=== PATIENT | female | born 1935 | race Caucasian/White ===

== ENCOUNTER 2019-09-16 21:14 | Inpatient (IN) | payer MEDICARE, BC ==
[2019-09-16] MEDS ORDERED: SODIUM CHLORIDE 0.9% 1,000 ML IV STA (22:00)
--- NOTE | 2019-09-16 22:03 | ED ---
General Adult HPI - General Chief complaint: Syncope Stated complaint: Syncope Time Seen by Provider: 09/16/19 21:40 Source: patient, family, RN notes reviewed Mode of arrival: EMS Limitations: no limitations - History of Present Illness Initial comments: Patient is a pleasant 84-year-old female presenting to the emergency department after a syncopal versus near syncopal episode. Patient was recently at [facility] and had PEG tube placed. This was secondary to weight loss and not eating. Patient went home today and while transferring an episode of unresponsiveness per the . He states this lasted for a couple of minutes. Patient states she just felt really dizzy and did not actually pass out. Patient feels fine at this point and has no complaints. Patient denies any confusion or isolated area of weakness. No chest pain or dyspnea. - Related Data Allergies Allergy/AdvReac Type Severity Reaction Status Date / Time cortisone Allergy Unknown Verified 09/16/19 21:48 Review of Systems ROS Statement: Those systems with pertinent positive or pertinent negative responses have been documented in the HPI. ROS Other: All systems not noted in ROS Statement are negative. Constitutional: Denies: fever Eyes: Denies: eye pain ENT: Denies: ear pain Respiratory: Denies: cough Cardiovascular: Denies: chest pain Endocrine: Denies: fatigue Gastrointestinal: Denies: abdominal pain, vomiting Genitourinary: Denies: dysuria Musculoskeletal: Denies: back pain Skin: Denies: rash Neurological: Denies: headache, weakness, confusion Past Medical History Past Medical History: Diabetes Mellitus, Osteoarthritis (OA), Rheumatoid Arthritis (RA) Additional Past Medical History / Comment(s): parkinsons History of Any Multi-Drug Resistant Organisms: None Reported Past Surgical History: Appendectomy, Hysterectomy, Orthopedic Surgery Additional Past Surgical History / Comment(s): peg tube, lt knee, bladder suspen champ Past Psychological History: No Psychological Hx Reported Smoking Status: Never smoker Past Alcohol Use History: None Reported Past Drug Use History: None Reported General Exam Limitations: no limitations General appearance: alert, in no apparent distress Head exam: Present: normocephalic Eye exam: Present: normal appearance, PERRL ENT exam: Present: normal oropharynx Neck exam: Present: normal inspection Respiratory exam: Present: normal lung sounds bilaterally Cardiovascular Exam: Present: regular rate, normal rhythm Expanded Peripheral pulses: 2+: Radial (R), Radial (L), Dorsalis Pedis (R), Dorsalis Pedis (L) GI/Abdominal exam: Present: soft, tenderness (Mild diffuse tenderness). Absent: distended Extremities exam: Present: normal inspection, full ROM. Absent: calf tenderness Neurological exam: Present: alert, oriented X3, CN II-XII intact. Absent: motor sensory deficit Expanded Neurological exam: Present: protecting the airway Patient oriented to: Present: person, place, time Speech: Present: fluid speech Motor strength exam: RUE: 5, LUE: 5, RLE: 5, LLE: 5 Psychiatric exam: Present: normal affect, normal mood Skin exam: Present: normal color Course Vital Signs 09/16/19 09/16/19 09/16/19 21:20 22:00 23:00 Temperature 98.4 F Pulse Rate 95 98 88 Respiratory 16 18 16 Rate Blood Pressure 96/44 101/34 118/48 O2 Sat by Pulse 97 100 99 Oximetry EKG Findings - EKG Comments: EKG Findings:: Normal sinus rhythm 93. SD 148. QRS 76. QT 340. QTc 422. Normal axis. Inferior Q waves. No acute ST change. Medical Decision Making - Medical Decision Making Patient reevaluated and resting comfortably in bed. Patient and updated on results. Case was discussed with practitioner Mehran, covering for Dr. Steward, who will admit for hospital call. - Lab Data Result diagrams: 09/16/19 22:05 09/16/19 22:05 Lab Results 09/16/19 09/16/19 09/16/19 Range/Units 22:05 22:05 22:05 WBC 9.9 (3.8-10.6) k/uL RBC 3.48 L (3.80-5.40) m/uL Hgb 9.2 L (11.4-16.0) gm/dL Hct 28.9 L (34.0-46.0) % MCV 83.0 (80.0-100.0) fL MCH 26.3 (25.0-35.0) pg MCHC 31.7 (31.0-37.0) g/dL RDW 15.7 H (11.5-15.5) % Plt Count 339 (150-450) k/uL Neutrophils % 88 % Lymphocytes % 5 % Monocytes % 5 % Eosinophils % 1 % Basophils % 0 % Neutrophils # 8.7 H (1.3-7.7) k/uL Lymphocytes # 0.5 L (1.0-4.8) k/uL Monocytes # 0.5 (0-1.0) k/uL Eosinophils # 0.1 (0-0.7) k/uL Basophils # 0.0 (0-0.2) k/uL Hypochromasia Slight PT 10.3 (9.0-12.0) sec INR 1.0 (<1.2) APTT 24.5 (22.0-30.0) sec Sodium 130 L (137-145) mmol/L Potassium 4.6 (3.5-5.1) mmol/L Chloride 93 L (98-107) mmol/L Carbon Dioxide 30 (22-30) mmol/L Anion Gap 7 mmol/L BUN 24 H (7-17) mg/dL Creatinine 0.89 (0.52-1.04) mg/dL Est GFR (CKD-EPI)AfAm 70 (>60 ml/min/1.73 sqM) Est GFR (CKD-EPI)NonAf 61 (>60 ml/min/1.73 sqM) Glucose 186 H (74-99) mg/dL POC Glucose (mg/dL) (75-99) mg/dL POC Glu Feather Duster Winder ID Calcium 8.7 (8.4-10.2) mg/dL Total Bilirubin 0.6 (0.2-1.3) mg/dL AST 21 (14-36) U/L ALT 13 (9-52) U/L Alkaline Phosphatase 70 (38-126) U/L Troponin I (0.000-0.034) ng/mL Total Protein 6.0 L (6.3-8.2) g/dL Albumin 3.1 L (3.5-5.0) g/dL Urine Color Urine Appearance (Clear) Urine pH (5.0-8.0) Ur Specific [place] (1.001-1.035) Urine Protein (Negative) Urine Glucose (UA) (Negative) Urine Blood (Negative) Urine Nitrite (Negative) Urine Bilirubin (Negative) Urine Urobilinogen (<2.0) mg/dL Ur Leukocyte Esterase (Negative) 09/16/19 09/16/19 09/16/19 Range/Units 22:05 22:10 23:00 WBC (3.8-10.6) k/uL RBC (3.80-5.40) m/uL Hgb (11.4-16.0) gm/dL Hct (34.0-46.0) % MCV (80.0-100.0) fL MCH (25.0-35.0) pg MCHC (31.0-37.0) g/dL RDW (11.5-15.5) % Plt Count (150-450) k/uL Neutrophils % % Lymphocytes % % Monocytes % % Eosinophils % % Basophils % % Neutrophils # (1.3-7.7) k/uL Lymphocytes # (1.0-4.8) k/uL Monocytes # (0-1.0) k/uL Eosinophils # (0-0.7) k/uL Basophils # (0-0.2) k/uL Hypochromasia PT (9.0-12.0) sec INR (<1.2) APTT (22.0-30.0) sec Sodium (137-145) mmol/L Potassium (3.5-5.1) mmol/L Chloride (98-107) mmol/L Carbon Dioxide (22-30) mmol/L Anion Gap mmol/L BUN (7-17) mg/dL Creatinine (0.52-1.04) mg/dL Est GFR (CKD-EPI)AfAm (>60 ml/min/1.73 sqM) Est GFR (CKD-EPI)NonAf (>60 ml/min/1.73 sqM) Glucose (74-99) mg/dL POC Glucose (mg/dL) 180 H (75-99) mg/dL POC Glu Feather Duster Winder ID Tylor Rollins Calcium (8.4-10.2) mg/dL Total Bilirubin (0.2-1.3) mg/dL AST (14-36) U/L ALT (9-52) U/L Alkaline Phosphatase (38-126) U/L Troponin I <0.012 (0.000-0.034) ng/mL Total Protein (6.3-8.2) g/dL Albumin (3.5-5.0) g/dL Urine Color Dark Brown Urine Appearance Clear (Clear) Urine pH 6.0 (5.0-8.0) Ur Specific [place] 1.024 (1.001-1.035) Urine Protein Trace H (Negative) Urine Glucose (UA) Trace H (Negative) Urine Blood Negative (Negative) Urine Nitrite Negative (Negative) Urine Bilirubin Negative (Negative) Urine Urobilinogen 4.0 (<2.0) mg/dL Ur Leukocyte Esterase Negative (Negative) - Radiology Data Radiology results: report reviewed (Computed tomography scan the brain shows atrophy. No acute process), image reviewed (Chest and abdominal x-ray show no acute process) Disposition Clinical Impression: Syncope Disposition: ADMITTED IP TO THIS HOSP Is patient prescribed a controlled substance at d/c from ED?: No Referrals: Tylor Pak DO [Primary Care Provider] - 1-2 days Decision Time: 23:23
[2019-09-16 22:13] LABS: Glucose,Whole Blood 180 mg/dL (75-99)
[2019-09-16 22:25] LABS: Basophils % (A) 0 %; Eosinophils # (A) 0.1 k/uL (0-0.7); Eosinophils % (A) 1 %; HCT 28.9 % (34.0-46.0); HGB 9.2 gm/dL (11.4-16.0); Hypochromasia Slight; Lymphocytes # (A) 0.5 k/uL (1.0-4.8); Lymphocytes % (A) 5 %; MCH 26.3 pg (25.0-35.0); MCHC 31.7 g/dL (31.0-37.0); Mean Platelet Volume 7.7; Monocytes # (A) 0.5 k/uL (0-1.0); Monocytes % (A) 5 %; Neutrophils # (A) 8.7 k/uL (1.3-7.7); Neutrophils % (A) 88 %; Platelet Count 339 k/uL (150-450); RBC 3.48 m/uL (3.80-5.40); RDW 15.7 % (11.5-15.5); WBC 9.9 k/uL (3.8-10.6)
[2019-09-16 22:32] LABS: Partial Thromboplastin Time 24.5 sec (22.0-30.0); Prothrombin Time 10.3 sec (9.0-12.0)
[2019-09-16 22:36] LABS: Albumin 3.1 g/dL (3.5-5.0); Calcium 8.7 mg/dL (8.4-10.2); Potassium 4.6 mmol/L (3.5-5.1); Total Bilirubin 0.6 mg/dL (0.2-1.3)
--- NOTE | 2019-09-16 22:39 | CT ---
EXAMINATION TYPE: CT brain wo con DATE OF EXAM: 09/16/2019 COMPARISON: None HISTORY: Syncope followed by n/v. Pt had peg tube placement yesterday. CT DLP: 1099.4 mGycm Automated exposure control for dose reduction was used. FINDINGS: There is some cerebral cortical atrophy. There is no mass effect nor midline shift. There is no sign of intracranial hemorrhage. Calvarium is intact. IMPRESSION: CEREBRAL ATROPHY. NO ACUTE INTRACRANIAL ABNORMALITY.
--- NOTE | 2019-09-16 22:41 | XR ---
EXAMINATION TYPE: XR chest 2V DATE OF EXAM: 09/16/2019 COMPARISON: NONE HISTORY: Syncope TECHNIQUE: Frontal and lateral views of the chest are obtained. FINDINGS: Heart is normal. Lungs are clear of infiltrate. Thoracic aorta is atheromatous. There is n o pleural effusion. There are chest leads. IMPRESSION: No active cardiopulmonary disease. Normal heart.
--- NOTE | 2019-09-16 22:42 | XR ---
EXAMINATION TYPE: XR abdomen 1V DATE OF EXAM: 09/16/2019 COMPARISON: NONE HISTORY: Abdominal pain TECHNIQUE: 2 views supine FINDINGS: There is contrast in the large bowel. There is no sign of intestinal obstruction or pneumop eritoneum. There is gastrostomy tube noted. There is vertebroplasty of T12 vertebra. IMPRESSION: Nonacute abdomen.
[2019-09-16 23:17] LABS: Appearance,Urine Clear (Clear); Bilirubin,Urine Negative (Negative); Blood,Urine Negative (Negative); Color,Urine Dark Brown; Glucose,Urine (UA) Trace (Negative); Ketones,Urine 2+ (Negative); Leukocyte Esterase,Urine Negative (Negative); Nitrite,Urine Negative (Negative); Protein,Urine Trace (Negative); Specific Gravity,Urine 1.024 (1.001-1.035)
[2019-09-16] MEDS ORDERED: NALOXONE 0.4 MG/ML 1 ML VIAL IV PRN (23:23)
[2019-09-17] MEDS: SODIUM CHLORIDE 0.9% 1,000 ML IV SCH ×3 (03:09→18:16)
[2019-09-17 03:53] LABS: Basophils % (A) 0 %; Eosinophils # (A) 0.1 k/uL (0-0.7); Eosinophils % (A) 1 %; HCT 25.3 % (34.0-46.0); HGB 8.1 gm/dL (11.4-16.0); Hypochromasia Slight; Lymphocytes # (A) 0.9 k/uL (1.0-4.8); Lymphocytes % (A) 10 %; MCH 26.6 pg (25.0-35.0); MCHC 32.1 g/dL (31.0-37.0); MCV 82.9 fL (80.0-100.0); Mean Platelet Volume 7.1; Monocytes # (A) 0.5 k/uL (0-1.0); Monocytes % (A) 6 %; Neutrophils # (A) 7.2 k/uL (1.3-7.7); Neutrophils % (A) 81 %; Platelet Count 303 k/uL (150-450); RBC 3.06 m/uL (3.80-5.40); RDW 15.3 % (11.5-15.5); WBC 8.8 k/uL (3.8-10.6)
[2019-09-17 04:14] LABS: Albumin 2.7 g/dL (3.5-5.0); Calcium 8.2 mg/dL (8.4-10.2); Potassium 4.2 mmol/L (3.5-5.1); Total Bilirubin 0.4 mg/dL (0.2-1.3); Total Protein 5.3 g/dL (6.3-8.2)
[2019-09-17 07:02] LABS: Glucose,Whole Blood 117 mg/dL (75-99)
[2019-09-17 11:51] LABS: Glucose,Whole Blood 116 mg/dL (75-99)
--- NOTE | 2019-09-17 15:28 | P.CRDCN ---
History of Present Illness Consult date: 09/17/19 Reason for Consult (text): Near syncopal episode History of present illness: This is an 84-year-old female with past medical history of diabetes mellitus type 2, hypothyroidism, gastroesophageal reflux disease, osteoarthritis, Parkinson's disease, osteoporosis. History is obtained from the patient's . Patient was recently hospitalized at [facility] for 9 days and discharged home on Thursday of last week. Patient has had significant decline related to her Parkinson's disease since November of this year with more rapid worsening since June of this shear. states that she has had vomiting episodes with weight loss and loss of energy since June. She was ambulating with a shuffled gait until recently and now she cannot stand up. Her voice is very weak and almost a whisper. While she was at [facility], patient had a PEG tube placed due to ongoing weight loss and she was discharged home on Thursday. states that patient was sitting on the commode chair and her eyes rolled back in her head and she was shaking and he thought she was dying. Patient had an emesis along with this which was the concern as she had just received through the PEG tube. He does not think there was any loss of c onsciousness. She has had similar episodes in the past and had a workup at [facility] but was told that there was no finding other than worsening Parkinson's. states that patient came in with abdominal pain and she has not had a bowel movement that he knows of for 3 weeks. EKG reveals sinus rhythm Laboratory studies: WBC 9.9, hemoglobin 9.2, platelet count 339. Sodium 1:30 and repeat this morning 128, potassium 4.2, chloride 96, CO2 30, BUN 24 and creatinine 0.89. Troponin is negative on 3 draws. CAT scan of the brain showed no acute findings with chronic cerebral atrophy. Chest x-ray showed no acute cardiopulmonary disease. Normal heart. Abdominal x-ray showed nonacute abdomen. Social history: Family history: Review Of Systems: Constitutional: No fever, no chills, no night sweats. No weight change. Reports severe and fatigue. EENT: No headache. No nasal drainage or congestion. No epistaxis. No sore throat. Lungs: No shortness of breath, cough, no sputum production. No wheezing. Cardiovascular: No chest pain, no lower extremity edema. No palpitations. No paroxysmal nocturnal dyspnea. No orthopnea. No lightheadedness or dizziness. No syncopal episodes. Abdominal: Reports bdominal pain. Reports vomiting. No diarrhea. Reports onstipation. No bloody or tarry stools. reports oss of appetite. Genitourinary: No dysuria, increased frequency, urgency. No urinary retention. Musculoskeletal: No myalgias. Reports uscle weakness, reports ait dysfunction, no frequent falls. No back pain. No neck pain. Integumentary: No wounds, no lesions. No rash or pruritus. No unusual bruising. No change in hair or nails. Neurologic: No aphasia. No facial droop. Reports change in mentation. No head injury. No headache. No paralysis. No paresthesia. Psychiatric: No depression. No anxiety. No mood swings. Endocrine: No abnormal blood sugars. No weight change. No excessive sweating or thirst. No cold intolerance. No weight change. Gen: This is a thin 84-year-old female. She is resting in bed and appears to be comfortable and in no acute distress. Afebrile, blood pressure 103/62, pulse ox 96% on room air, heart rate 86 HEENT: Head is atraumatic, normocephalic. Pupils round. Sclerae is anicteric. Oral mucous membranes are moist. NECK: Supple. No JVD. No lymphadenopathy. No thyromegaly. LUNGS: Clear to auscultation. No wheezes or rhonchi. No intercostal retractions. HEART: Regular rate and rhythm. No murmur. classroom monitor sinus rhythm. ABDOMEN: Soft. Bowel sounds are present. No masses. Generalized abdominal enderness. PEG tube in place with no significant drainage. EXTREMITIES: No pedal edema. No calf tenderness. NEUROLOGICAL: Patient is awake, alert and oriented x2. Severe generalized weakness Assessment: Near syncopal episode, most likely related to vasovagal episode Parkinson's disease Severe protein calorie malnutrition with muscle wasting, weight loss and vomiting Hypothyroidism Gastroesophageal reflux disease Hyperlipidemia Plan: Obtain records from [facility] of recent hospitalization including echocardiogram If no echocardiogram has been done at [facility], obtain one during this stay Continue Lipitor 20 mg at bedtime Further recommendations to follow based upon clinical course Thank you kindly for this consultation Nurse practitioner note has been reviewed, I agree with documented findings and plan of care. Patient was seen and examined. Past Medical History Past Medical History: Diabetes Mellitus, Eye Disorder, Hearing Disorder / Deafness, Osteoarthritis (OA), Rheumatoid Arthritis (RA), Syncope, Thyroid Disorder Additional Past Medical History / Comment(s): parkinsons, bleeding stomach ulcer when she was 19, stated pt appeared to have convulsions in after her sugar dropped to 34 at home, sugar was brought back up at home, did not go to the hospital. Legally blind in left eye, Hard of Hearing. History of Any Multi-Drug Resistant Organisms: None Reported Past Surgical History: Appendectomy, Bladder Surgery, Hysterectomy, Orthopedic Surgery Additional Past Surgical History / Comment(s): peg tube, right knee, bladder suspension Past Anesthesia/Blood Transfusion Reactions: No Reported Reaction Past Psychological History: No Psychological Hx Reported Smoking Status: Former smoker Past Alcohol Use History: None Reported Past Drug Use History: None Reported Additional Drug Use History / Comment(s): pt smoked "1 or 2" cigarettes a day and quit when she was 19. - Past Family History Mother Family Medical History: No Reported History Father Additional Family Medical History / Comment(s): passed from emphysema Sister(s) Family Medical History: Cancer, Myocardial Infarction ([place]) Additional Family Medical History / Comment(s): one sister passed from brain cancer at 28 years old. two other sisters passed from heart attacks Medications and Allergies Home Medications Medication Instructions Recorded Confirmed Type Carbidopa-Levodopa 25-100 mg 2 tab PEG/G-TUBE Q4H 09/16/19 09/16/19 History [Sinemet 25-100] Cefuroxime [Ceftin] 250 mg PEG/G-TUBE BID 09/16/19 09/16/19 History HYDROcodone/APAP 5-325MG [[place] 1 tab PEG/G-TUBE Q4HR PRN 09/16/19 09/16/19 History 5-325] Insulin Aspart Protam & Aspart 20 unit SQ QAM 09/16/19 09/16/19 History [NovoLOG MIX 70-30 Flexpen] Insulin Aspart Protam & Aspart 25 unit SQ HS 09/16/19 09/16/19 History [NovoLOG MIX 70-30 Flexpen] Levothyroxine Sodium [Synthroid] 50 mcg PEG/G-TUBE DAILY 09/16/19 09/16/19 History Omeprazole [PriLOSEC] 20 mg PEG/G-TUBE BID 09/16/19 09/16/19 History Simvastatin [Zocor] 40 mg PEG/G-TUBE HS 09/16/19 09/16/19 History Allergies Allergy/AdvReac Type Severity Reaction Status Date / Time cortisone Allergy Unknown Verified 09/16/19 23:37 Physical Exam Vitals: Vital Signs Temp Pulse Pulse Resp BP BP Pulse Ox 09/17/19 07:00 98.7 F 86 14 105/65 96 09/17/19 03:47 16 09/17/19 02:45 97.7 F 69 145/71 99 09/17/19 00:26 16 09/17/19 00:25 98.1 F 90 106/65 99 09/16/19 23:00 88 16 118/48 99 09/16/19 22:00 98 18 101/34 100 09/16/19 21:20 98.4 F 95 16 96/44 97 Intake and Output 09/16/19 09/17/19 09/17/19 22:59 06:59 14:59 Output Total 100 Balance -100 Output: Urine 100 Other: Voiding Method Bedside Commode Bedpan # Voids 1 Weight 58.967 kg 58.967 kg Results 09/17/19 03:24 09/17/19 03:24 Cardiac Enzymes 09/16/19 09/16/19 09/17/19 Range/Units 22:05 22:05 03:24 AST 21 (14-36) U/L Troponin I <0.012 <0.012 (0.000-0.034) ng/mL 09/17/19 09/17/19 Range/Units 03:24 09:11 AST 19 (14-36) U/L Troponin I <0.012 (0.000-0.034) ng/mL Coagulation 09/16/19 Range/Units 22:05 PT 10.3 (9.0-12.0) sec APTT 24.5 (22.0-30.0) sec CBC 09/16/19 09/17/19 Range/Units 22:05 03:24 WBC 9.9 8.8 (3.8-10.6) k/uL RBC 3.48 L 3.06 L (3.80-5.40) m/uL Hgb 9.2 L 8.1 L (11.4-16.0) gm/dL Hct 28.9 L 25.3 L (34.0-46.0) % Plt Count 339 303 (150-450) k/uL Comprehensive Metabolic Panel 09/16/19 09/17/19 Range/Units 22:05 03:24 Sodium 130 L 128 L (137-145) mmol/L Potassium 4.6 4.2 (3.5-5.1) mmol/L Chloride 93 L 96 L (98-107) mmol/L Carbon Dioxide 30 30 (22-30) mmol/L BUN 24 H 21 H (7-17) mg/dL Creatinine 0.89 0.75 (0.52-1.04) mg/dL Glucose 186 H 132 H (74-99) mg/dL Calcium 8.7 8.2 L (8.4-10.2) mg/dL AST 21 19 (14-36) U/L ALT 13 10 (9-52) U/L Alkaline Phosphatase 70 61 (38-126) U/L Total Protein 6.0 L 5.3 L (6.3-8.2) g/dL Albumin 3.1 L 2.7 L (3.5-5.0) g/dL Current Medications Generic Name Dose Route Start Last Admin Trade Name Freq PRN Reason Stop Dose Admin Sodium Chloride 1,000 mls @ 110 mls/hr 09/16/19 23:30 09/17/19 09:29 Saline 0.9% IV 110 mls/hr .[id number] LUIS Administration Naloxone HCl 0.2 mg 09/16/19 23:23 Narcan IV Q2M PRN Opioid Reversal Intake and Output 09/16/19 09/17/19 09/17/19 22:59 06:59 14:59 Output Total 100 Balance -100 Output: Urine 100 Other: Voiding Method Bedside Commode Bedpan # Voids 1 Weight 58.967 kg 58.967 kg Patient Weight 09/18/19 06:59 Weight 58.967 kg 09/17/19 03:24 09/17/19 03:24
--- NOTE | 2019-09-17 15:52 | P.HPIM ---
History of Present Illness H&P Date: 09/17/19 Chief Complaint: Near-syncope episode Ms. Srinivasan is an 84-year-old female with a past medical history of Parkinson's disease, rheumatoid arthritis, osteoarthritis, diabetes mellitus brought in by her after he noticed her eyes were rolling and she was unresponsive whil e transferring from her bed to the chair. He states that it lasted for a couple of minutes. As per the history from the patient she said that she felt very dizzy but did not actually pass out. Patient had a PEG tube placed at [facility] in [place] on the and she was discharged home yesterday. Her started her on Glucerna through the PEG tube and after that she threw up and had this episode of questionable syncope so he brought her to the hospital. Patient has Parkinson's disease and for the past 3-4 months has worsening of her symptoms but she is not able to get out of the bed by herself. Over the course of 2-3 months she was having difficulty in swallowing and so a PEG tube was placed. Patient had similar episode in the past and had workup done at [facility] in [place] was told that it was worsening of her Parkinson's disease. Patient denies having any chest pain or difficulty in breathing. No cough. No palpitations. No headache. Denies having any weakness of her extremities. She complains of excessive dryness of her mouth. Patient's last bowel movement was 3 weeks back. She complains of mild diffuse abdominal pain. She denies having any fevers chills or rigors. She denies having any lower extremity swelling. Denies having any sores or ulcers on her back. Patient denies having any dysuria or hematuria. Patient needs help transferring from the bed to a p articular chair and when she sits on the potty she please by herself. But since being admitted to the hospital her urine output is decreased. On the bladder scan she was found to have 4 50 mL of urine that was straight cathed. At the time of admission patient's vitals blood pressure 96 x 44 temperature 98.4 heart rate of 95 respiratory rate of 18 saturating at 97% on room air. She had a CT of the brain showing cerebral atrophy and no acute intracranial abnormality. Chest x-ray no acute cardiopulmonary disease and abdominal x-ray no acute abdomen. Her hemoglobin was low at 8.1 and sodium low at 128. Albumin 2.7. Urine was dark brown in color with negative nitrites and negative for mario kocyte esterase. Review of Systems REVIEW OF SYSTEMS: PSYCH: No anxiety or depression NEURO: Generalized weakness , No facial droop, No speech abnormalities. VASCULAR: No edema HEMATOLOGIC: No history of easy bleeding and bruising . RESPIRATORY: No cough, No SOB, No chest discomfort. IMMUNE: No recent infections INTEGUMENT: no rashes OPHTHALMOLOGIC: No blurry vision and no eye discharge : No dysuria or hematuria MUD PLANT OPERATOR: No bleeding PV CARDIAC: No chest pain , shortness of breath , paroxysmal nocturnal dyspnea MUSCULOSKELETAL : No Aches or pains in the joints or muscles. GI: As per HPI REVIEW of systems are negative except as mentioned above Past Medical History Past Medical History: Diabetes Mellitus, Eye Disorder, Hearing Disorder / Deafness, Osteoarthritis (OA), Rheumatoid Arthritis (RA), Syncope, Thyroid Disorder Additional Past Medical History / Comment(s): parkinsons, bleeding stomach ulcer when she was 19, stated pt appeared to have convulsions in after her sugar dropped to 34 at home, sugar was brought back up at home, did not go to the hospital. Legally blind in left eye, Hard of Hearing. History of Any Multi-Drug Resistant Organisms: None Reported Past Surgical History: Appendectomy, Bladder Surgery, Hysterectomy, Orthopedic Surgery Additional Past Surgical History / Comment(s): peg tube, right knee, bladder suspension Past Anesthesia/Blood Transfusion Reactions: No Reported Reaction Past Psychological History: No Psychological Hx Reported Smoking Status: Former smoker Past Alcohol Use History: None Reported Past Drug Use History: None Reported Additional Drug Use History / Comment(s): pt smoked "1 or 2" cigarettes a day and quit when she was 19. - Past Family History Mother Family Medical History: No Reported History Father Additional Family Medical History / Comment(s): passed from emphysema Sister(s) Family Medical History: Cancer, Myocardial Infarction ([place]) Additional Family Medical History / Comment(s): one sister passed from brain cancer at 28 years old. two other sisters passed from heart attacks Medications and Allergies Home Medications Medication Instructions Recorded Confirmed Type Carbidopa-Levodopa 25-100 mg 2 tab PEG/G-TUBE Q4H 09/16/19 09/16/19 History [Sinemet 25-100] Cefuroxime [Ceftin] 250 mg PEG/G-TUBE BID 09/16/19 09/16/19 History HYDROcodone/APAP 5-325MG [[place] 1 tab PEG/G-TUBE Q4HR PRN 09/16/19 09/16/19 History 5-325] Insulin Aspart Protam & Aspart 20 unit SQ QAM 09/16/19 09/16/19 History [NovoLOG MIX 70-30 Flexpen] Insulin Aspart Protam & Aspart 25 unit SQ HS 09/16/19 09/16/19 History [NovoLOG MIX 70-30 Flexpen] Levothyroxine Sodium [Synthroid] 50 mcg PEG/G-TUBE DAILY 09/16/19 09/16/19 History Omeprazole [PriLOSEC] 20 mg PEG/G-TUBE BID 09/16/19 09/16/19 History Simvastatin [Zocor] 40 mg PEG/G-TUBE HS 09/16/19 09/16/19 History Allergies Allergy/AdvReac Type Severity Reaction Status Date / Time cortisone Allergy Unknown Verified 09/16/19 23:37 Physical Exam Vitals: Vital Signs Temp Pulse Pulse Resp BP BP Pulse Ox 09/17/19 14:06 98.7 F 83 14 103/62 94 L 09/17/19 07:00 98.7 F 86 14 105/65 96 09/17/19 03:47 16 09/17/19 02:45 97.7 F 69 145/71 99 09/17/19 00:26 16 09/17/19 00:25 98.1 F 90 106/65 99 09/16/19 23:00 88 16 118/48 99 09/16/19 22:00 98 18 101/34 100 09/16/19 21:20 98.4 F 95 16 96/44 97 Intake and Output 09/17/19 09/17/19 09/17/19 06:59 14:59 22:59 Output Total 100 Balance -100 Output: Urine 100 Other: Voiding Method Bedside Commode Bedpan # Voids 1 Weight 58.967 kg GEN. APPEARANCE: No acute distress HEAD EXAM: atraumatic, normocephalic, normal inspection EYE EXAM: Mild pallor. No icterus. ENT EXAM: Mucous membrane is dry NECK EXAM: No JVD. No thyromegaly. RESPIRATORY EXAM: normal lung sounds bilaterally. No crackles or wheezes CARDIOVASCULAR EXAM: regular rate, normal rhythm, normal heart sounds. GI/ABDOMINAL EXAM: Diffuse mild tenderness. Normal bowel sounds. No guarding or rigidity. PEG tube site looks clean and dry EXTREMITIES EXAM: Not pedal edema. BACK EXAM: No skin breakdown. NEUROLOGICAL EXAM: alert, oriented X 2-3, no focal deficits PSYCHIATRIC EXAM: normal affect, normal mood SKIN EXAM: warm, dry, intact, normal color. Absent: rash Results CBC & Chem 7: 09/17/19 03:24 09/17/19 03:24 Labs: Abnormal Lab Results - Last 24 Hours (Table) 09/16/19 09/16/19 09/16/19 Range/Units 22:05 22:05 22:10 RBC 3.48 L (3.80-5.40) m/uL Hgb 9.2 L (11.4-16.0) gm/dL Hct 28.9 L (34.0-46.0) % RDW 15.7 H (11.5-15.5) % Neutrophils # 8.7 H (1.3-7.7) k/uL Lymphocytes # 0.5 L (1.0-4.8) k/uL Sodium 130 L (137-145) mmol/L Chloride 93 L (98-107) mmol/L BUN 24 H (7-17) mg/dL Glucose 186 H (74-99) mg/dL POC Glucose (mg/dL) 180 H (75-99) mg/dL Calcium (8.4-10.2) mg/dL Total Protein 6.0 L (6.3-8.2) g/dL Albumin 3.1 L (3.5-5.0) g/dL Urine Protein (Negative) Urine Glucose (UA) (Negative) Urine Ketones (Negative) 09/16/19 09/17/19 09/17/19 Range/Units 23:00 03:24 03:24 RBC 3.06 L (3.80-5.40) m/uL Hgb 8.1 L (11.4-16.0) gm/dL Hct 25.3 L (34.0-46.0) % RDW (11.5-15.5) % Neutrophils # (1.3-7.7) k/uL Lymphocytes # 0.9 L (1.0-4.8) k/uL Sodium 128 L (137-145) mmol/L Chloride 96 L (98-107) mmol/L BUN 21 H (7-17) mg/dL Glucose 132 H (74-99) mg/dL POC Glucose (mg/dL) (75-99) mg/dL Calcium 8.2 L (8.4-10.2) mg/dL Total Protein 5.3 L (6.3-8.2) g/dL Albumin 2.7 L (3.5-5.0) g/dL Urine Protein Trace H (Negative) Urine Glucose (UA) Trace H (Negative) Urine Ketones 2+ H (Negative) 09/17/19 09/17/19 Range/Units 07:01 11:49 RBC (3.80-5.40) m/uL Hgb (11.4-16.0) gm/dL Hct (34.0-46.0) % RDW (11.5-15.5) % Neutrophils # (1.3-7.7) k/uL Lymphocytes # (1.0-4.8) k/uL Sodium (137-145) mmol/L Chloride (98-107) mmol/L BUN (7-17) mg/dL Glucose (74-99) mg/dL POC Glucose (mg/dL) 117 H 116 H (75-99) mg/dL Calcium (8.4-10.2) mg/dL Total Protein (6.3-8.2) g/dL Albumin (3.5-5.0) g/dL Urine Protein (Negative) Urine Glucose (UA) (Negative) Urine Ketones (Negative) Thrombosis Risk Factor Assmnt - Choose All That Apply Each Risk Factor Represents 3 Points: Age 75 years or older Thrombosis Risk Factor Assessment Total Risk Factor Score: 3 Thrombosis Risk Factor Assessment Level: Moderate Risk Assessment and Plan Assessment: ASSESSMENT Near-syncope Hypovolemic Hyponatremia Dehydration Severe Protein calorie malnutrition PEG tube in place for nutrition Hypothyroidism GERD Anemia Parkinson's disease Rheumatoid arthritis Chronic debility Urinary retention Hypertension Type 2 diabetes mellitus PLAN: Patient looks dehydrated and her sodium was low at the time of admission, so she has been started on IV normal saline. Will repeat electrolytes. Will get the reports from Valeria Choi. Patient has been restarted on all her medications that she was discharged on from the other hospital. Will initiate her PEG tube feeds. The treatment plan was discussed in detail with the patient and her at the bedside in detail. Will also obtain neurology consult. Further recommendations to follow depending on the progress of the patient.
[2019-09-17 16:47] LABS: Glucose,Whole Blood 106 mg/dL (75-99)
[2019-09-17 16:49] LABS: African American GFR (CKD) >90 (>60 ml/min/1.73 sqM); Anion Gap 3 mmol/L; Blood Urea Nitrogen 15 mg/dL (7-17); Calcium 8.1 mg/dL (8.4-10.2); Carbon Dioxide 26 mmol/L (22-30); Chloride 103 mmol/L (98-107); Glucose 103 mg/dL (74-99); Non-African American GFR(CKD) 83 (>60 ml/min/1.73 sqM); Potassium 4.1 mmol/L (3.5-5.1); Sodium 132 mmol/L (137-145)
[2019-09-17] MEDS: INSULN ASP PRT/INSULIN ASPART 100 UNIT/ML 10 ML VIAL SQ SCH (16:58)
[2019-09-17] MEDS ORDERED: PANTOPRAZOLE 40 MG TABLET PO SCH (17:30)
[2019-09-17] MEDS: CARBIDOPA-LEVODOPA 25-100 MG 1 EACH TAB PEG/G-TUBE SCH ×2 (18:14→22:09)
[2019-09-17] MEDS: CEFDINIR ORAL SUSP 1,500 MG/60 ML BOTTLE PEG/G-TUBE SCH ×2 (18:15→22:10)
[2019-09-17] MEDS: PANTOPRAZOLE SODIUM 40 MG GRANULE PKT PO SCH (18:15)
[2019-09-17 21:48] LABS: Glucose,Whole Blood 125 mg/dL (75-99)
[2019-09-17] MEDS: ATORVASTATIN 20 MG TAB PEG/G-TUBE SCH (22:09)
[2019-09-17] MEDS: ENOXAPARIN 40 MG/0.4 ML SYRINGE SQ SCH (22:09)
[2019-09-18] MEDS: CARBIDOPA-LEVODOPA 25-100 MG 1 EACH TAB PEG/G-TUBE SCH ×6 (02:09→21:08)
[2019-09-18] MEDS: SODIUM CHLORIDE 0.9% 1,000 ML IV SCH ×2 (02:10→13:02)
[2019-09-18 06:32] LABS: African American GFR (CKD) >90 (>60 ml/min/1.73 sqM); Anion Gap 1 mmol/L; Blood Urea Nitrogen 14 mg/dL (7-17); Calcium 7.9 mg/dL (8.4-10.2); Carbon Dioxide 28 mmol/L (22-30); Chloride 105 mmol/L (98-107); Glucose 161 mg/dL (74-99); Non-African American GFR(CKD) 83 (>60 ml/min/1.73 sqM); Potassium 4.3 mmol/L (3.5-5.1); Sodium 134 mmol/L (137-145)
[2019-09-18] MEDS: LEVOTHYROXINE 50 MCG TAB PEG/G-TUBE SCH (06:39)
[2019-09-18 06:59] LABS: Basophils % (A) 0 %; Eosinophils # (A) 0.2 k/uL (0-0.7); Eosinophils % (A) 3 %; HCT 21.8 % (34.0-46.0); HGB 7.1 gm/dL (11.4-16.0); Hypochromasia Moderate; Lymphocytes % (A) 14 %; MCH 27.4 pg (25.0-35.0); MCHC 32.7 g/dL (31.0-37.0); MCV 83.8 fL (80.0-100.0); Mean Platelet Volume 7.4; Monocytes # (A) 0.5 k/uL (0-1.0); Monocytes % (A) 7 %; Neutrophils # (A) 5.4 k/uL (1.3-7.7); Neutrophils % (A) 75 %; Platelet Count 302 k/uL (150-450); RDW 15.8 % (11.5-15.5); WBC 7.3 k/uL (3.8-10.6)
[2019-09-18 07:08] LABS: Glucose,Whole Blood 200 mg/dL (75-99)
[2019-09-18 07:55] LABS: Polychromasia Present
--- NOTE | 2019-09-18 09:40 | P.PN ---
Subjective Progress Note Date: 09/18/19 This is a 84-year-old female who was admitted to the hospital with what looks like Vasovagal syncope after gastric feeding. Since admission patient hasn't had any recurrence of symptoms. Patient's a gastric feeding is controlled with pump. Complaints of mild discomfort. Denies any chest pain or shortness of breath. No arrhythmias are documented . Still waiting for the workup done at [facility] Objective - Vital Signs Vital signs: Vital Signs Temp 98.8 F 09/18/19 07:00 Pulse 82 09/18/19 07:00 Resp 14 09/18/19 07:00 BP 93/57 09/18/19 07:00 Pulse Ox 94 L 09/18/19 07:00 Intake & Output 09/17/19 09/18/19 09/18/19 18:59 06:59 18:59 Intake Total 45 Output Total 600 Balance -555 Weight 58.967 kg Intake: Tube Feeding 45 Output: Urine 600 Straight 600 Other: Voiding Method Diaper Diaper - Exam GENERAL EXAM: Patient is alert and oriented and doesn't appear to be in any acute distress HEENT: Normocephalic. Normal reaction of pupils, equal size, normal range of extraocular motion. No erythema or exudates in the throat. NECK: No masses, no nuchal rigidity. CHEST: No chest wall deformity. LUNGS: Equal air entry with no crackles or wheeze. HEART: S1 and S2 normal with no audible mumurs or gallops. Regular rhythm, femorals equal on both sides.. ABDOMEN: No hepatosplenomegaly, normal bowel sounds, no guarding or rigidity. SKIN: No rashes CENTRAL NERVOUS SYSTEM: No focal deficits. EXTREMITIES: No cyanosis, clubbing or edema. - Labs CBC & Chem 7: 09/18/19 05:44 09/18/19 05:44 Labs: Abnormal Lab Results - Last 24 Hours (Table) 09/17/19 09/17/19 09/17/19 Range/Units 11:49 16:11 16:46 RBC (3.80-5.40) m/uL Hgb (11.4-16.0) gm/dL Hct (34.0-46.0) % RDW (11.5-15.5) % Sodium 132 L (137-145) mmol/L Glucose 103 H (74-99) mg/dL POC Glucose (mg/dL) 116 H 106 H (75-99) mg/dL Calcium 8.1 L (8.4-10.2) mg/dL 09/17/19 09/18/19 09/18/19 Range/Units 21:47 05:44 05:44 RBC 2.60 L (3.80-5.40) m/uL Hgb 7.1 L (11.4-16.0) gm/dL Hct 21.8 L (34.0-46.0) % RDW 15.8 H (11.5-15.5) % Sodium 134 L (137-145) mmol/L Glucose 161 H (74-99) mg/dL POC Glucose (mg/dL) 125 H (75-99) mg/dL Calcium 7.9 L (8.4-10.2) mg/dL 09/18/19 Range/Units 07:07 RBC (3.80-5.40) m/uL Hgb (11.4-16.0) gm/dL Hct (34.0-46.0) % RDW (11.5-15.5) % Sodium (137-145) mmol/L Glucose (74-99) mg/dL POC Glucose (mg/dL) 200 H (75-99) mg/dL Calcium (8.4-10.2) mg/dL Assessment and Plan (1) Hyponatremia Current Visit: Yes Status: Acute Code(s): E87.1 - HYPO-OSMOLALITY AND HYPONATREMIA SNOMED Code(s): 61808378 (2) Syncope Current Visit: Yes Status: Acute Code(s): R55 - SYNCOPE AND COLLAPSE SNOMED Code(s): 206072240 Plan: No arrhythmias or hypotension noted. Symptoms seem to be related to gastric feeding and probably vasovagal reaction. We'll follow when necessary
[2019-09-18] MEDS: PANTOPRAZOLE SODIUM 40 MG GRANULE PKT PO SCH ×2 (09:45→18:13)
[2019-09-18] MEDS: ENOXAPARIN 40 MG/0.4 ML SYRINGE SQ SCH (09:54)
[2019-09-18] MEDS: INSULN ASP PRT/INSULIN ASPART 100 UNIT/ML 10 ML VIAL SQ SCH ×2 (09:54→18:12)
[2019-09-18] MEDS: CEFDINIR ORAL SUSP 1,500 MG/60 ML BOTTLE PEG/G-TUBE SCH ×2 (09:55→21:13)
[2019-09-18 11:51] LABS: Glucose,Whole Blood 199 mg/dL (75-99)
--- NOTE | 2019-09-18 13:08 | P.CNNES ---
History of Present Illness Consult date: 09/18/19 Reason for Consult: syncope Chief complaint: Syncope History of Present Illness: Ms. Stephanie Srinivasan is an 84-year-old female who was seen in neurologic consultation on 09/18/2019, regarding syncope. The history is primarily obtained from Mr. Srinivasan who is present in the room at the time of the evaluation. He reports that his had an episode of syncope, after she was sitting on the bedside commode. Patient has long history of Parkinson's disease. She has been getting worse and worse over the past several months. Now, is no longer able to walk. Since June, patient has had a tremendous amount of weight loss and had a PEG tube placed for feeding. Patient reportedly felt lightheaded after being transferred from her chair to commode. reports that her eyes were rolled back and she was unresponsive. In reviewing the notes it is reported that the patient does not believe she lost consc iousness. The patient's says that this is her third event like this. Patient is followed by a neurologist in [facility], for her Parkinson's disease. Her dosing of Sinemet was recently increased. 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 Patient's speech, per her is markedly different than what it used to be. Apparently the patient did have a hand tremor initially. When she was able to ambulate, she did have a shuffling gait and at times one of her legs would get stuck while attempting to walk. The patient was reportedly diagnosed with Parkinson's disease in 2003. She had been relatively stable for quite some time, until this year, when her symptoms seemed to rapidly progress. Review of Systems Constitutional: Reports poor appetite, Reports weakness, Reports weight loss Eyes: left decreased vision Ears: bilateral: decreased hearing Gastrointestinal: Reports abdominal pain, Reports dyspepsia, Reports vomiting Musculoskeletal: left: knee pain Neurological: Reports change in speech, Reports gait dysfunction, Reports he aring difficulties, Reports loss of vision, Reports memory loss, Reports weakness Past Medical History Past Medical History: Diabetes Mellitus, Eye Disorder, Hearing Disorder / Deafness, Osteoarthritis (OA), Rheumatoid Arthritis (RA), Syncope, Thyroid Disorder Additional Past Medical History / Comment(s): parkinsons, bleeding stomach ulcer when she was 19, stated pt appeared to have convulsions in after her sugar dropped to 34 at home, sugar was brought back up at home, did not go to the hospital. Legally blind in left eye, Hard of Hearing. History of Any Multi-Drug Resistant Organisms: None Reported Past Surgical History: Appendectomy, Bladder Surgery, Hysterectomy, Orthopedic Surgery Additional Past Surgical History / Comment(s): peg tube, right knee, bladder suspension Past Anesthesia/Blood Transfusion Reactions: No Reported Reaction Past Psychological History: No Psychological Hx Reported Smoking Status: Former smoker Past Alcohol Use History: None Reported Past Drug Use History: None Reported Additional Drug Use History / Comment(s): pt smoked "1 or 2" cigarettes a day and quit when she was 19. - Past Family History Mother Family Medical History: No Reported History Father Additional Family Medical History / Comment(s): passed from emphysema Sister(s) Family Medical History: Cancer, Myocardial Infarction ([place]) Additional Family Medical History / Comment(s): one sister passed from brain cancer at 28 years old. two other sisters passed from heart attacks Medications and Allergies Home Medications Medication Instructions Recorded Confirmed Type Carbidopa-Levodopa 25-100 mg 2 tab PEG/G-TUBE Q4H 09/16/19 09/16/19 History [Sinemet 25-100] Cefuroxime [Ceftin] 250 mg PEG/G-TUBE BID 09/16/19 09/16/19 History HYDROcodone/APAP 5-325MG [[place] 1 tab PEG/G-TUBE Q4HR PRN 09/16/19 09/16/19 History 5-325] Insulin Aspart Protam & Aspart 20 unit SQ QAM 09/16/19 09/16/19 History [NovoLOG MIX 70-30 Flexpen] Insulin Aspart Protam & Aspart 25 unit SQ HS 09/16/19 09/16/19 History [NovoLOG MIX 70-30 Flexpen] Levothyroxine Sodium [Synthroid] 50 mcg PEG/G-TUBE DAILY 09/16/19 09/16/19 History Omeprazole [PriLOSEC] 20 mg PEG/G-TUBE BID 09/16/19 09/16/19 History Simvastatin [Zocor] 40 mg PEG/G-TUBE HS 09/16/19 09/16/19 History Allergies Allergy/AdvReac Type Severity Reaction Status Date / Time cortisone Allergy Unknown Verified 09/16/19 23:37 Physical Examination - Vital Signs Vital Signs: Vital Signs Temp Pulse Resp BP Pulse Ox 09/18/19 07:00 98.8 F 82 14 93/57 94 L 09/18/19 04:00 16 09/18/19 02:22 98.8 F 84 16 92/55 95 09/18/19 02:00 16 09/17/19 19:53 16 09/17/19 19:48 98.4 F 80 16 99/61 94 L 09/17/19 14:06 98.7 F 83 14 103/62 94 L Intake and Output 09/17/19 09/18/19 09/18/19 22:59 06:59 14:59 Intake Total 45 240 Output Total 600 Balance -555 240 Intake: Tube Feeding 45 240 Output: Urine 600 Straight 600 Other: Voiding Method Diaper Diaper Weight 63 kg General: The patient is well-nourished, well-developed and in no acute distress. HEENT: Head is atraumatic, normocephalic. Fundus not visualized. There is no scleral icterus. Mucous membranes are moist. Neck: Supple, without bruits Heart: Regular rate and rhythm Lungs: Diminished breath sounds throughout Extremities: Without edema Neurological examination Mental status: Patient is awake and alert. She is oriented 3. Her speech is hypophonic. She has a normal blink rate. Facial expression is full. Cranial nerves: Pupils are equal, round and reactive to light. Visual field testing reveals a left visual field deficit. Extraocular muscles are intact. There is no nystagmus. Facial sensations intact. There is no facial asymmetry. Hearing is grossly intact. Uvula and palate are midline. Shoulder shrug is symmetric. Tongue protrudes midline. Motor: Strength in the upper extremities is 5/5. Distal lower extremity strength is 4/5. The patient is able to lift her legs off the bed, slightly. Tone is normal in the upper extremities and right lower extremity. Ears increased tone in the left lower extremity. Sensation: Intact to light touch temperature and vibration Coordination: Finger to nose testing and rapid alternating movements are intact. There is no evidence of tremor. There is no bradykinesia. Deep tendon reflexes: 1-2+/4+ throughout Gait: Not assessed Results - Laboratory Findings CBC and BMP: 09/18/19 05:44 09/18/19 05:44 Abnormal Lab Findings: Abnormal Labs 11/09/16/19 09/16/19 22:05 22:05 22:10 RBC 3.48 L Hgb 9.2 L Hct 28.9 L RDW 15.7 H Neutrophils # 8.7 H Lymphocytes # 0.5 L Sodium 130 L Chloride 93 L BUN 24 H Glucose 186 H POC Glucose (mg/dL) 180 H Calcium Total Protein 6.0 L Albumin 3.1 L Urine Protein Urine Glucose (UA) Urine Ketones 09/16/19 09/17/19 09/17/19 23:00 03:24 03:24 RBC 3.06 L Hgb 8.1 L Hct 25.3 L RDW Neutrophils # Lymphocytes # 0.9 L Sodium 128 L Chloride 96 L BUN 21 H Glucose 132 H POC Glucose (mg/dL) Calcium 8.2 L Total Protein 5.3 L Albumin 2.7 L Urine Protein Trace H Urine Glucose (UA) Trace H Urine Ketones 2+ H 09/17/19 09/17/19 09/17/19 07:01 11:49 16:11 RBC Hgb Hct RDW Neutrophils # Lymphocytes # Sodium 132 L Chloride BUN Glucose 103 H POC Glucose (mg/dL) 117 H 116 H Calcium 8.1 L Total Protein Albumin Urine Protein Urine Glucose (UA) Urine Ketones 09/17/19 09/17/19 09/18/19 16:46 21:47 05:44 RBC 2.60 L Hgb 7.1 L Hct 21.8 L RDW 15.8 H Neutrophils # Lymphocytes # Sodium Chloride BUN Glucose POC Glucose (mg/dL) 106 H 125 H Calcium Total Protein Albumin Urine Protein Urine Glucose (UA) Urine Ketones 09/18/19 09/18/19 09/18/19 05:44 07:07 11:49 RBC Hgb Hct RDW Neutrophils # Lymphocytes # Sodium 134 L Chloride BUN Glucose 161 H POC Glucose (mg/dL) 200 H 199 H Calcium 7.9 L Total Protein Albumin Urine Protein Urine Glucose (UA) Urine Ketones Assessment and Plan Assessment: Impressions 1. Syncope likely secondary to autonomic dysfunction related to Parkinson's disease 2. Anemia 3. Aphagia secondary to Parkinson's disease 4. Protein calorie malnutrition Plan: Recommendations 1. Midodrine 5 mg twice daily to support blood pressure 2. Patient and are advised to follow up with her neurologist regarding further care for Parkinson's disease and autonomic dysfunction 3. Consider physical therapy as an outpatient Thank you for allowing me to participate in the care of this patient Time with Patient: Greater than 30
[2019-09-18 16:53] LABS: Glucose,Whole Blood 156 mg/dL (75-99)
--- NOTE | 2019-09-18 17:00 | P.PN ---
Subjective Progress Note Date: 09/18/19 Principal diagnosis: near-syncope, hypovolemic hyponatremia Ms. Srinivasan is an 84-year-old female with a past medical history of Parkinson's disease, rheumatoid arthritis, osteoarthritis, diabetes mellitus brought in by her after he noticed her eyes were rolling and she was unresponsive while transferring from her bed to the chair. He states that it lasted for a couple of minutes. As per the history from the patient she said that she felt very dizzy but did not actually pass out. Patient had a PEG tube placed at [facility] in [place] on the and she was discharged home yesterday. Her started her on Glucerna through the PEG tube and after that she threw up and had this episode of questionable syncope so he brought her to the hospital. Patient has Parkinson's disease and for the past 3-4 months has worsening of her symptoms but she is not able to get out of the bed by herself. Over the course of 2-3 months she was having difficulty in swallowing and so a PEG tube was placed. Patient had similar episode in the past and had workup done at [facility] in [place] was told that it was worsening of her Parkinson's disease. on 09/18/2019 - patient is much more with it today. She states that she feels better than when she came in. Denies having any dizziness. States that her energy levels are better. Patient has been started on her PEG tube feeds with Glucerna. She denies having any fevers chills or rhinitis. No chest pain or palpitations. No cough or difficulty in breathing. No complaints of nausea or vomiting. Active Medications Hydrocodone Bitart/Acetaminophen ([place] 5-325) 1 each PEG/G-TUBE Q4HR PRN PRN Reason: Pain Atorvastatin Calcium (Lipitor) 20 mg PEG/G-TUBE HS [facility] Last Admin: 09/17/19 22:09 Dose: 20 mg Documented by: Carbidopa/Levodopa (Sinemet 25-100) 2 each PEG/G-TUBE Q4H [facility] Last Admin: 09/18/19 13:01 Dose: 2 each Documented by: Cefdinir (Omnicef Oral Susp) 300 mg PEG/G-TUBE BID [facility] Stop: 09/21/19 21:01 Last Admin: 09/18/19 09:55 Dose: 300 mg Documented by: Enoxaparin Sodium (Lovenox) 40 mg SQ DAILY [facility] Last Admin: 09/18/19 09:54 Dose: 40 mg Documented by: Sodium Chloride (Saline 0.9%) 1,000 mls @ 110 mls/hr IV .Q9H6M [facility] Last Admin: 09/18/19 13:02 Dose: 110 mls/hr Documented by: Insulin Aspart (Novolog Mix 70-30 Vial) 20 unit SQ AC-BRKFST [facility] Last Admin: 09/18/19 09:54 Dose: 20 unit Documented by: Insulin Aspart (Novolog Mix 70-30 Vial) 25 unit SQ AC-SUPPER [facility] Last Admin: 09/17/19 16:58 Dose: Not Given Documented by: Insulin Aspart (Novolog) 0 unit SQ Q6HR [facility]; Protocol Levothyroxine Sodium (Synthroid) 50 mcg PEG/G-TUBE 0630 [facility] Last Admin: 09/18/19 06:39 Dose: 50 mcg Documented by: Midodrine (Proamatine) 5 mg PEG/G-TUBE AC-BID [facility] Naloxone HCl (Narcan) 0.2 mg IV Q2M PRN PRN Reason: Opioid Reversal Pantoprazole Sodium (Protonix) 40 mg PO AC-BID [facility] Last Admin: 09/18/19 09:45 Dose: 40 mg Documented by: Objective - Vital Signs Vital signs: Vital Signs Temp 99.2 F 09/18/19 13:27 Pulse 82 09/18/19 13:27 Resp 16 09/18/19 13:27 BP 91/55 09/18/19 13:27 Pulse Ox 96 09/18/19 13:27 Intake & Output 09/17/19 09/18/19 09/18/19 18:59 06:59 18:59 Intake Total 45 420 Output Total 600 Balance -555 420 Weight 58.967 kg 63 kg Intake: Tube Feeding 45 420 Output: Urine 600 Straight 600 Other: Voiding Method Diaper Diaper Diaper - Exam GEN. APPEARANCE: No acute distress HEENT - no pallor. No JVD. RESPIRATORY EXAM: normal lung sounds bilaterally. No crackles or wheezes CARDIOVASCULAR EXAM: regular rate, normal rhythm, normal heart sounds. GI/ABDOMINAL EXAM: Diffuse mild tenderness. Normal bowel sounds. No guarding or rigidity. PEG tube site looks clean and dry NEUROLOGICAL EXAM: alert, oriented X 2-3, no focal deficits - Labs CBC & Chem 7: 09/18/19 05:44 09/18/19 05:44 Labs: Abnormal Lab Results - Last 24 Hours (Table) 09/17/19 09/18/19 09/18/19 Range/Units 21:47 05:44 05:44 RBC 2.60 L (3.80-5.40) m/uL Hgb 7.1 L (11.4-16.0) gm/dL Hct 21.8 L (34.0-46.0) % RDW 15.8 H (11.5-15.5) % Sodium 134 L (137-145) mmol/L Glucose 161 H (74-99) mg/dL POC Glucose (mg/dL) 125 H (75-99) mg/dL Calcium 7.9 L (8.4-10.2) mg/dL 09/18/19 09/18/19 09/18/19 Range/Units 07:07 11:49 16:52 RBC (3.80-5.40) m/uL Hgb (11.4-16.0) gm/dL Hct (34.0-46.0) % RDW (11.5-15.5) % Sodium (137-145) mmol/L Glucose (74-99) mg/dL POC Glucose (mg/dL) 200 H 199 H 156 H (75-99) mg/dL Calcium (8.4-10.2) mg/dL Assessment and Plan Assessment: ASSESSMENT Near-syncope Hypovolemic Hyponatremia Dehydration Severe Protein calorie malnutrition PEG tube in place for nutrition Hypothyroidism GERD Anemia Parkinson's disease Rheumatoid arthritis Chronic debility Urinary retention Hypertension Type 2 diabetes mellitus PLAN: patient's sodium improved to 134. She has been getting her Glucerna through the PEG tube without any issues. She looks much better compared to yesterday.Neurology has evaluated the patient and started her on Midodrine to improve her blood pressure.Cardiology has signed off. Further recommendations to follow depending on the progress of the patient.Anticipate discharge in the next 24 hours.
[2019-09-18] MEDS: INSULIN ASPART (NovoLOG) 100 UNIT/ML VIAL SQ SCH (18:11)
[2019-09-18] MEDS: MIDODRINE 5 MG TAB PEG/G-TUBE SCH (18:13)
[2019-09-18] MEDS: ATORVASTATIN 20 MG TAB PEG/G-TUBE SCH (21:08)
[2019-09-18] MEDS: HYDROcodone/APAP 5-325MG 1 EACH TAB PEG/G-TUBE PRN (21:11)
[2019-09-19] MEDS: SODIUM CHLORIDE 0.9% 1,000 ML IV SCH ×4 (01:09→23:43)
[2019-09-19] MEDS: CARBIDOPA-LEVODOPA 25-100 MG 1 EACH TAB PEG/G-TUBE SCH ×7 (01:15→23:43)
[2019-09-19 01:20] LABS: Glucose,Whole Blood 78 mg/dL (75-99)
[2019-09-19] MEDS: INSULIN ASPART (NovoLOG) 100 UNIT/ML VIAL SQ SCH ×5 (01:25→23:40)
[2019-09-19 02:19] LABS: Glucose,Whole Blood 143 mg/dL (75-99)
[2019-09-19] MEDS: LEVOTHYROXINE 50 MCG TAB PEG/G-TUBE SCH (05:26)
[2019-09-19 05:46] LABS: Glucose,Whole Blood 78 mg/dL (75-99)
[2019-09-19 06:52] LABS: African American GFR (CKD) >90 (>60 ml/min/1.73 sqM); Blood Urea Nitrogen 12 mg/dL (7-17); Calcium 7.7 mg/dL (8.4-10.2); Carbon Dioxide 25 mmol/L (22-30); Glucose 72 mg/dL (74-99); Non-African American GFR(CKD) 82 (>60 ml/min/1.73 sqM); Potassium 4.3 mmol/L (3.5-5.1); Sodium 135 mmol/L (137-145)
[2019-09-19 07:02] LABS: Glucose,Whole Blood 99 mg/dL (75-99)
[2019-09-19 07:04] LABS: Anion Gap 3 mmol/L; Chloride 107 mmol/L (98-107)
--- NOTE | 2019-09-19 07:23 | XR ---
EXAMINATION TYPE: XR chest 1V DATE OF EXAM: 09/19/2019 COMPARISON: 09/16/2019 HISTORY: 84-year-old female with aspiration, syncope TECHNIQUE: Single frontal view of the chest is obtained. FINDINGS: Heart normal size. Mild elongation thoracic aorta. Some stranding atelectasis at the left base. No fr ank airspace disease is seen at this time. Suggestion of a calcified granuloma peripheral right base. Oral contrast material within the colon. IMPRESSION: Chronic-appearing changes, suspect prior granulomatous disease as well. No focal infiltrate seen at t his time.
[2019-09-19] MEDS: MIDODRINE 5 MG TAB PEG/G-TUBE SCH ×2 (09:01→17:15)
[2019-09-19] MEDS: PANTOPRAZOLE SODIUM 40 MG GRANULE PKT PO SCH ×2 (09:01→17:15)
[2019-09-19] MEDS: HYDROcodone/APAP 5-325MG 1 EACH TAB PEG/G-TUBE PRN (09:01)
[2019-09-19] MEDS: CEFDINIR ORAL SUSP 1,500 MG/60 ML BOTTLE PEG/G-TUBE SCH ×2 (09:01→22:16)
[2019-09-19] MEDS: ENOXAPARIN 40 MG/0.4 ML SYRINGE SQ SCH (09:02)
[2019-09-19] MEDS: INSULN ASP PRT/INSULIN ASPART 100 UNIT/ML 10 ML VIAL SQ SCH ×2 (09:02→17:03)
[2019-09-19 09:49] LABS: Hemoglobin A1C 7.4 % (4.0-6.0)
--- NOTE | 2019-09-19 10:45 | CDI ---
Documentation Clarification Form Date: 09/19/2019 10:37:31 AM From: Darshana ConcepcionSmallSOPHIA rosales, CCDS Admit Date: 09/17/2019 2:57:00 PM Patient Name: Stephanie Srinivasan Visit Number: [id number] Discharge Date: ATTENTION: The Clinical Documentation Specialists (CDI) and [facility] Coding Staff appreciate your assistance in clarifying documentation. Please respond to the clarification below the line at the bottom and electronically sign. The CDI & [facility] Coding staff will review the response and follow-up if needed. Please note: Queries are made part of the Legal Health Record. If you have any questions, please contact the author of this message via ITS. Dr. Ami Carbajal: A diagnosis of anemia lacks specificity to accurately reflect your patients severity of condition and clarification is needed. Per the History & Physical & subsequent progress notes, anemia is documented without further specificity. History/Risk Factors: Parkinsons disease, Hypothyroidism, GERD, Rheumatoid arthritis, Hypertension & IDDM II. Clinical indicators: Presented with near syncopal episode. Recently admitted to [facility], was being transferred to home when syncopal episode occurred. Had PEG tube placed at [place] for severe protein calorie malnutrition. Admitted with dehydration, hyponatremia & possible syncope due to Parkinson's disease. Hemoglobin: 9.2 - 8.1 Hematocrit: 28.9 - 25.3 Treatment: IV fluid 100 & 110, Home meds received via PEG tube, Insulin sq In order to capture the severity of condition, please clarify the type of anemia and etiology if known: Chronic blood loss anemia Iron deficiency anemia Hemolytic anemia Drug induced anemia Nutritional anemia Unable to determine Other, please specify Nutritional anemia MTDD
[2019-09-19 11:35] LABS: Glucose,Whole Blood 152 mg/dL (75-99)
--- NOTE | 2019-09-19 15:08 | P.PN ---
Subjective Progress Note Date: 09/19/19 Principal diagnosis: Near-syncope, hypovolemic hyponatremia Ms. Srinivasan is an 84-year-old female with a past medical history of Parkinson's disease, rheumatoid arthritis, osteoarthritis, diabetes mellitus brought in by her after he noticed her eyes were rolling and she was unresponsive while transferring from her bed to the chair. He states that it lasted for a couple of minutes. As per the history from the patient she said that she felt very dizzy but did not actually pass out. Patient had a PEG tube placed at [facility] in [place] on the and she was discharged home yesterday. Her started her on Glucerna through the PEG tube and after that she threw up and had this episode of questionable syncope so he brought her to the hospital. Patient has Parkinson's disease and for the past 3-4 months has worsening of her symptoms but she is not able to get out of the bed by herself. Over the course of 2-3 months she was having difficulty in swallowing and so a PEG tube was placed. Patient had similar episode in the past and had workup done at [facility] in [place] was told that it was worsening of her Parkinson's disease. On 09/19/2019 - as per the nursing staff report patient threw up last night. Since then her PEG tube feeds have been on hold. As the patient is nothing by mouth, she has been getting only the medications through her PEG tube. Patient has some residual so for around 25-30 mL. Patient has dementia, she does not number the episode of vomiting last night. But right now patient denies having any cough or difficulty in breathing. No chest pain or palpitations. She denies having any fevers chills or rigors. Patient's vitals have been stable she does not have fever, her blood pressure has been running low but that is normal for her. Basic metabolic panel from this morning is within normal limits. Active Medications Hydrocodone Bitart/Acetaminophen ([place] 5-325) 1 each PEG/G-TUBE Q4HR PRN PRN Reason: Pain Last Admin: 09/19/19 09:01 Dose: 1 each Documented by: Atorvastatin Calcium (Lipitor) 20 mg PEG/G-TUBE HS [facility] Last Admin: 09/18/19 21:08 Dose: 20 mg Documented by: Carbidopa/Levodopa (Sinemet 25-100) 2 each PEG/G-TUBE Q4H [facility] Last Admin: 09/19/19 12:56 Dose: 2 each Documented by: Cefdinir (Omnicef Oral Susp) 300 mg PEG/G-TUBE BID [facility] Stop: 09/21/19 21:01 Last Admin: 09/19/19 09:01 Dose: 300 mg Documented by: Enoxaparin Sodium (Lovenox) 40 mg SQ DAILY [facility] Last Admin: 09/19/19 09:02 Dose: 40 mg Documented by: Sodium Chloride (Saline 0.9%) 1,000 mls @ 110 mls/hr IV .Q9H6M [facility] Last Admin: 09/19/19 05:26 Dose: 110 mls/hr Documented by: Insulin Aspart (Novolog Mix 70-30 Vial) 20 unit SQ AC-BRKFST [facility] Last Admin: 09/19/19 09:02 Dose: Not Given Documented by: Insulin Aspart (Novolog Mix 70-30 Vial) 25 unit SQ AC-SUPPER [facility] Last Admin: 09/18/19 18:12 Dose: 25 unit Documented by: Insulin Aspart (Novolog) 0 unit SQ Q6HR [facility]; Protocol Last Admin: 09/19/19 12:56 Dose: 1 unit Documented by: Levothyroxine Sodium (Synthroid) 50 mcg PEG/G-TUBE 0630 [facility] Last Admin: 09/19/19 05:26 Dose: Not Given Documented by: Midodrine (Proamatine) 5 mg PEG/G-TUBE AC-BID [facility] Last Admin: 09/19/19 09:01 Dose: 5 mg Documented by: Naloxone HCl (Narcan) 0.2 mg IV Q2M PRN PRN Reason: Opioid Reversal Pantoprazole Sodium (Protonix) 40 mg PO AC-BID [facility] Last Admin: 09/19/19 09:01 Dose: 40 mg Documented by: Objective - Vital Signs Vital signs: Vital Signs Temp 98.2 F 09/19/19 07:00 Pulse 78 09/19/19 08:00 Resp 14 09/19/19 08:00 BP 90/56 09/19/19 07:00 Pulse Ox 95 09/19/19 07:00 Intake & Output 09/18/19 09/19/19 09/19/19 18:59 06:59 18:59 Intake Total 720 300 Output Total 100 Balance 720 300 -100 Weight 63 kg 64 kg Intake: Tube Feeding 720 300 Output: Urine 100 Other: Voiding Method Diaper Diaper Diaper # Voids 1 1 - Exam GEN. APPEARANCE: No acute distress HEENT - no pallor. No JVD. RESPIRATORY EXAM: normal lung sounds bilaterally. No crackles or wheezes CARDIOVASCULAR EXAM: regular rate, normal rhythm, normal heart sounds. GI/ABDOMINAL EXAM: Diffuse mild tenderness. Normal bowel sounds. No guarding or rigidity. PEG tube site looks clean and dry. NEUROLOGICAL EXAM: alert, oriented X 2-3, no focal deficits - Labs CBC & Chem 7: 09/18/19 05:44 09/19/19 05:54 Labs: Abnormal Lab Results - Last 24 Hours (Table) 09/18/19 09/18/19 09/19/19 Range/Units 05:44 16:52 02:16 Sodium (137-145) mmol/L Glucose (74-99) mg/dL POC Glucose (mg/dL) 156 H 143 H (75-99) mg/dL Hemoglobin A1c 7.4 H (4.0-6.0) % Calcium (8.4-10.2) mg/dL 09/19/19 09/19/19 Range/Units 05:54 11:35 Sodium 135 L (137-145) mmol/L Glucose 72 L (74-99) mg/dL POC Glucose (mg/dL) 152 H (75-99) mg/dL Hemoglobin A1c (4.0-6.0) % Calcium 7.7 L (8.4-10.2) mg/dL Assessment and Plan Assessment: ASSESSMENT Near-syncope Hypovolemic Hyponatremia Dehydration Severe Protein calorie malnutrition PEG tube in place for nutrition Hypothyroidism GERD Anemia Parkinson's disease Rheumatoid arthritis Chronic debility Urinary retention Hypertension Type 2 diabetes mellitus PLAN: The patient had a vomiting episode last night, so her PEG tube feedings have been on hold. We will consult surgery for the management of PEG tube. Patient's vitals and labs within normal limits. We'll continue with the current medication regimen.
[2019-09-19] MEDS ORDERED: IOPAMIDOL CONTRAST (ORAL USE) VIAL PO PRN (15:59)
[2019-09-19 16:35] LABS: Glucose,Whole Blood 94 mg/dL (75-99)
[2019-09-19] MEDS: ATORVASTATIN 20 MG TAB PEG/G-TUBE SCH (20:40)
[2019-09-19 23:41] LABS: Glucose,Whole Blood 95 mg/dL (75-99)
[2019-09-20] MEDS: CARBIDOPA-LEVODOPA 25-100 MG 1 EACH TAB PEG/G-TUBE SCH ×6 (03:51→23:20)
[2019-09-20] MEDS: LEVOTHYROXINE 50 MCG TAB PEG/G-TUBE SCH (05:18)
[2019-09-20 05:26] LABS: Glucose,Whole Blood 95 mg/dL (75-99)
[2019-09-20] MEDS: INSULIN ASPART (NovoLOG) 100 UNIT/ML VIAL SQ SCH ×3 (05:28→17:44)
[2019-09-20 07:01] LABS: Anisocytosis Moderate; Basophils % (A) 0 %; Eosinophils # (A) 0.2 k/uL (0-0.7); Eosinophils % (A) 3 %; HCT 23.2 % (34.0-46.0); HGB 7.3 gm/dL (11.4-16.0); Hypochromasia Moderate; Lymphocytes # (A) 0.7 k/uL (1.0-4.8); Lymphocytes % (A) 11 %; MCH 27.5 pg (25.0-35.0); MCHC 31.6 g/dL (31.0-37.0); MCV 86.9 fL (80.0-100.0); Mean Platelet Volume 7.4; Monocytes # (A) 0.5 k/uL (0-1.0); Monocytes % (A) 7 %; Neutrophils # (A) 5.2 k/uL (1.3-7.7); Neutrophils % (A) 78 %; Platelet Count 321 k/uL (150-450); Poikilocytosis Slight; RBC 2.67 m/uL (3.80-5.40); RDW 20.9 % (11.5-15.5); WBC 6.6 k/uL (3.8-10.6)
[2019-09-20 07:15] LABS: African American GFR (CKD) >90 (>60 ml/min/1.73 sqM); Anion Gap 4 mmol/L; Blood Urea Nitrogen 7 mg/dL (7-17); Calcium 7.6 mg/dL (8.4-10.2); Carbon Dioxide 24 mmol/L (22-30); Chloride 109 mmol/L (98-107); Glucose 90 mg/dL (74-99); Non-African American GFR(CKD) 84 (>60 ml/min/1.73 sqM); Potassium 4.3 mmol/L (3.5-5.1); Sodium 137 mmol/L (137-145)
[2019-09-20 07:55] LABS: Glucose,Whole Blood 96 mg/dL (75-99)
[2019-09-20] MEDS: INSULN ASP PRT/INSULIN ASPART 100 UNIT/ML 10 ML VIAL SQ SCH ×2 (10:12→17:44)
[2019-09-20] MEDS: CEFDINIR ORAL SUSP 1,500 MG/60 ML BOTTLE PEG/G-TUBE SCH (10:14)
[2019-09-20] MEDS: PANTOPRAZOLE SODIUM 40 MG GRANULE PKT PO SCH ×2 (10:15→17:55)
[2019-09-20] MEDS: ENOXAPARIN 40 MG/0.4 ML SYRINGE SQ SCH (10:15)
[2019-09-20] MEDS: MIDODRINE 5 MG TAB PEG/G-TUBE SCH ×2 (10:15→17:54)
[2019-09-20] MEDS ORDERED: PEG 3350-NA SULF,BICARB,CL/KCL 4,000 ML BOTTLE PO ONE (11:15)
[2019-09-20] MEDS ORDERED: ACETAMINOPHEN TAB 325 MG TAB PO PRN (11:29)
[2019-09-20 11:41] LABS: Glucose,Whole Blood 115 mg/dL (75-99)
[2019-09-20] MEDS: SODIUM CHLORIDE 0.9% 1,000 ML IV SCH ×2 (12:41→20:23)
--- NOTE | 2019-09-20 15:08 | P.GSCN ---
History of Present Illness Consult date: 09/20/19 Reason for Consult: PEG tube pain, increased residuals Requesting physician: Evette Avalos History of present illness: CHIEF COMPLAINT: PEG tube pain HISTORY OF PRESENT ILLNESS: 84-year-old female who was originally admitted to the hospital secondary to syncope. General surgery was consulted to evaluate patient's PEG tube site as she has been complaining of increased pain at the peg tube site.According to nursing, the patient was not had residuals over 100cc, but she had a large emesis and her tube feedings were discontinued. Patients is at the bedside and gives majority of HPI. The patient was hospitalized at [facility] earlier this month. Patient's reports the patient has lost almost 30 pounds over the past few months and was having difficulty eating. The patient underwent an EGD on 07/05/2019 that revealed mild erythema of the antrum, body, biopsy for H pylori was negative, diminished gastric contractility, esophageal hiatal hernia. Patient underwent CT abdomen and pelvis on 09/07/2019 with oral contrast and was negative for an acute process according to radiology dictation. Patient also underwent a gastric emptying study on 08/30/2019 which is reported as normal. The patient underwent PEG tube placement on 09/13/[address] Car Hahn. Patients reported she was tolerating tube feedings at discharge. PAST MEDICAL HISTORY: See list. PAST SURGICAL HISTORY: See list. SOCIAL HISTORY: No illicit drug use. REVIEW OF SYSTEMS: CONSTITUTIONAL: Denies fever or chills. HEENT: Denies blurred vision, vision changes, or eye pain. Denies hemoptysis CARDIOVASCULAR: Denies chest pain or pressure. RESPIRATORY: No shortness of breath. GASTROINTESTINAL: Refer to HPI for pertinent findings HEMATOLOGIC: Denies bleeding disorders. GENITOURINARY: Denies any blood in urine. SKIN: Denies pruitis. Denies rash. PHYSICAL EXAM: VITAL SIGNS: Reviewed. GENERAL: Well-developed in no acute distress. HEENT: No sclera icterus. Extraocular movements grossly intact. Moist buccal mucosa. Head is atraumatic, normocephalic. ABDOMEN: Soft. Nondistended. PEG tube intact without redness or drainage. Mild tenderness with palpation around PEG site. NEUROLOGIC: Alert and oriented. Cranial nerves II through XII grossly intact. LABORATORY DATA: Most recent laboratory data reveals WBC 6.6. Hemoglobin 7.3. Platelet count 321. Potassium 4.3. BUN 7. Creatinine 0.62. ASSESSMENT: 1. Abdominal pain with isolated episode of vomiting 2. Recent PEG tube placement, 09/13/19 3. History of EGD on 07/05/2019 that revealed mild erythema of the antrum, body, biopsy for H pylori was negative, diminished gastric contractility, esophageal hiatal hernia PLAN: -CT abdomen pelvis with ordered yesterday with oral contrast. Unable to be completed due to patients colon is full of barium and causing streaking of the images from patients previous CT scan completed 09/07/19 at [facility] -Patient to receive 2L GoLYTELY bowel cleanse today to flush out CT barium. Do not resume tube feedings at this time. Will re-evaluate tomorrow and pending bowel cleanse results, can hopefully resume tomorrow Nurse practitioner note has been reviewed by physician. Signing provider agrees with the documented findings, assessment, and plan of care. Past Medical History Past Medical History: Diabetes Mellitus, Eye Disorder, Hearing Disorder / Deafness, Osteoarthritis (OA), Rheumatoid Arthritis (RA), Syncope, Thyroid Disorder Additional Past Medical History / Comment(s): parkinsons, bleeding stomach ulcer when she was 19, stated pt appeared to have convulsions in after her sugar dropped to 34 at home, sugar was brought back up at home, did not go to the hospital. Legally blind in left eye, Hard of Hearing. History of Any Multi-Drug Resistant Organisms: None Reported Past Surgical History: Appendectomy, Bladder Surgery, Hysterectomy, Orthopedic Surgery Additional Past Surgical History / Comment(s): peg tube, right knee, bladder suspension Past Anesthesia/Blood Transfusion Reactions: No Reported Reaction Past Psychological History: No Psychological Hx Reported Smoking Status: Former smoker Past Alcohol Use History: None Reported Past Drug Use History: None Reported Additional Drug Use History / Comment(s): pt smoked "1 or 2" cigarettes a day and quit when she was 19. - Past Family History Mother Family Medical History: No Reported History Father Additional Family Medical History / Comment(s): passed from emphysema Sister(s) Family Medical History: Cancer, Myocardial Infarction ([place]) Additional Family Medical History / Comment(s): one sister passed from brain cancer at 28 years old. two other sisters passed from heart attacks Medications and Allergies Home Medications Medication Instructions Recorded Confirmed Type Carbidopa-Levodopa 25-100 mg 2 tab PEG/G-TUBE Q4H 09/16/19 09/16/19 History [Sinemet 25-100] Cefuroxime [Ceftin] 250 mg PEG/G-TUBE BID 09/16/19 09/16/19 History HYDROcodone/APAP 5-325MG [[place] 1 tab PEG/G-TUBE Q4HR PRN 09/16/19 09/16/19 History 5-325] Insulin Aspart Protam & Aspart 20 unit SQ QAM 09/16/19 09/16/19 History [NovoLOG MIX 70-30 Flexpen] Insulin Aspart Protam & Aspart 25 unit SQ HS 09/16/19 09/16/19 History [NovoLOG MIX 70-30 Flexpen] Levothyroxine Sodium [Synthroid] 50 mcg PEG/G-TUBE DAILY 09/16/19 09/16/19 History Omeprazole [PriLOSEC] 20 mg PEG/G-TUBE BID 09/16/19 09/16/19 History Simvastatin [Zocor] 40 mg PEG/G-TUBE HS 09/16/19 09/16/19 History Allergies Allergy/AdvReac Type Severity Reaction Status Date / Time cortisone Allergy Unknown Verified 09/16/19 23:37 Surgical - Exam Vital Signs Temp Pulse Resp BP Pulse Ox 98.4 F 95 16 96/44 97 09/16/19 21:20 09/16/19 21:20 09/16/19 21:20 09/16/19 21:20 09/16/19 21:20 Results - Labs 09/20/19 06:16 09/20/19 06:16 Abnormal Lab Results - Last 24 Hours (Table) 09/20/19 09/20/19 09/20/19 Range/Units 06:16 06:16 11:37 RBC 2.67 L (3.80-5.40) m/uL Hgb 7.3 L (11.4-16.0) gm/dL Hct 23.2 L (34.0-46.0) % RDW 20.9 H (11.5-15.5) % Lymphocytes # 0.7 L (1.0-4.8) k/uL Chloride 109 H (98-107) mmol/L POC Glucose (mg/dL) 115 H (75-99) mg/dL Calcium 7.6 L (8.4-10.2) mg/dL Diabetes panel 09/20/19 Range/Units 06:16 Sodium 137 (137-145) mmol/L Potassium 4.3 (3.5-5.1) mmol/L Chloride 109 H (98-107) mmol/L Carbon Dioxide 24 (22-30) mmol/L BUN 7 (7-17) mg/dL Creatinine 0.62 (0.52-1.04) mg/dL Glucose 90 (74-99) mg/dL Calcium 7.6 L (8.4-10.2) mg/dL Calcium panel 09/20/19 Range/Units 06:16 Calcium 7.6 L (8.4-10.2) mg/dL Pituitary panel 09/20/19 Range/Units 06:16 Sodium 137 (137-145) mmol/L Potassium 4.3 (3.5-5.1) mmol/L Chloride 109 H (98-107) mmol/L Carbon Dioxide 24 (22-30) mmol/L BUN 7 (7-17) mg/dL Creatinine 0.62 (0.52-1.04) mg/dL Glucose 90 (74-99) mg/dL Calcium 7.6 L (8.4-10.2) mg/dL Adrenal panel 09/20/19 Range/Units 06:16 Sodium 137 (137-145) mmol/L Potassium 4.3 (3.5-5.1) mmol/L Chloride 109 H (98-107) mmol/L Carbon Dioxide 24 (22-30) mmol/L BUN 7 (7-17) mg/dL Creatinine 0.62 (0.52-1.04) mg/dL Glucose 90 (74-99) mg/dL Calcium 7.6 L (8.4-10.2) mg/dL
--- NOTE | 2019-09-20 15:17 | P.PN ---
Subjective 84-year-old female with a past medical history of Parkinson's disease, rheumatoid arthritis, osteoarthritis, diabetes mellitus brought in by her hus band after he noticed her eyes were rolling and she was unresponsive while transferring from her bed to the chair. He states that it lasted for a couple of minutes. As per the history from the patient she said that she felt very dizzy but did not actually pass out. Patient had a PEG tube placed at [facility] in [place] on the and she was discharged home yesterday. Her started her on Glucerna through the PEG tube and after that she threw up and had this episode of questionable syncope so he brought her to the hospital. Patient has Parkinson's disease and for the past 3-4 months has worsening of her symptoms but she is not able to get out of the bed by herself. Over the course of 2-3 months she was having difficulty in swallowing and so a PEG tube was placed. Patient had similar episode in the past and had workup done at [facility] in [place] was told that it was worsening of her Parkinson's disease. on 09/18/2019 - patient is much more with it today. She states that she feels better than when she came in. Denies having any dizziness. States that her energy levels are better. Patient has been started on her PEG tube feeds with Glucerna. She denies having any fevers chills or rhinitis. No chest pain or palpitations. No cough or difficulty in breathing. No complaints of nausea or vomiting. 09/20/2019 Patient's tube feedings are on hold and the surgery is planning on giving GoLYTELY before starting back on 2 feedings. Patient had a bowel movement yesterday. norco Will be discontinued and patient will be started on once Tylenol for pain. Patient is on Ceftin I don't see a reason for these antibiotics apparently patient has been on these antibiotics since early September. Constitutional: Denied any fatigue denied any fever. Cardio vascular: denied any chest pain, palpitations Gastrointestinal denied any nausea vomiting Pulmonary: Denied any shortness of breath cough Neurologic denied any new focal deficits All inpatient medications were reviewed and appropriate changes in these medications as dictated in the interval history and assessment and plan. Objective - Vital Signs Vital signs: Vital Signs Temp 98.2 F 09/20/19 14:31 Pulse 75 09/20/19 14:31 Resp 16 09/20/19 14:31 BP 98/60 09/20/19 14:31 Pulse Ox 97 09/20/19 14:31 Intake & Output 09/19/19 09/20/19 09/20/19 18:59 06:59 18:59 Output Total 100 Balance -100 Weight 64 kg 64 kg Output: Urine 100 Other: Voiding Method Diaper Diaper Diaper # Voids 1 2 # Bowel Movements 1 - Exam PHYSICAL EXAMINATION: GENERAL: The patient is alert and oriented x3, not in any acute distress. Well developed, well nourished. HEENT: Pupils are round and equally reacting to light. EOMI. No scleral icterus. No conjunctival pallor. Normocephalic, atraumatic. No pharyngeal erythema. No thyromegaly. CARDIOVASCULAR: S1 and S2 present. No murmurs, rubs, or gallops. PULMONARY: Chest is clear to auscultation, no wheezing or crackles. ABDOMEN: The tube in place patient does have good bowel sounds PEG tube site area doesn't appear to be infected MUSCULOSKELETAL: No joint swelling or deformity. EXTREMITIES: No cyanosis, clubbing, or pedal edema. NEUROLOGICAL: Gross neurological examination did not reveal any focal deficits. SKIN: No rashes. - Labs CBC & Chem 7: 09/20/19 06:16 09/20/19 06:16 Labs: Abnormal Lab Results - Last 24 Hours (Table) 09/20/19 09/20/19 09/20/19 Range/Units 06:16 06:16 11:37 RBC 2.67 L (3.80-5.40) m/uL Hgb 7.3 L (11.4-16.0) gm/dL Hct 23.2 L (34.0-46.0) % RDW 20.9 H (11.5-15.5) % Lymphocytes # 0.7 L (1.0-4.8) k/uL Chloride 109 H (98-107) mmol/L POC Glucose (mg/dL) 115 H (75-99) mg/dL Calcium 7.6 L (8.4-10.2) mg/dL Assessment and Plan Plan: Near-syncope: Secondary to hypovolemia, continue with IV fluids at 50 ML/H Hypovolemic Hyponatremia: Improved with IV fluid hydration Dehydration improved Severe Protein calorie malnutrition PEG tube in place for nutrition, was not tolerating tube feedings GoLYTELY today and resumption of tube feedings after that is probably related to constipation because of which I'm discontinued [place] Hypothyroidism GERD Anemia Parkinson's disease Rheumatoid arthritis Chronic debility Urinary retention, resolved at this time may be related to constipation Hypertension Type 2 diabetes mellitus
[2019-09-20 17:36] LABS: Glucose,Whole Blood 110 mg/dL (75-99)
[2019-09-20] MEDS: ATORVASTATIN 20 MG TAB PEG/G-TUBE SCH (20:23)
[2019-09-21 01:08] LABS: Glucose,Whole Blood 99 mg/dL (75-99)
[2019-09-21] MEDS: INSULIN ASPART (NovoLOG) 100 UNIT/ML VIAL SQ SCH ×5 (01:09→23:45)
[2019-09-21] MEDS: CARBIDOPA-LEVODOPA 25-100 MG 1 EACH TAB PEG/G-TUBE SCH ×6 (03:53→23:51)
[2019-09-21 05:23] LABS: Glucose,Whole Blood 99 mg/dL (75-99)
[2019-09-21] MEDS: LEVOTHYROXINE 50 MCG TAB PEG/G-TUBE SCH (05:30)
[2019-09-21] MEDS: INSULN ASP PRT/INSULIN ASPART 100 UNIT/ML 10 ML VIAL SQ SCH ×2 (07:17→18:23)
[2019-09-21] MEDS: ENOXAPARIN 40 MG/0.4 ML SYRINGE SQ SCH (08:18)
[2019-09-21] MEDS: MIDODRINE 5 MG TAB PEG/G-TUBE SCH ×2 (08:18→18:22)
[2019-09-21] MEDS: PANTOPRAZOLE SODIUM 40 MG GRANULE PKT PO SCH ×2 (08:19→18:22)
[2019-09-21] MEDS ORDERED: ONDANSETRON 4 MG/2 ML VIAL IVP PRN (10:07)
--- NOTE | 2019-09-21 10:57 | P.PN ---
Subjective Progress Note Date: 09/21/19 CHIEF COMPLAINT: PEG tube pain HISTORY OF PRESENT ILLNESS: Patient examined at the bedside with Dr. Campbell. Patients present. Patient completed 2L GoLYTELY yesterday. She's been having liquid bowel movements. She continues to report abdominal pain which is tender to palpation. Nursing reports an episode of yellow bilious emesis this morning. 2 feedings remain on hold. PHYSICAL EXAM: VITAL SIGNS: Reviewed. GENERAL: Well-developed in no acute distress. HEENT: No sclera icterus. Extraocular movements grossly intact. Moist buccal mucosa. Head is atraumatic, normocephalic. ABDOMEN: Soft. Nondistended. PEG tube intact without redness or drainage. Tenderness with palpation around PEG site. NEUROLOGIC: Alert and oriented. Cranial nerves II through XII grossly intact. ASSESSMENT: 1. Abdominal pain with isolated episode of vomiting 2. Recent PEG tube placement, 09/13/19 3. History of EGD on 07/05/2019 that revealed mild erythema of the antrum, body, biopsy for H pylori was negative, diminished gastric contractility, esophageal hiatal hernia PLAN: Will obtain abdominal xray to evaluate status of barium from previous CT scan Continue to hold tube feedings due to abdominal pain and emesis Further recommendations pending xray results Nurse practitioner note has been reviewed by physician. Signing provider agrees with the documented findings, assessment, and plan of care. Objective - Vital Signs Vital signs: Vital Signs Temp 98.6 F 09/21/19 06:58 Pulse 82 09/21/19 06:58 Resp 16 09/21/19 06:58 BP 108/63 09/21/19 06:58 Pulse Ox 98 09/21/19 06:58 Intake & Output 09/20/19 09/21/19 09/21/19 18:59 06:59 18:59 Weight 64 kg Other: Voiding Method Bedside Commode Bedside Commode Diaper Diaper Incontinent Incontinent # Voids 1 # Bowel Movements 2 - Labs CBC & Chem 7: 09/20/19 06:16 09/20/19 06:16 Labs: Abnormal Lab Results - Last 24 Hours (Table) 09/20/19 09/20/19 Range/Units 11:37 17:35 POC Glucose (mg/dL) 115 H 110 H (75-99) mg/dL
--- NOTE | 2019-09-21 11:16 | XR ---
EXAMINATION TYPE: XR abdomen 1V DATE OF EXAM: 09/21/2019 11:10 AM CLINICAL HISTORY: Nausea and vomiting since June. Enteric tube placement on September 15 TECHNIQUE: Single supine KUB image of the abdomen is obtained. COMPARISON: None. FINDINGS: Oral contrast is seen throughout the colon. Correlate with recent administration. No dilate d large or small bowel. Percutaneous enteric gastric tube is seen. Supine imaging limits evaluation f or pneumoperitoneum however no gross evidence of pneumoperitoneum. Diffuse osseous demineralization i s noted with compression deformity that is surgically fixated of T12 and possible compression deformi ties of the upper lumbar spine. IMPRESSION: 1. Nonobstructive bowel gas pattern. 2. Placement of the percutaneous enteric gastric tube. 3. Vertebroplasty of T12 and possible lumbar compression deformities.
[2019-09-21 11:50] LABS: Glucose,Whole Blood 108 mg/dL (75-99)
[2019-09-21] MEDS ORDERED: PEG 3350-NA SULF,BICARB,CL/KCL 4,000 ML BOTTLE PO ONE (12:00)
--- NOTE | 2019-09-21 12:13 | CDI ---
Documentation Clarification Form Date: 09/21/2019 12:04:32 PM From: Darshana ConcepcionSmallSOPHIA rosales, CCDS Admit Date: 09/17/2019 2:57:00 PM Patient Name: Stephanie Srinivasan Visit Number: [id number] Discharge Date: ATTENTION: The Clinical Documentation Specialists (CDI) and [facility] Coding Staff appreciate your assistance in clarifying documentation. Please respond to the clarification below the line at the bottom and electronically sign. The CDI & [facility] Coding staff will review the response and follow-up if needed. Please note: Queries are made part of the Legal Health Record. If you have any questions, please contact the author of this message via ITS. Dr. Alia Gama: Per the 09/20 attending progress note: "PEG tube in place for nutrition, was not tolerating tube feedings GoLYTELY today and resumption of tube feedings after that is probably related to constipation because of which I'm discontinued [place]." A relationship between diagnoses cannot be assumed unless documented as such by the attending physician. In order to capture the severity of condition; please document the relationship, if any, between these diagnoses. History/Risk Factors: Diabetes Mellitus, Osteoarthritis, Rheumatoid arthritis, Parkinson's, history of bleeding ulcer at age 19, legally blind in left eye & hard of hearing. Former smoker. Clinical Indicators: Presented after a near syncopal episode. Diagnosed with hypovolemic hyponatremia, dehydration & severe protein calorie malnutrition, has PEG tube for nutrition, placed on 09/15. Treatment: IV fluid 100, Home meds via PEG, IV Zofran. Please clarify and document your clinical opinion in the progress notes and discharge summary if any relationship (due to, caused by, secondary to) exists between these two diagnoses. Please include clinical findings supporting your diagnosis. Constipation due to [place] Constipation due to other cause, please specify: Other explanation of clinical findings (please specify) Unable to determine (no explanation for clinical findings) (Last Revision: August 2017) Constipation due to Patrick SANTILLAN
--- NOTE | 2019-09-21 13:41 | P.PN ---
Subjective Progress Note Date: 09/21/19 Principal diagnosis: 84-year-old female with a past medical history of Parkinson's disease, rheumatoid arthritis, osteoarthritis, diabetes mellitus brought in by her after he noticed her eyes were rolling and she was unresponsive while transferring from her bed to the chair. He states that it lasted for a couple of minutes. As per the history from the patient she said that she felt very dizzy but did not actually pass out. Patient had a PEG tube placed at [facility] in [place] on the and she was discharged home yesterday. Her started her on Glucerna through the PEG tube and after that she threw up and had this episode of questionable syncope so he brought her to the hospital. Patient has Parkinson's disease and for the past 3-4 months has worsening of her symptoms but she is not able to get out of the bed by herself. Over the course of 2-3 months she was having difficulty in swallowing and so a PEG tube was placed. Patient had similar episode in the past and had workup done at [facility] in [place] was told that it was worsening of her Parkinson's disease. on 09/18/2019 - patient is much more with it today. She states that she feels better than when she came in. Denies having any dizziness. States that her energy levels are better. Patient has been started on her PEG tube feeds with Glucerna. She denies having any fevers chills or rhinitis. No chest pain or palpitations. No cough or difficulty in breathing. No complaints of nausea or vomiting. 09/20/2019 Patient's tube feedings are on hold and the surgery is planning on giving GoLYTELY before starting back on 2 feedings. Patient had a bowel movement yesterday. norco Will be discontinued and patient will be started on once Tylenol for pain. Patient is on Ceftin I don't see a reason for these antibiotics apparently patient has been on these antibiotics since early No vember. Constitutional: Denied any fatigue denied any fever. Cardio vascular: denied any chest pain, palpitations Gastrointestinal denied any nausea vomiting Pulmonary: Denied any shortness of breath cough Neurologic denied any new focal deficits All inpatient medications were reviewed and appropriate changes in these medications as dictated in the interval history and assessment and plan. 09/21/2019 Patient is lying in bed in no acute distress with at the bedside. Per nursing staff patient had an episode of vomiting again this morning approximately one hour after giving meds through the PEG tube. Patient continues to have abdominal tenderness and discomfort with palpation. Surgery is following. Yesterday patient was given GoLYTELY as the CAT scan that was ordered yesterday was incomplete and showed residual barium noted in the colon from previous imaging done on September 07 at [facility]. Tube feedings are on hold at this time. Patient underwent an abdominal x-ray today showing a nonobstructive bowel gas pattern, gastric tube noted, and vertebroplasty at T12 and possible lumbar compression deformities. Patient is having bowel movements. Currently patient denies any chest pain, shortness of breath, or palpitations. Patient has been afebrile. As mentioned previously patient is having periods of nausea and vomiting with abdominal pain and tenderness. Objective - Vital Signs Vital signs: Vital Signs Temp 98.6 F 09/21/19 06:58 Pulse 82 09/21/19 06:58 Resp 16 09/21/19 06:58 BP 108/63 09/21/19 06:58 Pulse Ox 98 09/21/19 06:58 Intake & Output 09/20/19 09/21/19 09/21/19 18:59 06:59 18:59 Weight 64 kg Other: Voiding Method Bedside Commode Bedside Commode Diaper Diaper Incontinent Incontinent # Voids 1 # Bowel Movements 2 - Exam GENERAL: The patient is alert and oriented x3, not in any acute distress. Well developed, well nourished. HEENT: Pupils are round and equally reacting to light. EOMI. No scleral icterus. No conjunctival pallor. Normocephalic, atraumatic. No pharyngeal erythema. No thyromegaly. CARDIOVASCULAR: S1 and S2 present. No murmurs, rubs, or gallops. PULMONARY: Chest is clear to auscultation, no wheezing or crackles. ABDOMEN: The feeding tube is in place, patient does have good bowel sounds PEG tube site area doesn't appear to be infected, tenderness noted upon palpation MUSCULOSKELETAL: No joint swelling or deformity. EXTREMITIES: No cyanosis, clubbing, or pedal edema. NEUROLOGICAL: Gross neurological examination did not reveal any focal deficits. SKIN: No rashes. - Labs CBC & Chem 7: 09/20/19 06:16 09/20/19 06:16 Labs: Abnormal Lab Results - Last 24 Hours (Table) 09/20/19 Range/Units 17:35 POC Glucose (mg/dL) 110 H (75-99) mg/dL Assessment and Plan Assessment: Near-syncope: Secondary to hypovolemia, continue with IV fluids at 50 ML/H Hypovolemic Hyponatremia: Improved with IV fluid hydration Dehydration improved Severe Protein calorie malnutrition PEG tube in place for nutrition, was not tolerating tube feedings. Tube feedings are on hold. GoLYTELY prep was done yesterday and patient is having bowel movements. Constipation, possibly due to narcotic use. [place] will be discontinued at this time and patient will be given Tylenol for pain Hypothyroidism GERD Anemia Parkinson's disease Rheumatoid arthritis Chronic debility Urinary retention, resolved at this time, may be related to constipation Hypertension Type 2 diabetes mellitus Recommend patient and discussion: Recommend to continue current medications, management, and symptomatic treatment. Will continue to monitor closely. Patient continues to have some nausea and vomiting and Zofran was given. Tube feedings are currently on hold. Surgery is following. Patient underwent an abdominal x-ray today showing a nonobstructive bowel gas pattern with gastric tube placement and possible lumbar compression deformities. Patient underwent a GoLYTELY prep yesterday and is actively having bowel movements. CT was ordered yesterday and found to have residual barium from previous CAT scan on September 07 and unable to complete the CAT scan at this time. Case management and social work are following for discharge needs as patient is requiring a hospital bed and is to continue to have the head of the bed elevated at least 30 due to the tube feedings. Patient was also doing bolus feedings but is not tolerating and is requiring tube feeding pump at this time. Further recommendations to follow. Guarded prognosis.
[2019-09-21 17:14] LABS: Glucose,Whole Blood 109 mg/dL (75-99)
[2019-09-21] MEDS: SODIUM CHLORIDE 0.9% 1,000 ML IV SCH ×2 (20:19→20:20)
[2019-09-21] MEDS: ATORVASTATIN 20 MG TAB PEG/G-TUBE SCH (20:20)
[2019-09-21 23:28] LABS: Glucose,Whole Blood 89 mg/dL (75-99)
[2019-09-22] MEDS: LEVOTHYROXINE 50 MCG TAB PEG/G-TUBE SCH (04:10)
[2019-09-22] MEDS: CARBIDOPA-LEVODOPA 25-100 MG 1 EACH TAB PEG/G-TUBE SCH ×5 (04:10→21:15)
[2019-09-22 05:15] LABS: Glucose,Whole Blood 87 mg/dL (75-99)
[2019-09-22] MEDS: INSULIN ASPART (NovoLOG) 100 UNIT/ML VIAL SQ SCH ×3 (05:20→17:26)
[2019-09-22] MEDS: INSULN ASP PRT/INSULIN ASPART 100 UNIT/ML 10 ML VIAL SQ SCH ×2 (07:02→17:26)
--- NOTE | 2019-09-22 07:49 | CT ---
EXAMINATION TYPE: CT discontinued procedure DATE OF EXAM: 09/19/2019 COMPARISON: None HISTORY: Unable to perform study due to barium in colon. Inability to tolerate tube feedings and vomi ting CT DLP: 9.4 mGycm Automated exposure control for dose reduction was used. FINDINGS: Induction [place]er film shows retained contrast throughout the colon. IMPRESSION: EXAM WAS ABORTED DUE TO RETAINED CONTRAST, EXAM EVALUATED BY DR. AG.
[2019-09-22] MEDS: PANTOPRAZOLE SODIUM 40 MG GRANULE PKT PO SCH ×2 (07:51→17:29)
[2019-09-22] MEDS: ENOXAPARIN 40 MG/0.4 ML SYRINGE SQ SCH (07:51)
[2019-09-22] MEDS: MIDODRINE 5 MG TAB PEG/G-TUBE SCH ×2 (07:52→17:29)
[2019-09-22 09:51] LABS: Anisocytosis Marked; Basophils % (A) 0 %; Eosinophils # (A) 0.1 k/uL (0-0.7); Eosinophils % (A) 3 %; HGB 7.5 gm/dL (11.4-16.0); Hypochromasia Marked; Lymphocytes # (A) 0.5 k/uL (1.0-4.8); Lymphocytes % (A) 12 %; MCH 27.8 pg (25.0-35.0); MCHC 31.3 g/dL (31.0-37.0); MCV 88.9 fL (80.0-100.0); Macrocytosis Slight; Mean Platelet Volume 7.2; Monocytes # (A) 0.4 k/uL (0-1.0); Monocytes % (A) 9 %; Neutrophils # (A) 3.3 k/uL (1.3-7.7); Neutrophils % (A) 74 %; Platelet Count 343 k/uL (150-450); Poikilocytosis Slight; WBC 4.5 k/uL (3.8-10.6)
[2019-09-22 09:55] LABS: African American GFR (CKD) >90 (>60 ml/min/1.73 sqM); Anion Gap 3 mmol/L; Blood Urea Nitrogen 4 mg/dL (7-17); Calcium 7.6 mg/dL (8.4-10.2); Carbon Dioxide 24 mmol/L (22-30); Chloride 109 mmol/L (98-107); Glucose 89 mg/dL (74-99); Non-African American GFR(CKD) 86 (>60 ml/min/1.73 sqM); Potassium 4.5 mmol/L (3.5-5.1); Sodium 136 mmol/L (137-145)
--- NOTE | 2019-09-22 11:12 | XR ---
EXAMINATION TYPE: XR abdomen 1V DATE OF EXAM: 09/22/2019 COMPARISON: 09/21/2019 HISTORY: Pain TECHNIQUE: Single supine KUB image of the abdomen is obtained FINDINGS: Scattered retained barium is seen throughout the colon without significant interval change from yeste rday. Small bowel demonstrates no evidence for dilatation or air fluid levels. Gas and fecal material is seen in non-distended colon. No convincing evidence for pneumoperitoneum. No unusual calcifications. The lung bases are clear. The osseous structures are intact. IMPRESSION: 1. Scattered retained barium is seen throughout the colon without significant interval change from y esterday.
[2019-09-22 11:54] LABS: Glucose,Whole Blood 86 mg/dL (75-99)
[2019-09-22] MEDS: SODIUM CHLORIDE 0.9% 1,000 ML IV SCH (12:25)
--- NOTE | 2019-09-22 13:42 | P.PN ---
Subjective Progress Note Date: 09/22/19 CHIEF COMPLAINT: PEG tube pain HISTORY OF PRESENT ILLNESS: Patient examined at the bedside with Dr. Campbell. 2 L GoLYTELY was ordered yesterday. At the time of examination of 1 L has been infused. Patient is having liquid bowel movements. She reports her abdominal tenderness is improving. PHYSICAL EXAM: VITAL SIGNS: Reviewed. GENERAL: Well-developed in no acute distress. HEENT: No sclera icterus. Extraocular movements grossly intact. Moist buccal mucosa. Head is atraumatic, normocephalic. ABDOMEN: Soft. Nondistended. PEG tube intact without redness or drainage. Mild tenderness with palpation around PEG site. NEUROLOGIC: Alert and oriented. Cranial nerves II through XII grossly intact. ASSESSMENT: 1. Abdominal pain with isolated episode of vomiting 2. Recent PEG tube placement, 09/13/19 3. History of EGD on 07/05/2019 that revealed mild erythema of the antrum, body, biopsy for H pylori was negative, diminished gastric contractility, esophageal hiatal hernia PLAN: Continue to finish last liter of GoLYTELY that was ordered yesterday Continue to hold tube feedings Repeat abdominal x-ray this afternoon Further recommendations pending xray results Nurse practitioner note has been reviewed by physician. Signing provider agrees with the documented findings, assessment, and plan of care. Objective - Vital Signs Vital signs: Vital Signs Temp 98.0 F 09/22/19 06:54 Pulse 78 09/22/19 06:54 Resp 16 09/22/19 06:54 BP 93/56 09/22/19 06:54 Pulse Ox 96 09/22/19 06:54 Intake & Output 09/21/19 09/22/19 09/22/19 18:59 06:59 18:59 Other: Voiding Method Bedside Commode Diaper Diaper Incontinent Incontinent - Labs CBC & Chem 7: 09/22/19 09:29 09/22/19 09:29 Labs: Abnormal Lab Results - Last 24 Hours (Table) 09/21/19 09/22/19 09/22/19 Range/Units 17:11 09:29 09:29 RBC 2.70 L (3.80-5.40) m/uL Hgb 7.5 L (11.4-16.0) gm/dL Hct 24.0 L (34.0-46.0) % RDW 24.0 H (11.5-15.5) % Lymphocytes # 0.5 L (1.0-4.8) k/uL Sodium 136 L (137-145) mmol/L Chloride 109 H (98-107) mmol/L BUN 4 L (7-17) mg/dL POC Glucose (mg/dL) 109 H (75-99) mg/dL Calcium 7.6 L (8.4-10.2) mg/dL
[2019-09-22 16:43] LABS: Glucose,Whole Blood 81 mg/dL (75-99)
[2019-09-22] MEDS: ATORVASTATIN 20 MG TAB PEG/G-TUBE SCH (21:15)
[2019-09-23 00:23] LABS: Glucose,Whole Blood 76 mg/dL (75-99)
[2019-09-23] MEDS: SODIUM CHLORIDE 0.9% 1,000 ML IV SCH ×2 (00:25→16:46)
[2019-09-23] MEDS: CARBIDOPA-LEVODOPA 25-100 MG 1 EACH TAB PEG/G-TUBE SCH ×7 (00:25→23:21)
[2019-09-23] MEDS: INSULIN ASPART (NovoLOG) 100 UNIT/ML VIAL SQ SCH ×5 (00:25→23:26)
[2019-09-23] MEDS: LEVOTHYROXINE 50 MCG TAB PEG/G-TUBE SCH (04:25)
[2019-09-23 05:20] LABS: Glucose,Whole Blood 75 mg/dL (75-99)
[2019-09-23] MEDS: INSULN ASP PRT/INSULIN ASPART 100 UNIT/ML 10 ML VIAL SQ SCH ×2 (07:02→17:27)
[2019-09-23] MEDS: ENOXAPARIN 40 MG/0.4 ML SYRINGE SQ SCH (08:01)
[2019-09-23] MEDS: PANTOPRAZOLE SODIUM 40 MG GRANULE PKT PO SCH ×2 (08:01→17:29)
[2019-09-23] MEDS: MIDODRINE 5 MG TAB PEG/G-TUBE SCH ×2 (08:01→17:29)
--- NOTE | 2019-09-23 08:37 | P.PN ---
Subjective Progress Note Date: 09/22/19 Principal diagnosis: 84-year-old female with a past medical history of Parkinson's disease, rheumatoid arthritis, osteoarthritis, diabetes mellitus brought in by her after he noticed her eyes were rolling and she was unresponsive while transferring from her bed to the chair. He states that it lasted for a couple of minutes. As per the history from the patient she said that she felt very dizzy but did not actually pass out. Patient had a PEG tube placed at [facility] in [place] on the and she was discharged home yesterday. Her started her on Glucerna through the PEG tube and after that she threw up and had this episode of questionable syncope so he brought her to the hospital. Patient has Parkinson's disease and for the past 3-4 months has worsening of her symptoms but she is not able to get out of the bed by herself. Over the course of 2-3 months she was having difficulty in swallowing and so a PEG tube was placed. Patient had similar episode in the past and had workup done at [facility] in [place] was told that it was worsening of her Parkinson's disease. on 09/18/2019 - patient is much more with it today. She states that she feels better than when she came in. Denies having any dizziness. States that her energy levels are better. Patient has been started on her PEG tube feeds with Glucerna. She denies having any fevers chills or rhinitis. No chest pain or palpitations. No cough or difficulty in breathing. No complaints of nausea or vomiting. 09/20/2019 Patient's tube feedings are on hold and the surgery is planning on giving GoLYTELY before starting back on 2 feedings. Patient had a bowel movement yesterday. norco Will be discontinued and patient will be started on once Tylenol for pain. Patient is on Ceftin I don't see a reason for these antibiotics apparently patient has been on these antibiotics since early No vember. Constitutional: Denied any fatigue denied any fever. Cardio vascular: denied any chest pain, palpitations Gastrointestinal denied any nausea vomiting Pulmonary: Denied any shortness of breath cough Neurologic denied any new focal deficits All inpatient medications were reviewed and appropriate changes in these medications as dictated in the interval history and assessment and plan. 09/21/2019 Patient is lying in bed in no acute distress with at the bedside. Per nursing staff patient had an episode of vomiting again this morning approximately one hour after giving meds through the PEG tube. Patient continues to have abdominal tenderness and discomfort with palpation. Surgery is following. Yesterday patient was given GoLYTELY as the CAT scan that was ordered yesterday was incomplete and showed residual barium noted in the colon from previous imaging done on September 07 at [facility]. Tube feedings are on hold at this time. Patient underwent an abdominal x-ray today showing a nonobstructive bowel gas pattern, gastric tube noted, and vertebroplasty at T12 and possible lumbar compression deformities. Patient is having bowel movements. Currently patient denies any chest pain, shortness of breath, or palpitations. Patient has been afebrile. As mentioned previously patient is having periods of nausea and vomiting with abdominal pain and tenderness. 09/22/2019 Patient lying in bed in no acute distress with at the bedside. No acute overnight issues. Per nursing staff and patient the nausea has somewhat subsided. Tube feedings are still on hold patient is attempting to complete the remaining GoLYTELY today. Patient continues to have bowel movements. Patient states that the abdominal discomfort around the PEG tube has slightly improved. Patient denies any chest pain, shortness of breath, or palpitations at this time. Patient has been afebrile. Patient denies any vomiting at this time. Repeat x-ray of the abdomen today shows scattered retained barium seen throughout the colon without any significant change from previous. Will continue to monitor closely. Objective - Vital Signs Vital signs: Vital Signs Temp 98.0 F 09/22/19 06:54 Pulse 78 09/22/19 06:54 Resp 16 09/22/19 06:54 BP 93/56 09/22/19 06:54 Pulse Ox 96 09/22/19 06:54 Intake & Output 09/21/19 09/22/19 09/22/19 18:59 06:59 18:59 Other: Voiding Method Bedside Commode Diaper Diaper Incontinent Incontinent - Exam GENERAL: The patient is alert and oriented x3, not in any acute distress. Well developed, well nourished. HEENT: Pupils are round and equally reacting to light. EOMI. No scleral icterus. No conjunctival pallor. Normocephalic, atraumatic. No pharyngeal erythema. No thyromegaly. CARDIOVASCULAR: S1 and S2 present. No murmurs, rubs, or gallops. PULMONARY: Chest is clear to auscultation, no wheezing or crackles. ABDOMEN: The feeding tube is in place, patient does have good bowel sounds PEG tube site area doesn't appear to be infected, tenderness noted upon palpation with slight improvement MUSCULOSKELETAL: No joint swelling or deformity. EXTREMITIES: No cyanosis, clubbing, or pedal edema. NEUROLOGICAL: Gross neurological examination did not reveal any focal deficits. SKIN: No rashes. - Labs CBC & Chem 7: 09/22/19 09:29 09/22/19 09:29 Labs: Abnormal Lab Results - Last 24 Hours (Table) 09/21/19 09/22/19 09/22/19 Range/Units 17:11 09:29 09:29 RBC 2.70 L (3.80-5.40) m/uL Hgb 7.5 L (11.4-16.0) gm/dL Hct 24.0 L (34.0-46.0) % RDW 24.0 H (11.5-15.5) % Lymphocytes # 0.5 L (1.0-4.8) k/uL Sodium 136 L (137-145) mmol/L Chloride 109 H (98-107) mmol/L BUN 4 L (7-17) mg/dL POC Glucose (mg/dL) 109 H (75-99) mg/dL Calcium 7.6 L (8.4-10.2) mg/dL Assessment and Plan Assessment: Near-syncope: Secondary to hypovolemia, continue with IV fluids at 50 ML/H Hypovolemic Hyponatremia: Improved with IV fluid hydration Dehydration improved Severe Protein calorie malnutrition PEG tube in place for nutrition, was not tolerating tube feedings. Tube feedings are on hold. GoLYTELY prep was started started yesterday and patient is having bowel movements. Patient will continue to complete the GoLYTELY as t olerated. Constipation, possibly due to narcotic use. [place] will be discontinued at this time and patient will be given Tylenol for pain Hypothyroidism GERD Anemia Parkinson's disease Rheumatoid arthritis Chronic debility Urinary retention, resolved at this time, may be related to constipation Hypertension Type 2 diabetes mellitus Recommend patient and discussion: Recommend to continue current medications, management, and symptomatic treatment. Will continue to monitor closely. Patient nausea has somewhat improved and patient has not vomited . Tube feedings are currently on hold. Surgery is following. Patient underwen a repeat abdominal x-ray today showin scattered retained barium is seen throughout the colon without significant interval change as compared to yesterday. Case management and social work are following for discharge needs as patient is requiring a hospital bed and is to continue to have the head of the bed elevated at least 30 due to the tube feedings. Patient was also doing bolus feedings but is not tolerating and is requiring tube feeding pump at this time. Further recommendations to follow. Guarded prognosis.
[2019-09-23] MEDS: LACTULOSE 20 GM/30 ML CUP PO SCH ×3 (10:48→13:32)
--- NOTE | 2019-09-23 12:14 | P.PN ---
Subjective Progress Note Date: 09/23/19 CHIEF COMPLAINT: PEG tube pain HISTORY OF PRESENT ILLNESS: Patient examined at the bedside with Dr. Campbell. 2 L GoLYTELY was ordered yesterday on 09/21/19. At the time of my examination, the patient still has GoLYTELY infusing through her PEG tube. Abdominal x-ray from yesterday reveals scattered retained barium seen throughout the colon without significant interval change from previous day. Patient reports mild discomfort of her abdomen today. No nausea or vomiting. PHYSICAL EXAM: VITAL SIGNS: Reviewed. GENERAL: Well-developed in no acute distress. HEENT: No sclera icterus. Extraocular movements grossly intact. Moist buccal mucosa. Head is atraumatic, normocephalic. ABDOMEN: Soft. Nondistended. PEG tube intact without redness or drainage. Mild tenderness with palpation around PEG site. NEUROLOGIC: Alert and oriented. Cranial nerves II through XII grossly intact. ASSESSMENT: 1. Abdominal pain with isolated episode of vomiting 2. Recent PEG tube placement, 09/13/19 3. History of EGD on 07/05/2019 that revealed mild erythema of the antrum, body, biopsy for H pylori was negative, diminished gastric contractility, esophageal hiatal hernia PLAN: Continue to finish GoLYTELY that was ordered on 09/21/2019 Continue to hold tube feedings as patient has been unable to tolerate feedings Will consult dietitian to begin PPN as patient has been nothing by mouth for pallavi ost a week Lactulose 30 g 3 doses today Repeat abdominal x-ray tomorrow. If the abdominal x-ray shows clearing of barium in the colon, may trial resuming tube feedings tomorrow Nurse practitioner note has been reviewed by physician. Signing provider agrees with the documented findings, assessment, and plan of care. Objective - Vital Signs Vital signs: Vital Signs Temp 98.3 F 09/23/19 07:00 Pulse 77 09/23/19 07:00 Resp 17 09/23/19 07:00 BP 108/69 09/23/19 07:00 Pulse Ox 95 09/23/19 07:00 Intake & Output 09/22/19 09/23/19 09/23/19 18:59 06:59 18:59 Other: Voiding Method Diaper Incontinent # Voids 2 # Bowel Movements 1 - Labs CBC & Chem 7: 09/22/19 09:29 09/22/19 09:29
[2019-09-23 12:17] LABS: Glucose,Whole Blood 79 mg/dL (75-99)
[2019-09-23] MEDS ORDERED: MVI, ADULT NO.4 WITH VIT K 10 ML, TRACE (CONC-1ML/DOSE) 1 ML in AMINO ACID 4.25%-D10W+L... IV SCH ×3 (15:30)
--- NOTE | 2019-09-23 16:19 | P.PN ---
Subjective Progress Note Date: 09/23/19 Principal diagnosis: 84-year-old female with a past medical history of Parkinson's disease, rheumatoid arthritis, osteoarthritis, diabetes mellitus brought in by her after he noticed her eyes were rolling and she was unresponsive while transferring from her bed to the chair. He states that it lasted for a couple of minutes. As per the history from the patient she said that she felt very dizzy but did not actually pass out. Patient had a PEG tube placed at [facility] in [place] on the and she was discharged home yesterday. Her started her on Glucerna through the PEG tube and after that she threw up and had this episode of questionable syncope so he brought her to the hospital. Patient has Parkinson's disease and for the past 3-4 months has worsening of her symptoms but she is not able to get out of the bed by herself. Over the course of 2-3 months she was having difficulty in swallowing and so a PEG tube was placed. Patient had similar episode in the past and had workup done at [facility] in [place] was told that it was worsening of her Parkinson's disease. on 09/18/2019 - patient is much more with it today. She states that she feels better than when she came in. Denies having any dizziness. States that her energy levels are better. Patient has been started on her PEG tube feeds with Glucerna. She denies having any fevers chills or rhinitis. No chest pain or palpitations. No cough or difficulty in breathing. No complaints of nausea or vomiting. 09/20/2019 Patient's tube feedings are on hold and the surgery is planning on giving GoLYTELY before starting back on 2 feedings. Patient had a bowel movement yesterday. norco Will be discontinued and patient will be started on once Tylenol for pain. Patient is on Ceftin I don't see a reason for these antibiotics apparently patient has been on these antibiotics since early No vember. Constitutional: Denied any fatigue denied any fever. Cardio vascular: denied any chest pain, palpitations Gastrointestinal denied any nausea vomiting Pulmonary: Denied any shortness of breath cough Neurologic denied any new focal deficits All inpatient medications were reviewed and appropriate changes in these medications as dictated in the interval history and assessment and plan. 09/21/2019 Patient is lying in bed in no acute distress with at the bedside. Per nursing staff patient had an episode of vomiting again this morning approximately one hour after giving meds through the PEG tube. Patient continues to have abdominal tenderness and discomfort with palpation. Surgery is following. Yesterday patient was given GoLYTELY as the CAT scan that was ordered yesterday was incomplete and showed residual barium noted in the colon from previous imaging done on September 07 at [facility]. Tube feedings are on hold at this time. Patient underwent an abdominal x-ray today showing a nonobstructive bowel gas pattern, gastric tube noted, and vertebroplasty at T12 and possible lumbar compression deformities. Patient is having bowel movements. Currently patient denies any chest pain, shortness of breath, or palpitations. Patient has been afebrile. As mentioned previously patient is having periods of nausea and vomiting with abdominal pain and tenderness. 09/22/2019 Patient lying in bed in no acute distress with at the bedside. No acute overnight issues. Per nursing staff and patient the nausea has somewhat subsided. Tube feedings are still on hold patient is attempting to complete the remaining GoLYTELY today. Patient continues to have bowel movements. Patient states that the abdominal discomfort around the PEG tube has slightly improved. Patient denies any chest pain, shortness of breath, or palpitations at this time. Patient has been afebrile. Patient denies any vomiting at this time. Repeat x-ray of the abdomen today shows scattered retained barium seen throughout the colon without any significant change from previous. Will continue to monitor closely. 09/23/2019 Patient is lying in bed in no acute distress with no acute overnight issues. Patient is currently still working on finishing the GoLYTELY treatment and has n ot had a bowel movement since last night. Surgery is following. Patient is being given lactulose 3 doses today is repeat x-ray continues to show barium within the colon. Tube feedings are currently still on hold and patient is receiving a midline today for PPN as patient has not been having anything by mouth and no tube feedings for the last few days. Patient is still having some tenderness around the PEG tube site but states it has slightly improved. Today patient reports some pain with urination and a urinalysis will be obtained. Will continue to monitor closely. REVIEW OF SYSTEMS: ENT: Reports diminished vision and hearing. CARDIOVASCULAR: No reports of chest pain or palpitations RESPIRATORY: No reports her shortness of breath GI: No nausea, vomiting or diarrhea. : Reports dysuria NERVOUS SYSTEM: Reports weakness. ENDOCRINE: history of diabetes and hypothyroidism. CONSTITUTIONAL: Reports fatigue PSYCHIATRY: Cooperative, nonsuicidal Active Medications Acetaminophen (Tylenol Tab) 650 mg PO Q4HR PRN Atorvastatin Calcium (Lipitor) 20 mg PEG/G-TUBE HS LUIS Carbidopa/Levodopa (Sinemet 25-100) 2 each PEG/G-TUBE Q4H LUIS Enoxaparin Sodium (Lovenox) 40 mg SQ DAILY [facility] Sodium Chloride (Saline 0.9%) 1,000 mls @ 75 mls/hr IV .[id number] LUIS Insulin Aspart (Novolog Mix 70-30 Vial) 20 unit SQ AC-BRKFST LUIS Insulin Aspart (Novolog Mix 70-30 Vial) 25 unit SQ AC-SUPPER LUIS Insulin Aspart (Novolog) 0 unit SQ Q6HR [facility]; Protocol Levothyroxine Sodium (Synthroid) 50 mcg PEG/G-TUBE 0630 LUIS Midodrine (Proamatine) 5 mg PEG/G-TUBE AC-BID LUIS Naloxone HCl (Narcan) 0.2 mg IV Q2M PRN Ondansetron HCl (Zofran) 4 mg IVP Q6HR PRN Pantoprazole Sodium (Protonix) 40 mg PO AC-BID [facility] Objective - Vital Signs Vital signs: Vital Signs Temp 98.3 F 09/23/19 07:00 Pulse 77 09/23/19 07:00 Resp 17 09/23/19 07:00 BP 108/69 09/23/19 07:00 Pulse Ox 95 09/23/19 07:00 Intake & Output 09/22/19 09/23/19 09/23/19 18:59 06:59 18:59 Other: Voiding Method Diaper Incontinent # Voids 2 # Bowel Movements 1 - Exam GENERAL: The patient is alert and oriented x3, not in any acute distress. Well developed, well nourished. Vital signs are stable. HEENT: Pupils are round and equally reacting to light. EOMI. No scleral icterus. No conjunctival pallor. Normocephalic, atraumatic. No pharyngeal erythema. No thyromegaly. CARDIOVASCULAR: S1 and S2 present. No murmurs, rubs, or gallops. PULMONARY: Chest is clear to auscultation, no wheezing or crackles. ABDOMEN: The feeding tube is in place, patient does have good bowel sounds PEG tube site area doesn't appear to be infected, tenderness noted upon palpation with slight improvement MUSCULOSKELETAL: No joint swelling or deformity. EXTREMITIES: No cyanosis, clubbing, or pedal edema. NEUROLOGICAL: Gross neurological examination did not reveal any focal deficits. SKIN: No rashes. - Labs CBC & Chem 7: 09/22/19 09:29 09/22/19 09:29 Labs: Abnormal Lab Results - Last 24 Hours (Table) 09/22/19 09/22/19 Range/Units 09: 09:29 RBC 2.70 L (3.80-5.40) m/uL Hgb 7.5 L (11.4-16.0) gm/dL Hct 24.0 L (34.0-46.0) % RDW 24.0 H (11.5-15.5) % Lymphocytes # 0.5 L (1.0-4.8) k/uL Sodium 136 L (137-145) mmol/L Chloride 109 H (98-107) mmol/L BUN 4 L (7-17) mg/dL Calcium 7.6 L (8.4-10.2) mg/dL Assessment and Plan Assessment: Near-syncope: Secondary to hypovolemia, continue with IV fluids at 50 ML/H Hypovolemic Hyponatremia: Improved with IV fluid hydration Dysuria Dehydration improved Severe Protein calorie malnutrition PEG tube in place for nutrition, was not tolerating tube feedings. Tube feedings are on hold. Patient will continue to complete the GoLYTELY as tolerated. Patient was given 3 doses of lactulose and will continue to monitor. Constipation, possibly due to narcotic use. [place] will be discontinued at this time and patient will be given Tylenol for pain Hypothyroidism GERD Anemia Parkinson's disease Rheumatoid arthritis Chronic debility Urinary retention, resolved at this time, may be related to constipation Hypertension Type 2 diabetes mellitus Recommend patient and discussion: Recommend to continue current medications, management, and symptomatic treatment. Will continue to monitor closely. Tube feedings are currently on [facility]. Surgery is following. Patient was given 3 doses of lactulose as she has not had a bowel movement since yesterday. Patient is receiving a midline today to start PPN as patient has not had any nutritional intake since admission. Urinalysis was ordered as the patient complains of dysuria with each urination. Currently pending at this time. Repeat abdominal x-ray in a.m. Case management and social work are following for discharge needs as patient is requiring a hospital bed and is to continue to have the head of the bed elevated at least 30 due to the tube feedings. Patient was also doing bolus feedings but is not tolerating and is requiring tube feeding pump at this time. Further recommendations to follow. Guarded prognosis.
[2019-09-23] MEDS: FAT EMULSION 20% 250 ML IV SCH (17:01)
[2019-09-23 17:13] LABS: Appearance,Urine Clear (Clear); Bilirubin,Urine Negative (Negative); Blood,Urine Negative (Negative); Color,Urine Yellow; Glucose,Urine (UA) Negative (Negative); Ketones,Urine 3+ (Negative); Leukocyte Esterase,Urine Negative (Negative); Nitrite,Urine Negative (Negative); PH, Urine 5.5 (5.0-8.0); Protein,Urine Negative (Negative); Specific Gravity,Urine 1.012 (1.001-1.035); Urobilinogen,Urine <2.0 mg/dL (<2.0)
[2019-09-23 18:11] LABS: Glucose,Whole Blood 93 mg/dL (75-99)
[2019-09-23] MEDS: ATORVASTATIN 20 MG TAB PEG/G-TUBE SCH (20:04)
[2019-09-23 23:24] LABS: Glucose,Whole Blood 157 mg/dL (75-99)
[2019-09-24] MEDS: SODIUM CHLORIDE 0.9% 1,000 ML IV SCH ×2 (03:50→15:32)
[2019-09-24 05:02] LABS: Glucose,Whole Blood 181 mg/dL (75-99)
[2019-09-24] MEDS: INSULIN ASPART (NovoLOG) 100 UNIT/ML VIAL SQ SCH ×4 (05:05→23:13)
[2019-09-24] MEDS: LEVOTHYROXINE 50 MCG TAB PEG/G-TUBE SCH (05:05)
[2019-09-24] MEDS: CARBIDOPA-LEVODOPA 25-100 MG 1 EACH TAB PEG/G-TUBE SCH ×6 (05:05→23:13)
[2019-09-24 07:17] LABS: ALT 12 U/L (9-52); AST 11 U/L (14-36); African American GFR (CKD) >90 (>60 ml/min/1.73 sqM); Albumin 1.9 g/dL (3.5-5.0); Alkaline Phosphatase 52 U/L (38-126); Anion Gap 3 mmol/L; Blood Urea Nitrogen 3 mg/dL (7-17); Calcium 7.6 mg/dL (8.4-10.2); Carbon Dioxide 24 mmol/L (22-30); Chloride 110 mmol/L (98-107); Glucose 199 mg/dL (74-99); Magnesium 1.6 mg/dL (1.6-2.3); Non-African American GFR(CKD) 89 (>60 ml/min/1.73 sqM); Phosphorus 2.4 mg/dL (2.5-4.5); Potassium 3.4 mmol/L (3.5-5.1); Sodium 137 mmol/L (137-145); Total Bilirubin 0.4 mg/dL (0.2-1.3); Total Protein 4.1 g/dL (6.3-8.2); Triglycerides 51 mg/dL (<150)
[2019-09-24] MEDS: INSULN ASP PRT/INSULIN ASPART 100 UNIT/ML 10 ML VIAL SQ SCH ×2 (07:46→16:52)
[2019-09-24] MEDS: ENOXAPARIN 40 MG/0.4 ML SYRINGE SQ SCH (08:37)
[2019-09-24] MEDS: PANTOPRAZOLE SODIUM 40 MG GRANULE PKT PO SCH ×2 (08:38→16:51)
[2019-09-24] MEDS: MIDODRINE 5 MG TAB PEG/G-TUBE SCH ×2 (08:38→16:51)
--- NOTE | 2019-09-24 09:04 | XR ---
EXAMINATION TYPE: XR abdomen 1V DATE OF EXAM: 09/24/2019 7:05 AM CLINICAL HISTORY: Barium in colon TECHNIQUE: Single supine KUB image of the abdomen is obtained. COMPARISON: None. FINDINGS: Progression of enteric contrast with collection present in the right lower abdomen as well as central lower abdomen. No dilated bowel. Evaluation for free air is limited due to supine techniqu e. IMPRESSION: No evidence of bowel obstruction. Enteric contrast has progressed throughout the colon.
[2019-09-24] MEDS: 1: MVI, ADULT NO.4 WITH VIT K 10 ML, TRACE (CONC-1ML/DOSE) 1 ML in AMINO ACID 4.25%-D10W IV SCH ×3 (10:10)
[2019-09-24] MEDS: MAGNESIUM SULFATE-D5W PMX 1 GM in DEXTROSE/WATER 1 100ML.BAG IVPB SCH ×2 (10:15→11:25)
--- NOTE | 2019-09-24 11:01 | P.PN ---
Subjective Progress Note Date: 09/24/19 Principal diagnosis: Constipation Patient doing well today. Denies pain. She has had 2 additional vomiting was. Today's x-rays show minimal retained barium. Objective - Vital Signs Vital signs: Vital Signs Temp 98.4 F 09/24/19 07:00 Pulse 76 09/24/19 08:00 Resp 12 09/24/19 08:00 BP 106/59 09/24/19 07:00 Pulse Ox 94 L 09/24/19 07:00 Intake & Output 09/23/19 09/24/19 09/24/19 18:59 06:59 18:59 Output Total 100 Balance -100 Weight 64 kg Output: Urine 100 Straight 100 Other: Voiding Method Diaper Incontinent # Voids 2 # Bowel Movements 1 - Exam Abdomen: Soft, nontender, nondistended, PEG tube clean and dry - Labs CBC & Chem 7: 09/22/19 09:29 09/24/19 06:35 Labs: Abnormal Lab Results - Last 24 Hours (Table) 09/23/19 09/23/19 09/24/19 Range/Units 15:30 23:22 05:01 Potassium (3.5-5.1) mmol/L Chloride (98-107) mmol/L BUN (7-17) mg/dL Glucose (74-99) mg/dL POC Glucose (mg/dL) 157 H 181 H (75-99) mg/dL Calcium (8.4-10.2) mg/dL Phosphorus (2.5-4.5) mg/dL AST (14-36) U/L Total Protein (6.3-8.2) g/dL Albumin (3.5-5.0) g/dL Urine Ketones 3+ H (Negative) 09/24/19 Range/Units 06:35 Potassium 3.4 L (3.5-5.1) mmol/L Chloride 110 H (98-107) mmol/L BUN 3 L (7-17) mg/dL Glucose 199 H (74-99) mg/dL POC Glucose (mg/dL) (75-99) mg/dL Calcium 7.6 L (8.4-10.2) mg/dL Phosphorus 2.4 L (2.5-4.5) mg/dL AST 11 L (14-36) U/L Total Protein 4.1 L (6.3-8.2) g/dL Albumin 1.9 L (3.5-5.0) g/dL Urine Ketones (Negative) Assessment and Plan (1) Constipation Narrative/Plan: Patient doing well today. Resume tube feeds. Current Visit: Yes Status: Acute Code(s): K59.00 - CONSTIPATION, UNSPECIFIED SNOMED Code(s): 21744164
--- NOTE | 2019-09-24 11:07 | P.PN ---
Subjective 84-year-old female with a past medical history of Parkinson's disease, rheumatoid arthritis, osteoarthritis, diabetes mellitus brought in by her hus band after he noticed her eyes were rolling and she was unresponsive while transferring from her bed to the chair. He states that it lasted for a couple of minutes. As per the history from the patient she said that she felt very dizzy but did not actually pass out. Patient had a PEG tube placed at [facility] in [place] on the and she was discharged home yesterday. Her started her on Glucerna through the PEG tube and after that she threw up and had this episode of questionable syncope so he brought her to the hospital. Patient has Parkinson's disease and for the past 3-4 months has worsening of her symptoms but she is not able to get out of the bed by herself. Over the course of 2-3 months she was having difficulty in swallowing and so a PEG tube was placed. Patient had similar episode in the past and had workup done at [facility] in [place] was told that it was worsening of her Parkinson's disease. on 09/18/2019 - patient is much more with it today. She states that she feels better than when she came in. Denies having any dizziness. States that her energy levels are better. Patient has been started on her PEG tube feeds with Glucerna. She denies having any fevers chills or rhinitis. No chest pain or palpitations. No cough or difficulty in breathing. No complaints of nausea or vomiting. 09/20/2019 Patient's tube feedings are on hold and the surgery is planning on giving GoLYTELY before starting back on 2 feedings. Patient had a bowel movement yesterday. norco Will be discontinued and patient will be started on once Tylenol for pain. Patient is on Ceftin I don't see a reason for these antibiotics apparently patient has been on these antibiotics since early September. 09/24/2019 Patient had couple bowel movements abdominal x-ray showing barium all over the colon . Patient will be started on PEG tube feedings slowly Constitutional: Denied any fatigue denied any fever. Cardio vascular: denied any chest pain, palpitations Gastrointestinal denied any nausea vomiting Pulmonary: Denied any shortness of breath cough Neurologic denied any new focal deficits All inpatient medications were reviewed and appropriate changes in these medications as dictated in the interval history and assessment and plan. Objective - Vital Signs Vital signs: Vital Signs Temp 98.4 F 11/23/19 07:00 Pulse 76 09/24/19 08:00 Resp 12 09/24/19 08:00 BP 106/59 09/24/19 07:00 Pulse Ox 94 L 09/24/19 07:00 Intake & Output 09/23/19 09/24/19 09/24/19 18:59 06:59 18:59 Output Total 100 Balance -100 Weight 64 kg Output: Urine 100 Straight 100 Other: Voiding Method Diaper Incontinent # Voids 2 # Bowel Movements 1 - Exam PHYSICAL EXAMINATION: GENERAL: The patient is alert and oriented x3, not in any acute distress. Well developed, well nourished. HEENT: Pupils are round and equally reacting to light. EOMI. No scleral icterus. No conjunctival pallor. Normocephalic, atraumatic. No pharyngeal erythema. No thyromegaly. CARDIOVASCULAR: S1 and S2 present. No murmurs, rubs, or gallops. PULMONARY: Chest is clear to auscultation, no wheezing or crackles. ABDOMEN: The tube in place patient does have good bowel sounds PEG tube site area doesn't appear to be infected MUSCULOSKELETAL: No joint swelling or deformity. EXTREMITIES: No cyanosis, clubbing, or pedal edema. NEUROLOGICAL: Gross neurological examination did not reveal any focal deficits. SKIN: No rashes. - Labs CBC & Chem 7: 09/22/19 09:29 09/24/19 06:35 Labs: Abnormal Lab Results - Last 24 Hours (Table) 09/23/19 09/23/19 09/24/19 Range/Units 15:30 23:22 05:01 Potassium (3.5-5.1) mmol/L Chloride (98-107) mmol/L BUN (7-17) mg/dL Glucose (74-99) mg/dL POC Glucose (mg/dL) 157 H 181 H (75-99) mg/dL Calcium (8.4-10.2) mg/dL Phosphorus (2.5-4.5) mg/dL AST (14-36) U/L Total Protein (6.3-8.2) g/dL Albumin (3.5-5.0) g/dL Urine Ketones 3+ H (Negative) 09/24/19 Range/Units 06:35 Potassium 3.4 L (3.5-5.1) mmol/L Chloride 110 H (98-107) mmol/L BUN 3 L (7-17) mg/dL Glucose 199 H (74-99) mg/dL POC Glucose (mg/dL) (75-99) mg/dL Calcium 7.6 L (8.4-10.2) mg/dL Phosphorus 2.4 L (2.5-4.5) mg/dL AST 11 L (14-36) U/L Total Protein 4.1 L (6.3-8.2) g/dL Albumin 1.9 L (3.5-5.0) g/dL Urine Ketones (Negative) Assessment and Plan Plan: - constipation unable to tolerate PEG tube feedings improving at this time patient will be started on PEG tube feedings at this lower rate Near-syncope: Secondary to hypovolemia, continue with IV fluids at 50 ML/H Hypovolemic Hyponatremia: Improved with IV fluid hydration Dysuria Dehydration improved Severe Protein calorie malnutrition PEG tube in place for nutrition, was not tolerating tube feedings. Patient received GoLYTELY improved constipation and couple bowel movements patient will be started on PEG tube feedings Hypothyroidism GERD Anemia Parkinson's disease Rheumatoid arthritis Chronic debility Urinary retention, resolved at this time, may be related to constipation Hypertension Type 2 diabetes mellitus
[2019-09-24 12:00] LABS: Glucose,Whole Blood 241 mg/dL (75-99)
[2019-09-24] MEDS: POTASSIUM CHLORIDE 10 MEQ in WATER FOR INJECTION 1 100ML.BAG IVPB SCH ×4 (12:32→18:25)
[2019-09-24 16:33] LABS: Glucose,Whole Blood 256 mg/dL (75-99)
[2019-09-24] MEDS: FAT EMULSION 20% 250 ML IV SCH (16:50)
[2019-09-24] MEDS: ATORVASTATIN 20 MG TAB PEG/G-TUBE SCH (20:35)
[2019-09-24 23:09] LABS: Glucose,Whole Blood 281 mg/dL (75-99)
[2019-09-25] MEDS: 1: MVI, ADULT NO.4 WITH VIT K 10 ML, TRACE (CONC-1ML/DOSE) 1 ML in AMINO ACID 4.25%-D10W IV SCH ×6 (00:06→10:36)
[2019-09-25 05:16] LABS: Glucose,Whole Blood 280 mg/dL (75-99)
[2019-09-25] MEDS: CARBIDOPA-LEVODOPA 25-100 MG 1 EACH TAB PEG/G-TUBE SCH ×5 (05:16→20:40)
[2019-09-25] MEDS: LEVOTHYROXINE 50 MCG TAB PEG/G-TUBE SCH (05:16)
[2019-09-25] MEDS: INSULIN ASPART (NovoLOG) 100 UNIT/ML VIAL SQ SCH ×3 (05:16→17:28)
[2019-09-25] MEDS: SODIUM CHLORIDE 0.9% 1,000 ML IV SCH ×2 (05:23→15:11)
[2019-09-25] MEDS: INSULN ASP PRT/INSULIN ASPART 100 UNIT/ML 10 ML VIAL SQ SCH ×2 (07:06→15:18)
[2019-09-25 07:08] LABS: Ionized Calcium 4.8 mg/dL (4.5-5.3)
[2019-09-25 07:22] LABS: ALT 9 U/L (9-52); AST 10 U/L (14-36); African American GFR (CKD) >90 (>60 ml/min/1.73 sqM); Alkaline Phosphatase 61 U/L (38-126); Anion Gap 3 mmol/L; Blood Urea Nitrogen 8 mg/dL (7-17); Calcium 7.5 mg/dL (8.4-10.2); Carbon Dioxide 25 mmol/L (22-30); Chloride 107 mmol/L (98-107); Glucose 294 mg/dL (74-99); Magnesium 1.9 mg/dL (1.6-2.3); Non-African American GFR(CKD) >90 (>60 ml/min/1.73 sqM); Phosphorus 2.7 mg/dL (2.5-4.5); Potassium 3.7 mmol/L (3.5-5.1); Sodium 135 mmol/L (137-145); Total Bilirubin 0.4 mg/dL (0.2-1.3); Total Protein 4.3 g/dL (6.3-8.2)
[2019-09-25] MEDS: MIDODRINE 5 MG TAB PEG/G-TUBE SCH ×2 (08:37→15:17)
[2019-09-25] MEDS: PANTOPRAZOLE SODIUM 40 MG GRANULE PKT PO SCH ×2 (08:37→15:17)
[2019-09-25] MEDS: ENOXAPARIN 40 MG/0.4 ML SYRINGE SQ SCH (08:37)
--- NOTE | 2019-09-25 09:37 | P.PN ---
Subjective 84-year-old female with a past medical history of Parkinson's disease, rheumatoid arthritis, osteoarthritis, diabetes mellitus brought in by her hus band after he noticed her eyes were rolling and she was unresponsive while transferring from her bed to the chair. He states that it lasted for a couple of minutes. As per the history from the patient she said that she felt very dizzy but did not actually pass out. Patient had a PEG tube placed at [facility] in [place] on the and she was discharged home yesterday. Her started her on Glucerna through the PEG tube and after that she threw up and had this episode of questionable syncope so he brought her to the hospital. Patient has Parkinson's disease and for the past 3-4 months has worsening of her symptoms but she is not able to get out of the bed by herself. Over the course of 2-3 months she was having difficulty in swallowing and so a PEG tube was placed. Patient had similar episode in the past and had workup done at [facility] in [place] was told that it was worsening of her Parkinson's disease. on 09/18/2019 - patient is much more with it today. She states that she feels better than when she came in. Denies having any dizziness. States that her energy levels are better. Patient has been started on her PEG tube feeds with Glucerna. She denies having any fevers chills or rhinitis. No chest pain or palpitations. No cough or difficulty in breathing. No complaints of nausea or vomiting. 09/20/2019 Patient's tube feedings are on hold and the surgery is planning on giving GoLYTELY before starting back on 2 feedings. Patient had a bowel movement yesterday. norco Will be discontinued and patient will be started on once Tylenol for pain. Patient is on Ceftin I don't see a reason for these antibiotics apparently patient has been on these antibiotics since early September. 09/24/2019 Patient had couple bowel movements abdominal x-ray showing barium all over the colon . Patient will be started on PEG tube feedings slowly 09/25/2019 Patient is doing much better today did not move her bowel yet but able to tolerate 20 mL per hour of for PEG tube feedings will try and titrate up to 40 today and the will cut down the PPN probably this can be discontinued tomorrow Constitutional: Denied any fatigue denied any fever. Cardio vascular: denied any chest pain, palpitations Gastrointestinal denied any nausea vomiting Pulmonary: Denied any shortness of breath cough Neurologic denied any new focal deficits All inpatient medications were reviewed and appropriate changes in these medications as dictated in the interval history and assessment and plan. Objective - Vital Signs Vital signs: Vital Signs Temp 98.7 F 09/25/19 07:00 Pulse 83 09/25/19 07:00 Resp 16 09/25/19 07:00 BP 102/62 09/25/19 07:00 Pulse Ox 95 09/25/19 07:00 Intake & Output 09/24/19 09/25/19 09/25/19 18:59 06:59 18:59 Intake Total 80 190 1659.667 Output Total 800 500 Balance -720 -310 1659.667 Intake: Intake, IV Titration 1659.667 Amount Amino Acid 4.25%-D10w+ 648.667 Lytes*E* 1,000 ml @ 70 mls/hr IV .BY DURATION [facility] Rx#:[id number] Mvi, Adult No.4 with Vit 1011 K 10 ml Trace (Conc-1Ml/ Dose) 1 ml In Amino Acid 4.25%-D10w+Lytes*E* 1,000 ml @ 70 mls/hr IV .BY DURATION [facility] Rx#: [id number] Tube Feeding 80 190 Output: Urine 800 500 Other: Voiding Method Diaper Incontinent # Voids 2 # Bowel Movements 1 - Exam PHYSICAL EXAMINATION: GENERAL: The patient is alert and oriented x3, not in any acute distress. Well developed, well nourished. HEENT: Pupils are round and equally reacting to light. EOMI. No scleral icterus. No conjunctival pallor. Normocephalic, atraumatic. No pharyngeal erythema. No thyromegaly. CARDIOVASCULAR: S1 and S2 present. No murmurs, rubs, or gallops. PULMONARY: Chest is clear to auscultation, no wheezing or crackles. ABDOMEN: The tube in place patient does have good bowel sounds PEG tube site area doesn't appear to be infected MUSCULOSKELETAL: No joint swelling or deformity. EXTREMITIES: No cyanosis, clubbing, or pedal edema. NEUROLOGICAL: Gross neurological examination did not reveal any focal deficits. SKIN: No rashes. - Labs CBC & Chem 7: 09/22/19 09:29 09/25/19 06:29 Labs: Abnormal Lab Results - Last 24 Hours (Table) 09/24/19 09/24/19 09/24/19 Range/Units 11:58 16:30 23:08 Sodium (137-145) mmol/L Creatinine (0.52-1.04) mg/dL Glucose (74-99) mg/dL POC Glucose (mg/dL) 241 H 256 H 281 H (75-99) mg/dL Calcium (8.4-10.2) mg/dL AST (14-36) U/L Total Protein (6.3-8.2) g/dL Albumin (3.5-5.0) g/dL 09/25/19 09/25/19 Range/Units 05:14 06:29 Sodium 135 L (137-145) mmol/L Creatinine 0.46 L (0.52-1.04) mg/dL Glucose 294 H (74-99) mg/dL POC Glucose (mg/dL) 280 H (75-99) mg/dL Calcium 7.5 L (8.4-10.2) mg/dL AST 10 L (14-36) U/L Total Protein 4.3 L (6.3-8.2) g/dL Albumin 2.0 L (3.5-5.0) g/dL Assessment and Plan Plan: - constipation unable to tolerate PEG tube feedings improving at this time patient started on PEG tube feedings yesterday she is able to tolerate will slowly visit to 40 and check the residuals are regular basis cut down the PEEP and as mentioned above. Near-syncope: Secondary to hypovolemia, continue with IV fluids at 50 ML/H Hypovolemic Hyponatremia: Improved with IV fluid hydration Dysuria Dehydration improved Severe Protein calorie malnutrition PEG tube in place for nutrition, was not tolerating tube feedings. Patient received GoLYTELY improved constipation and couple bowel movements patient will be started on PEG tube feedings Hypothyroidism GERD Anemia Parkinson's disease Rheumatoid arthritis Chronic debility Urinary retention, resolved at this time, may be related to constipation Hypertension Type 2 diabetes mellitus
[2019-09-25] MEDS ORDERED: MAGNESIUM SULFATE-D5W PMX 1 GM in DEXTROSE/WATER 1 100ML.BAG IVPB ONE (10:00)
--- NOTE | 2019-09-25 10:29 | P.PN ---
Subjective Progress Note Date: 09/25/19 Principal diagnosis: Constipation Patient without new complaints. Was tolerating tube feeds at 20 per hour. Tube feeds are increase to 30. Small bowel movement yesterday. Denies pain. No nausea or vomiting. Objective - Vital Signs Vital signs: Vital Signs Temp 98.7 F 09/25/19 07:00 Pulse 83 09/25/19 07:00 Resp 16 09/25/19 07:00 BP 102/62 09/25/19 07:00 Pulse Ox 95 09/25/19 07:00 Intake & Output 09/24/19 09/25/19 09/25/19 18:59 06:59 18:59 Intake Total 80 190 1689.667 Output Total 800 500 400 Balance -720 -310 1289.667 Intake: Intake, IV Titration 1659.667 Amount Amino Acid 4.25%-D10w+ 648.667 Lytes*E* 1,000 ml @ 35 mls/hr IV .BY DURATION [facility] Rx#:[id number] Mvi, Adult No.4 with Vit 1011 K 10 ml Trace (Conc-1Ml/ Dose) 1 ml In Amino Acid 4.25%-D10w+Lytes*E* 1,000 ml @ 35 mls/hr IV .BY DURATION [facility] Rx#: [id number] Tube Feeding 80 190 30 Output: Urine 800 500 400 Other: Voiding Method Diaper Diaper Incontinent Incontinent # Voids 2 # Bowel Movements 1 - Exam Abdomen: Soft, nondistended, PEG tube intact, nontender - Labs CBC & Chem 7: 09/22/19 09:29 09/25/19 06:29 Labs: Abnormal Lab Results - Last 24 Hours (Table) 09/24/19 09/24/19 09/24/19 Range/Units 11:58 16:30 23:08 Sodium (137-145) mmol/L Creatinine (0.52-1.04) mg/dL Glucose (74-99) mg/dL POC Glucose (mg/dL) 241 H 256 H 281 H (75-99) mg/dL Calcium (8.4-10.2) mg/dL AST (14-36) U/L Total Protein (6.3-8.2) g/dL Albumin (3.5-5.0) g/dL 09/25/19 09/25/19 Range/Units 05:14 06:29 Sodium 135 L (137-145) mmol/L Creatinine 0.46 L (0.52-1.04) mg/dL Glucose 294 H (74-99) mg/dL POC Glucose (mg/dL) 280 H (75-99) mg/dL Calcium 7.5 L (8.4-10.2) mg/dL AST 10 L (14-36) U/L Total Protein 4.3 L (6.3-8.2) g/dL Albumin 2.0 L (3.5-5.0) g/dL Assessment and Plan (1) Constipation Narrative/Plan: Increase tube feeds to 30 per hour at this time. Continue stool softeners. Current Visit: Yes Status: Acute Code(s): K59.00 - CONSTIPATION, UNSPECIFIED SNOMED Code(s): 91728027
[2019-09-25] MEDS: POTASSIUM CHLORIDE 10 MEQ in WATER FOR INJECTION 1 100ML.BAG IVPB SCH ×2 (10:32→11:56)
[2019-09-25 11:37] LABS: Glucose,Whole Blood 279 mg/dL (75-99)
[2019-09-25] MEDS: FAT EMULSION 20% 250 ML IV SCH (15:18)
[2019-09-25 17:28] LABS: Glucose,Whole Blood 249 mg/dL (75-99)
[2019-09-25] MEDS: ATORVASTATIN 20 MG TAB PEG/G-TUBE SCH (20:40)
[2019-09-26 00:11] LABS: Glucose,Whole Blood 222 mg/dL (75-99)
[2019-09-26] MEDS: CARBIDOPA-LEVODOPA 25-100 MG 1 EACH TAB PEG/G-TUBE SCH ×7 (00:12→22:38)
[2019-09-26] MEDS: INSULIN ASPART (NovoLOG) 100 UNIT/ML VIAL SQ SCH ×5 (00:12→22:40)
[2019-09-26 05:12] LABS: Glucose,Whole Blood 261 mg/dL (75-99)
[2019-09-26] MEDS: LEVOTHYROXINE 50 MCG TAB PEG/G-TUBE SCH (05:16)
[2019-09-26 07:55] LABS: ALT 7 U/L (9-52); AST 16 U/L (14-36); African American GFR (CKD) >90 (>60 ml/min/1.73 sqM); Alkaline Phosphatase 64 U/L (38-126); Anion Gap 4 mmol/L; Blood Urea Nitrogen 10 mg/dL (7-17); Calcium 7.6 mg/dL (8.4-10.2); Carbon Dioxide 26 mmol/L (22-30); Chloride 107 mmol/L (98-107); Glucose 230 mg/dL (74-99); Magnesium 1.9 mg/dL (1.6-2.3); Non-African American GFR(CKD) >90 (>60 ml/min/1.73 sqM); Phosphorus 3.2 mg/dL (2.5-4.5); Potassium 4.5 mmol/L (3.5-5.1); Sodium 137 mmol/L (137-145); Total Bilirubin 0.3 mg/dL (0.2-1.3); Total Protein 4.5 g/dL (6.3-8.2)
[2019-09-26] MEDS: INSULN ASP PRT/INSULIN ASPART 100 UNIT/ML 10 ML VIAL SQ SCH ×2 (08:52→18:08)
[2019-09-26] MEDS: MIDODRINE 5 MG TAB PEG/G-TUBE SCH ×2 (09:03→18:09)
[2019-09-26] MEDS: ENOXAPARIN 40 MG/0.4 ML SYRINGE SQ SCH (09:03)
[2019-09-26] MEDS: PANTOPRAZOLE SODIUM 40 MG GRANULE PKT PO SCH ×2 (09:03→18:09)
[2019-09-26] MEDS ORDERED: LACTULOSE 20 GM/30 ML CUP PEG/G-TUBE PRN (09:37)
[2019-09-26] MEDS ORDERED: MVI, ADULT NO.4 WITH VIT K 10 ML, TRACE (CONC-1ML/DOSE) 1 ML in AMINO ACID 4.25%-D10W+L... IV SCH ×3 (10:00)
[2019-09-26 12:11] LABS: Glucose,Whole Blood 254 mg/dL (75-99)
[2019-09-26] MEDS: SODIUM CHLORIDE 0.9% 1,000 ML IV SCH ×2 (13:21→19:59)
[2019-09-26] MEDS: POLYETHYLENE GLYCOL 3350 17 GM POWD.PACK PEG/G-TUBE SCH (13:22)
--- NOTE | 2019-09-26 14:12 | P.PN ---
Subjective Progress Note Date: 09/26/19 CHIEF COMPLAINT: PEG tube pain HISTORY OF PRESENT ILLNESS: Patient examined at the bedside this morning. She denies abdominal pain. Tube feedings have been resumed. Currently infusing at 30 mL an hour with minimal residuals. PHYSICAL EXAM: VITAL SIGNS: Reviewed. GENERAL: Well-developed in no acute distress. HEENT: No sclera icterus. Extraocular movements grossly intact. Moist buccal mucosa. Head is atraumatic, normocephalic. ABDOMEN: Soft. Nondistended. PEG tube intact without redness or drainage. No tenderness with palpation. NEUROLOGIC: Alert and oriented. Cranial nerves II through XII grossly intact. ASSESSMENT: 1. Abdominal pain with isolated episode of vomiting 2. Recent PEG tube placement, 09/13/19 3. History of EGD on 07/05/2019 that revealed mild erythema of the antrum, body, biopsy for H pylori was negative, diminished gastric contractility, esophageal hiatal hernia PLAN: Begin daily MiraLAX. Lactulose when necessary for constipation Continue tube feedings. Advance as tolerated Wean off PPN today Case discussed with medicine team. Anticipate discharge tomorrow. Nurse practitioner note has been reviewed by physician. Signing provider agrees with the documented findings, assessment, and plan of care. Objective - Vital Signs Vital signs: Vital Signs Temp 98.6 F 09/26/19 07:00 Pulse 88 09/26/19 07:00 Resp 17 09/26/19 07:00 BP 111/62 09/26/19 07:00 Pulse Ox 97 09/26/19 07:00 Intake & Output 09/25/19 09/26/19 09/26/19 18:59 06:59 18:59 Intake Total 1882.834 360 120 Output Total 1150 Balance 732.834 360 120 Weight 72.5 kg 74 kg Intake: Intake, IV Titration 1702.834 Amount Amino Acid 4.25%-D10w+ 691.834 Lytes*E* 1,000 ml @ 35 mls/hr IV .BY DURATION [facility] Rx#:[id number] Mvi, Adult No.4 with Vit 1011 K 10 ml Trace (Conc-1Ml/ Dose) 1 ml In Amino Acid 4.25%-D10w+Lytes*E* 1,000 ml @ 35 mls/hr IV .BY DURATION [facility] Rx#: [id number] Tube Feeding 180 360 120 Output: Urine 1150 Other: Voiding Method Diaper Diaper Diaper Incontinent Incontinent Incontinent - Labs CBC & Chem 7: 09/22/19 09:29 09/26/19 06:51 Labs: Abnormal Lab Results - Last 24 Hours (Table) 09/25/19 09/26/19 09/26/19 Range/Units 17:26 00:09 05:09 Creatinine (0.52-1.04) mg/dL Glucose (74-99) mg/dL POC Glucose (mg/dL) 249 H 222 H 261 H (75-99) mg/dL Calcium (8.4-10.2) mg/dL ALT (9-52) U/L Total Protein (6.3-8.2) g/dL Albumin (3.5-5.0) g/dL 09/26/19 09/26/19 Range/Units 06:51 12:09 Creatinine 0.50 L (0.52-1.04) mg/dL Glucose 230 H (74-99) mg/dL POC Glucose (mg/dL) 254 H (75-99) mg/dL Calcium 7.6 L (8.4-10.2) mg/dL ALT 7 L (9-52) U/L Total Protein 4.5 L (6.3-8.2) g/dL Albumin 2.0 L (3.5-5.0) g/dL
--- NOTE | 2019-09-26 15:01 | P.PN ---
Subjective Progress Note Date: 09/26/19 Principal diagnosis: 84-year-old female with a past medical history of Parkinson's disease, rheumatoid arthritis, osteoarthritis, diabetes mellitus brought in by her after he noticed her eyes were rolling and she was unresponsive while transferring from her bed to the chair. He states that it lasted for a couple of minutes. As per the history from the patient she said that she felt very dizzy but did not actually pass out. Patient had a PEG tube placed at [facility] in [place] on the and she was discharged home yesterday. Her started her on Glucerna through the PEG tube and after that she threw up and had this episode of questionable syncope so he brought her to the hospital. Patient has Parkinson's disease and for the past 3-4 months has worsening of her symptoms but she is not able to get out of the bed by herself. Over the course of 2-3 months she was having difficulty in swallowing and so a PEG tube was placed. Patient had similar episode in the past and had workup done at [facility] in [place] was told that it was worsening of her Parkinson's disease. on 09/18/2019 - patient is much more with it today. She states that she feels better than when she came in. Denies having any dizziness. States that her energy levels are better. Patient has been started on her PEG tube feeds with Glucerna. She denies having any fevers chills or rhinitis. No chest pain or palpitations. No cough or difficulty in breathing. No complaints of nausea or vomiting. 09/20/2019 Patient's tube feedings are on hold and the surgery is planning on giving GoLYTELY before starting back on 2 feedings. Patient had a bowel movement yesterday. norco Will be discontinued and patient will be started on once Tylenol for pain. Patient is on Ceftin I don't see a reason for these antibiotics apparently patient has been on these antibiotics since early No vember. Constitutional: Denied any fatigue denied any fever. Cardio vascular: denied any chest pain, palpitations Gastrointestinal denied any nausea vomiting Pulmonary: Denied any shortness of breath cough Neurologic denied any new focal deficits All inpatient medications were reviewed and appropriate changes in these medications as dictated in the interval history and assessment and plan. 09/21/2019 Patient is lying in bed in no acute distress with at the bedside. Per nursing staff patient had an episode of vomiting again this morning approximately one hour after giving meds through the PEG tube. Patient continues to have abdominal tenderness and discomfort with palpation. Surgery is following. Yesterday patient was given GoLYTELY as the CAT scan that was ordered yesterday was incomplete and showed residual barium noted in the colon from previous imaging done on September 07 at [facility]. Tube feedings are on hold at this time. Patient underwent an abdominal x-ray today showing a nonobstructive bowel gas pattern, gastric tube noted, and vertebroplasty at T12 and possible lumbar compression deformities. Patient is having bowel movements. Currently patient denies any chest pain, shortness of breath, or palpitations. Patient has been afebrile. As mentioned previously patient is having periods of nausea and vomiting with abdominal pain and tenderness. 09/22/2019 Patient lying in bed in no acute distress with at the bedside. No acute overnight issues. Per nursing staff and patient the nausea has somewhat subsided. Tube feedings are still on hold patient is attempting to complete the remaining GoLYTELY today. Patient continues to have bowel movements. Patient states that the abdominal discomfort around the PEG tube has slightly improved. Patient denies any chest pain, shortness of breath, or palpitations at this time. Patient has been afebrile. Patient denies any vomiting at this time. Repeat x-ray of the abdomen today shows scattered retained barium seen throughout the colon without any significant change from previous. Will continue to monitor closely. 09/23/2019 Patient is lying in bed in no acute distress with no acute overnight issues. Patient is currently still working on finishing the GoLYTELY treatment and has n ot had a bowel movement since last night. Surgery is following. Patient is being given lactulose 3 doses today is repeat x-ray continues to show barium within the colon. Tube feedings are currently still on hold and patient is receiving a midline today for PPN as patient has not been having anything by mouth and no tube feedings for the last few days. Patient is still having some tenderness around the PEG tube site but states it has slightly improved. Today patient reports some pain with urination and a urinalysis will be obtained. Will continue to monitor closely. 09/24/2019 Patient had couple bowel movements abdominal x-ray showing barium all over the colon . Patient will be started on PEG tube feedings slowly 09/25/2019 Patient is doing much better today did not move her bowel yet but able to tolerate 20 mL per hour of for PEG tube feedings will try and titrate up to 40 today and the will cut down the PPN probably this can be discontinued tomorrow 09/26/2019 Patient is lying in bed with the head of bed elevated 45 in no acute distress. No acute overnight issues. Patient has been tolerating PEG tube feedings and is currently still on PPN. Patient will be weaned off that today. Surgery is following. Patient has not had a bowel movement today and lactulose when necessary along with MiraLAX daily has been ordered. Per nursing staff patient did have bowel movements yesterday. We'll continue to advance and titrate tube feeding and monitor closely. at the bedside states he is not comfortable bringing his home until she is at her goal of 60 mL per hour on the tube feedings. Discussed with him at length about this being a gradual process and will need to advance as tolerated. Patient will be having a tube feeding pump at the home for better tolerance of the tube feedings. Will continue to monitor closely. Currently patient denies any chest pain, shortness of breath, or palpitations. Patient has been afebrile. Patient denies any naus ea or vomiting and is tolerating the tube feedings is currently at 30 mL an hour. Objective - Vital Signs Vital signs: Vital Signs Temp 98.6 F 09/26/19 07:00 Pulse 88 09/26/19 07:00 Resp 17 09/26/19 07:00 BP 111/62 09/26/19 07:00 Pulse Ox 97 09/26/19 07:00 Intake & Output 09/25/19 09/26/19 09/26/19 18:59 06:59 18:59 Intake Total 1882.834 360 120 Output Total 1150 Balance 732.834 360 120 Weight 72.5 kg 74 kg Intake: Intake, IV Titration 1702.834 Amount Amino Acid 4.25%-D10w+ 691.834 Lytes*E* 1,000 ml @ 35 mls/hr IV .BY DURATION [facility] Rx#:[id number] Mvi, Adult No.4 with Vit 1011 K 10 ml Trace (Conc-1Ml/ Dose) 1 ml In Amino Acid 4.25%-D10w+Lytes*E* 1,000 ml @ 35 mls/hr IV .BY DURATION [facility] Rx#: [id number] Tube Feeding 180 360 120 Output: Urine 1150 Other: Voiding Method Diaper Diaper Diaper Incontinent Incontinent Incontinent - Exam GENERAL: The patient is alert and oriented x3, not in any acute distress. Well developed, well nourished. HEENT: Pupils are round and equally reacting to light. EOMI. No scleral icterus. No conjunctival pallor. Normocephalic, atraumatic. No pharyngeal erythema. No thyromegaly. CARDIOVASCULAR: S1 and S2 present. No murmurs, rubs, or gallops. PULMONARY: Chest is clear to auscultation, no wheezing or crackles. ABDOMEN: The feeding tube is in place, patient does have good bowel sounds PEG tube site area doesn't appear to be infected, tenderness around the PEG tube site has improved MUSCULOSKELETAL: No joint swelling or deformity. EXTREMITIES: No cyanosis, clubbing, or pedal edema. NEUROLOGICAL: Gross neurological examination did not reveal any focal deficits. SKIN: No rashes. - Labs CBC & Chem 7: 09/22/19 09:29 09/26/19 06:51 Labs: Abnormal Lab Results - Last 24 Hours (Table) 09/25/19 09/26/19 09/26/19 Range/Units 17:26 00:09 05:09 Creatinine (0.52-1.04) mg/dL Glucose (74-99) mg/dL POC Glucose (mg/dL) 249 H 222 H 261 H (75-99) mg/dL Calcium (8.4-10.2) mg/dL ALT (9-52) U/L Total Protein (6.3-8.2) g/dL Albumin (3.5-5.0) g/dL 09/26/19 09/26/19 Range/Units 06:51 12:09 Creatinine 0.50 L (0.52-1.04) mg/dL Glucose 230 H (74-99) mg/dL POC Glucose (mg/dL) 254 H (75-99) mg/dL Calcium 7.6 L (8.4-10.2) mg/dL ALT 7 L (9-52) U/L Total Protein 4.5 L (6.3-8.2) g/dL Albumin 2.0 L (3.5-5.0) g/dL Assessment and Plan Assessment: -constipation unable to tolerate PEG tube feedings improving at this time patient started on PEG tube feedings yesterday she is able to tolerate will slowly. advance to 40 and check the residuals are regular basis cut down as mentioned above. -Near-syncope: Secondary to hypovolemia, continue with IV fluids at 50 ML/H -Hypovolemic Hyponatremia: Improved with IV fluid hydration -Dysuria -Dehydration improved -Severe Protein calorie malnutrition -PEG tube in place for nutrition, was not tolerating tube feedings. Patient received GoLYTELY improved constipation and couple bowel movements patient was started on PEG tube feedings -Hypothyroidism -GERD -Anemia -Parkinson's disease -Rheumatoid arthritis -Chronic debility -Urinary retention, resolved at this time, may be related to constipation -Hypertension -Type 2 diabetes mellitus Recommend patient and discussion: Recommend to continue current medications, management, and symptomatic treatment. Will continue to monitor closely. Tube feedings are currently at 30 mL per hour and will advance to 40 mL per hour. Surgery is following. May wean off PPN. Case management and social work are following for discharge needs as patient is requiring a hospital bed and is to continue to have the head of the bed elevated at least 30 due to the tube feedings. Patient was also doing bolus feedings but is not tolerating and is requiring tube feeding pump at this time. Further recommendations to follow. Possible discharge in 24-48 hours.
[2019-09-26] MEDS: FAT EMULSION 20% 250 ML IV SCH (17:46)
[2019-09-26 17:58] LABS: Glucose,Whole Blood 202 mg/dL (75-99)
[2019-09-26] MEDS: ATORVASTATIN 20 MG TAB PEG/G-TUBE SCH (19:59)
[2019-09-26 22:42] LABS: Glucose,Whole Blood 192 mg/dL (75-99)
[2019-09-27 05:45] LABS: Glucose,Whole Blood 240 mg/dL (75-99)
[2019-09-27] MEDS ORDERED: INSULIN ASPART (NovoLOG) 100 UNIT/ML VIAL SQ ONE (05:47)
[2019-09-27] MEDS: LEVOTHYROXINE 50 MCG TAB PEG/G-TUBE SCH (05:52)
[2019-09-27] MEDS: INSULIN ASPART (NovoLOG) 100 UNIT/ML VIAL SQ SCH ×3 (05:52→17:29)
[2019-09-27] MEDS: CARBIDOPA-LEVODOPA 25-100 MG 1 EACH TAB PEG/G-TUBE SCH ×5 (05:52→20:02)
[2019-09-27] MEDS ORDERED: CARBIDOPA-LEVODOPA 25-100 MG 1 EACH TAB ONE (06:30)
[2019-09-27] MEDS ORDERED: LEVOTHYROXINE 50 MCG TAB ONE (06:30)
[2019-09-27 08:13] LABS: African American GFR (CKD) >90 (>60 ml/min/1.73 sqM); Anion Gap 4 mmol/L; Blood Urea Nitrogen 10 mg/dL (7-17); Carbon Dioxide 27 mmol/L (22-30); Chloride 107 mmol/L (98-107); Glucose 220 mg/dL (74-99); Magnesium 1.9 mg/dL (1.6-2.3); Non-African American GFR(CKD) 89 (>60 ml/min/1.73 sqM); Phosphorus 3.8 mg/dL (2.5-4.5); Potassium 4.8 mmol/L (3.5-5.1); Sodium 138 mmol/L (137-145)
[2019-09-27] MEDS: INSULN ASP PRT/INSULIN ASPART 100 UNIT/ML 10 ML VIAL SQ SCH ×2 (09:53→17:17)
[2019-09-27] MEDS: MIDODRINE 5 MG TAB PEG/G-TUBE SCH ×2 (10:05→17:29)
[2019-09-27] MEDS: PANTOPRAZOLE SODIUM 40 MG GRANULE PKT PO SCH ×2 (10:05→17:29)
[2019-09-27] MEDS: ENOXAPARIN 40 MG/0.4 ML SYRINGE SQ SCH (10:05)
[2019-09-27] MEDS: POLYETHYLENE GLYCOL 3350 17 GM POWD.PACK PEG/G-TUBE SCH (10:05)
[2019-09-27 11:39] LABS: Glucose,Whole Blood 235 mg/dL (75-99)
--- NOTE | 2019-09-27 13:43 | P.PN ---
Subjective Progress Note Date: 09/27/19 CHIEF COMPLAINT: PEG tube pain HISTORY OF PRESENT ILLNESS: Patient examined at the bedside this morning. She denies abdominal pain. Tolerating tube feedings with minimal residuals. PHYSICAL EXAM: VITAL SIGNS: Reviewed. GENERAL: Well-developed in no acute distress. HEENT: No sclera icterus. Extraocular movements grossly intact. Moist buccal mucosa. Head is atraumatic, normocephalic. ABDOMEN: Soft. Nondistended. PEG tube intact without redness or drainage. No tenderness with palpation. NEUROLOGIC: Alert and oriented. Cranial nerves II through XII grossly intact. ASSESSMENT: 1. Abdominal pain with isolated episode of vomiting 2. Recent PEG tube placement, 09/13/19 3. History of EGD on 07/05/2019 that revealed mild erythema of the antrum, body, biopsy for H pylori was negative, diminished gastric contractility, esophageal hiatal hernia PLAN: Continue tube feedings Stable for discharge from a surgical standpoint. Discharge per medicine. We'll sign off. Please reconsult if needed. Nurse practitioner note has been reviewed by physician. Signing provider agrees with the documented findings, assessment, and plan of care. Objective - Vital Signs Vital signs: Vital Signs Temp 98.3 F 09/27/19 07:00 Pulse 89 09/27/19 07:00 Resp 16 09/27/19 07:00 BP 116/66 09/27/19 07:00 Pulse Ox 95 09/27/19 07:00 Intake & Output 09/26/19 09/27/19 09/27/19 18:59 06:59 18:59 Intake Total 240 120 Output Total 900 800 Balance -660 120 -800 Weight 71.5 kg Intake: Tube Feeding 240 120 Output: Urine 900 800 Other: Voiding Method Diaper Diaper Diaper Incontinent Incontinent Incontinent # Voids 1 # Bowel Movements 1 - Labs CBC & Chem 7: 09/22/19 09:29 09/27/19 07:05 Labs: Abnormal Lab Results - Last 24 Hours (Table) 09/26/19 09/26/19 09/27/19 Range/Units 17:50 22:40 05:43 Glucose (74-99) mg/dL POC Glucose (mg/dL) 202 H 192 H 240 H (75-99) mg/dL Calcium (8.4-10.2) mg/dL 09/27/19 09/27/19 Range/Units 07:05 11:36 Glucose 220 H (74-99) mg/dL POC Glucose (mg/dL) 235 H (75-99) mg/dL Calcium 8.0 L (8.4-10.2) mg/dL
[2019-09-27 15:58] VITALS: BMI 30.7
--- NOTE | 2019-09-27 16:54 | P.PN ---
Subjective Progress Note Date: 09/27/19 Principal diagnosis: 84-year-old female with a past medical history of Parkinson's disease, rheumatoid arthritis, osteoarthritis, diabetes mellitus brought in by her after he noticed her eyes were rolling and she was unresponsive while transferring from her bed to the chair. He states that it lasted for a couple of minutes. As per the history from the patient she said that she felt very dizzy but did not actually pass out. Patient had a PEG tube placed at [facility] in [place] on the and she was discharged home yesterday. Her started her on Glucerna through the PEG tube and after that she threw up and had this episode of questionable syncope so he brought her to the hospital. Patient has Parkinson's disease and for the past 3-4 months has worsening of her symptoms but she is not able to get out of the bed by herself. Over the course of 2-3 months she was having difficulty in swallowing and so a PEG tube was placed. Patient had similar episode in the past and had workup done at [facility] in [place] was told that it was worsening of her Parkinson's disease. on 09/18/2019 - patient is much more with it today. She states that she feels better than when she came in. Denies having any dizziness. States that her energy levels are better. Patient has been started on her PEG tube feeds with Glucerna. She denies having any fevers chills or rhinitis. No chest pain or palpitations. No cough or difficulty in breathing. No complaints of nausea or vomiting. 09/20/2019 Patient's tube feedings are on hold and the surgery is planning on giving GoLYTELY before starting back on 2 feedings. Patient had a bowel movement yesterday. norco Will be discontinued and patient will be started on once Tylenol for pain. Patient is on Ceftin I don't see a reason for these antibiotics apparently patient has been on these antibiotics since early No vember. Constitutional: Denied any fatigue denied any fever. Cardio vascular: denied any chest pain, palpitations Gastrointestinal denied any nausea vomiting Pulmonary: Denied any shortness of breath cough Neurologic denied any new focal deficits All inpatient medications were reviewed and appropriate changes in these medications as dictated in the interval history and assessment and plan. 09/21/2019 Patient is lying in bed in no acute distress with at the bedside. Per nursing staff patient had an episode of vomiting again this morning approximately one hour after giving meds through the PEG tube. Patient continues to have abdominal tenderness and discomfort with palpation. Surgery is following. Yesterday patient was given GoLYTELY as the CAT scan that was ordered yesterday was incomplete and showed residual barium noted in the colon from previous imaging done on September 07 at [facility]. Tube feedings are on hold at this time. Patient underwent an abdominal x-ray today showing a nonobstructive bowel gas pattern, gastric tube noted, and vertebroplasty at T12 and possible lumbar compression deformities. Patient is having bowel movements. Currently patient denies any chest pain, shortness of breath, or palpitations. Patient has been afebrile. As mentioned previously patient is having periods of nausea and vomiting with abdominal pain and tenderness. 09/22/2019 Patient lying in bed in no acute distress with at the bedside. No acute overnight issues. Per nursing staff and patient the nausea has somewhat subsided. Tube feedings are still on hold patient is attempting to complete the remaining GoLYTELY today. Patient continues to have bowel movements. Patient states that the abdominal discomfort around the PEG tube has slightly improved. Patient denies any chest pain, shortness of breath, or palpitations at this time. Patient has been afebrile. Patient denies any vomiting at this time. Repeat x-ray of the abdomen today shows scattered retained barium seen throughout the colon without any significant change from previous. Will continue to monitor closely. 09/23/2019 Patient is lying in bed in no acute distress with no acute overnight issues. Patient is currently still working on finishing the GoLYTELY treatment and has n ot had a bowel movement since last night. Surgery is following. Patient is being given lactulose 3 doses today is repeat x-ray continues to show barium within the colon. Tube feedings are currently still on hold and patient is receiving a midline today for PPN as patient has not been having anything by mouth and no tube feedings for the last few days. Patient is still having some tenderness around the PEG tube site but states it has slightly improved. Today patient reports some pain with urination and a urinalysis will be obtained. Will continue to monitor closely. 09/24/2019 Patient had couple bowel movements abdominal x-ray showing barium all over the colon . Patient will be started on PEG tube feedings slowly 09/25/2019 Patient is doing much better today did not move her bowel yet but able to tolerate 20 mL per hour of for PEG tube feedings will try and titrate up to 40 today and the will cut down the PPN probably this can be discontinued tomorrow 09/26/2019 Patient is lying in bed with the head of bed elevated 45 in no acute distress. No acute overnight issues. Patient has been tolerating PEG tube feedings and is currently still on PPN. Patient will be weaned off that today. Surgery is following. Patient has not had a bowel movement today and lactulose when necessary along with MiraLAX daily has been ordered. Per nursing staff patient did have bowel movements yesterday. We'll continue to advance and titrate tube feeding and monitor closely. at the bedside states he is not comfortable bringing his home until she is at her goal of 60 mL per hour on the tube feedings. Discussed with him at length about this being a gradual process and will need to advance as tolerated. Patient will be having a tube feeding pump at the home for better tolerance of the tube feedings. Will continue to monitor closely. Currently patient denies any chest pain, shortness of breath, or palpitations. Patient has been afebrile. Patient denies any naus ea or vomiting and is tolerating the tube feedings is currently at 30 mL an hour. 09/27/2019 Patient is lying in bed in no acute distress with at the bedside. states that the hospital bed along with tube feeding pump will be delivered sometime this evening. Patient is currently tolerating tube feedings and has been increased to 50 mL per hour. No reports of nausea or vomiting at this time. Patient hasn't had a bowel movement yet this morning but did have bowel movements yesterday. Surgery is following. Patient has been weaned off of PPN. Patient denies any chest pain shortness of breath, or palpitations. Patient has been afebrile. Patient denies any nausea or vomiting as mentioned previously. Dietitian was at the bedside discussing with the at length about tube feedings and recommendations. Objective - Vital Signs Vital signs: Vital Signs Temp 98.3 F 09/27/19 07:00 Pulse 89 09/27/19 07:00 Resp 16 09/27/19 07:00 BP 116/66 09/27/19 07:00 Pulse Ox 95 09/27/19 07:00 Intake & Output 09/26/19 09/27/19 09/27/19 18:59 06:59 18:59 Intake Total 240 120 Output Total 900 800 Balance -660 120 -800 Weight 71.5 kg 71.5 kg Intake: Tube Feeding 240 120 Output: Urine 900 800 Other: Voiding Method Diaper Diaper Diaper Incontinent Incontinent Incontinent # Voids 1 # Bowel Movements 1 - Exam GENERAL: The patient is alert and oriented x3, not in any acute distress. Well developed, well nourished. HEENT: Pupils are round and equally reacting to light. EOMI. No scleral icterus. No conjunctival pallor. Normocephalic, atraumatic. No pharyngeal erythema. No thyromegaly. CARDIOVASCULAR: S1 and S2 present. No murmurs, rubs, or gallops. PULMONARY: Chest is clear to auscultation, no wheezing or crackles. ABDOMEN: The feeding tube is in place, patient does have good bowel sounds PEG tube site area doesn't appear to be infected, tenderness around the PEG tube site has improved MUSCULOSKELETAL: No joint swelling or deformity. EXTREMITIES: No cyanosis, clubbing, or pedal edema. NEUROLOGICAL: Gross neurological examination did not reveal any focal deficits. SKIN: No rashes. - Labs CBC & Chem 7: 09/22/19 09:29 09/27/19 07:05 Labs: Abnormal Lab Results - Last 24 Hours (Table) 09/26/19 09/26/19 09/27/19 Range/Units 17:50 22:40 05:43 Glucose (74-99) mg/dL POC Glucose (mg/dL) 202 H 192 H 240 H (75-99) mg/dL Calcium (8.4-10.2) mg/dL 09/27/19 09/27/19 Range/Units 07:05 11:36 Glucose 220 H (74-99) mg/dL POC Glucose (mg/dL) 235 H (75-99) mg/dL Calcium 8.0 L (8.4-10.2) mg/dL Assessment and Plan Assessment: -constipation unable to tolerate PEG tube feedings improving at this time patient started on PEG tube feedings yesterday she is able to tolerate will slowly. advance to 40 and check the residuals are regular basis cut down as mentioned above. Patient is currently on tube feedings at 50 ML per hour and will continue to advance as tolerated. -Near-syncope: Secondary to hypovolemia, continue with IV fluids at 50 ML/H -Hypovolemic Hyponatremia: Improved with IV fluid hydration -Dysuria -Dehydration improved -Severe Protein calorie malnutrition -PEG tube in place for nutrition, was not tolerating tube feedings. Patient received GoLYTELY improved constipation and couple bowel movements patient was started on PEG tube feedings -Hypothyroidism -GERD -Anemia -Parkinson's disease -Rheumatoid arthritis -Chronic debility -Urinary retention, resolved at this time, may be related to constipation -Hypertension -Type 2 diabetes mellitus Recommend patient and discussion: Recommend to continue current medications, management, and symptomatic treatment. Will continue to monitor closely. Tube feedings are currently at 50 mL per hour and will advance as tolerated. Surgery is following. Patient was weaned off PPN. Case management and social work are following for discharge n eeds. Per the hospital bed and tube feeding pump will be delivered this evening to the home. Further recommendations to follow. Patient will be discharged in the morning.
[2019-09-27] MEDS: SODIUM CHLORIDE 0.9% 1,000 ML IV SCH ×2 (17:17→20:02)
[2019-09-27 18:12] LABS: Glucose,Whole Blood 198 mg/dL (75-99)
[2019-09-27] MEDS: ATORVASTATIN 20 MG TAB PEG/G-TUBE SCH (20:02)
[2019-09-28 00:44] LABS: Glucose,Whole Blood 214 mg/dL (75-99)
[2019-09-28] MEDS: INSULIN ASPART (NovoLOG) 100 UNIT/ML VIAL SQ SCH ×2 (00:57→05:43)
[2019-09-28] MEDS: CARBIDOPA-LEVODOPA 25-100 MG 1 EACH TAB PEG/G-TUBE SCH ×3 (00:58→08:08)
[2019-09-28] MEDS: LEVOTHYROXINE 50 MCG TAB PEG/G-TUBE SCH (04:06)
[2019-09-28 05:44] LABS: Glucose,Whole Blood 181 mg/dL (75-99)
[2019-09-28 06:48] LABS: Glucose,Whole Blood 189 mg/dL (75-99)
[2019-09-28 07:34] VITALS: BP 120/78; PULSE 84; RESP 17; TEMP 97.8
[2019-09-28] MEDS: INSULN ASP PRT/INSULIN ASPART 100 UNIT/ML 10 ML VIAL SQ SCH (08:07)
[2019-09-28] MEDS: MIDODRINE 5 MG TAB PEG/G-TUBE SCH (08:08)
[2019-09-28] MEDS: POLYETHYLENE GLYCOL 3350 17 GM POWD.PACK PEG/G-TUBE SCH (08:08)
[2019-09-28] MEDS: PANTOPRAZOLE SODIUM 40 MG GRANULE PKT PO SCH (08:08)
[2019-09-28] MEDS: ENOXAPARIN 40 MG/0.4 ML SYRINGE SQ SCH (08:08)
--- NOTE | 2019-09-29 10:55 | P.DS ---
Providers Date of admission: 09/17/19 14:57 Expected date of discharge: 09/28/19 Attending physician: Betsy Steward Consults: 09/16/19 23:24 Consult Physician Urgent Consulting Provider: Meghan Foss Consult Reason/Comments: syncope Do you want consulting provider notified?: Yes 09/17/19 15:58 Consult Physician Routine Consulting Provider: Zeynep Brown Consult Reason/Comments: PARKINSON'S/SYNCOPE Do you want consulting provider notified?: Yes Primary care physician: Tylor Pak Hospital Course: Final diagnosis -constipation unable to tolerate PEG tube feedings -Near-syncope: Secondary to hypovolemia -Hypovolemic Hyponatremia -Dysuria -Dehydration -Severe Protein calorie malnutrition -PEG tube in place for nutrition, was not tolerating tube feedings -Hypothyroidism -GERD -Anemia -Parkinson's disease -Rheumatoid arthritis -Chronic debility -Urinary retention -Hypertension -Type 2 diabetes mellitus Discharge disposition Patient is being discharged in a stable condition with guarded prognosis to home and will have home care in the outpatient setting upon discharge. Total time taken is 35 minutes. History of present illness 84-year-old female with a past medical history of Parkinson's disease, rheumatoid arthritis, osteoarthritis, diabetes mellitus brought in by her after he noticed her eyes were rolling and she was unresponsive while transferring from her bed to the chair. He states that it lasted for a couple of minutes. As per the history from the patient she said that she felt very dizzy but did not actually pass out. Patient had a PEG tube placed at [facility] in [place] on the and she was discharged home yesterday. Her started her on Glucerna through the PEG tube and after that she threw up and had this episode of questionable syncope so he brought her to the hospital. Patient has Parkinson's disease and for the past 3-4 months has worsening of her symptoms but she is not able to get out of the bed by herself. Over the course of 2-3 months she was having difficulty in swallowing and so a PEG tube was placed. Patient had similar episode in the past and had workup done at [facility] in [place] was told that it was worsening of her Parkinson's disease. on 09/18/2019 - patient is much more with it today. She states that she feels better than when she came in. Denies having any dizziness. States that her energy levels are better. Patient has been started on her PEG tube feeds with Glucerna. She denies having any fevers chills or rhinitis. No chest pain or palpitations. No cough or difficulty in breathing. No complaints of nausea or vomiting. 09/20/2019 Patient's tube feedings are on hold and the surgery is planning on giving GoLYTELY before starting back on 2 feedings. Patient had a bowel movement yesterday. norco Will be discontinued and patient will be started on once Tylenol for pain. Patient is on Ceftin I don't see a reason for these antibiotics apparently patient has been on these antibiotics since early September. Constitutional: Denied any fatigue denied any fever. Cardio vascular: denied any chest pain, palpitations Gastrointestinal denied any nausea vomiting Pulmonary: Denied any shortness of breath cough Neurologic denied any new focal deficits All inpatient medications were reviewed and appropriate changes in these medications as dictated in the interval history and assessment and plan. 09/21/2019 Patient is lying in bed in no acute distress with at the bedside. Per nursing staff patient had an episode of vomiting again this morning approximately one hour after giving meds through the PEG tube. Patient continues to have abdominal tenderness and discomfort with palpation. Surgery is following. Yesterday patient was given GoLYTELY as the CAT scan that was ordered yesterday was incomplete and showed residual barium noted in the colon from previous imaging done on September 07 at [facility]. Tube feedings are on hold at this time. Patient underwent an abdominal x-ray today showing a nonobstructive bowel gas pattern, gastric tube noted, and vertebroplasty at T12 and possible lumbar compression deformities. Patient is having bowel movements. Currently patient denies any chest pain, shortness of breath, or palpitations. Patient has been afebrile. As mentioned previously patient is having periods of nausea and vomiting with abdominal pain and tenderness. 09/22/2019 Patient lying in bed in no acute distress with at the bedside. No acute overnight issues. Per nursing staff and patient the nausea has somewhat subsided. Tube feedings are still on hold patient is attempting to complete the remaining GoLYTELY today. Patient continues to have bowel movements. Patient states that the abdominal discomfort around the PEG tube has slightly improved. Patient denies any chest pain, shortness of breath, or palpitations at this time. Patient has been afebrile. Patient denies any vomiting at this time. Repeat x-ray of the abdomen today shows scattered retained barium seen throughout the colon without any significant change from previous. Will continue to monitor closely. 09/23/2019 Patient is lying in bed in no acute distress with no acute overnight issues. Patient is currently still working on finishing the [employer] treatment and has not had a bowel movement since last night. Surgery is following. Patient is being given lactulose 3 doses today is repeat x-ray continues to show barium within the colon. Tube feedings are currently still on hold and patient is receiving a midline today for PPN as patient has not been having anything by mouth and no tube feedings for the last few days. Patient is still having some tenderness around the PEG tube site but states it has slightly improved. Today patient reports some pain with urination and a urinalysis will be obtained. Will continue to monitor closely. 09/24/2019 Patient had couple bowel movements abdominal x-ray showing barium all over the colon . Patient will be started on PEG tube feedings slowly 09/25/2019 Patient is doing much better today did not move her bowel yet but able to tolerate 20 mL per hour of for PEG tube feedings will try and titrate up to 40 today and the will cut down the PPN probably this can be discontinued tomorrow 09/26/2019 Patient is lying in bed with the head of bed elevated 45 in no acute distress. No acute overnight issues. Patient has been tolerating PEG tube feedings and is currently still on PPN. Patient will be weaned off that today. Surgery is following. Patient has not had a bowel movement today and lactulose when necessary along with MiraLAX daily has been ordered. Per nursing staff patient did have bowel movements yesterday. We'll continue to advance and titrate tube feeding and monitor closely. at the bedside states he is not comfortable bringing his home until she is at her goal of 60 mL per hour on the tube feedings. Discussed with him at length about this being a gradual process and will need to advance as tolerated. Patient will be having a tube feeding pump at the home for better tolerance of the tube feedings. Will continue to monitor closely. Currently patient denies any chest pain, shortness of breath, or palpitations. Patient has been afebrile. Patient denies any nausea or vomiting and is tolerating the tube feedings is currently at 30 mL an hour. 09/27/2019 Patient is lying in bed in no acute distress with at the bedside. states that the hospital bed along with tube feeding pump will be deliv ered sometime this evening. Patient is currently tolerating tube feedings and has been increased to 50 mL per hour. No reports of nausea or vomiting at this time. Patient hasn't had a bowel movement yet this morning but did have bowel movements yesterday. Surgery is following. Patient has been weaned off of PPN. Patient denies any chest pain shortness of breath, or palpitations. Patient has been afebrile. Patient denies any nausea or vomiting as mentioned previously. Dietitian was at the bedside discussing with the at length about tube feedings and recommendations. Patient is currently having bowel movements and passing gas. Patient will continue with miralax daily along with lactulose as needed for constipation. Patient is currently at 50mL/hr of tube feedings and will continue with this at this time. Goal is 60mL/hr. Will advance slowly. Patient received a hospital bed at the home and a tube feeding pump as she was not tolerating bolus feedings prior to admission. Patient head of bed needs to be elevated 30-45% at all times for tube feeding toleration and to avoid vomiting and possible aspiration. Currently patients condition is stable and will be discharged today. On exam vitals are stable. Cardio S1, S2 are present. Respiratory system shows clear to auscultation. Abdomen is soft and non-tender. Nervous system shows no focal deficits. Please refer to medication reconciliation sheet for a list of medications. Patient Condition at Discharge: Stable Plan - Discharge Summary Discharge Rx Participant: No New Discharge Prescriptions: New Lactulose [Cephulac] 30 gm PEG/G-TUBE DAILY PRN 30 Days #140 ml PRN Reason: Constipation Polyethylene Glycol 3350 [Miralax] 17 gm PEG/G-TUBE DAILY 30 Days #30 powd.pack Midodrine [ProAmatine] 5 mg PEG/G-TUBE AC-BID 30 Days #60 tab Continue Simvastatin [Zocor] 40 mg PEG/G-TUBE HS Insulin Aspart Protam & Aspart [NovoLOG MIX 70-30 Flexpen] 20 unit SQ QAM Omeprazole [PriLOSEC] 20 mg PEG/G-TUBE BID Levothyroxine Sodium [Synthroid] 50 mcg PEG/G-TUBE DAILY HYDROcodone/APAP 5-325MG [[place] 5-325] 1 tab PEG/G-TUBE Q4HR PRN PRN Reason: Pain Carbidopa-Levodopa 25-100 mg [Sinemet 25-100 mg] 2 tab PEG/G-TUBE Q4H Insulin Aspart Protam & Aspart [NovoLOG MIX 70-30 Flexpen] 25 unit SQ HS Discontinued Cefuroxime [Ceftin] 250 mg PEG/G-TUBE BID Discharge Medication List Carbidopa-Levodopa 25-100 mg [Sinemet 25-100 mg] 2 tab PEG/G-TUBE Q4H 09/16/19 [History] HYDROcodone/APAP 5-325MG [[place] 5-325] 1 tab PEG/G-TUBE Q4HR PRN 09/16/19 [History] Insulin Aspart Protam & Aspart [NovoLOG MIX 70-30 Flexpen] 20 unit SQ QAM 09/16/19 [History] Insulin Aspart Protam & Aspart [NovoLOG MIX 70-30 Flexpen] 25 unit SQ HS 09/16/19 [History] Levothyroxine Sodium [Synthroid] 50 mcg PEG/G-TUBE DAILY 09/16/19 [History] Omeprazole [PriLOSEC] 20 mg PEG/G-TUBE BID 09/16/19 [History] Simvastatin [Zocor] 40 mg PEG/G-TUBE HS 09/16/19 [History] Lactulose [Cephulac] 30 gm PEG/G-TUBE DAILY PRN 30 Days #140 ml 09/28/19 [Rx] Midodrine [ProAmatine] 5 mg PEG/G-TUBE AC-BID 30 Days #60 tab 09/28/19 [Rx] Polyethylene Glycol 3350 [Miralax] 17 gm PEG/G-TUBE DAILY 30 Days #30 powd.pack 09/28/19 [Rx] Follow up Appointment(s)/Referral(s): [facility], [NON-STAFF] - [facility] [NON-STAFF] - Tylor Pak DO [Primary Care Provider] - 10/04/19 3:45 pm [facility], [REFERRING] - Patient Instructions/Handouts: Constipation (DC), Hyponatremia (DC), Syncope (DC), Chronic Dysphagia (GEN) Activity/Diet/Wound Care/Special Instructions: Hospital bed will be delivered to patient's house by [employer]. Activity Limited until follow-up Follow-up with primary care provider upon discharge Continue current tube feedings at 50 mL per hour and advance to goal of 60 after speaking with home infusions and Homecare Continue with MiraLAX daily Continue with lactulose as needed for constipation Continue to have the head of the bed elevated 30-45 at all times Discharge Disposition: HOME WITH HOME HEALTH SERVICES
== END 2019-09-28 11:14 | disposition home health service (06) | DRG 640 ==
LOC: EC 21:14 → 4SSUR 23:23 → OBSVTOIN 09-17 14:57
PROVIDERS: ADMIT Internal Medicine; ATTEND Internal Medicine
PROC: 05HD33Z Insertion of Infusion Device into Right Cephalic Vein, Percutaneous Approach (ICD-10-PCS; principal; 2019-09-23 12:15)
DX: E86.1 Hypovolemia (principal); E43 Unspecified severe protein-calorie malnutrition; E87.1 Hypo-osmolality and hyponatremia; E86.0 Dehydration; E78.5 Hyperlipidemia, unspecified; D53.9 Nutritional anemia, unspecified; E03.9 Hypothyroidism, unspecified; E11.43 Type 2 diabetes mellitus with diabetic autonomic (poly)neuropathy; G20 Parkinson's disease; H54.8 Legal blindness, as defined in USA; H91.90 Unspecified hearing loss, unspecified ear; I10 Essential (primary) hypertension; K21.9 Gastro-esophageal reflux disease without esophagitis; K44.9 Diaphragmatic hernia without obstruction or gangrene; K59.03 Drug induced constipation; T40.2X5A Adverse effect of other opioids, initial encounter; M06.9 Rheumatoid arthritis, unspecified; M81.0 Age-related osteoporosis without current pathological fracture; R13.0 Aphagia; Z79.4 Long term (current) use of insulin; Z79.899 Other long term (current) drug therapy; Z80.8 Family history of malignant neoplasm of other organs or systems; Z82.49 Family history of ischemic heart disease and other diseases of the circulatory system; Z82.5 Family history of asthma and other chronic lower respiratory diseases; Z87.11 Personal history of peptic ulcer disease; Z87.891 Personal history of nicotine dependence; Z90.710 Acquired absence of both cervix and uterus; Z93.1 Gastrostomy status; R33.9 Retention of urine, unspecified; Z88.8 Allergy status to other drugs, medicaments and biological substances; Z79.890 Hormone replacement therapy
CPT/HCPCS: 36410; 36415; 51701; 70450; 71045; 71046; 74018; 76380; 76937; 80048; 80053; 81003; 82330; 83036; 83735; 84100; 84478; 84484; 85025; 85610; 85730; 93005; 96360; 96361; 99285

== ENCOUNTER → 2020-10-23 | Outpatient (CLI) | payer MEDICARE, BC ==
--- NOTE | 2020-10-23 15:58 | NM ---
EXAMINATION TYPE: NM DatScan Brain SPECT DATE OF EXAM: 10/23/2020 COMPARISON: NONE HISTORY: G 25.0 TECHNIQUE: 10 drops of Lugol's solution was administered 1 hour prior to injection as a thyroid bloc eryn agent. After the administration of 4.17 mCi I-123 Ioflupane DaTscan. Images obtained 3 hours p ost injection. SPECT images of the brain were acquired with axial and coronal reconstructions. FINDINGS: There is mildly asymmetric uptake noted along the striata. Some slight reduction in uptake on the rig ht as compared to the left is noted. Normal comma-shaped uptake is not present. IMPRESSION: Abnormal TONE scan.
== END | disposition home or self-care (01) ==
LOC: RADNMMAIN 10:22
PROVIDERS: ATTEND Psychiatry & Neurology Neurology
DX: R94.02 Abnormal brain scan (principal); G25.0 Essential tremor
CPT/HCPCS: 78803; A9584

== ENCOUNTER 2021-02-03 14:44 | Inpatient (IN) | payer MEDICARE, BC ==
--- NOTE | 2021-02-03 15:04 | ED ---
General Adult HPI - General Chief complaint: Weakness Stated complaint: Fever Time Seen by Provider: 02/03/21 15:02 Source: patient, EMS Mode of arrival: EMS Limitations: altered mental status - History of Present Illness Initial comments: Patient presents to the ED by EMS for evaluation. Per EMS, the patient resides with her family, and they reported that the patient has been generally weak and dehydrated. Per EMS, the patient's has been diagnosed with Covid. Patient reportedly vomited once today. Patient admits to having a cough and fe eling generally weak. Patient is noted to have a fever on arrival to the ED today. Patient denies having any pain, trauma or injury, headache, focal numbness/weakness/neuro deficit, neck pain or stiffness, sore throat, chest pain, dyspnea, dizziness, abdominal pain, diarrhea or constipation, dysuria or urinary symptoms, or any other symptoms or complaints. Patient reportedly has a history of dementia. - Related Data Home Medications Medication Instructions Recorded Confirmed Carbidopa-Levodopa 25-100 mg 2 tab PEG/G-TUBE Q4H 09/16/19 09/16/19 [Sinemet 25-100 mg] HYDROcodone/APAP 5-325MG [[place] 1 tab PEG/G-TUBE Q4HR PRN 09/16/19 09/16/19 5-325] Insulin Aspart Protam & Aspart 20 unit SQ QAM 09/16/19 09/16/19 [NovoLOG MIX 70-30 Flexpen] Insulin Aspart Protam & Aspart 25 unit SQ HS 09/16/19 09/16/19 [NovoLOG MIX 70-30 Flexpen] Levothyroxine Sodium [Synthroid] 50 mcg PEG/G-TUBE DAILY 09/16/19 09/16/19 Omeprazole [PriLOSEC] 20 mg PEG/G-TUBE BID 09/16/19 09/16/19 Simvastatin [Zocor] 40 mg PEG/G-TUBE HS 09/16/19 09/16/19 Previous Rx's Medication Instructions Recorded Lactulose [Cephulac] 30 gm PEG/G-TUBE DAILY PRN 30 Days 09/28/19 #140 ml Midodrine [ProAmatine] 5 mg PEG/G-TUBE AC-BID 30 Days #60 09/28/19 tab polyethylene glycoL 3350 [Miralax] 17 gm PEG/G-TUBE DAILY 30 Days #30 09/28/19 powd.pack Allergies Allergy/AdvReac Type Severity Reaction Status Date / Time cortisone Allergy Unknown Verified 09/16/19 23:37 Review of Systems ROS Statement: Those systems with pertinent positive or pertinent negative responses have been documented in the HPI. ROS Other: All systems not noted in ROS Statement are negative. Past Medical History Past Medical History: Diabetes Mellitus, Eye Disorder, Hearing Disorder / Deafness, Osteoarthritis (OA), Rheumatoid Arthritis (RA), Syncope, Thyroid Disorder Additional Past Medical History / Comment(s): parkinsons, bleeding stomach ulcer when she was 19, stated pt appeared to have convulsions in after her sugar dropped to 34 at home, sugar was brought back up at home, did not go to the hospital. Legally blind in left eye, Hard of Hearing. History of Any Multi-Drug Resistant Organisms: None Reported Past Surgical History: Appendectomy, Bladder Surgery, Hysterectomy, Orthopedic Surgery Additional Past Surgical History / Comment(s): peg tube, right knee, bladder suspension Past Anesthesia/Blood Transfusion Reactions: No Reported Reaction Past Psychological History: No Psychological Hx Reported Past Alcohol Use History: None Reported Past Drug Use History: None Reported - Past Family History Mother Family Medical History: No Reported History Father Additional Family Medical History / Comment(s): passed from emphysema Sister(s) Family Medical History: Cancer, Myocardial Infarction (VT) Additional Family Medical History / Comment(s): one sister passed from brain cancer at 28 years old. two other sisters passed from heart attacks General Exam Limitations: no limitations General appearance: alert, in no apparent distress Head exam: Present: atraumatic, normocephalic Eye exam: Present: normal appearance, PERRL, EOMI ENT exam: Present: normal oropharynx, mucous membranes dry Neck exam: Present: other (Trachea is in midline). Absent: tenderness, m eningismus Respiratory exam: Present: normal lung sounds bilaterally. Absent: respiratory distress, wheezes, rales, rhonchi, stridor Cardiovascular Exam: Present: normal rhythm, tachycardia, systolic murmur, other (Normal radial pulses bilaterally) GI/Abdominal exam: Present: soft. Absent: distended, tenderness, guarding Extremities exam: Absent: tenderness, pedal edema, calf tenderness Neurological exam: Present: alert, CN II-XII intact, other (Patient is oriented to person and place, but not to time). Absent: motor sensory deficit Psychiatric exam: Present: normal affect, normal mood Skin exam: Present: warm, dry, intact, normal color Course Vital Signs 02/03/21 02/03/21 02/03/21 14:46 14:51 16:36 Temperature 102.2 F H 100.2 F H Pulse Rate 120 H 112 H Respiratory 18 16 18 Rate Blood Pressure 137/65 O2 Sat by Pulse 97 97 Oximetry - Reevaluation(s) Reevaluation #1: 02/03/21 16:22 Given the patient's fever, elevated lactate level of 3.8 and elevated LFTs, will give the patient a dose of Zosyn IVPB at this time while awaiting her Covid test result and CT imaging study reports. 02/03/21 17:39 Case, H&P, test results and ED management thus far were discussed with Dr. Marks. She accepts hospital admission. She recommends anticoagulation with IV heparin drip, as well as IV Decadron treatment. She has no further recommendations at this time. 02/03/21 18:01 Patient remains alert and breathing comfortably with a normal room air oxygen saturation. Patient denies development of any new symptoms while in the ED. Patient is aware of her test results, and she agrees with hospital admission at this time. EKG Findings - EKG Comments: EKG Findings:: EKG is very limited secondary to motion artifact, suspected sinus tachycardia, ventricular rate 148 bpm, no ectopy, normal DE and QRS intervals, normal QT interval, normal axis, no definite ST or T-wave abnormality Medical Decision Making - Medical Decision Making I suspect that the patient's fever, symptoms and lab findings are likely all secondary to Covid infection. Patient has no acute abnormality within the abdo men/pelvis on CT imaging. Patient is noted to have a small right lower lobe pulmonary embolism on CTA chest imaging. IV heparin anticoagulation therapy was initiated in the ED. Patient was given a dose of IV Decadron in the ED. Dr. Marks has accepted hospital admission. Pulmonology has been consulted. Patient is alert and breathing comfortably with a normal room air oxygen saturation in the ED. - Lab Data Result diagrams: 02/03/21 15:15 02/03/21 15:15 Lab Results 02/03/21 02/03/21 02/03/21 Range/Units 15:15 15:15 15:15 WBC 8.1 (3.8-10.6) k/uL RBC 4.60 (3.80-5.40) m/uL Hgb 13.7 (11.4-16.0) gm/dL Hct 42.1 (34.0-46.0) % MCV 91.6 (80.0-100.0) fL MCH 29.9 (25.0-35.0) pg MCHC 32.6 (31.0-37.0) g/dL RDW 13.7 (11.5-15.5) % Plt Count 189 (150-450) k/uL MPV 8.3 Neutrophils % (Manual) 70 % Band Neuts % (Manual) 26 % Lymphocytes % (Manual) 4 % Monocytes % (Manual) 1 % Neutrophils # (Manual) 7.70 (1.3-7.7) k/uL Lymphocytes # (Manual) 0.32 L (1.0-4.8) k/uL Monocytes # (Manual) 0.08 (0-1.0) k/uL Nucleated RBCs 0 (0-0) /100 WBC Manual Slide Review Performed Toxic Granulation Present RBC Morphology Normal PT 10.2 (9.0-12.0) sec INR 0.9 (<1.2) APTT 20.7 L (22.0-30.0) sec D-Dimer 7.13 H (<0.60) mg/L FEU Sodium 131 L (137-145) mmol/L Potassium 4.5 (3.5-5.1) mmol/L Chloride 96 L (98-107) mmol/L Carbon Dioxide 25 (22-30) mmol/L Anion Gap 10 mmol/L BUN 21 H (7-17) mg/dL Creatinine 0.73 (0.52-1.04) mg/dL Est GFR (CKD-EPI)AfAm 88 (>60 ml/min/1.73 sqM) Est GFR (CKD-EPI)NonAf 77 (>60 ml/min/1.73 sqM) Glucose 327 H (74-99) mg/dL Lactic Ac Sepsis Rflx Plasma Lactic Acid Jayjay (0.7-2.0) mmol/L Calcium 9.3 (8.4-10.2) mg/dL Magnesium 1.4 L (1.6-2.3) mg/dL Total Bilirubin 1.7 H (0.2-1.3) mg/dL AST 914 H (14-36) U/L ALT 184 H (4-34) U/L Alkaline Phosphatase 165 H (38-126) U/L Lactate Dehydrogenase 2740 H (313-618) U/L Troponin I (0.000-0.034) ng/mL C-Reactive Protein 14.3 H (<10.0) mg/L NT-Pro-B Natriuret Pep pg/mL Total Protein 7.1 (6.3-8.2) g/dL Albumin 3.9 (3.5-5.0) g/dL Coronavirus (PCR) (Not Detectd) 02/03/21 02/03/21 02/03/21 Range/Units 15:15 15:15 15:15 WBC (3.8-10.6) k/uL RBC (3.80-5.40) m/uL Hgb (11.4-16.0) gm/dL Hct (34.0-46.0) % MCV (80.0-100.0) fL MCH (25.0-35.0) pg MCHC (31.0-37.0) g/dL RDW (11.5-15.5) % Plt Count (150-450) k/uL MPV Neutrophils % (Manual) % Band Neuts % (Manual) % Lymphocytes % (Manual) % Monocytes % (Manual) % Neutrophils # (Manual) (1.3-7.7) k/uL Lymphocytes # (Manual) (1.0-4.8) k/uL Monocytes # (Manual) (0-1.0) k/uL Nucleated RBCs (0-0) /100 WBC Manual Slide Review Toxic Granulation RBC Morphology PT (9.0-12.0) sec INR (<1.2) APTT (22.0-30.0) sec D-Dimer (<0.60) mg/L FEU Sodium (137-145) mmol/L Potassium (3.5-5.1) mmol/L Chloride (98-107) mmol/L Carbon Dioxide (22-30) mmol/L Anion Gap mmol/L BUN (7-17) mg/dL Creatinine (0.52-1.04) mg/dL Est GFR (CKD-EPI)AfAm (>60 ml/min/1.73 sqM) Est GFR (CKD-EPI)NonAf (>60 ml/min/1.73 sqM) Glucose (74-99) mg/dL Lactic Ac Sepsis Rflx Plasma Lactic Acid Jayjay 3.8 H* (0.7-2.0) mmol/L Calcium (8.4-10.2) mg/dL Magnesium (1.6-2.3) mg/dL Total Bilirubin (0.2-1.3) mg/dL AST (14-36) U/L ALT (4-34) U/L Alkaline Phosphatase (38-126) U/L Lactate Dehydrogenase (313-618) U/L Troponin I <0.012 (0.000-0.034) ng/mL C-Reactive Protein (<10.0) mg/L NT-Pro-B Natriuret Pep 192 pg/mL Total Protein (6.3-8.2) g/dL Albumin (3.5-5.0) g/dL Coronavirus (PCR) (Not Detectd) 02/03/21 02/03/21 Range/Units 15:15 15:57 WBC (3.8-10.6) k/uL RBC (3.80-5.40) m/uL Hgb (11.4-16.0) gm/dL Hct (34.0-46.0) % MCV (80.0-100.0) fL MCH (25.0-35.0) pg MCHC (31.0-37.0) g/dL RDW (11.5-15.5) % Plt Count (150-450) k/uL MPV Neutrophils % (Manual) % Band Neuts % (Manual) % Lymphocytes % (Manual) % Monocytes % (Manual) % Neutrophils # (Manual) (1.3-7.7) k/uL Lymphocytes # (Manual) (1.0-4.8) k/uL Monocytes # (Manual) (0-1.0) k/uL Nucleated RBCs (0-0) /100 WBC Manual Slide Review Toxic Granulation RBC Morphology PT (9.0-12.0) sec INR (<1.2) APTT (22.0-30.0) sec D-Dimer (<0.60) mg/L FEU Sodium (137-145) mmol/L Potassium (3.5-5.1) mmol/L Chloride (98-107) mmol/L Carbon Dioxide (22-30) mmol/L Anion Gap mmol/L BUN (7-17) mg/dL Creatinine (0.52-1.04) mg/dL Est GFR (CKD-EPI)AfAm (>60 ml/min/1.73 sqM) Est GFR (CKD-EPI)NonAf (>60 ml/min/1.73 sqM) Glucose (74-99) mg/dL Lactic Ac Sepsis Rflx Y Plasma Lactic Acid Jayjay (0.7-2.0) mmol/L Calcium (8.4-10.2) mg/dL Magnesium (1.6-2.3) mg/dL Total Bilirubin (0.2-1.3) mg/dL AST (14-36) U/L ALT (4-34) U/L Alkaline Phosphatase (38-126) U/L Lactate Dehydrogenase (313-618) U/L Troponin I (0.000-0.034) ng/mL C-Reactive Protein (<10.0) mg/L NT-Pro-B Natriuret Pep pg/mL Total Protein (6.3-8.2) g/dL Albumin (3.5-5.0) g/dL Coronavirus (PCR) Detected A (Not Detectd) - Radiology Data Radiology results: report reviewed (CXR: min. pulmonary fibrotic changes, no definite acute lung disease; CTA chest: small embolism in the RLL pulmonary artery, interstitial pulmonary infiltrates probably related to interstitial fibrosis, no evidence of right heart strain; CT abd/pelv: no acute abnormality of abdomen pelvis ) Disposition Clinical Impression: Pulmonary embolus, COVID-19 Disposition: ADMITTED IP TO THIS HOSP Condition: Stable Is patient prescribed a controlled substance at d/c from ED?: No Referrals: Houston Griffin DO [Primary Care Provider] - 1-2 days Time of Disposition: 17:42
[2021-02-03] MEDS ORDERED: ACETAMINOPHEN TAB 500 MG TAB PO STA (15:10)
[2021-02-03] MEDS ORDERED: SODIUM CHLORIDE 0.9% 1,000 ML IV ONE ×2 (15:10→19:09)
[2021-02-03] MEDS ORDERED: ONDANSETRON 4 MG/2 ML VIAL IVP STA (15:11)
--- NOTE | 2021-02-03 15:39 | XR ---
EXAMINATION TYPE: XR chest 1V portable DATE OF EXAM: 02/03/2021 COMPARISON: 09/19/2019 HISTORY: Nausea and vomiting. Weakness. TECHNIQUE: FINDINGS: Heart is normal. Lungs are clear of consolidation. There is slight coarsening of interstiti al markings. There is no pleural effusion. Bony thorax is intact. IMPRESSION: Minimal pulmonary fibrotic changes. No definite acute lung disease.
[2021-02-03 15:42] LABS: Potassium 4.5 mmol/L (3.5-5.1)
[2021-02-03 15:44] LABS: HCT 42.1 % (34.0-46.0); HGB 13.7 gm/dL (11.4-16.0); MCH 29.9 pg (25.0-35.0); MCHC 32.6 g/dL (31.0-37.0); MCV 91.6 fL (80.0-100.0); Mean Platelet Volume 8.3; Platelet Count 189 k/uL (150-450); RDW 13.7 % (11.5-15.5); WBC 8.1 k/uL (3.8-10.6)
[2021-02-03 15:45] LABS: Albumin 3.9 g/dL (3.5-5.0); C Reactive Protein 14.3 mg/L (<10.0); Calcium 9.3 mg/dL (8.4-10.2); Magnesium 1.4 mg/dL (1.6-2.3); Total Bilirubin 1.7 mg/dL (0.2-1.3); Total Protein 7.1 g/dL (6.3-8.2)
[2021-02-03 16:04] LABS: INR 0.9 (<1.2); Prothrombin Time 10.2 sec (9.0-12.0)
[2021-02-03 16:13] LABS: D-Dimer 7.13 mg/L FEU (<0.60); Partial Thromboplastin Time 20.7 sec (22.0-30.0)
[2021-02-03] MEDS ORDERED: PIPERACILLIN-TAZOBACTAM 3.375 GM in SODIUM CHLORIDE 0.9% 100 ML IVPB STA (16:21)
[2021-02-03 16:28] LABS: Band Neutrophils % 26 %; Lymphocytes # (M) 0.32 k/uL (1.0-4.8); Monocytes # (M) 0.08 k/uL (0-1.0); Neutrophils % (M) 70 %; Nucleated Red Blood Cells 0 /100 WBC (0-0); Total Cells Counted 200
[2021-02-03 16:29] LABS: Toxic Granulation Present
--- NOTE | 2021-02-03 17:14 | CT ---
EXAMINATION TYPE: CT chest angio for PE DATE OF EXAM: 02/03/2021 COMPARISON: None HISTORY: Fever, elevated d-dimer, suspect covid. CT DLP: 1055.1 mGycm Automated exposure control for dose reduction was used. CONTRAST: Performed with IV Contrast, patient injected with 100 mL of Isovue 370. There are 3-D post processed images. There is some coarse peripheral bilateral pulmonary interstitial infiltrates. There is no discrete pu lmonary mass. Heart size is normal. There is no pericardial effusion. There is no mediastinal adenopathy. Thoracic aorta is atheromatous. The ascending aorta is 3.5 cm. Th ere is no dissection. There are no hilar masses. There is filling defect in the right lower lobe pulmonary artery. The thoracic spine is intact. There is no compression fracture. Sternum is intact. IMPRESSION: There is small embolism in the right lower lobe pulmonary artery. Old granulomatous disease. Interstitial pulmonary infiltrates probably related to interstitial fibros is. No evidence of right heart strain. Normal sized heart. This exam was discussed with ER physician at 5:15 PM.
--- NOTE | 2021-02-03 17:31 | CT ---
EXAMINATION TYPE: CT abdomen pelvis w con DATE OF EXAM: 02/03/2021 COMPARISON: None HISTORY: Fever, elevated d-dimer, suspect covid. CT DLP: 1055.1 mGycm Automated exposure control for dose reduction was used. CONTRAST: Performed with IV Contrast, patient injected with 100 mL of Isovue 370. There is some interstitial coarse density at the lung bases. There is no pleural effusion. There are multiple calcified splenic granulomata. Liver is intact. The bile ducts are not dilated. Gallbladder appears normal. There is no evidence of pancreatic mass. There is atherosclerotic vascular calcification. There is no adrenal mass. Kidneys show no hydronephrosis. The ureters are not dilated. There is no re troperitoneal adenopathy. There is no evidence of a renal mass. There is one similar cortical cyst up per pole left kidney. Delayed images show very little contrast in the renal collecting systems that c ould relate to some degree of renal failure. There is no evidence of a pelvic mass. Bladder distends smoothly. There is no inguinal hernia. There is no free fluid in the pelvis. There is no mesenteric edema. There is no ascites or free air. There is no bowel obstruction. The lum bar vertebra have normal alignment. There is no compression fracture of the lumbar spine. There is ve rtebroplasty of T12 with 25% anterior wedging. The bony pelvis is intact. Hip joints are intact. Ther e is retained fecal material in the rectum. IMPRESSION: Atherosclerotic vascular disease. There is probably some decreased renal function. No acute abnormali ty of the abdomen pelvis. Mild constipation.
[2021-02-03] MEDS ORDERED: DEXAMETHASONE SOD PHOSPHATE 4 MG/ML 1 ML VIAL IV STA (17:40)
[2021-02-03] MEDS ORDERED: HEPARIN SODIUM 1,000 UN/ML (10ML VL) IV PRN (17:41)
[2021-02-03] MEDS ORDERED: HEPARIN SODIUM 1,000 UN/ML (10ML VL) IV ONE (17:41)
[2021-02-03] MEDS: SODIUM CHLORIDE 0.9% 1,000 ML IV SCH (18:37)
[2021-02-03] MEDS: HEPARIN SOD,PORK IN 0.45% NACL 25,000 UNIT in 0.45% NACL 1 250ML.BAG IV SCH (18:40)
[2021-02-03 23:14] LABS: Ferritin 829.7 ng/mL (10.0-291.0)
[2021-02-03] MEDS: INSULIN ASPART (NovoLOG) 100 UNIT/ML VIAL SQ SCH (23:33)
[2021-02-03 23:41] LABS: Glucose,Whole Blood 297 mg/dL (75-99)
[2021-02-04] MEDS: CARBIDOPA-LEVODOPA 25-100 MG 1 EACH TAB PO SCH ×4 (01:19→21:29)
[2021-02-04] MEDS: PIPERACILLIN-TAZOBACTAM 3.375 GM in SODIUM CHLORIDE 0.9% 100 ML IVPB SCH ×3 (02:36→17:33)
[2021-02-04 03:01] LABS: Glucose,Whole Blood 215 mg/dL (75-99)
--- NOTE | 2021-02-04 06:06 | HP ---
HISTORY AND PHYSICAL DATE OF SURGERY: 02/03/2021 CHIEF COMPLAINT: Fever and weakness. HISTORY OF PRESENT ILLNESS: This is an 89-year-old woman with a past medical history of multiple medical problems including diabetes mellitus, history of hearing deficit and DJD, rheumatoid arthritis, being followed for Parkinson's disease by Dr. Griffin in the outpatient setting. Patient is complaining of severe weakness. The patient apparently resides with the family and the patient was dehydrated. The patient's p.o. intake appears to be very poor. The was recently diagnosed with COVID-19 and the patient vomited today. The patient was taken to [facility] and admitted for further evaluation and treatment. The patient's COVID-19 was positive and lactic acid was elevated. The patient also had multiple inflammatory markers of COVID. The patient has also had a CT of the chest which showed evidence of right pulmonary embolism also. The patient is confused and weak, unable to recall history. Most of the history is taken from my discussion with staff and review of the chart at this time. PAST MEDICAL HISTORY: Diabetes, hearing defect, DJD, rheumatoid arthritis and syncope. MEDICATIONS: Home medications are cetirizine, Glucophage. Synthroid, carbidopa L-dopa. Doses reviewed. ALLERGIES: CORTISONE. Family history, social history and review of systems could not be taken because of the above mentioned baseline. PHYSICAL EXAM: GENERAL: Patient is conscious, confused. VITAL SIGNS: Pulse 90, blood pressure 97/39, respirations 18, temperature 98.2, pulse ox 97% on room air. HEENT: Conjunctivae normal. Oral mucosa moist. NECK: No jugular venous distention. No carotid bruits. No lymph node enlargement. RESPIRATORY: Breath sounds diminished at the bases. A few scattered rhonchi. HEART: S1 and S2, muffled. ABDOMEN: Soft, no tenderness. EXTREMITIES: No edema, no swelling. NERVOUS: Diffusely weak. LYMPHATICS: No lymph nodes palpable in the neck or axillae. SKIN: No rashes. JOINTS: No active deforming arthropathy. LABORATORY DATA: CBC within normal skin. D-dimer is 7.1, sodium 131. Lactic acid noted. Otherwise chest x-ray and CT angio personally reviewed with evidence of COVID pneumonia present. ASSESSMENT: 1. Acute COVID-19 infection. 2. Acute COVID-19 bilateral interstitial pneumonia. 3. Acute right pulmonary embolism. 4. Weakness and dehydration. 5. Hyponatremia. 6. Elevated D-dimer. 7. Elevated inflammatory markers of COVID-19. 8. Diabetes mellitus type 2, uncontrolled with hyperglycemia. 9. Hepatitis. 10.Hearing defects. 11.Degenerative joint disease. 12.Rheumatoid arthritis. 13.Syncope. 14.History of Parkinson's. 15.Appendectomy. 16.History of bladder surgery. 17.FULL CODE. RECOMMENDATION AND DISCUSSION: In this 85-year-old woman who presented with multiple complex medical issues, we will monitor the patient closely. Continue the current management and symptomatic treatment. IV heparin. Monitor blood sugars closely. Otherwise, I would also recommend broad- spectrum IV antibiotics. Repeat labs. We will consult Dr. Wilson and Dr. Escobar for evaluation and treatment of the COVID. Otherwise prognosis guarded. Further recommendations to follow. See orders for further details. We will initiate the usual medications for COVID-19 as well. MMODL / IJN: [id number] /
[2021-02-04] MEDS: SODIUM CHLORIDE 0.9% 1,000 ML IV SCH ×2 (06:46→09:00)
[2021-02-04] MEDS: LEVOTHYROXINE 50 MCG TAB PO SCH (06:47)
[2021-02-04] MEDS: LORATADINE 10 MG TAB PO SCH (08:27)
[2021-02-04 08:50] LABS: Glucose,Whole Blood 190 mg/dL (75-99)
[2021-02-04] MEDS: INSULIN ASPART (NovoLOG) 100 UNIT/ML VIAL SQ SCH ×4 (08:56→21:29)
[2021-02-04] MEDS ORDERED: DEXAMETHASONE SOD PHOSPHATE 10 MG/ML 1 ML VIAL IV SCH (09:00)
[2021-02-04 11:57] LABS: Glucose,Whole Blood 116 mg/dL (75-99)
--- NOTE | 2021-02-04 12:06 | P.CNPUL ---
History of Present Illness Consult date: 02/04/21 Requesting physician: Gisell Handley Reason for consult: dyspnea Chief complaint: Weakness, altered mental status History of present illness: 85-year-old white female patient of Dr. Griffin who was brought into the emergency department per EMS on all 02/03/2021 with symptoms of generalized weakness, dehydration, altered mentation, one episode of vomiting, per EMS the patient's has been diagnosed with COVID 19. Patient has been having a cough, and feeling generally weak. She is also noted to have a fever on arrival to the emergency department, she denies any dyspnea, no abdominal pain, no diarrhea or constipation, no urinary symptoms, no chest pain. She is a poor historian, most of the history was obtained from the ED documentation. Past medical history is significant for diabetes mellitus type 2, rheumatoid arthritis, Parkinson's disorder, osteoarthritis, previous episode of gastric ulcers, patient is legally blind and hard of hearing. Chest x-ray shows minimal pulmonary fibrotic changes, no definite acute lung disease. Lab work was significant for lymphopenia, with lymphocyte count of 0.32, d-dimer was significantly elevated at 7.13, sodium was 131, B1 is 21 creatinine 0.73, plasma lactic acid was 3.8, ferritin level is 829 AST and ALT were elevated at 914 and 184 respectively, alkaline phosphatase was 165, LDH was 2740, CRP was 14.3, troponin was less than 0.012, proBNP was 192, chloride 96, COVID 19 was positive. Temperature on presentation was 102.2 degrees Fahrenheit, patient is on room air, she did have a low blood pressure as low as 77/40 in the emergency department, which responded well to IV hydration, patient received 2 L of fluid boluses and currently her IV is 0.9 normal saline infusing at 80 ML per hour, patient was also started on empiric antibiotics in the form of Zosyn. CT chest was completed showing small embolism in the right lower lobe pulmonary artery, old granulomatous disease, interstitial pulmonary infiltrates. Review of Systems All systems: negative Constitutional: Denies chills, Denies fever Eyes: denies blurred vision, denies pain Ears, nose, mouth and throat: Denies headache, Denies sore throat Cardiovascular: Denies chest pain, Denies shortness of breath Respiratory: Denies cough Gastrointestinal: Reports nausea, Reports vomiting, Denies abdominal pain, Denies diarrhea Genitourinary: Denies dysuria, Denies hematuria Musculoskeletal: Denies myalgias Integumentary: Denies pruritus, Denies rash Neurological: Denies numbness, Denies weakness Psychiatric: Denies anxiety, Denies depression Endocrine: Denies fatigue, Denies weight change Past Medical History Past Medical History: Diabetes Mellitus, Eye Disorder, Hearing Disorder / D eafness, Osteoarthritis (OA), Rheumatoid Arthritis (RA), Syncope, Thyroid Disorder Additional Past Medical History / Comment(s): parkinsons, bleeding stomach ulcer when she was 19, stated pt appeared to have convulsions in after her sugar dropped to 34 at home, sugar was brought back up at home, did not go to the hospital. Legally blind in left eye, Hard of Hearing. History of Any Multi-Drug Resistant Organisms: None Reported Past Surgical History: Appendectomy, Bladder Surgery, Hysterectomy, Orthopedic Surgery Additional Past Surgical History / Comment(s): peg tube, right knee, bladder suspension Past Anesthesia/Blood Transfusion Reactions: No Reported Reaction Past Psychological History: No Psychological Hx Reported Past Alcohol Use History: None Reported Past Drug Use History: None Reported - Past Family History Mother Family Medical History: No Reported History Father Additional Family Medical History / Comment(s): passed from emphysema Sister(s) Family Medical History: Cancer, Myocardial Infarction ([place]) Additional Family Medical History / Comment(s): one sister passed from brain cancer at 28 years old. two other sisters passed from heart attacks Medications and Allergies Home Medications Medication Instructions Recorded Confirmed Type Carbidopa-Levodopa 25-100 mg 1 tab PO TID 09/16/19 02/03/21 History [Sinemet 25-100 mg] Levothyroxine Sodium [Synthroid] 50 mcg PO DAILY 09/16/19 02/03/21 History Cetirizine HCl 10 mg PO DAILY 02/03/21 02/03/21 History Pantoprazole Sodium 20 mg PO BID 02/03/21 02/03/21 History metFORMIN HCL [Glucophage] 500 mg PO BID 02/03/21 02/03/21 History Allergies Allergy/AdvReac Type Severity Reaction Status Date / Time cortisone Allergy Unknown Verified 02/03/21 18:20 Physical Exam Vitals: Vital Signs Temp Pulse Resp BP Pulse Ox 02/04/21 10:37 98.8 F 71 20 100/55 97 02/04/21 07:45 97.8 F 63 20 101/55 96 02/04/21 06:30 75 16 101/55 97 02/04/21 01:59 97.7 F 72 18 103/61 96 02/03/21 20:17 98.4 F 90 18 97/39 97 02/03/21 19:03 93 18 77/40 98 02/03/21 18:52 98.9 F 99 18 96/41 98 02/03/21 18:29 98.7 F 99 18 92/50 96 02/03/21 16:36 100.2 F H 112 H 18 97 02/03/21 14:51 16 02/03/21 14:46 102.2 F H 120 H 18 137/65 97 Intake and Output 02/03/21 02/04/21 02/04/21 22:59 06:59 14:59 Intake Total 73.92 79.058 Balance 73.92 79.058 Intake: Intake, IV Titration 73.92 79.058 Amount Heparin Sod,Pork in 0.45% 73.92 79.058 NaCl 25,000 unit In 0.45 % NaCl 1 250ml.bag @ 18 UNITS/KG/HR 11.431 mls/hr IV .[id number] [facility] Rx#: [id number] GENERAL EXAM: Alert, pleasant, 85-year-old white female, on room air, with a pulse ox of 97%, comfortable in no apparent distress. HEAD: Normocephalic/atraumatic. EYES: Normal reaction of pupils, equal size. Conjunctiva pink, sclera white. NOSE: Clear with pink turbinates. THROAT: No erythema or exudates. NECK: No masses, no JVD, no thyroid enlargement, no adenopathy. CHEST: No chest wall deformity. Symmetrical expansion. LUNGS: Equal air entry with no crackles, wheeze, rhonchi or dullness. CVS: Regular rate and rhythm, normal S1 and S2, no gallops, no murmurs, no rubs ABDOMEN: Soft, nontender. No hepatosplenomegaly, normal bowel sounds, no guarding or rigidity. EXTREMITIES: No clubbing, no edema, no cyanosis, 2+ pulses and upper and lower extremities. MUSCULOSKELETAL: Muscle strength and tone normal. SPINE: No scoliosis or deformity SKIN: No rashes CENTRAL NERVOUS SYSTEM: Alert and oriented -2. No focal deficits, tone is normal in all 4 extremities. PSYCHIATRIC: Alert and oriented -2. Appropriate affect. Intact judgment and insight. Results - Laboratory Findings CBC and BMP: 02/03/21 15:15 02/03/21 15:15 PT/INR, D-dimer PT 10.2 sec (9.0-12.0) 02/03/21 15:15 INR 0.9 (<1.2) 02/03/21 15:15 D-Dimer 7.13 mg/L FEU (<0.60) H 02/03/21 15:15 Abnormal lab findings: Abnormal Labs 02/03/21 02/03/21 02/03/21 15:15 15:15 15:15 Lymphocytes # (Manual) 0.32 L APTT 20.7 L D-Dimer 7.13 H Sodium 131 L Chloride 96 L BUN 21 H Glucose 327 H POC Glucose (mg/dL) Plasma Lactic Acid Jayjay Magnesium 1.4 L Ferritin 829.7 H Total Bilirubin 1.7 H AST 914 H ALT 184 H Alkaline Phosphatase 165 H Lactate Dehydrogenase 2740 H C-Reactive Protein 14.3 H Coronavirus (PCR) 02/03/21 02/03/21 02/03/21 15:15 15:15 18:04 Lymphocytes # (Manual) APTT D-Dimer Sodium Chloride BUN Glucose POC Glucose (mg/dL) Plasma Lactic Acid Jayjay 3.8 H* 2.1 H* Magnesium Ferritin Total Bilirubin AST ALT Alkaline Phosphatase Lactate Dehydrogenase C-Reactive Protein Coronavirus (PCR) Detected A 02/03/21 02/04/21 02/04/21 23:30 00:04 03:00 Lymphocytes # (Manual) APTT >200.0 H* D-Dimer Sodium Chloride BUN Glucose POC Glucose (mg/dL) 297 H 215 H Plasma Lactic Acid Jayjay Magnesium Ferritin Total Bilirubin AST ALT Alkaline Phosphatase Lactate Dehydrogenase C-Reactive Protein Coronavirus (PCR) 02/04/21 02/04/21 07:04 08:48 Lymphocytes # (Manual) APTT >200.0 H* D-Dimer Sodium Chloride BUN Glucose POC Glucose (mg/dL) 190 H Plasma Lactic Acid Jayjay Magnesium Ferritin Total Bilirubin AST ALT Alkaline Phosphatase Lactate Dehydrogenase C-Reactive Protein Coronavirus (PCR) - Diagnostic Findings Chest x-ray: report reviewed, image reviewed CT scan - chest: report reviewed, image reviewed Assessment and Plan Plan: Assessment: #1. Acute COVID 19 pneumonia currently without hypoxemia #2. Generalized weakness and altered mental status related to the above #3. Weakness and dehydration #4. Right pulmonary embolism #5. Hyponatremia, likely hypovolemic #6. Hypotension related to dehydration, improved with IV hydration #7. Elevated d-dimer and inflammatory markers #8. Diabetes mellitus type 2 #9. Rheumatoid arthritis #10. DJD #11. History of Parkinson's #12. Elevated transaminases likely related to viral pneumonia Plan: Continue current medical treatment, will send procalcitonin, continue empiric antibiotics. Patient is currently not requiring any oxygen, she responded well to IV fluids, will continue with the IV Decadron, continue IV hydration, continue heparin infusion. Blood cultures and urinalysis and procalcitonin and are pending, we will continue to follow her clinical course. I performed a history & physical examination of the patient and discussed their management with my nurse practitioner, Nidia Cardona. I reviewed the nurse practitioner's note and agree with the documented findings and plan of care. Lung sounds are positive for diminished breath sounds The findings and the impression was discussed with the patient. I attest to the documentation by the nurse practitioner. Time with Patient: Greater than 30
[2021-02-04 15:55] LABS: Appearance,Urine Clear (Clear); Bilirubin,Urine Negative (Negative); Blood,Urine Trace (Negative); Color,Urine Yellow; Glucose,Urine (UA) Negative (Negative); Ketones,Urine 2+ (Negative); Leukocyte Esterase,Urine Large (Negative); Nitrite,Urine Negative (Negative); Protein,Urine 1+ (Negative); RBC,Urine 2 /hpf (0-5); Specific Gravity,Urine 1.024 (1.001-1.035); Squamous Epithelial Cell,Urine 1 /hpf (0-4); Urobilinogen,Urine <2.0 mg/dL (<2.0); WBC,Urine 54 /hpf (0-5)
[2021-02-04 16:46] LABS: D-Dimer 1.33 mg/L FEU (<0.60)
[2021-02-04 16:47] LABS: ALT 26 U/L (4-34); AST 495 U/L (14-36); African American GFR (CKD) >90 (>60 ml/min/1.73 sqM); Albumin 2.8 g/dL (3.5-5.0); Albumin/Globulin Ratio 0.9; Alkaline Phosphatase 126 U/L (38-126); Anion Gap 5 mmol/L; Blood Urea Nitrogen 17 mg/dL (7-17); C Reactive Protein 80.4 mg/L (<10.0); Calcium 7.9 mg/dL (8.4-10.2); Carbon Dioxide 24 mmol/L (22-30); Chloride 108 mmol/L (98-107); Glucose 136 mg/dL (74-99); Non-African American GFR(CKD) 82 (>60 ml/min/1.73 sqM); Potassium 4.5 mmol/L (3.5-5.1); Sodium 137 mmol/L (137-145); Total Bilirubin 1.4 mg/dL (0.2-1.3); Total Protein 5.8 g/dL (6.3-8.2)
[2021-02-04] MEDS: HEPARIN SOD,PORK IN 0.45% NACL 25,000 UNIT in 0.45% NACL 1 250ML.BAG IV SCH (16:53)
[2021-02-04 16:58] LABS: Glucose,Whole Blood 293 mg/dL (75-99)
[2021-02-04 17:03] LABS: Partial Thromboplastin Time >200.0 sec (22.0-30.0)
[2021-02-04] MEDS: RIVAROXABAN 15 MG TAB PO SCH (17:35)
[2021-02-04 21:23] LABS: Glucose,Whole Blood 223 mg/dL (75-99)
--- NOTE | 2021-02-04 22:11 | P.PN ---
Progress Note - Text Progress Note Date: 02/04/21 Presenting complaint: Fever or weakness History of presenting complaint: This is a 89-year-old patient of Dr. Griffin. Chronic stable medical conditions include diabetes mellitus, hearing deficit, DJD, rheumatoid arthritis, Parkinson disease. Patient presented feeling weak diet and rundown. was diagnosed with COVID. Patient got a cough and feeling weak. Had a fever. Patient has underlying cognitive impairment Admitted with bilateral COVID 19 pneumonia. Small right pulmonary embolism. Patient's paced on dexamethasone. Started on xarelto. Patient's pulse ox was 96% on room air. Today-tired. Laying in bed. Slight cough. Decreased oral intake Review of systems: Was done for constitutional, cardiovascular, GI, pulmonary. relevant finding as above Active Medications Carbidopa/Levodopa (Carbidopa-Levodopa 25-100 Mg 1 Each Tab) 1 each PO TID [facility] Last Admin: 02/04/21 21:29 Dose: 1 each Documented by: Dexamethasone Sodium Phosphate (Dexamethasone Sod Phosphate 10 Mg/Ml 1 Ml Vial) 6 mg IV DAILY [facility] Last Admin: 02/04/21 08:28 Dose: 6 mg Documented by: Sodium Chloride (Saline 0.9%) 1,000 mls @ 80 mls/hr IV .[id number] [facility] Last Admin: 02/04/21 09:00 Dose: 80 mls/hr Documented by: Piperacillin Sod/Tazobactam (Sod 3.375 gm/ Sodium Chloride) 100 mls @ 25 mls/hr IVPB Q8H [facility] Last Admin: 02/04/21 17:33 Dose: 25 mls/hr Documented by: Insulin Aspart (Insulin Aspart (Novolog) 100 Unit/Ml Vial) 0 unit SQ ACHS [facility]; Protocol Last Admin: 02/04/21 21:29 Dose: 3 unit Documented by: Levothyroxine Sodium (Levothyroxine 50 Mcg Tab) 50 mcg PO DAILY@0630 [facility] Last Admin: 02/04/21 06:47 Dose: 50 mcg Documented by: Loratadine (Loratadine 10 Mg Tab) 10 mg PO DAILY [facility] Last Admin: 02/04/21 08:27 Dose: 10 mg Documented by: Rivaroxaban (Rivaroxaban 15 Mg Tab) 15 mg PO BID-W/MEALS [facility] Last Admin: 02/04/21 17:35 Dose: 15 mg Documented by: On examination: VITAL SIGNS: 98.8, 71, 20, 100/55, 97% on room air[] GENERAL APPEARANCE: Laying in bed, tired. . RESPIRATORY: Respiratory effort increased. NEUROLOGICAL: Cranial nerves grossly intact. Moving all 4 limbs PSYCHIATRY: Awake, answering questions. Rest of exam as per pulmonary and nursing INVESTIGATIONS, reviewed in the clinical context: D-dimer 1.33 potassium 4.5 creatinine 0.67 AST 495 ALT 26 CRP 80.4 Accu-Cheks to 93, 223 Admission labs: EKG-undetermined rhythm Abdominal pelvis CT: Interstitial coarse density lung bases. Otherwise nonspecific CT chest angina for PE: Small embolism of the right lower lobe pulmonary artery. Interstitial pulmonary infiltrates. Assessment and plan: Acute right lower lobe small part be embolism -Patient was started on IV heparin. manager of disaster recovery to xarelto later today IV heparin monitoring Diabetes mellitus type 2, uncontrolled with hyperglycemia, -Continue with local [place]. Follow Accu-Cheks. Bilateral COVID 19 pneumonia. - Note patient's pulse ox is 96-97% on room air. No real indication for dexamethasone. manager of disaster recovery to oral Decadron and follow with pulmonary. Hard of hearing Primary osteoarthritis -Use analgesics when necessary Idiopathic Parkinson disorder -Continue with Sinemet Legally blind in the left eye Hypothyroid -Continue with Synthroid
[2021-02-04] MEDS ORDERED: ACETAMINOPHEN TAB 500 MG TAB PO PRN (22:25)
[2021-02-04] MEDS: metFORMIN 500 MG TAB PO SCH (22:45)
[2021-02-05] MEDS: PIPERACILLIN-TAZOBACTAM 3.375 GM in SODIUM CHLORIDE 0.9% 100 ML IVPB SCH ×3 (02:33→17:29)
[2021-02-05] MEDS: LEVOTHYROXINE 50 MCG TAB PO SCH (05:36)
--- NOTE | 2021-02-05 06:46 | CONS ---
CONSULTATION DATE OF SERVICE: 02/04/2021 REASON FOR CONSULTATION: COVID. HISTORY OF PRESENT ILLNESS: The patient is an 85-year-old female presenting to the ER at [facility] yesterday for evaluation of generalized weakness and dehydration. Apparently, the patient's has been diagnosed with COVID. The patient has been feeling weak and tired and no energy and apparently did have one episode of vomiting. However, the patient denies having any abdominal pain or any diarrhea. The patient denies having any chest pain. No shortness. Minimal cough and is currently on room air. No URI symptoms. The patient denies any burning or frequency of urine. With these symptoms, the patient has been evaluated by the ER physician. On arrival to the ER, the patient did have a fever of 102 degrees Fahrenheit. The patient is currently 96- 99% on room air. The patient did have a normal white count with lymphopenia. He did have elevated D-dimer. Kidney function was normal. Liver enzymes mildly elevated. CRP was 80.4. Procalcitonin 1.55. Urine is large leukocyte esterases and 54 WBC. Luong PCR came back positive. The patient also have a positive blood culture with E coli. The patient did have CT angiogram of the chest pain that was negative for PE but did show some interstitial infiltrate. The patient did have a CT of abdomen and pelvis that did not show any acute abnormality. The patient is currently being treated with Zosyn. Infectious Disease was consulted for further management for positive COVID, as well as bacteremia. REVIEW OF SYSTEMS: Positive points have been mentioned in HPI. Rest of systems are negative. PAST MEDICAL HISTORY: Diabetes mellitus, osteoarthritis, rheumatoid arthritis, syncope, and hypothyroidism, disease. PAST SURGICAL HISTORY: Appendectomy, bladder surgery, hysterectomy, right knee, bladder suspension. SOCIAL HISTORY: No history of smoking, drinking or drug use. She is and lives with her . FAMILY HISTORY: Father with history of emphysema. ALLERGIES: CORTISONE. MEDICATIONS: The patient is currently on Tylenol, Sinemet, dexamethasone, Lovenox, Synthroid, Claritin, Glucophage, Xarelto, IV fluid. PHYSICAL EXAMINATION: VITAL SIGNS: Blood pressure 113/76 with a pulse of 74, temperature 98.3, she is 97% on room air. GENERAL DESCRIPTION: Patient is a middle-aged female lying in bed in no distress. No tachypnea or accessory muscles of respiration use. HEENT: Examination shows no pallor or scleral icterus. Oral mucous membrane is dry. NECK: Trachea central, no thyromegaly. LUNGS: Unlabored breathing, decreased breath sounds at the bases. No wheeze or crackle. HEART: S1-S2, regular rate and rhythm. ABDOMEN: Soft, no tenderness. No guarding or rigidity. EXTREMITIES: No edema of the feet. SKIN: No rash or mass palpable. NEUROLOGICAL: Patient is awake, alert, oriented times two. Mood and affect normal. LABS: Hemoglobin 13.7, white count 8.1. She has elevated D-dimer. Creatinine was normal. ALT, AST and bilirubin slightly elevated. Urine mildly positive. DIAGNOSTIC IMPRESSION: Patient admitted to the hospital with generalized weakness, no energy, which is likely multifactorial. This patient has been diagnosed with COVID-19 pneumonia. However, CT angiogram did not show the typical ground-glass opacities with pneumonia for COVID-19 infection. Patient now with E coli bacteremia, source possibly urinary versus possible hepatic source/ascending cholangitis as the patient did have elevated bilirubin, though no significant abnormality at the area seen on the CT. PLAN: 1. Zosyn 3.375 grams q.8 hours. 2. Gentle IV fluid. 3. Continue with current support for underlying COVID-19 infection but no hypoxemia. Steroids discouraged. 4. We will follow on her clinical condition and further adjust medication if needed. Thank you for this consultation. Will follow this patient along with you. MMODL / IJN: [id number] /
[2021-02-05 07:03] LABS: Glucose,Whole Blood 128 mg/dL (75-99)
[2021-02-05 07:50] LABS: Basophils % (A) 0 %; Eosinophils % (A) 0 %; HCT 30.2 % (34.0-46.0); Lymphocytes # (A) 0.5 k/uL (1.0-4.8); Lymphocytes % (A) 4 %; MCH 30.6 pg (25.0-35.0); MCHC 33.3 g/dL (31.0-37.0); MCV 91.8 fL (80.0-100.0); Mean Platelet Volume 8.8; Monocytes # (A) 0.4 k/uL (0-1.0); Monocytes % (A) 4 %; Neutrophils # (A) 11.5 k/uL (1.3-7.7); Neutrophils % (A) 92 %; Platelet Count 182 k/uL (150-450); RBC 3.28 m/uL (3.80-5.40); RDW 13.7 % (11.5-15.5); WBC 12.5 k/uL (3.8-10.6)
[2021-02-05 08:27] LABS: HGB 10.1 gm/dL (11.4-16.0)
[2021-02-05] MEDS: INSULIN ASPART (NovoLOG) 100 UNIT/ML VIAL SQ SCH ×4 (08:49→21:37)
[2021-02-05] MEDS: metFORMIN 500 MG TAB PO SCH ×2 (08:55→21:38)
[2021-02-05] MEDS: LORATADINE 10 MG TAB PO SCH (08:55)
[2021-02-05] MEDS: CARBIDOPA-LEVODOPA 25-100 MG 1 EACH TAB PO SCH ×3 (08:55→21:38)
[2021-02-05] MEDS: RIVAROXABAN 15 MG TAB PO SCH ×2 (08:55→17:29)
[2021-02-05] MEDS ORDERED: dexAMETHasone 2 MG TAB PO SCH (09:00)
[2021-02-05 11:23] LABS: Glucose,Whole Blood 222 mg/dL (75-99)
[2021-02-05] MEDS: SODIUM CHLORIDE 0.9% 1,000 ML IV SCH ×2 (11:24→21:37)
--- NOTE | 2021-02-05 15:53 | P.PN ---
Subjective Progress Note Date: 02/05/21 Principal diagnosis: COVID 19 85-year-old white female patient of Dr. Griffin who was brought into the emergency department per EMS on all 02/03/2021 with symptoms of generalized weakness, dehydration, altered mentation, one episode of vomiting, per EMS the patient's has been diagnosed with COVID 19. Patient has been having a cough, and feeling generally weak. She is also noted to have a fever on arrival to the emergency department, she denies any dyspnea, no abdominal pain, no diarrhea or constipation, no urinary symptoms, no chest pain. She is a poor historian, most of the history was obtained from the ED documentation. Past medical history is significant for diabetes mellitus type 2, rheumatoid arthritis, Parkinson's disorder, osteoarthritis, previous episode of gastric ulcers, patient is legally blind and hard of hearing. Chest x-ray shows minimal pulmonary fibrotic changes, no definite acute lung disease. Lab work was significant for lymphopenia, with lymphocyte count of 0.32, d-dimer was significantly elevated at 7.13, sodium was 131, B1 is 21 creatinine 0.73, plasma lactic acid was 3.8, ferritin level is 829 AST and ALT were elevated at 914 and 184 respectively, alkaline phosphatase was 165, LDH was 2740, CRP was 14.3, troponin was less than 0.012, proBNP was 192, chloride 96, COVID 19 was positive. Temperature on presentation was 102.2 degrees Fahrenheit, patient is on room air, she did have a low blood pressure as low as 77/40 in the emergency department, which responded well to IV hydration, patient received 2 L of fluid boluses and currently her IV is 0.9 normal saline infusing at 80 ML per hour, patient was also started on empiric antibiotics in the form of Zosyn. CT chest was completed showing small embolism in the right lower lobe pulmonary artery, old granulomatous disease, interstitial pulmonary infiltrates. On 02/05/2021 patient seen in follow-up on medical surgical floor. She is breathing comfortably, she is currently resting quietly in bed, she remains on room air, pulse oximetry 98%, she is afebrile, breathing is nonlabored, no couplets of chest discomfort. Remains on Decadron 6 mg daily, she remains on Zosyn, total level came back quite elevated at 21.5, and patient Had E. coli in the blood culture drawn on 02/03/2021, infectious disease is following. She is on Zoloft 50 mg daily, she is on IV fluids with 0.9 normal saline at 80 ML per hour, today's labs have been reviewed showing white blood cell count is 12.5, hemoglobin of 10.1, lymphocyte count of 0.5, d-dimer is down to 1.06, heparin d rip has been discontinued, and patient has been transitioned to oral Xarelto. He is 66, down from 8.4 on yesterday's labs. Follow-up LDH is pending. Urinalysis showed possible urinary tract infection, with large amount of leuk trase and white blood cells in the urinalysis. Hemodynamically stable, no worsening dyspnea. Objective - Vital Signs Vital signs: Vital Signs Temp 97.7 F 02/05/21 14:00 Pulse 84 02/05/21 14:00 Resp 17 02/05/21 14:00 BP 105/59 02/05/21 14:00 Pulse Ox 98 02/05/21 14:00 Intake & Output 02/04/21 02/05/21 02/05/21 18:59 06:59 18:59 Intake Total 123.635 Output Total 200 400 Balance -76.365 -400 Weight 63.503 kg Intake: Intake, IV Titration 123.635 Amount Heparin Sod,Pork in 0.45% 123.635 NaCl 25,000 unit In 0.45 % NaCl 1 250ml.bag @ 18 UNITS/KG/HR 11.431 mls/hr IV .[id number] [facility] Rx#: [id number] Output: Urine 200 400 Other: Voiding Method External Catheter # Voids 1 # Bowel Movements 1 - Exam GENERAL EXAM: Alert, pleasant, 85-year-old white female, on room air, with a pulse ox of 97%, comfortable in no apparent distress. HEAD: Normocephalic/atraumatic. EYES: Normal reaction of pupils, equal size. Conjunctiva pink, sclera white. NOSE: Clear with pink turbinates. THROAT: No erythema or exudates. NECK: No masses, no JVD, no thyroid enlargement, no adenopathy. CHEST: No chest wall deformity. Symmetrical expansion. LUNGS: Equal air entry with no crackles, wheeze, rhonchi or dullness. CVS: Regular rate and rhythm, normal S1 and S2, no gallops, no murmurs, no rubs ABDOMEN: Soft, nontender. No hepatosplenomegaly, normal bowel sounds, no guarding or rigidity. EXTREMITIES: No clubbing, no edema, no cyanosis, 2+ pulses and upper and lower extremities. MUSCULOSKELETAL: Muscle strength and tone normal. SPINE: No scoliosis or deformity SKIN: No rashes CENTRAL NERVOUS SYSTEM: Alert and oriented -2. No focal deficits, tone is normal in all 4 extremities. PSYCHIATRIC: Alert and oriented -2. Appropriate affect. Intact judgment and insight. - Labs CBC & Chem 7: 02/05/21 06:40 02/04/21 15:42 Labs: Abnormal Lab Results - Last 24 Hours (Table) 02/04/21 02/04/21 02/04/21 Range/Units 15:38 15:42 15:42 WBC (3.8-10.6) k/uL RBC (3.80-5.40) m/uL Hgb (11.4-16.0) gm/dL Hct (34.0-46.0) % Neutrophils # (1.3-7.7) k/uL Lymphocytes # (1.0-4.8) k/uL APTT >200.0 H* (22.0-30.0) sec D-Dimer 1.33 H (<0.60) mg/L FEU Chloride 108 H (98-107) mmol/L Glucose 136 H (74-99) mg/dL POC Glucose (mg/dL) (75-99) mg/dL Calcium 7.9 L (8.4-10.2) mg/dL Total Bilirubin 1.4 H (0.2-1.3) mg/dL AST 495 H (14-36) U/L C-Reactive Protein 80.4 H (<10.0) mg/L Total Protein 5.8 L (6.3-8.2) g/dL Albumin 2.8 L (3.5-5.0) g/dL Urine Protein 1+ H (Negative) Urine Ketones 2+ H (Negative) Urine Blood Trace H (Negative) Ur Leukocyte Esterase Large H (Negative) Urine WBC 54 H (0-5) /hpf 04/05/21 04/05/21 04/06/21 Range/Units 16:34 21:21 06:40 WBC 12.5 H (3.8-10.6) k/uL RBC 3.28 L (3.80-5.40) m/uL Hgb 10.1 L D (11.4-16.0) gm/dL Hct 30.2 L (34.0-46.0) % Neutrophils # 11.5 H (1.3-7.7) k/uL Lymphocytes # 0.5 L (1.0-4.8) k/uL APTT (22.0-30.0) sec D-Dimer (<0.60) mg/L FEU Chloride (98-107) mmol/L Glucose (74-99) mg/dL POC Glucose (mg/dL) 293 H 223 H (75-99) mg/dL Calcium (8.4-10.2) mg/dL Total Bilirubin (0.2-1.3) mg/dL AST (14-36) U/L C-Reactive Protein (<10.0) mg/L Total Protein (6.3-8.2) g/dL Albumin (3.5-5.0) g/dL Urine Protein (Negative) Urine Ketones (Negative) Urine Blood (Negative) Ur Leukocyte Esterase (Negative) Urine WBC (0-5) /hpf 02/05/21 02/05/21 02/05/21 Range/Units 06:40 06:40 06:56 WBC (3.8-10.6) k/uL RBC (3.80-5.40) m/uL Hgb (11.4-16.0) gm/dL Hct (34.0-46.0) % Neutrophils # (1.3-7.7) k/uL Lymphocytes # (1.0-4.8) k/uL APTT (22.0-30.0) sec D-Dimer 1.06 H (<0.60) mg/L FEU Chloride (98-107) mmol/L Glucose (74-99) mg/dL POC Glucose (mg/dL) 128 H (75-99) mg/dL Calcium (8.4-10.2) mg/dL Total Bilirubin (0.2-1.3) mg/dL AST (14-36) U/L C-Reactive Protein 64.0 H (<10.0) mg/L Total Protein (6.3-8.2) g/dL Albumin (3.5-5.0) g/dL Urine Protein (Negative) Urine Ketones (Negative) Urine Blood (Negative) Ur Leukocyte Esterase (Negative) Urine WBC (0-5) /hpf 02/05/21 Range/Units 11:17 WBC (3.8-10.6) k/uL RBC (3.80-5.40) m/uL Hgb (11.4-16.0) gm/dL Hct (34.0-46.0) % Neutrophils # (1.3-7.7) k/uL Lymphocytes # (1.0-4.8) k/uL APTT (22.0-30.0) sec D-Dimer (<0.60) mg/L FEU Chloride (98-107) mmol/L Glucose (74-99) mg/dL POC Glucose (mg/dL) 222 H (75-99) mg/dL Calcium (8.4-10.2) mg/dL Total Bilirubin (0.2-1.3) mg/dL AST (14-36) U/L C-Reactive Protein (<10.0) mg/L Total Protein (6.3-8.2) g/dL Albumin (3.5-5.0) g/dL Urine Protein (Negative) Urine Ketones (Negative) Urine Blood (Negative) Ur Leukocyte Esterase (Negative) Urine WBC (0-5) /hpf Microbiology - Last 24 Hours (Table) 02/03/21 21:57 Blood Culture - Preliminary Blood No Growth after 24 hours 02/03/21 17:57 Blood Culture Gram Stain - Preliminary Blood Blood Culture - Preliminary Escherichia coli Assessment and Plan Plan: Assessment: #1. Acute COVID 19 pneumonia currently without hypoxemia #2. Generalized weakness and altered mental status related to the above #3. Weakness and dehydration #4. Right pulmonary embolism, and initially started on heparin infusion, transition to Xarelto #5. Hyponatremia, likely hypovolemic, improved with IV hydration #6. Hypotension related to dehydration, improved with IV hydration #7. Elevated d-dimer and inflammatory markers #8. Diabetes mellitus type 2 #9. Rheumatoid arthritis #10. DJD #11. History of Parkinson's #12. Elevated transaminases likely related to viral pneumonia Plan: Continue with current antibiotic, ID service is following, will send follow-up blood culture today, clinically patient is feeling better, hemodynamically she stable, no worsening dyspnea, remains on room air, with transition to oral anticoagulation, we'll obtain follow-up inflammatory markers, follow-up chest x- ray tomorrow, follow up blood cultures. I performed a history & physical examination of the patient and discussed their management with my nurse practitioner, Nidia Cardona. I reviewed the nurse practitioner's note and agree with the documented findings and plan of care. Lung sounds are positive for diminished breath sounds The findings and the impression was discussed with the patient. I attest to the documentation by the nurse practitioner. Time with Patient: Less than 30
[2021-02-05 17:13] LABS: Glucose,Whole Blood 282 mg/dL (75-99)
[2021-02-05 20:39] LABS: Glucose,Whole Blood 289 mg/dL (75-99)
--- NOTE | 2021-02-05 23:35 | P.PN ---
Progress Note - Text Progress Note Date: 02/05/21 Presenting complaint: Fever or weakness History of presenting complaint: This is a 89-year-old patient of Dr. Griffin. Chronic stable medical conditions include diabetes mellitus, hearing deficit, DJD, rheumatoid arthritis, Parkinson disease. Patient presented feeling weak diet and rundown. was diagnosed with COVID. Patient got a cough and feeling weak. Had a fever. Patient has underlying cognitive impairment Admitted with bilateral COVID 19 pneumonia. Small right pulmonary embolism. Patient's paced on dexamethasone. Started on xarelto. Patient's pulse ox was 96% on room air. Blood cultures came back positive for E. coli Today-laying in bed. Tired. Decreased oral intake. Pulse ox: On room air. 96% Review of systems: Was done for constitutional, cardiovascular, GI, pulmonary. relevant finding as above Active Medications Acetaminophen (Acetaminophen Tab 500 Mg Tab) 500 mg PO TID PRN PRN Reason: Fever and/ or Pain Last Admin: 02/04/21 22:45 Dose: 500 mg Documented by: Carbidopa/Levodopa (Carbidopa-Levodopa 25-100 Mg 1 Each Tab) 1 each PO TID [facility] Last Admin: 02/05/21 21:38 Dose: 1 each Documented by: Dexamethasone (Dexamethasone 2 Mg Tab) 6 mg PO DAILY [facility] Last Admin: 02/05/21 08:55 Dose: 6 mg Documented by: Sodium Chloride (Saline 0.9%) 1,000 mls @ 80 mls/hr IV .[id number] [facility] Last Admin: 02/05/21 21:37 Dose: 80 mls/hr Documented by: Piperacillin Sod/Tazobactam (Sod 3.375 gm/ Sodium Chloride) 100 mls @ 25 mls/hr IVPB Q8H [facility] Last Admin: 02/05/21 17:29 Dose: 25 mls/hr Documented by: Insulin Aspart (Insulin Aspart (Novolog) 100 Unit/Ml Vial) 0 unit SQ ACHS [facility]; Protocol Last Admin: 02/05/21 21:37 Dose: 5 unit Documented by: Levothyroxine Sodium (Levothyroxine 50 Mcg Tab) 50 mcg PO DAILY@0630 [facility] Last Admin: 02/05/21 05:36 Dose: 50 mcg Documented by: Loratadine (Loratadine 10 Mg Tab) 10 mg PO DAILY [facility] Last Admin: 02/05/21 08:55 Dose: 10 mg Documented by: Metformin HCl (Metformin 500 Mg Tab) 500 mg PO BID [facility] Last Admin: 02/05/21 21:38 Dose: 500 mg Documented by: Rivaroxaban (Rivaroxaban 15 Mg Tab) 15 mg PO BID-W/MEALS [facility] Last Admin: 02/05/21 17:29 Dose: 15 mg Documented by: On examination: VITAL SIGNS: 97.7, 84, 17, 105/59, 98% room air GENERAL APPEARANCE: Laying in bed, tired. . RESPIRATORY: Respiratory effort increased. NEUROLOGICAL: Cranial nerves grossly intact. Moving all 4 limbs PSYCHIATRY: Awake, answering questions. Rest of exam as per pulmonary and nursing INVESTIGATIONS, reviewed in the clinical context: February 05: WBC 12.5 hemoglobin 10.1 platelets 182 d-dimer 1.06 CRP 64 D-dimer 1.33 potassium 4.5 creatinine 0.67 AST 495 ALT 26 CRP 80.4 Accu-Cheks to 93, 223 Admission labs: EKG-undetermined rhythm Abdominal pelvis CT: Interstitial coarse density lung bases. Otherwise nonspecific CT chest angina for PE: Small embolism of the right lower lobe pulmonary artery. Interstitial pulmonary infiltrates. Assessment and plan: Acute right lower lobe small pulmonary embolism -Was on IV heparin. 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 coli. Source unknown/computed tomography scan abdomen unremarkable on IV Zosyn IV heparin monitoring-now discontinued Diabetes mellitus type 2, uncontrolled with hyperglycemia, -Continue with metformin. Follow Accu-Cheks. Bilateral COVID 19 pneumonia. - Note patient's pulse ox is 96-97% on room air. No real indication for dexamethasone. DC Decadron Hard of hearing Primary osteoarthritis -Use analgesics when necessary Idiopathic Parkinson disorder -Continue with Sinemet Legally blind in the left eye Hypothyroid -Continue with Synthroid
[2021-02-06] MEDS: LEVOTHYROXINE 50 MCG TAB PO SCH (05:35)
--- NOTE | 2021-02-06 07:18 | XR ---
EXAMINATION TYPE: XR chest 1V portable DATE OF EXAM: 02/06/2021 HISTORY: Shortness of breath. COMPARISON: 02/03/2021 TECHNIQUE: Single view of the chest is submitted. FINDINGS: Demonstrated are scattered senescent parenchymal change. There is no evidence for focal infiltrate. The heart is stable. Hilar and mediastinal structures are within normal limits. Degenerative changes are seen of the dorsal spine. IMPRESSION: 1. Chronic changes without evidence for acute pulmonary disease.
[2021-02-06 07:26] LABS: Glucose,Whole Blood 109 mg/dL (75-99)
[2021-02-06] MEDS: INSULIN ASPART (NovoLOG) 100 UNIT/ML VIAL SQ SCH ×4 (07:50→22:19)
--- NOTE | 2021-02-06 07:51 | PN ---
PROGRESS NOTE DATE OF SERVICE: 02/05/2021 REASON FOR FOLLOWUP: COVID-19 infection and bacteremia. INTERVAL HISTORY: The patient is currently afebrile. The patient is breathing comfortably on room air. The patient denies having any chest pain or shortness of breath. Occasional cough. No abdominal pain or diarrhea. PHYSICAL EXAMINATION: Blood pressure 110/64, pulse of 74, temperature 97.9. She is 97% room air. General description is an elderly female lying in bed in no distress. Respiratory system: Unlabored breathing, clear to auscultation anteriorly. Heart S1, S2. Regular rate and rhythm. Abdomen is soft, no tenderness. LABS: Hemoglobin is 10.1, white count 12.5, BUN of 17, and creatinine 0.67. DIAGNOSTIC IMPRESSION AND PLAN: 1. Patient with E coli bacteremia, source urinary, less likely abdominal as the patient does not have any abdominal pain or urinary symptoms. No new symptoms. Urine culture is pending. Being a sensitive pathogen, we will discontinue Zosyn. Start the patient on Rocephin. 2. Patient with acute COVID-19 infection, mild ileus. No hypoxemia or need for supplemental oxygen. She is is currently on Xarelto. Will add zinc and ascorbic acid. Monitor clinical course closely. MMODL / IJN: [id number] /
[2021-02-06] MEDS: RIVAROXABAN 15 MG TAB PO SCH ×2 (07:58→17:23)
[2021-02-06] MEDS: metFORMIN 500 MG TAB PO SCH ×2 (07:58→22:20)
[2021-02-06] MEDS: ASCORBIC ACID 500 MG TAB PO SCH (07:58)
[2021-02-06] MEDS: CARBIDOPA-LEVODOPA 25-100 MG 1 EACH TAB PO SCH ×3 (07:58→22:20)
[2021-02-06 11:06] LABS: C Reactive Protein 3.4 mg/dL (0.0-0.8)
[2021-02-06] MEDS: SODIUM CHLORIDE 0.9% 1,000 ML IV SCH ×2 (11:20→22:19)
[2021-02-06] MEDS ORDERED: FLUCONAZOLE 100 MG TAB PO ONE (12:00)
[2021-02-06 12:04] LABS: Glucose,Whole Blood 181 mg/dL (75-99)
[2021-02-06 16:51] LABS: Glucose,Whole Blood 169 mg/dL (75-99)
--- NOTE | 2021-02-06 17:50 | P.PN ---
Subjective Progress Note Date: 02/06/21 Principal diagnosis: COVID 19 85-year-old white female patient of Dr. Griffin who was brought into the emergency department per EMS on all 02/03/2021 with symptoms of generalized weakness, dehydration, altered mentation, one episode of vomiting, per EMS the patient's has been diagnosed with COVID 19. Patient has been having a cough, and feeling generally weak. She is also noted to have a fever on arrival to the emergency department, she denies any dyspnea, no abdominal pain, no diarrhea or constipation, no urinary symptoms, no chest pain. She is a poor historian, most of the history was obtained from the ED documentation. Past medical history is significant for diabetes mellitus type 2, rheumatoid arthritis, Parkinson's disorder, osteoarthritis, previous episode of gastric ulcers, patient is legally blind and hard of hearing. Chest x-ray shows minimal pulmonary fibrotic changes, no definite acute lung disease. Lab work was significant for lymphopenia, with lymphocyte count of 0.32, d-dimer was significantly elevated at 7.13, sodium was 131, B1 is 21 creatinine 0.73, plasma lactic acid was 3.8, ferritin level is 829 AST and ALT were elevated at 914 and 184 respectively, alkaline phosphatase was 165, LDH was 2740, CRP was 14.3, troponin was less than 0.012, proBNP was 192, chloride 96, COVID 19 was positive. Temperature on presentation was 102.2 degrees Fahrenheit, patient is on room air, she did have a low blood pressure as low as 77/40 in the emergency department, which responded well to IV hydration, patient received 2 L of fluid boluses and currently her IV is 0.9 normal saline infusing at 80 ML per hour, patient was also started on empiric antibiotics in the form of Zosyn. CT chest was completed showing small embolism in the right lower lobe pulmonary artery, old granulomatous disease, interstitial pulmonary infiltrates. On 02/05/2021 patient seen in follow-up on medical surgical floor. She is breathing comfortably, she is currently resting quietly in bed, she remains on room air, pulse oximetry 98%, she is afebrile, breathing is nonlabored, no couplets of chest discomfort. Remains on Decadron 6 mg daily, she remains on Zosyn, total level came back quite elevated at 21.5, and patient Had E. coli in the blood culture drawn on 02/03/2021, infectious disease is following. She is on Zoloft 50 mg daily, she is on IV fluids with 0.9 normal saline at 80 ML per hour, today's labs have been reviewed showing white blood cell count is 12.5, hemoglobin of 10.1, lymphocyte count of 0.5, d-dimer is down to 1.06, heparin d rip has been discontinued, and patient has been transitioned to oral Xarelto. He is 66, down from 8.4 on yesterday's labs. Follow-up LDH is pending. Urinalysis showed possible urinary tract infection, with large amount of leuk trase and white blood cells in the urinalysis. Hemodynamically stable, no worsening dyspnea. On 02/06/2021 patient seen in follow-up on medical surgical floor, she is awake, , in no acute distress, review pulse ox is 97%, blood pressure stable, patient is afebrile, breathing is comfortable, lung sounds are clear, chest x-ray shows chronic changes without evidence of acute pulmonary disease.her heparin infusion has been converted to Xarelto, her inflammatory markers down to 169 for LDH and CRP down to 3.4. patient remains on Rocephin for urinary tract infection, she has had no fever or chills, no altered mentation. ID service is following, she has no specific complaints, she states she has not been up out of bed, on a normal basis she is in the motorized wheelchair which her and her son help get her up in, she does not have her motorized wheelchair from home, we will consult physical therapy to overlies the patient and possibly get her in the chair, and start strengthening exercises. Pulmonary perspective she's been stable, she could be considered for discharge home Objective - Vital Signs Vital signs: Vital Signs Temp 97.7 F 02/06/21 13:26 Pulse 76 02/06/21 13:26 Resp 16 02/06/21 13:26 BP 99/58 02/06/21 13:26 Pulse Ox 97 02/06/21 13:26 Intake & Output 02/05/21 02/06/21 02/06/21 18:59 06:59 18:59 Intake Total 1360 Output Total 500 500 Balance -500 860 Intake: Intake, IV Titration 1060 Amount Piperacillin-Tazobactam 3 100 .375 gm In Sodium Chloride 0.9% 100 ml @ 25 mls/hr IVPB Q8H [facility] Rx#: [id number] Sodium Chloride 0.9% 1, 960 000 ml @ 80 mls/hr IV . [id number] [facility] Rx#:[id number] Oral 300 Output: Urine 500 500 Other: Voiding Method External Catheter - Exam GENERAL EXAM: Alert, pleasant, 85-year-old white female, on room air, with a pulse ox of 97%, comfortable in no apparent distress. HEAD: Normocephalic/atraumatic. EYES: Normal reaction of pupils, equal size. Conjunctiva pink, sclera white. NOSE: Clear with pink turbinates. THROAT: No erythema or exudates. NECK: No masses, no JVD, no thyroid enlargement, no adenopathy. CHEST: No chest wall deformity. Symmetrical expansion. LUNGS: Equal air entry with no crackles, wheeze, rhonchi or dullness. CVS: Regular rate and rhythm, normal S1 and S2, no gallops, no murmurs, no rubs ABDOMEN: Soft, nontender. No hepatosplenomegaly, normal bowel sounds, no guarding or rigidity. EXTREMITIES: No clubbing, no edema, no cyanosis, 2+ pulses and upper and lower extremities. MUSCULOSKELETAL: Muscle strength and tone normal. SPINE: No scoliosis or deformity SKIN: No rashes CENTRAL NERVOUS SYSTEM: Alert and oriented -2. No focal deficits, tone is normal in all 4 extremities. PSYCHIATRIC: Alert and oriented -2. Appropriate affect. Intact judgment and insight. - Labs CBC & Chem 7: 02/05/21 06:40 02/04/21 15:42 Labs: Abnormal Lab Results - Last 24 Hours (Table) 02/05/21 02/06/21 02/06/21 Range/Units 20:37 06:57 07:25 POC Glucose (mg/dL) 289 H 109 H (75-99) mg/dL C-Reactive Protein 3.4 H (0.0-0.8) mg/dL 02/06/21 02/06/21 Range/Units 12:02 16:47 POC Glucose (mg/dL) 181 H 169 H (75-99) mg/dL C-Reactive Protein (0.0-0.8) mg/dL Microbiology - Last 24 Hours (Table) 02/03/21 21:57 Blood Culture - Preliminary Blood No Growth after 48 hours 02/04/21 15:38 Urine Culture - Preliminary Urine,Clean Catch 02/03/21 17:57 Blood Culture Gram Stain - Final Blood Blood Culture - Final Escherichia coli Assessment and Plan Plan: Assessment: #1. Acute COVID 19 pneumonia currently without hypoxemia #2. Generalized weakness and altered mental status related to the above #3. Weakness and dehydration #4. Right pulmonary embolism, and initially started on heparin infusion, transition to Xarelto #5. Hyponatremia, likely hypovolemic, improved with IV hydration #6. Hypotension related to dehydration, improved with IV hydration #7. Elevated d-dimer and inflammatory markers #8. Diabetes mellitus type 2 #9. Rheumatoid arthritis #10. DJD #11. History of Parkinson's #12. Elevated transaminases likely related to viral pneumonia Plan: patient has remained stable from pulmonary perspective, no hypoxia, no dyspnea, no cough, no pulmonary symptoms. She also has no other specific complaints, she is being treated for a urinary tract infection, she has been converted to oral as well to from heparin for evidence of right pulmonary embolism. Vital signs have been stable and the fever or chills, she could be considered for discharge home from pulmonary perspective. I performed a history & physical examination of the patient and discussed their management with my nurse practitioner, Nidia Cardona. I reviewed the nurse practitioner's note and agree with the documented findings and plan of care. Lung sounds are positive for diminished breath sounds The findings and the impression was discussed with the patient. I attest to the documentation by the nurse practitioner. Time with Patient: Less than 30
--- NOTE | 2021-02-06 20:59 | P.PN ---
Progress Note - Text Progress Note Date: 02/06/21 Presenting complaint: Fever or weakness History of presenting complaint: This is a 89-year-old patient of Dr. Griffin. Chronic stable medical conditions include diabetes mellitus, hearing deficit, DJD, rheumatoid arthritis, Parkinson disease. Patient presented feeling weak diet and rundown. was diagnosed with COVID. Patient got a cough and feeling weak. Had a fever. Patient has underlying cognitive impairment Admitted with bilateral COVID 19 pneumonia. Small right pulmonary embolism. Patient's paced on dexamethasone. Started on xarelto. Patient's pulse ox was 96% on room air. Blood cultures came back positive for E. coli Today-laying in bed. Tired. Poor oral intake Review of systems: Attempted for constitutional, cardiovascular, GI, pulmonary. relevant finding as above Active Medications Acetaminophen (Acetaminophen Tab 500 Mg Tab) 500 mg PO TID PRN PRN Reason: Fever and/ or Pain Last Admin: 02/04/21 22:45 Dose: 500 mg Documented by: Ascorbic Acid (Ascorbic Acid 500 Mg Tab) 1,000 mg PO DAILY [facility] Last Admin: 02/06/21 07:58 Dose: 1,000 mg Documented by: Carbidopa/Levodopa (Carbidopa-Levodopa 25-100 Mg 1 Each Tab) 1 each PO TID [facility] Last Admin: 02/06/21 17:23 Dose: 1 each Documented by: Fluconazole (Fluconazole 100 Mg Tab) 100 mg PO DAILY [facility] Sodium Chloride (Saline 0.9%) 1,000 mls @ 80 mls/hr IV .[id number] [facility] Last Admin: 02/06/21 11:20 Dose: Not Given Documented by: Ceftriaxone Sodium 1 gm/ (Sodium Chloride) 50 mls @ 100 mls/hr IVPB Q24HR [facility] Last Admin: 02/06/21 07:58 Dose: 100 mls/hr Documented by: Insulin Aspart (Insulin Aspart (Novolog) 100 Unit/Ml Vial) 0 unit SQ ACHS [facility]; Protocol Last Admin: 02/06/21 17:23 Dose: 2 unit Documented by: Levothyroxine Sodium (Levothyroxine 50 Mcg Tab) 50 mcg PO DAILY@0630 [facility] Last Admin: 02/06/21 05:35 Dose: 50 mcg Documented by: Metformin HCl (Metformin 500 Mg Tab) 500 mg PO BID [facility] Last Admin: 02/06/21 07:58 Dose: 500 mg Documented by: Rivaroxaban (Rivaroxaban 15 Mg Tab) 15 mg PO BID-W/MEALS [facility] Last Admin: 02/06/21 17:23 Dose: 15 mg Documented by: On examination: VITAL SIGNS: 98.3, 79, 16, 114/67, 98% room air GENERAL APPEARANCE: Laying in bed, tired. . RESPIRATORY: Respiratory effort increased. NEUROLOGICAL: Cranial nerves grossly intact. Moving all 4 limbs PSYCHIATRY: Awake, answering questions. Rest of exam as per pulmonary and nursing INVESTIGATIONS, reviewed in the clinical context: February 06: CRP 3.4 February 05: WBC 12.5 hemoglobin 10.1 platelets 182 d-dimer 1.06 CRP 64 D-dimer 1.33 potassium 4.5 creatinine 0.67 AST 495 ALT 26 CRP 80.4 Accu-Cheks to 93, 223 Admission labs: EKG-undetermined rhythm Abdominal pelvis CT: Interstitial coarse density lung bases. Otherwise nonspecific CT chest angina for PE: Small embolism of the right lower lobe pulmonary artery. Interstitial pulmonary infiltrates. Assessment and plan: Acute right lower lobe small pulmonary embolism -Was on IV heparin. Now on xarelto Sepsis with positive blood cultures E. coli. Source unknown/computed tomography scan abdomen unremarkable IV Zosyn-changed over to IV ceftriaxone IV heparin monitoring-now discontinued Diabetes mellitus type 2, uncontrolled with hyperglycemia, -Continue with metformin. Follow Accu-Cheks. Bilateral COVID 19 pneumonia. - Note patient's pulse ox is 96-97% on room air. No real indication for dexamethasone. DC Decadron Hard of hearing Primary osteoarthritis -Use analgesics when necessary Idiopathic Parkinson disorder -Continue with Sinemet Legally blind in the left eye Hypothyroid -Continue with Synthroid Chronic medical debility, and a baseline patient is wheelchair bound DO NOT RESUSCITATE Continue current medication treatment plan. Antibiotics as per ID. Prognosis guarded. Oral intake poor.
[2021-02-06 22:02] LABS: Glucose,Whole Blood 157 mg/dL (75-99)
--- NOTE | 2021-02-06 22:55 | PN ---
PROGRESS NOTE DATE OF SERVICE: 02/06/2021 REASON FOR FOLLOWUP: E coli bacteremia, possible urinary source. The patient is currently afebrile. The patient is breathing comfortably. Denies having any chest pain. No shortness of breath or cough. No nausea, vomiting and no diarrhea. EXAMINATION: Blood pressure 105/68, pulse 94, temperature 97.8. She is 97% on room air. General description is an elderly female lying in bed in no distress. Respiratory system: Unlabored breathing, decreased intensity of breath sounds. No wheeze. HEART: S1, S2. Regular rate and rhythm. ABDOMEN: Soft, no tenderness. LABS: No new labs have been obtained today. DIAGNOSTIC IMPRESSION AND PLAN: Patient with an E coli bacteremia possible urinary source. CT abdominal cultures did not show any source and not common cause of pneumonia. Patient is covered with Rocephin to continue, finish therapy with oral antibiotics on discharge. Continue supportive care. MMODL / IJN: [id number] /
[2021-02-07] MEDS: LEVOTHYROXINE 50 MCG TAB PO SCH (05:32)
[2021-02-07 07:20] LABS: Glucose,Whole Blood 86 mg/dL (75-99)
[2021-02-07] MEDS: INSULIN ASPART (NovoLOG) 100 UNIT/ML VIAL SQ SCH ×2 (08:23→12:47)
[2021-02-07] MEDS: CARBIDOPA-LEVODOPA 25-100 MG 1 EACH TAB PO SCH (08:25)
[2021-02-07] MEDS: RIVAROXABAN 15 MG TAB PO SCH (08:25)
[2021-02-07] MEDS: metFORMIN 500 MG TAB PO SCH (08:25)
[2021-02-07] MEDS: ASCORBIC ACID 500 MG TAB PO SCH (08:25)
[2021-02-07] MEDS ORDERED: FLUCONAZOLE 100 MG TAB PO SCH (09:00)
[2021-02-07] MEDS: SODIUM CHLORIDE 0.9% 1,000 ML IV SCH (10:38)
[2021-02-07 11:11] VITALS: PULSE 89; RESP 16; TEMP 98.6
[2021-02-07 11:38] LABS: Glucose,Whole Blood 140 mg/dL (75-99)
--- NOTE | 2021-02-07 11:48 | P.PN ---
Subjective Progress Note Date: 02/07/21 Principal diagnosis: Acute covid 19 pneumonia and right-sided pulmonary embolism. Without hypoxia. 85-year-old white female patient of Dr. Griffin who was brought into the [facility] department per EMS on all 02/03/2021 with symptoms of generalized weakness, dehydration, altered mentation, one episode of vomiting, per EMS the patient's has been diagnosed with COVID 19. Patient has been having a cough, and feeling generally weak. She is also noted to have a fever on arrival to the emergency department, she denies any dyspnea, no abdominal pain, no diarrhea or constipation, no urinary symptoms, no chest pain. She is a poor historian, most of the history was obtained from the ED documentation. Past medical history is significant for diabetes mellitus type 2, rheumatoid arthritis, Parkinson's disorder, osteoarthritis, previous episode of gastric ulcers, patient is legally blind and hard of hearing. Chest x-ray shows minimal pulmonary fibrotic changes, no definite acute lung disease. Lab work was significant for lymphopenia, with lymphocyte count of 0.32, d-dimer was significantly elevated at 7.13, sodium was 131, B1 is 21 creatinine 0.73, plasma lactic acid was 3.8, ferritin level is 829 AST and ALT were elevated at 914 and 184 respectively, alkaline phosphatase was 165, LDH was 2740, CRP was 14.3, troponin was less than 0.012, proBNP was 192, chloride 96, COVID 19 was positive. Temperature on presentation was 102.2 degrees Fahrenheit, patient is on room air, she did have a low blood pressure as low as 77/40 in the emergency department, which responded well to IV hydration, patient received 2 L of fluid boluses and currently her IV is 0.9 normal saline infusing at 80 ML per hour, patient was also started on empiric antibiotics in the form of Zosyn. CT chest was completed showing small embolism in the right lower lobe pulmonary artery, old granulomatous disease, interstitial pulmonary infiltrates. On 02/05/2021 patient seen in follow-up on medical surgical floor. She is breathing comfortably, she is currently resting quietly in bed, she remains on room air, pulse oximetry 98%, she is afebrile, breathing is nonlabored, no coup lets of chest discomfort. Remains on Decadron 6 mg daily, she remains on Zosyn, total level came back quite elevated at 21.5, and patient Had E. coli in the blood culture drawn on 02/03/2021, infectious disease is following. She is on Zoloft 50 mg daily, she is on IV fluids with 0.9 normal saline at 80 ML per hour, today's labs have been reviewed showing white blood cell count is 12.5, hemoglobin of 10.1, lymphocyte count of 0.5, d-dimer is down to 1.06, heparin drip has been discontinued, and patient has been transitioned to oral Xarelto. He is 66, down from 8.4 on yesterday's labs. Follow-up LDH is pending. Urinalysis showed possible urinary tract infection, with large amount of leuk trase and white blood cells in the urinalysis. Hemodynamically stable, no worsening dyspnea. On 02/06/2021 patient seen in follow-up on medical surgical floor, she is awake, , in no acute distress, review pulse ox is 97%, blood pressure stable, patient is afebrile, breathing is comfortable, lung sounds are clear, chest x-ray shows chronic changes without evidence of acute pulmonary disease.her heparin infusion has been converted to Xarelto, her inflammatory markers down to 169 for LDH and CRP down to 3.4. patient remains on Rocephin for urinary tract infection, she has had no fever or chills, no altered mentation. ID service is following, she has no specific complaints, she states she has not been up out of bed, on a normal basis she is in the motorized wheelchair which her and her son help get her up in, she does not have her motorized wheelchair from home, we will consult physical therapy to overlies the patient and possibly get her in the chair, and start strengthening exercises. Pulmonary perspective she's been stable, she could be considered for discharge home No labs were drawn today. Patient was reevaluated today on 02/07/2021, patient seems to be doing fairly we ll. Patient is relatively asymptomatic, she feels just mostly achy, and weak. No labs were drawn today. Her heparin was transitioned to Xarelto. Objective - Vital Signs Vital signs: Vital Signs Temp 98.6 F 02/07/21 11:09 Pulse 89 02/07/21 11:09 Resp 16 02/07/21 11:09 BP 114/64 02/07/21 11:09 Pulse Ox 98 02/07/21 11:09 Intake & Output 02/06/21 02/07/21 02/07/21 18:59 06:59 18:59 Intake Total 720 Output Total 950 Balance -950 720 Intake: Oral 720 Output: Urine 950 Other: Voiding Method External Catheter Incontinent External Catheter # Bowel Movements 1 - Exam Physical Exam: Revealed an 85-year-old female in no distress. On room air. Head: Atraumatic, normocephalic. HEENT:[Neck is supple.] [No neck masses.] [No thyromegaly.] [No JVD.] Chest: [Clear throughout, no crackles, no rhonchi, no wheezes.] Cardiac Exam: [Normal S1 and S2, no S3 gallop, no murmur.] Abdomen: [Soft, nontender, no megaly, no rebound, no guarding, normal bowel sounds.] Extremities: [No clubbing, no edema, no cyanosis.] Neurological Exam: [No focal neurologic deficit.] Alert and oriented 3. Psychiatric: Normal mood affect and normal mental status examination. - Labs CBC & Chem 7: 02/05/21 06:40 02/04/21 15:42 Labs: Abnormal Lab Results - Last 24 Hours (Table) 02/06/21 02/06/21 02/06/21 Range/Units 12:02 16:47 22:01 POC Glucose (mg/dL) 181 H 169 H 157 H (75-99) mg/dL 02/07/21 Range/Units 11:35 POC Glucose (mg/dL) 140 H (75-99) mg/dL Microbiology - Last 24 Hours (Table) 02/03/21 21:57 Blood Culture - Preliminary Blood No Growth after 72 hours 02/04/21 15:38 Urine Culture - Final Urine,Clean Catch 02/05/21 16:40 Blood Culture - Preliminary Blood No Growth after 24 hours 02/05/21 16:39 Blood Culture - Preliminary Blood No Growth after 24 hours Assessment and Plan Assessment: Impression: Acute covered 19 pneumonia without hypoxemia Acute pulmonary embolism Hypovolemic hyponatremia Hypovolemic hypotension Elevated inflammatory markers Type 2 diabetes History of rheumatoid arthritis Degenerative joint disease History of Parkinson's disease Elevated transaminases secondary to viral pneumonia. Recommendation: Continue Xarelto Continue the Covid 19 cocktail. Obviously the patient does not qualify for REM or TOCI or convalescent plasma Consider discharge planning in the next 24-48 hours. Time with Patient: Less than 30
[2021-02-07 16:09] VITALS: BP 118/67
--- NOTE | 2021-02-07 23:24 | P.DS ---
Providers Date of admission: 02/03/21 17:42 Expected date of discharge: 02/07/21 Attending physician: Loc العراقي Consults: 02/03/21 15:51 Consult Physician Urgent Consulting Provider: Ivonne Escobar Consult Reason/Comments: Covid Do you want consulting provider notified?: Yes 02/03/21 21:27 Consult Physician Routine Consulting Provider: Joyce Wilson Consult Reason/Comments: covid Do you want consulting provider notified?: Yes Primary care physician: [facility] Course: Presenting complaint: Fever or weakness History of presenting complaint: This is a 89-year-old patient of Dr. Griffin. Chronic stable medical conditions include diabetes mellitus, hearing deficit, DJD, rheumatoid arthritis, Parkinson disease. Patient presented feeling weak diet and rundown. was diagnosed with COVID. Patient got a cough and feeling weak. Had a fever. Patient has underlying cognitive impairment Admitted with bilateral COVID 19 pneumonia. Small right pulmonary embolism. Patient's paced on dexamethasone. Started on xarelto. Patient's pulse ox was 96% on room air. Blood cultures came back positive for E. coli. IV ceftriaxone. Computed tomography scan of the abdomen did not show any source of infection. Today-doing better. Oral intake improved. Pulse ox 98% on room air. Dexamethasone was discontinued because of pulse ox been good. Discussed with Dr. Wilson from ID. Patient to be discharged on ciprofloxacin. Discussed with high risk case manager. Home care has been arranged. Discussed with patient. Discussion and discharge planning more than 35 minutes Consultation: Dr. Wilson from ID Dr. Escobar and partners from pulmonary On examination: VITAL SIGNS: 98.6, 89, 16, 118/67, 97% room air GENERAL APPEARANCE: Laying in bed, awake, comfortable RESPIRATORY: Respiratory effort normal NEUROLOGICAL: Cranial nerves grossly intact. Moving all 4 limbs PSYCHIATRY: Awake, answering questions. Rest of exam as per pulmonary and nursing INVESTIGATIONS, reviewed in the clinical context: February 06: CRP 3.4 February 05: WBC 12.5 hemoglobin 10.1 platelets 182 d-dimer 1.06 CRP 64 D-dimer 1.33 potassium 4.5 creatinine 0.67 AST 495 ALT 26 CRP 80.4 Accu-Cheks to 93, 223 Admission labs: EKG-undetermined rhythm Abdominal pelvis CT: Interstitial coarse density lung bases. Otherwise nonspecific CT chest angina for PE: Small embolism of the right lower lobe pulmonary artery. Interstitial pulmonary infiltrates. Assessment and plan: Acute right lower lobe small pulmonary embolism -Was on IV heparin. Now on xarelto Sepsis with positive blood cultures E. coli. Source unknown/computed tomography scan abdomen unremarkable IV Zosyn-changed over to IV ceftriaxone-patient be discharged on oral ciprofloxacin for 7 days IV heparin monitoring-now discontinued Diabetes mellitus type 2, uncontrolled with hyperglycemia, -Continue with metformin. Follow Accu-Cheks. Bilateral COVID 19 pneumonia. - Note patient's pulse ox is 96-97% on room air. No real indication for dexamethasone. DC Decadron Hard of hearing Primary osteoarthritis -Use analgesics when necessary Idiopathic Parkinson disorder -Continue with Sinemet Legally blind in the left eye Hypothyroid -Continue with Synthroid Chronic medical debility, and a baseline patient is wheelchair bound DO NOT RESUSCITATE Disposition: Home Patient Condition at Discharge: Stable Plan - Discharge Summary Discharge Rx Participant: Yes New Discharge Prescriptions: New Acetaminophen Tab [Tylenol] 500 mg PO TID PRN tab PRN Reason: Fever And/ Or Pain Cefuroxime Axetil [Ceftin] 500 mg PO BID #10 tab Fluconazole [Diflucan] 100 mg PO DAILY #5 tab Rivaroxaban [Xarelto Starter Pack] 0 mg PO DIRECTED 30 Days #1 pack Continue Levothyroxine Sodium [Synthroid] 50 mcg PO DAILY Carbidopa-Levodopa 25-100 mg [Sinemet 25-100 mg] 1 tab PO TID metFORMIN HCL [Glucophage] 500 mg PO BID Pantoprazole Sodium 20 mg PO BID Discontinued Cetirizine HCl 10 mg PO DAILY Discharge Medication List Carbidopa-Levodopa 25-100 mg [Sinemet 25-100 mg] 1 tab PO TID 09/16/19 [History] Levothyroxine Sodium [Synthroid] 50 mcg PO DAILY 09/16/19 [History] Pantoprazole Sodium 20 mg PO BID 02/03/21 [History] metFORMIN HCL [Glucophage] 500 mg PO BID 02/03/21 [History] Acetaminophen Tab [Tylenol] 500 mg PO TID PRN tab 02/07/21 [Rx] Cefuroxime Axetil [Ceftin] 500 mg PO BID #10 tab 02/07/21 [Rx] Fluconazole [Diflucan] 100 mg PO DAILY #5 tab 02/07/21 [Rx] Rivaroxaban [Xarelto Starter Pack] 0 mg PO DIRECTED 30 Days #1 pack 02/07/21 [Rx] Follow up Appointment(s)/Referral(s): Houston Griffin DO [Primary Care Provider] - 02/12/21 2:00 pm (This appointment was already scheduled prior to admission. ) Damien Alvarez DO [Doctor of Osteopathic Medicine] - 2 Weeks [facility], [NON-STAFF] - As Needed Patient Instructions/Handouts: Coronavirus Disease 2019 (COVID-19) Discharge Disposition: HOME WITH HOME HEALTH SERVICES
== END 2021-02-07 16:40 | disposition home health service (06) | DRG 871 ==
LOC: EC 14:44 → 4SSUR 17:42
PROVIDERS: ADMIT Hospitalist; ATTEND Hospitalist
DX: A41.51 Sepsis due to Escherichia coli [E. coli] (principal); U07.1 COVID-19; I26.99 Other pulmonary embolism without acute cor pulmonale; J12.82 Pneumonia due to coronavirus disease 2019; E87.1 Hypo-osmolality and hyponatremia; K56.7 Ileus, unspecified; Z20.822 Contact with and (suspected) exposure to COVID-19; Z79.4 Long term (current) use of insulin; Z82.5 Family history of asthma and other chronic lower respiratory diseases; Z82.49 Family history of ischemic heart disease and other diseases of the circulatory system; Z80.8 Family history of malignant neoplasm of other organs or systems; H91.90 Unspecified hearing loss, unspecified ear; E86.0 Dehydration; M06.9 Rheumatoid arthritis, unspecified; E11.65 Type 2 diabetes mellitus with hyperglycemia; G20 Parkinson's disease; Z79.890 Hormone replacement therapy; I95.9 Hypotension, unspecified; R74.01 Elevation of levels of liver transaminase levels; M19.91 Primary osteoarthritis, unspecified site; H54.8 Legal blindness, as defined in USA; E03.9 Hypothyroidism, unspecified; E86.1 Hypovolemia; Z66 Do not resuscitate; Z99.3 Dependence on wheelchair; Z87.11 Personal history of peptic ulcer disease; Z90.710 Acquired absence of both cervix and uterus; D72.810 Lymphocytopenia
CPT/HCPCS: 36415; 71045; 71275; 74177; 80053; 81001; 82728; 83605; 83615; 83735; 83880; 84145; 84484; 85025; 85379; 85610; 85730; 86140; 87040; 87077; 87086; 87186; 87635; 93005; 96361; 96374; 99285

== ENCOUNTER 2021-03-14 17:06 | Inpatient (IN) | payer MEDICARE, BC ==
--- NOTE | 2021-03-14 17:33 | ED ---
Extremity Problem HPI - General Chief complaint: Extremity Problem,Nontraumatic Stated complaint: L Leg Swelling Time Seen by Provider: 03/14/21 17:22 Source: patient, family, RN notes reviewed Mode of arrival: wheelchair Limitations: physical limitation - History of Present Illness Initial comments: Patient is an 85-year-old female that presents to emergency department status post primary care visit. notes that patient was sent in by Dr. Griffin to be evaluated for possible DVT of the left lower extremity. notes that she does have a history of a pulmonary embolism during her hospital stay earlier this year. She was in no apparent distress or pain while sitting up in bed during the exam interview. She denied any chest pain shortness of breath headache nausea vomiting diarrhea constipation fever fatigue chills. - Related Data Home Medications Medication Instructions Recorded Confirmed Carbidopa-Levodopa 25-100 mg 1 tab PO TID 09/16/19 02/03/21 [Sinemet 25-100 mg] Levothyroxine Sodium [Synthroid] 50 mcg PO DAILY 09/16/19 02/03/21 Pantoprazole Sodium 20 mg PO BID 02/03/21 02/03/21 metFORMIN HCL [Glucophage] 500 mg PO BID 02/03/21 02/03/21 Previous Rx's Medication Instructions Recorded Acetaminophen Tab [Tylenol] 500 mg PO TID PRN tab 02/07/21 Cefuroxime Axetil [Ceftin] 500 mg PO BID #10 tab 02/07/21 Ciprofloxacin HCl [Cipro] 500 mg PO Q12H #14 tab 02/07/21 Fluconazole [Diflucan] 100 mg PO DAILY #5 tab 02/07/21 Rivaroxaban [Xarelto Starter Pack] 0 mg PO DIRECTED 30 Days #1 pack 02/07/21 Allergies Allergy/AdvReac Type Severity Reaction Status Date / Time cortisone Allergy Unknown Verified 03/14/21 17:14 Review of Systems ROS Statement: Those systems with pertinent positive or pertinent negative responses have been documented in the HPI. ROS Other: All systems not noted in ROS Statement are negative. Past Medical History Past Medical History: Diabetes Mellitus, Eye Disorder, Hearing Disorder / Deafness, Osteoarthritis (OA), Pulmonary Embolus (PE), Rheumatoid Arthritis (RA), Syncope, Thyroid Disorder Additional Past Medical History / Comment(s): parkinsons, Legally blind in left eye, Hard of Hearing, covid History of Any Multi-Drug Resistant Organisms: None Reported Past Surgical History: Appendectomy, Bladder Surgery, Hysterectomy, Orthopedic Surgery Additional Past Surgical History / Comment(s): peg tube, right knee, bladder suspension Past Anesthesia/Blood Transfusion Reactions: No Reported Reaction Past Psychological History: No Psychological Hx Reported Smoking Status: Never smoker Past Alcohol Use History: None Reported Past Drug Use History: None Reported - Past Family History Mother Family Medical History: No Reported History Father Additional Family Medical History / Comment(s): passed from emphysema Sister(s) Family Medical History: Cancer, Myocardial Infarction ([place]) Additional Family Medical History / Comment(s): one sister passed from brain cancer at 28 years old. two other sisters passed from heart attacks General Exam Limitations: physical limitation General appearance: alert, in no apparent distress Head exam: Present: atraumatic, normocephalic, normal inspection Eye exam: Present: normal appearance, PERRL, EOMI. Absent: scleral icterus, conjunctival injection, periorbital swelling Neck exam: Present: normal inspection Respiratory exam: Present: normal lung sounds bilaterally. Absent: respiratory distress, wheezes, rales, rhonchi, stridor Cardiovascular Exam: Present: regular rate, normal rhythm, normal heart sounds. Absent: systolic murmur, diastolic murmur, rubs, gallop, clicks GI/Abdominal exam: Present: soft, normal bowel sounds. Absent: distended, tenderness, guarding, rebound, rigid Extremities exam: Present: normal inspection, full ROM, normal capillary refill, other (Left leg swelling/edema 2+ from hip down, pulses 2+ bilaterally). Absent: tenderness, pedal edema, joint swelling, calf tenderness Neurological exam: Present: alert Psychiatric exam: Present: normal affect, normal mood Skin exam: Present: warm, dry, intact, normal color. Absent: rash Course Vital Signs 03/14/21 03/14/21 03/14/21 17:11 17:14 18:14 Temperature 97.7 F Pulse Rate 94 89 87 Respiratory 18 18 18 Rate Blood Pressure 118/70 123/66 118/65 O2 Sat by Pulse 99 99 99 Oximetry 03/14/21 20:33 Temperature Pulse Rate 90 Respiratory 16 Rate Blood Pressure O2 Sat by Pulse 99 Oximetry Medical Decision Making - Medical Decision Making 85-year-old female with left leg edema from the hip down sent by Dr. Griffin. Labs, EKG, ultrasound of left lower extremity ordered. Ultrasound shows extensive DVT of the left lower extremity. CT of the chest shows pulmonary embolism. D-dimer elevated at 12.8. Case discussed with Dr. Hedrick, patient will be admitted. Dr. العراقي looks at the admit, Dr. Coronado and Dr. Rodriguez will be consult good - Lab Data Result diagrams: 03/14/21 17:39 03/14/21 17:39 Lab Results 03/14/21 03/14/21 03/14/21 Range/Units 17:39 17:39 17:39 WBC 7.8 (3.8-10.6) k/uL RBC 3.94 (3.80-5.40) m/uL Hgb 12.0 (11.4-16.0) gm/dL Hct 36.9 (34.0-46.0) % MCV 93.7 (80.0-100.0) fL MCH 30.4 (25.0-35.0) pg MCHC 32.4 (31.0-37.0) g/dL RDW 15.3 (11.5-15.5) % Plt Count 215 (150-450) k/uL MPV 7.4 Neutrophils % 72 % Lymphocytes % 15 % Monocytes % 7 % Eosinophils % 3 % Basophils % 0 % Neutrophils # 5.6 (1.3-7.7) k/uL Lymphocytes # 1.2 (1.0-4.8) k/uL Monocytes # 0.6 (0-1.0) k/uL Eosinophils # 0.2 (0-0.7) k/uL Basophils # 0.0 (0-0.2) k/uL PT 10.2 (9.0-12.0) sec INR 0.9 (<1.2) APTT 22.1 (22.0-30.0) sec D-Dimer 12.80 H (<0.60) mg/L FEU Sodium 136 L (137-145) mmol/L Potassium 4.4 (3.5-5.1) mmol/L Chloride 101 (98-107) mmol/L Carbon Dioxide 28 (22-30) mmol/L Anion Gap 7 mmol/L BUN 15 (7-17) mg/dL Creatinine 0.77 (0.52-1.04) mg/dL Est GFR (CKD-EPI)AfAm 83 (>60 ml/min/1.73 sqM) Est GFR (CKD-EPI)NonAf 72 (>60 ml/min/1.73 sqM) Glucose 164 H (74-99) mg/dL Plasma Lactic Acid Jayjay (0.7-2.0) mmol/L Calcium 9.5 (8.4-10.2) mg/dL Total Bilirubin 0.4 (0.2-1.3) mg/dL AST 20 (14-36) U/L ALT <6 (4-34) U/L Alkaline Phosphatase 85 (38-126) U/L Troponin I (0.000-0.034) ng/mL Total Protein 7.2 (6.3-8.2) g/dL Albumin 3.6 (3.5-5.0) g/dL 03/14/21 03/14/21 Range/Units 17:39 17:39 WBC (3.8-10.6) k/uL RBC (3.80-5.40) m/uL Hgb (11.4-16.0) gm/dL Hct (34.0-46.0) % MCV (80.0-100.0) fL MCH (25.0-35.0) pg MCHC (31.0-37.0) g/dL RDW (11.5-15.5) % Plt Count (150-450) k/uL MPV Neutrophils % % Lymphocytes % % Monocytes % % Eosinophils % % Basophils % % Neutrophils # (1.3-7.7) k/uL Lymphocytes # (1.0-4.8) k/uL Monocytes # (0-1.0) k/uL Eosinophils # (0-0.7) k/uL Basophils # (0-0.2) k/uL PT (9.0-12.0) sec INR (<1.2) APTT (22.0-30.0) sec D-Dimer (<0.60) mg/L FEU Sodium (137-145) mmol/L Potassium (3.5-5.1) mmol/L Chloride (98-107) mmol/L Carbon Dioxide (22-30) mmol/L Anion Gap mmol/L BUN (7-17) mg/dL Creatinine (0.52-1.04) mg/dL Est GFR (CKD-EPI)AfAm (>60 ml/min/1.73 sqM) Est GFR (CKD-EPI)NonAf (>60 ml/min/1.73 sqM) Glucose (74-99) mg/dL Plasma Lactic Acid Jayjay 1.3 (0.7-2.0) mmol/L Calcium (8.4-10.2) mg/dL Total Bilirubin (0.2-1.3) mg/dL AST (14-36) U/L ALT (4-34) U/L Alkaline Phosphatase (38-126) U/L Troponin I <0.012 (0.000-0.034) ng/mL Total Protein (6.3-8.2) g/dL Albumin (3.5-5.0) g/dL - EKG Data -: EKG Interpreted by Mt EKG shows normal: sinus rhythm Rate: normal EKG Comments: Ventricular rate 87 bpm, ID interval 162 ms, QRS duration 82 ms, QT/QTC 382/409 ms, PareT axes 5/-18/90. Normal sinus rhythm, inferior infarct, age undetermined, abnormal ECG. - Radiology Data Radiology results: report reviewed, image reviewed Ultrasound of left lower external: Positive for extensive near occlusive left lo wer extremity DVT. Extensive filling defects seen as intra-arterial echoes are seen throughout the left lower extremity deep venous system including the left common femoral vein, part of the great saphenous vein, left femoral vein, and left popliteal vein. Proximal calf veins are not well seen. Compressions not performed due to echo seen and lack of color-flow seen. CT of the chest angiogram: Pulmonary embolisms present. Disposition Clinical Impression: Deep vein thrombosis (DVT) of lower extremity, Pulmonary embolus Disposition: ADMITTED IP TO THIS HOSP Condition: Stable Is patient prescribed a controlled substance at d/c from ED?: No Referrals: Houston Griffin DO [Primary Care Provider] - 1-2 days Time of Disposition: 20:40
[2021-03-14 18:14] LABS: Basophils % (A) 0 %; Eosinophils # (A) 0.2 k/uL (0-0.7); Eosinophils % (A) 3 %; HCT 36.9 % (34.0-46.0); Lymphocytes # (A) 1.2 k/uL (1.0-4.8); Lymphocytes % (A) 15 %; MCH 30.4 pg (25.0-35.0); MCHC 32.4 g/dL (31.0-37.0); MCV 93.7 fL (80.0-100.0); Mean Platelet Volume 7.4; Monocytes # (A) 0.6 k/uL (0-1.0); Monocytes % (A) 7 %; Neutrophils # (A) 5.6 k/uL (1.3-7.7); Neutrophils % (A) 72 %; Platelet Count 215 k/uL (150-450); RBC 3.94 m/uL (3.80-5.40); RDW 15.3 % (11.5-15.5); WBC 7.8 k/uL (3.8-10.6)
[2021-03-14 18:23] LABS: ALT <6 U/L (4-34); AST 20 U/L (14-36); African American GFR (CKD) 83 (>60 ml/min/1.73 sqM); Albumin 3.6 g/dL (3.5-5.0); Alkaline Phosphatase 85 U/L (38-126); Anion Gap 7 mmol/L; Blood Urea Nitrogen 15 mg/dL (7-17); Calcium 9.5 mg/dL (8.4-10.2); Carbon Dioxide 28 mmol/L (22-30); Chloride 101 mmol/L (98-107); Glucose 164 mg/dL (74-99); Non-African American GFR(CKD) 72 (>60 ml/min/1.73 sqM); Potassium 4.4 mmol/L (3.5-5.1); Sodium 136 mmol/L (137-145); Total Bilirubin 0.4 mg/dL (0.2-1.3); Total Protein 7.2 g/dL (6.3-8.2)
[2021-03-14 18:50] LABS: INR 0.9 (<1.2); Partial Thromboplastin Time 22.1 sec (22.0-30.0); Prothrombin Time 10.2 sec (9.0-12.0)
[2021-03-14 18:52] LABS: D-Dimer 12.8 mg/L FEU (<0.60)
--- NOTE | 2021-03-14 19:50 | US ---
EXAMINATION TYPE: US venous doppler duplex LE LT DATE OF EXAM: 03/14/2021 7:37 PM COMPARISON: NONE CLINICAL HISTORY: Left leg swelling from hip down. Swelling. Hx PE. SIDE PERFORMED: Left TECHNIQUE: The lower extremity deep venous system is examined utilizing real time linear array sonog louie with graded compression, doppler sonography and color-flow sonography. VESSELS IMAGED: Common Femoral Vein Deep Femoral Vein Greater Saphenous Vein * Femoral Vein Popliteal Vein Small Saphenous Vein * Proximal Calf Veins (* superficial vessels) FINDINGS: Extensive filling defects seen as intra-arterial echoes are seen throughout the left lower extremity deep venous system, including the left CFV, part of the GSV, left femoral vein, and left po pliteal vein. Prox calf veins are not well seen. Compressions not performed due to echoes seen and lack of color flow seen. IMPRESSION: POSITIVE FOR EXTENSIVE NEAR-OCCLUSIVE LEFT LOWER EXTREMITY DVT. Results discussed with ordering provider, to help expedite care.
[2021-03-14] MEDS ORDERED: HEPARIN SODIUM 1,000 UN/ML (10ML VL) IV PRN (20:11)
[2021-03-14] MEDS ORDERED: HEPARIN SODIUM 1,000 UN/ML (10ML VL) IV ONE (20:11)
[2021-03-14] MEDS ORDERED: HEPARIN SOD,PORK IN 0.45% NACL 25,000 UNIT in 0.45% NACL 1 250ML.BAG IV SCH (20:15)
[2021-03-14] MEDS ORDERED: NALOXONE 0.4 MG/ML 1 ML VIAL IV PRN (20:36)
[2021-03-14 20:44] LABS: Glucose,Whole Blood 109 mg/dL (75-99)
--- NOTE | 2021-03-14 20:44 | CT ---
EXAMINATION TYPE: CT chest angio for PE contrast and 3-D reconstruction renderings DATE OF EXAM: 03/14/2021 COMPARISON: 02/03/2021 HISTORY: Elevated d-dimer CT DLP: 248.9 mGycm Automated exposure control for dose reduction was used. CONTRAST: CT Chest for pulmonary embolism performed with with IV Contrast, patient injected with 100 mL of Isovue 370. FINDINGS: AIRWAYS: Unremarkable. LUNGS: There are scattered geographic areas of groundglass opacity which are entirely nonspecific, bu t correlation for Covid is requested. This radiographic finding is new since the prior 02/03/2021 CT. PLEURAL SPACES: Negative MEDIASTINUM: There is satisfactory enhancement of the pulmonary artery and its branches, with bilater al nonocclusive filling defect consistent with nonocclusive pulmonary emboli but without evidence for right heart strain. The filling defects are seen within the distal right and left main pulmonary art eries, the bilateral lower lobe pulmonary arteries, greater on the right, and the proximal lingula an d right middle lobe pulmonary arteries. No acute aortic findings, though aortic dictation is noted. Prominent coronary arteries with mild lef t atrial enlargement, no cardiomegaly, and no pericardial effusion. No mediastinal or hilar adenopath y. SKELETAL STRUCTURES: No acute findings. OTHER/MISCELLANEOUS: No additional significant abnormality is seen. IMPRESSION: 1) BILATERAL NONOCCLUSIVE PULMONARY EMBOLI WITHOUT EVIDENCE OF RIGHT HEART STRAIN. 2) NONSPECIFIC BILATERAL PULMONARY GROUNDGLASS OPACITIES DISCUSSED. Results communicated with ED physician, in order to help expedite care.
[2021-03-14] MEDS ORDERED: SODIUM CHLORIDE 0.9% 1,000 ML IV SCH (20:45)
[2021-03-15 01:59] LABS: Basophils % (A) 0 %; Eosinophils # (A) 0.2 k/uL (0-0.7); Eosinophils % (A) 3 %; HCT 35.6 % (34.0-46.0); HGB 11.6 gm/dL (11.4-16.0); Lymphocytes # (A) 1.6 k/uL (1.0-4.8); Lymphocytes % (A) 23 %; MCH 30.6 pg (25.0-35.0); MCHC 32.7 g/dL (31.0-37.0); MCV 93.5 fL (80.0-100.0); Mean Platelet Volume 7.4; Monocytes # (A) 0.5 k/uL (0-1.0); Monocytes % (A) 8 %; Neutrophils # (A) 4.3 k/uL (1.3-7.7); Neutrophils % (A) 63 %; Platelet Count 212 k/uL (150-450); RBC 3.81 m/uL (3.80-5.40); RDW 15.4 % (11.5-15.5); WBC 6.8 k/uL (3.8-10.6)
[2021-03-15 05:59] LABS: Glucose,Whole Blood 96 mg/dL (75-99)
[2021-03-15] MEDS: LEVOTHYROXINE 50 MCG TAB PO SCH (09:41)
[2021-03-15] MEDS: CARBIDOPA-LEVODOPA 25-100 MG 1 EACH TAB PO SCH ×3 (09:41→20:32)
[2021-03-15] MEDS: PANTOPRAZOLE 40 MG TABLET PO SCH ×2 (09:41→16:44)
--- NOTE | 2021-03-15 11:14 | P.CNPUL ---
History of Present Illness Consult date: 03/15/21 Reason for consult: dyspnea, pulmonary embolism Chief complaint: Left lower extremity swelling History of present illness: patient is a 85-year-old female with advanced Parkinson's disease, patient was diagnosed as pulmonary embolism beginning of this year, patient has been on direct oral anticoagulant, it appears that they were stopped were unclear reason, patient was seen in primary care office with left lower extremity swelling sent for further evaluation duplex ultrasound of the lower extremity came back positive for DVT computed tomography scan of the chest also came back positive for pulmonary embolism patient has been started on IV heparin has been admitted into the hospital Review of Systems All systems: negative Past Medical History Past Medical History: Diabetes Mellitus, Eye Disorder, Hearing Disorder / Deafness, Osteoarthritis (OA), Pulmonary Embolus (PE), Rheumatoid Arthritis (RA), Syncope, Thyroid Disorder Additional Past Medical History / Comment(s): parkinsons, [place], recent admission for covid in 01/2021 History of Any Multi-Drug Resistant Organisms: None Reported Past Surgical History: Appendectomy, Bladder Surgery, Hysterectomy, Orthopedic Surgery Additional Past Surgical History / Comment(s): bladder suspension Past Anesthesia/Blood Transfusion Reactions: No Reported Reaction Past Psychological History: No Psychological Hx Reported Smoking Status: Former smoker Past Alcohol Use History: None Reported Past Drug Use History: None Reported Additional Drug Use History / Comment(s): pt smoked "1 or 2" cigarettes a day and quit when she was 19. - Past Family History Mother Family Medical History: No Reported History Father Additional Family Medical History / Comment(s): passed from emphysema Sister(s) Family Medical History: Cancer, Myocardial Infarction ([place]) Additional Family Medical History / Comment(s): one sister passed from brain cancer at 28 years old. two other sisters passed from heart attacks Medications and Allergies Home Medications Medication Instructions Recorded Confirmed Type Carbidopa-Levodopa 25-100 mg 1 tab PO TID 09/16/19 03/14/21 History [Sinemet 25-100 mg] Levothyroxine Sodium [Synthroid] 50 mcg PO DAILY 09/16/19 03/14/21 History Pantoprazole Sodium 20 mg PO BID 02/03/21 03/14/21 History Repaglinide 0.5 mg PO TID 03/14/21 03/14/21 History Allergies Allergy/AdvReac Type Severity Reaction Status Date / Time cortisone Allergy Unknown Verified 03/14/21 21:12 Physical Exam Vitals: Vital Signs Temp Pulse Pulse Resp BP BP Pulse Ox 03/15/21 08:30 86 19 116/57 97 03/15/21 04:00 98.2 F 87 16 112/56 95 03/15/21 00:17 87 18 03/14/21 22:57 98.1 F 87 18 108/59 97 03/14/21 21:30 97.9 F 81 16 122/58 99 03/14/21 20:33 90 16 104/61 99 03/14/21 18:14 87 18 118/65 99 03/14/21 17:14 89 18 123/66 99 03/14/21 17:11 97.7 F 94 18 118/70 99 Intake and Output 03/14/21 03/15/21 03/15/21 22:59 06:59 14:59 Intake Total 63.05 43.255 Balance 63.05 43.255 Intake: Intake, IV Titration 63.05 43.255 Amount Heparin Sod,Pork in 0.45% 63.05 43.255 NaCl 25,000 unit In 0.45 % NaCl 1 250ml.bag @ 18 UNITS/KG/HR 9.553 mls/hr IV .Q24H [facility] Rx#: [id number] Other: Voiding Method Diaper Incontinent # Voids 2 Weight 53.07 kg - Constitutional General appearance: average body habitus, cooperative, disheveled, mild distress - EENT Eyes: EOMI, PERRLA Ears: bilateral: normal - Neck Neck: normal ROM Carotids: bilateral: upstroke normal - Respiratory Respiratory: bilateral: diminished - Cardiovascular Rhythm: regular Heart sounds: normal: S1, S2 - Gastrointestinal General gastrointestinal: normal bowel sounds - Integumentary Integumentary: decreased turgor - Neurologic pill-rolling tremors in the hands for Parkinson's disease Neurologic: CNII-XII intact - Musculoskeletal Musculoskeletal: generalized weakness - Psychiatric Psychiatric: A&O x's 3, appropriate affect, intact judgment & insight Results - Laboratory Findings CBC and BMP: 03/15/21 01:47 03/14/21 17:39 PT/INR, D-dimer PT 10.2 sec (9.0-12.0) 03/14/21 17:39 INR 0.9 (<1.2) 03/14/21 17:39 D-Dimer 12.80 mg/L FEU (<0.60) H 03/14/21 17:39 Abnormal lab findings: Abnormal Labs 03/14/21 03/14/21 03/14/21 17:39 17:39 20:42 APTT D-Dimer 12.80 H Sodium 136 L Glucose 164 H POC Glucose (mg/dL) 109 H 03/15/21 01:47 APTT 103.3 H* D-Dimer Sodium Glucose POC Glucose (mg/dL) - Diagnostic Findings CT scan - chest: report reviewed, image reviewed (bilateral prominent interstitium noted which was new compared to computed tomography scan performed on 02/03/2021, pulmonary circulation significant for bilateral nonocclusive filling defect consisted of pulmonary embolism no evidence of right-sided heart strain) U/S of Legs: report reviewed, image reviewed Assessment and Plan Assessment: left lower extremity deep venous thrombosis Bilateral pulmonary embolism Bilateral pneumonitis,Groundglass attenuation and prominence suggestive of ongoing pneumonitis infectious versus noninfectious advanced Parkinson's disease type 2 diabetes mellitus Hypothyroidism Legally blind left eye, hard of hearing, History of COVID pneumonia WITH CURRENT COvid-19 NEGATIVE STATUS status post PEG tube placement Plan: for now continue with heparin Will discuss with the about direct oral anticoagulants treatment failure versus compliance issues continue home medicine further plan of care as per clinical response of the patient Time with Patient: Greater than 30
--- NOTE | 2021-03-15 11:35 | ECHOF ---
Referral Reason:B/L PE, rule out right heart strain MEASUREMENTS -------- HEIGHT: 152.4 cm WEIGHT: 53.1 kg BP: 112/56 RVIDd: 3.0 cm (< 3.3) IVSd: 1.3 cm (0.6 - 1.1) LVIDd: 2.8 cm (3.9 - 5.3) LVPWd: 1.2 cm (0.6 - 1.1) IVSs: 1.6 cm LVIDs: 1.7 cm LVPWs: 1.4 cm LA Diam: 3.3 cm (2.7 - 3.8) Ao Diam: 3.0 cm (2.0 - 3.7) AV Cusp: 1.0 cm (1.5 - 2.6) MV E Adelso: 1.18 m/s MV DecT: 384 ms MV A Adelso: 2.11 m/s MV E/A Ratio: 0.56 AV maxP.86 mmHg AV meanP.81 mmHg RAP: 5.00 mmHg RVSP: 30.00 mmHg TAPSE: 18.05 mm FINDINGS -------- Sinus rhythm. This was a technically difficult study with suboptimal views. The left ventricular size is normal. There is mild concentric left ventricular hypertrophy. Overa ll left ventricular systolic function is normal with, an EF between 65 - 70 %. The right ventricle is normal in size. The right ventricular systolic function is normal. The left atrium is normal in size. The right atrium is normal in size. 5 ml of Lumason was utilized for enhancement of images. Interatrial and interventricular septum intact. There is moderate aortic valve sclerosis. There is mild aortic stenosis present. Peak/mean gradie nt across the Aortic Valve is 25.86mmHg / 13.81mmHg. The mitral valve leaflets are moderately thickened. Mild mitral annular calcification present. Th ere is trace to mild mitral regurgitation. Trace tricuspid regurgitation present. Right ventricular systolic pressure is normal at < 35 mmHg. The pulmonic valve was not well visualized. The aortic root size is normal. Normal inferior vena cava with normal inspiratory collapse consistent with estimated right atrial pre ssure of 5 mmHg. There is no pericardial effusion. CONCLUSIONS -------- 1. This was a technically difficult study with suboptimal views. 2. The left ventricular size is normal. 3. There is mild concentric left ventricular hypertrophy. 4. Overall left ventricular systolic function is normal with, an EF between 65 - 70 %. 5. The right ventricular systolic function is normal. 6. 5 ml of Lumason was utilized for enhancement of images. 7. There is moderate aortic valve sclerosis. 8. There is mild aortic stenosis present. 9. Peak/mean gradient across the Aortic Valve is 25.86mmHg / 13.81mmHg. 10. The mitral valve leaflets are moderately thickened. 11. Mild mitral annular calcification present. 12. There is trace to mild mitral regurgitation. 13. Trace tricuspid regurgitation present. 14. There is no pericardial effusion. S[employer]: Zaida Cunha RDCS
[2021-03-15] MEDS: REPAGLINIDE 1 MG TAB PO SCH ×3 (11:50→20:32)
[2021-03-15 12:00] LABS: African American GFR (CKD) >90 (>60 ml/min/1.73 sqM); Blood Urea Nitrogen 12 mg/dL (7-17); Non-African American GFR(CKD) 81 (>60 ml/min/1.73 sqM)
--- NOTE | 2021-03-15 12:09 | P.GSCN ---
History of Present Illness Consult date: 03/15/21 Reason for Consult: Extensive left lower extremity DVT, bilateral pulmonary embolism Requesting physician: Loc العراقي History of present illness: A pleasant 85-year-old female who was sent in to the emergency department from her PCP with concerns of a left lower extremity deep vein thrombosis due to swelling. Her past medical history includes Parkinson's disease, diabetes mellitus, I in hearing disorder, pulmonary embolism and thyroid disorder. The patient was recently hospitalized in January of this year for COVID-19 infection and was diagnosed with a right small pulmonary embolism. The patient discharge summary stated she was set to begin a Xarelto started pack him a however the patient was due to get injections in her back and her decided not to give her the medication. She states she has had no pain in her lower extremities, she denies any shortness of breath or chest pain. Denies any abdominal pain, nausea, or vomiting. As part of her initial workup she was noted to have elevated d-dimer at 12.80, troponins were normal at less than 0.0121 Covid PCR was negative. Venous doppler ultrasound impression: Positive for extensive near occlusive left lower extremity DVT. There is extensive filling defects seen as the intra- arterial echoes are seen throughout the left lower extremity deep venous system, including the left common cold moral vein, part of the greater saphenous vein, left femoral vein, and left popliteal vein. Proximal calf veins not well seen. Compression was not performed due to echoes seen and lack of color flow seen. CT angiogram of chest impression: Bilateral nonocclusive pulmonary emboli without evidence of right heart strain. Nonspecific bilateral pulmonary groundglass opacities. Review of Systems A 14 point review of systems was completed and all pertinent positives and negatives as stated in the HPI Past Medical History Past Medical History: Diabetes Mellitus, Eye Disorder, Hearing Disorder / Deafness, Osteoarthritis (OA), Pulmonary Embolus (PE), Rheumatoid Arthritis (RA), Syncope, Thyroid Disorder Additional Past Medical History / Comment(s): parkinsons, TA[place]NA, recent admission for covid in 01/2021 History of Any Multi-Drug Resistant Organisms: None Reported Past Surgical History: Appendectomy, Bladder Surgery, Hysterectomy, Orthopedic Surgery Additional Past Surgical History / Comment(s): bladder suspension Past Anesthesia/Blood Transfusion Reactions: No Reported Reaction Past Psychological History: No Psychological Hx Reported Smoking Status: Former smoker Past Alcohol Use History: None Reported Past Drug Use History: None Reported Additional Drug Use History / Comment(s): pt smoked "1 or 2" cigarettes a day and quit when she was 19. - Past Family History Mother Family Medical History: No Reported History Father Additional Family Medical History / Comment(s): passed from emphysema Sister(s) Family Medical History: Cancer, Myocardial Infarction ([place]) Additional Family Medical History / Comment(s): one sister passed from brain cancer at 28 years old. two other sisters passed from heart attacks Medications and Allergies Home Medications Medication Instructions Recorded Confirmed Type Carbidopa-Levodopa 25-100 mg 1 tab PO TID 09/16/19 03/14/21 History [Sinemet 25-100 mg] Levothyroxine Sodium [Synthroid] 50 mcg PO DAILY 09/16/19 03/14/21 History Pantoprazole Sodium 20 mg PO BID 02/03/21 03/14/21 History Repaglinide 0.5 mg PO TID 03/14/21 03/14/21 History Allergies Allergy/AdvReac Type Severity Reaction Status Date / Time cortisone Allergy Unknown Verified 03/14/21 21:12 Surgical - Exam Vital Signs Temp Pulse Resp BP Pulse Ox 97.7 F 94 18 118/70 99 03/14/21 17:11 03/14/21 17:11 03/14/21 17:11 03/14/21 17:11 03/14/21 17:11 General appearance: The patient is alert, oriented, in no acute distress. HET: Head is normocephalic and atraumatic. Neck: Supple without lymphadenopathy. Trachea midline. Heart: S1 S2. Regular rate and rhythm. Lungs: Clear to auscultation. Abdomen: Soft, nontender, nondistended. Extremities: Left lower extremity +2 pitting edema, good capillary refill, warm to the touch. Right lower extremity without any erythema, warmth to touch with good capillary refill. Palpable dorsalis pedis bilaterally Neurological: No focal deficits. Strength and sensation are grossly intact. Results Venous doppler ultrasound impression: Positive for extensive near occlusive left lower extremity DVT. There is extensive filling defects seen as the intra- arterial echoes are seen throughout the left lower extremity deep venous system, including the left common cold moral vein, part of the greater saphenous vein, left femoral vein, and left popliteal vein. Proximal calf veins not well seen. Compression was not performed due to echoes seen and lack of color flow seen. CT angiogram of chest impression: Bilateral nonocclusive pulmonary emboli without evidence of right heart strain. Nonspecific bilateral pulmonary groundglass opacities. - Labs 03/15/21 01:47 03/15/21 10:00 Abnormal Lab Results - Last 24 Hours (Table) 03/14/21 03/14/21 03/14/21 Range/Units 17:39 17:39 20:42 APTT (22.0-30.0) sec D-Dimer 12.80 H (<0.60) mg/L FEU Sodium 136 L (137-145) mmol/L Glucose 164 H (74-99) mg/dL POC Glucose (mg/dL) 109 H (75-99) mg/dL 03/15/21 Range/Units 01:47 APTT 103.3 H* (22.0-30.0) sec D-Dimer (<0.60) mg/L FEU Sodium (137-145) mmol/L Glucose (74-99) mg/dL POC Glucose (mg/dL) (75-99) mg/dL Diabetes panel 03/14/21 Range/Units 17:39 Sodium 136 L (137-145) mmol/L Potassium 4.4 (3.5-5.1) mmol/L Chloride 101 (98-107) mmol/L Carbon Dioxide 28 (22-30) mmol/L BUN 15 (7-17) mg/dL Creatinine 0.77 (0.52-1.04) mg/dL Glucose 164 H (74-99) mg/dL Calcium 9.5 (8.4-10.2) mg/dL AST 20 (14-36) U/L ALT <6 (4-34) U/L Alkaline Phosphatase 85 (38-126) U/L Total Protein 7.2 (6.3-8.2) g/dL Albumin 3.6 (3.5-5.0) g/dL Calcium panel 03/14/21 Range/Units 17:39 Calcium 9.5 (8.4-10.2) mg/dL Albumin 3.6 (3.5-5.0) g/dL Pituitary panel 03/14/21 Range/Units 17:39 Sodium 136 L (137-145) mmol/L Potassium 4.4 (3.5-5.1) mmol/L Chloride 101 (98-107) mmol/L Carbon Dioxide 28 (22-30) mmol/L BUN 15 (7-17) mg/dL Creatinine 0.77 (0.52-1.04) mg/dL Glucose 164 H (74-99) mg/dL Calcium 9.5 (8.4-10.2) mg/dL Adrenal panel 03/14/21 Range/Units 17:39 Sodium 136 L (137-145) mmol/L Potassium 4.4 (3.5-5.1) mmol/L Chloride 101 (98-107) mmol/L Carbon Dioxide 28 (22-30) mmol/L BUN 15 (7-17) mg/dL Creatinine 0.77 (0.52-1.04) mg/dL Glucose 164 H (74-99) mg/dL Calcium 9.5 (8.4-10.2) mg/dL Total Bilirubin 0.4 (0.2-1.3) mg/dL AST 20 (14-36) U/L ALT <6 (4-34) U/L Alkaline Phosphatase 85 (38-126) U/L Total Protein 7.2 (6.3-8.2) g/dL Albumin 3.6 (3.5-5.0) g/dL Assessment and Plan Assessment: 1. Left lower extremity deep vein thrombosis 2. Bilateral pulmonary embolism 3. History of recent diagnosis of right pulmonary embolism 4. Recent history of COVID-19 infection 5. Diabetes mellitus Plan: 1. May discontinue heparin and transition to Xarelto 2. Obtain echocardiogram 3. Chest CTA reviewed, Doppler ultrasound reviewed 4. No surgical intervention per vascular surgery indicated. Continue medical management. Patient may be discharged home once otherwise deemed medically stable Thank you for this consultation, we will sign off at this time. The impression and plan of care has been dictated as directed. I performed a history and examination of this patient, discussed the same with the dictator. I agree with the dictator's note ,documented as a scribe. Any additional findings or plans will be noted.
[2021-03-15 12:13] LABS: Glucose,Whole Blood 127 mg/dL (75-99)
--- NOTE | 2021-03-15 12:22 | P.HPIM ---
History of Present Illness H&P Date: 03/15/21 Chief Complaint: Left lower extremity swelling History of presenting complaint: This is a 85-year-old patient of Dr. Griffin. Chronic stable medical conditions include diabetes mellitus, hearing deficit, DJD, rheumatoid arthritis, Parkinson disease. Patient was recently in the hospital from February 03 through February 07 to the diagnoses of bilateral COVID 19 pneumonia and a small right pulmonary embolism. Patient was initially placed on IV heparin then on xarelto. Also positive blood cultures E. coli. Was discharged on ciprofloxacin. Patient now presents for swelling of the left lower extremity. She noticed it 3 - 4 days ago. Also discomfort in the legs. Some shortness of breath. Venous Doppler in the ER and chest CT in the ER did confirm DVT and pulmonary embolism. Started on IV heparin. Patient feels a bit tired. No fever. Does use a wheelchair to get about. Review of systems: GEN.: Tired EYES: None HEENT: None NECK: None RESPIRATORY: Some shortness of breath CARDIOVASCULAR: None GASTROINTESTINAL: None GENITOURINARY: Urinary incontinence MUSCULOSKELETAL: Some joint pains LYMPHATICS: None HEMATOLOGICAL: None PSYCHIATRY: None NEUROLOGICAL: Uses a wheelchair to get about Past medical history to include: Diabetes mellitus, hearing deficit, DJD, rheumatoid arthritis, Parkinson disease, chronic medical debility, COVID 19 pneumonia, pulmonary embolism in January 2021 Social history: No smoking or alcohol. Lives with her . Does use a wheelchair. Physical examination: VITAL SIGNS: 97.7, 94, 18, 118/70, 99% room air GENERAL: [BMI 22.8, laying in bed, bit tired. EYES: [Pupils equal. Conjunctiva laura]l. HEENT: [External appearance of nose and ears normal, oral cavity grossly normal]. NECK: [JVD not raised; masses not palpable]. HEART: [First and second heart sounds are normal; no edema]. LUNGS:[ Respiratory rate increased; decreased breath sounds]. ABDOMEN: [Soft, nontender, liver spleen not palpable, no masses palpable]. PSYCH: [Alert and oriented x3; mood and affect laura]l. EXTREMITIES: Swelling of left lower extremity Muscular skeletal: Evidence of OA NEUROLOGICAL: [Cranial nerves grossly intact; no facial asymmetry, moving all 4 limbs]. LYMPHATICS: [No lymph nodes palpable in the axilla and neck] INVESTIGATIONS, reviewed in the clinical context: WBC 6.8 hemoglobin 11.6 platelets 212 creatinine 0.69 potassium 4.4 creatinine 0.77 D-dimer 12.8 Coronavirus [PCR]-not detected Ultrasound venous Doppler left lower extremity: Extensive filling defects seen as intra-arterial echo was as seen throughout the left lower extremity deep venous system including the left common femoral vein, part of the great saphenous vein, left femoral vein and the left popliteal vein. Proximal calf veins are not well seen. Chest CTA: Bilateral nonocclusive pulmonary emboli without evidence of right heart strain. Assessment and plan: -Left lower extremity acute DVT extensive associated with bilateral pulmonary embolism, and a patient who recently had COVID 19 and had a small pulmonary embolus. Started on IV heparin. Consult vascular -IV heparin monitoring -Diabetes mellitus type 2, on oral hypoglycemics, Continue with metformin. Follow Accu-Cheks. Hard of hearing -Primary osteoarthritis Use analgesics when necessary -Idiopathic Parkinson disorder Continue with Sinemet -Legally blind in the left eye -Hypothyroid Continue with Synthroid -Chronic medical debility, and a baseline patient is wheelchair bound -DO NOT RESUSCITATE Consultation to vascular. Other medications to continue. Above tight HARIKA stockings to the left leg. Given the complexity and severity of patient's condition expect the patient to be in the hospital at least for 2 overnights Past Medical History Past Medical History: Diabetes Mellitus, Eye Disorder, Hearing Disorder / Deafness, Osteoarthritis (OA), Pulmonary Embolus (PE), Rheumatoid Arthritis (RA), Syncope, Thyroid Disorder Additional Past Medical History / Comment(s): parkinsons, [place], recent admission for covid in 01/2021 History of Any Multi-Drug Resistant Organisms: None Reported Past Surgical History: Appendectomy, Bladder Surgery, Hysterectomy, Orthopedic Surgery Additional Past Surgical History / Comment(s): bladder suspension Past Anesthesia/Blood Transfusion Reactions: No Reported Reaction Past Psychological History: No Psychological Hx Reported Smoking Status: Former smoker Past Alcohol Use History: None Reported Past Drug Use History: None Reported Additional Drug Use History / Comment(s): pt smoked "1 or 2" cigarettes a day and quit when she was 19. - Past Family History Mother Family Medical History: No Reported History Father Additional Family Medical History / Comment(s): passed from emphysema Sister(s) Family Medical History: Cancer, Myocardial Infarction ([place]) Additional Family Medical History / Comment(s): one sister passed from brain cancer at 28 years old. two other sisters passed from heart attacks Medications and Allergies Home Medications Medication Instructions Recorded Confirmed Type Carbidopa-Levodopa 25-100 mg 1 tab PO TID 09/16/19 03/14/21 History [Sinemet 25-100 mg] Levothyroxine Sodium [Synthroid] 50 mcg PO DAILY 09/16/19 03/14/21 History Pantoprazole Sodium 20 mg PO BID 02/03/21 03/14/21 History Repaglinide 0.5 mg PO TID 03/14/21 03/14/21 History Allergies Allergy/AdvReac Type Severity Reaction Status Date / Time cortisone Allergy Unknown Verified 03/14/21 21:12 Physical Exam Vitals: Vital Signs Temp Pulse Pulse Resp BP BP Pulse Ox 03/15/21 08:30 86 19 116/57 97 03/15/21 04:00 98.2 F 87 16 112/56 95 03/15/21 00:17 87 18 03/14/21 22:57 98.1 F 87 18 108/59 97 03/14/21 21:30 97.9 F 81 16 122/58 99 03/14/21 20:33 90 16 104/61 99 03/14/21 18:14 87 18 118/65 99 03/14/21 17:14 89 18 123/66 99 03/14/21 17:11 97.7 F 94 18 118/70 99 Intake and Output 03/14/21 03/15/21 03/15/21 22:59 06:59 14:59 Intake Total 63.05 43.255 Balance 63.05 43.255 Intake: Intake, IV Titration 63.05 43.255 Amount Heparin Sod,Pork in 0.45% 63.05 43.255 NaCl 25,000 unit In 0.45 % NaCl 1 250ml.bag @ 18 UNITS/KG/HR 9.553 mls/hr IV .Q24H [facility] Rx#: [id number] Other: Voiding Method Diaper Incontinent # Voids 2 Weight 53.07 kg Results CBC & Chem 7: 03/15/21 01:47 03/15/21 10:00 Labs: Abnormal Lab Results - Last 24 Hours (Table) 03/14/21 03/14/21 03/14/21 Range/Units 17:39 17:39 20:42 APTT (22.0-30.0) sec D-Dimer 12.80 H (<0.60) mg/L FEU Sodium 136 L (137-145) mmol/L Glucose 164 H (74-99) mg/dL POC Glucose (mg/dL) 109 H (75-99) mg/dL 03/15/21 Range/Units 01:47 APTT 103.3 H* (22.0-30.0) sec D-Dimer (<0.60) mg/L FEU Sodium (137-145) mmol/L Glucose (74-99) mg/dL POC Glucose (mg/dL) (75-99) mg/dL Thrombosis Risk Factor Assmnt - Choose All That Apply Any of the Below Risk Factors Present?: Yes Each Factor Represents 1 point: Swollen legs (current) Each Risk Factor Represents 3 Points: Age 75 years or older Other congenital or acquired thrombophilia - If yes, enter type in comment: No Thrombosis Risk Factor Assessment Total Risk Factor Score: 4 Thrombosis Risk Factor Assessment Level: Moderate Risk
[2021-03-15] MEDS: INSULIN ASPART (NovoLOG) 100 UNIT/ML VIAL SQ SCH ×2 (12:40→17:22)
[2021-03-15] MEDS: RIVAROXABAN 15 MG TAB PO SCH (16:43)
[2021-03-15 16:57] LABS: Glucose,Whole Blood 110 mg/dL (75-99)
--- NOTE | 2021-03-15 18:55 | CT ---
EXAMINATION TYPE: CT abdomen pelvis w con DATE OF EXAM: 03/15/2021 COMPARISON: 02/03/2021 HISTORY: Assess for more proximal/intra-abdominal DVT. CT DLP: 674.5 mGycm Automated exposure control for dose reduction was used. CONTRAST: Performed with IV Contrast, patient injected with 100 mL of Isovue 300. Images obtained from the diaphragm to the floor the pelvis with IV contrast. There is patchy interstitial infiltrates and subsegmental atelectasis at the lung bases. Heart size i s normal. There is coronary artery calcification. Liver and spleen are intact. There are multiple elizabeth cified splenic granulomata. There is no pancreatic mass. Gallbladder is large and measures 4 cm in di ameter. The bile ducts are not dilated. The stomach is intact. There is no adrenal mass. Kidneys show satisfactory contrast opacification. There is no hydronephrosi s. Delayed images show normal renal excretion. There is no retroperitoneal adenopathy. Bladder disten ds smoothly. There is no inguinal hernia. There is retained fecal material in the rectum that measure s 6.4 cm. There is no free fluid in the pelvis. There is no mesenteric edema. There is no ascites or free air. There is no bowel obstruction. Images through the lower chest show calcified granulomata at the right pulmonary hilum. There is limited visualization of the iliac veins on the delayed images and I see no filling defect t o suggest thrombus. The inferior vena cava appears to enhance normally. Unfortunately the delayed shakir ges do not include the external iliac vein. I do not see convincing sign of thrombus in the left exte rnal iliac vein on the initial images. IMPRESSION: Rectal fecal impaction. Old granulomatous disease. Atherosclerotic vascular disease. No evidence of d eep vein thrombosis in the iliac veins and the inferior vena cava. Large gallbladder could relate to gallbladder dysfunction. Fibrotic changes and subsegmental atelectasis at the lung bases.
[2021-03-15 20:12] LABS: Glucose,Whole Blood 117 mg/dL (75-99)
[2021-03-16] MEDS: LEVOTHYROXINE 50 MCG TAB PO SCH (06:44)
[2021-03-16] MEDS: RIVAROXABAN 15 MG TAB PO SCH ×2 (06:44→17:15)
[2021-03-16] MEDS: PANTOPRAZOLE 40 MG TABLET PO SCH ×2 (06:44→17:15)
[2021-03-16 06:55] LABS: Glucose,Whole Blood 68 mg/dL (75-99)
[2021-03-16] MEDS: INSULIN ASPART (NovoLOG) 100 UNIT/ML VIAL SQ SCH ×3 (06:55→17:12)
[2021-03-16 07:10] LABS: Glucose,Whole Blood 71 mg/dL (75-99)
[2021-03-16] MEDS: CARBIDOPA-LEVODOPA 25-100 MG 1 EACH TAB PO SCH ×3 (09:33→20:54)
[2021-03-16] MEDS: REPAGLINIDE 1 MG TAB PO SCH ×3 (09:33→20:53)
[2021-03-16 11:59] LABS: Glucose,Whole Blood 105 mg/dL (75-99)
--- NOTE | 2021-03-16 12:47 | P.PN ---
Progress Note - Text Progress Note Date: 03/16/21 Chief Complaint: Left lower extremity swelling History of presenting complaint: This is a 85-year-old patient of Dr. Griffin. Chronic stable medical conditions include diabetes mellitus, hearing deficit, DJD, rheumatoid arthritis, Parkinson disease. Patient was recently in the hospital from February 03 through February 07 to the diagnoses of bilateral COVID 19 pneumonia and a small right pulmonary embolism. Patient was initially placed on IV heparin then on xarelto. Also positive blood cultures E. coli. Was discharged on ciprofloxacin. Patient now presents for swelling of the left lower extremity. She noticed it 3 - 4 days ago. Also discomfort in the legs. Some shortness of breath. Venous Doppler in the ER and chest CT in the ER did confirm DVT and pulmonary embolism. Started on IV heparin. Patient feels a bit tired. No fever. Does use a wheelchair to get about. Patient was seen by vascular not for any further intervention. Today: Spoke to patient's Best. He had not resumed patient's anticoagulation/xarelto at home because patient was due for to pain short in the spine. Patient's breathing is stable. Tolerating some diet. On IV heparin Review of systems: Was done for constitutional, cardiovascular, GI, pulmonary. relevant finding as above Active Medications Carbidopa/Levodopa (Carbidopa-Levodopa 25-100 Mg 1 Each Tab) 1 each PO TID [facility] Last Admin: 03/16/21 09:33 Dose: 1 each Documented by: Insulin Aspart (Insulin Aspart (Novolog) 100 Unit/Ml Vial) 0 unit SQ AC-TID [facility]; Protocol Last Admin: 03/16/21 06:55 Dose: Not Given Documented by: Levothyroxine Sodium (Levothyroxine 50 Mcg Tab) 50 mcg PO DAILY@0630 [facility] Last Admin: 03/16/21 06:44 Dose: 50 mcg Documented by: Naloxone HCl (Naloxone 0.4 Mg/Ml 1 Ml Vial) 0.2 mg IV Q2M PRN PRN Reason: Opioid Reversal Pantoprazole Sodium (Pantoprazole 40 Mg Tablet) 40 mg PO AC-BID [facility] Last Admin: 03/16/21 06:44 Dose: 40 mg Documented by: Repaglinide (Repaglinide 1 Mg Tab) 0.5 mg PO TID [facility] Last Admin: 03/16/21 09:33 Dose: 0.5 mg Documented by: Rivaroxaban (Rivaroxaban 15 Mg Tab) 15 mg PO BID-W/MEALS LUIS Last Admin: 03/16/21 06:44 Dose: 15 mg Documented by: Past medical history to include: Diabetes mellitus, hearing deficit, DJD, rheumatoid arthritis, Parkinson disease, chronic medical debility, COVID 19 pneumonia, pulmonary embolism in January 2021 Social history: No smoking or alcohol. Lives with her . Does use a wheelchair. Physical examination: VITAL SIGNS: 97.1, 83, 16, 1 8 x 59, 95% room air GENERAL: [BMI 22.8, laying in bed, awake EYES: Pupils equal. Conjunctiva normal. HEENT: External appearance of nose and ears normal, oral cavity grossly normal. NECK: JVD not raised; masses not palpable. HEART: First and second heart sounds are normal; no edema. LUNGS: Respiratory rate increased; decreased breath sounds. ABDOMEN: Soft, nontender, liver spleen not palpable, no masses palpable. PSYCH: Alert and oriented x3; mood and affect normal. EXTREMITIES: Swelling of left lower extremity Muscular skeletal: Evidence of OA INVESTIGATIONS, reviewed in the clinical context: March 16: Accu-Cheks 68, 71, 105 Computed tomography scan abdomen and pelvis: No intra-abdominal DVT noted. WBC 6.8 hemoglobin 11.6 platelets 212 creatinine 0.69 potassium 4.4 creatinine 0.77 D-dimer 12.8 Coronavirus PCR-not detected Ultrasound venous Doppler left lower extremity: Extensive filling defects seen as intra-arterial echo was as seen throughout the left lower extremity deep venous system including the left common femoral vein, part of the great saphenous vein, left femoral vein and the left popliteal vein. Proximal calf veins are not well seen. Chest CTA: Bilateral nonocclusive pulmonary emboli without evidence of right heart strain. Assessment and plan: -Left lower extremity acute DVT extensive associated with bilateral pulmonary embolism, and a patient who recently had COVID 19 and had a small pulmonary embolus. Patient's had decided not to resume the xarelto pending pain short period IV heparin. Peripheral vascular-no further intervention. We'll start the patient has xarelto tonight. -IV heparin monitoring Follow PTT -Diabetes mellitus type 2, on oral hypoglycemics, uncontrolled with hypoglycemia. Continue with metformin. Follow Accu-Cheks. -Hard of hearing -Primary osteoarthritis Use analgesics when necessary -Idiopathic Parkinson disorder Continue with Sinemet -Legally blind in the left eye -Hypothyroid Continue with Synthroid -Chronic medical debility, and a baseline patient is wheelchair bound -DO NOT RESUSCITATE Spoke to patient's over the phone. Educated him about this is ocrie. He has xarelto at home that is presumably the patient comes on. We'll start the xarelto tonight.
[2021-03-16 16:59] LABS: Glucose,Whole Blood 156 mg/dL (75-99)
[2021-03-16 20:34] LABS: Glucose,Whole Blood 205 mg/dL (75-99)
[2021-03-16] MEDS ORDERED: MELATONIN 3 MG TABLET PO PRN (22:35)
--- NOTE | 2021-03-16 22:58 | P.PN ---
Subjective Progress Note Date: 03/16/21 Principal diagnosis: left lower extremity deep venous thrombosis Bilateral pulmonary embolism Bilateral pneumonitis,Groundglass attenuation and prominence suggestive of ongoing pneumonitis infectious versus noninfectious advanced Parkinson's disease type 2 diabetes mellitus Hypothyroidism Legally blind left eye, hard of hearing, History of COVID pneumonia WITH CURRENT COvid-19 NEGATIVE STATUS status post PEG tube placement 03/16/2021, patient seen eval examined during the rounds labs reviewed medications reviewed care plan discussed, respiratory status is stable denies any chest pain, patient is on room air, patient has been resumed on oral direct anticoagulant off of heparin, it appears that patient was not started on oral anti-coagulants as outpatient as she was supposed to get pain shots patient is a 85-year-old female with advanced Parkinson's disease, patient was diagnosed as pulmonary embolism beginning of this year, patient has been on direct oral anticoagulant, it appears that they were stopped were unclear reason, patient was seen in primary care office with left lower extremity swelling sent for further evaluation duplex ultrasound of the lower extremity came back positive for DVT computed tomography scan of the chest also came back positive for pulmonary embolism patient has been started on IV heparin has been admitted into the hospital Objective - Vital Signs Vital signs: Vital Signs Temp 98.1 F 03/16/21 20:00 Pulse 89 03/16/21 20:00 Resp 16 03/16/21 20:00 BP 111/64 03/16/21 20:00 Pulse Ox 94 L 03/16/21 20:00 Intake & Output 03/16/21 03/16/21 03/17/21 06:59 18:59 06:59 Intake Total 900 185 Balance 900 185 Intake: Oral 900 185 Other: Voiding Method Diaper Diaper Diaper Incontinent Incontinent Incontinent # Voids 1 2 1 - Exam General appearance: average body habitus, cooperative, disheveled, mild distress - EENT Eyes: EOMI, PERRLA Ears: bilateral: normal - Neck Neck: normal ROM Carotids: bilateral: upstroke normal - Respiratory Respiratory: bilateral: diminished - Cardiovascular Rhythm: regular Heart sounds: normal: S1, S2 - Gastrointestinal General gastrointestinal: normal bowel sounds - Integumentary Integumentary: decreased turgor - Neurologic pill-rolling tremors in the hands for Parkinson's disease Neurologic: CNII-XII intact - Musculoskeletal Musculoskeletal: generalized weakness - Psychiatric Psychiatric: A&O x's 3, appropriate affect, intact judgment & insight - Labs CBC & Chem 7: 03/15/21 01:47 03/15/21 10:00 Labs: Abnormal Lab Results - Last 24 Hours (Table) 03/16/21 03/16/21 03/16/21 Range/Units 06:54 07:09 11:58 POC Glucose (mg/dL) 68 L 71 L 105 H (75-99) mg/dL 03/16/21 03/16/21 Range/Units 16:57 20:28 POC Glucose (mg/dL) 156 H 205 H (75-99) mg/dL Assessment and Plan Assessment: left lower extremity deep venous thrombosis Bilateral pulmonary embolism Bilateral pneumonitis,Groundglass attenuation and prominence suggestive of ongoing pneumonitis infectious versus noninfectious advanced Parkinson's disease type 2 diabetes mellitus Hypothyroidism Legally blind left eye, hard of hearing, History of COVID pneumonia WITH CURRENT COvid-19 NEGATIVE STATUS status post PEG tube placement Plan: Patient has been on oral diabetic anticoagulant continue home medicine further plan of care as per clinical response of the patient We will evaluated further outpatient basis for long covid syndrome Time with Patient: Greater than 30
[2021-03-17 06:19] LABS: Glucose,Whole Blood 70 mg/dL (75-99)
[2021-03-17] MEDS: INSULIN ASPART (NovoLOG) 100 UNIT/ML VIAL SQ SCH ×2 (06:20→12:54)
[2021-03-17] MEDS: PANTOPRAZOLE 40 MG TABLET PO SCH (06:26)
[2021-03-17] MEDS: LEVOTHYROXINE 50 MCG TAB PO SCH (06:26)
[2021-03-17] MEDS: RIVAROXABAN 15 MG TAB PO SCH (06:26)
[2021-03-17] MEDS: CARBIDOPA-LEVODOPA 25-100 MG 1 EACH TAB PO SCH (08:36)
[2021-03-17] MEDS: REPAGLINIDE 1 MG TAB PO SCH (08:36)
[2021-03-17 08:38] VITALS: RESP 16; TEMP 97.7
[2021-03-17 11:49] LABS: Glucose,Whole Blood 114 mg/dL (75-99)
[2021-03-17 13:04] VITALS: BP 119/59; PULSE 88
--- NOTE | 2021-03-17 13:58 | P.PN ---
Subjective Progress Note Date: 03/17/21 Principal diagnosis: left lower extremity deep venous thrombosis Bilateral pulmonary embolism Bilateral pneumonitis,Groundglass attenuation and prominence suggestive of ongoing pneumonitis infectious versus noninfectious advanced Parkinson's disease type 2 diabetes mellitus Hypothyroidism Legally blind left eye, hard of hearing, History of COVID pneumonia WITH CURRENT COvid-19 NEGATIVE STATUS status post PEG tube placement 03/17/2021, patient seen eval examined during the rounds labs reviewed medications reviewed patient is back on direct oral anticoagulant respiratory status remains stable, off of heparin, remains afebrile, oxygen saturation is 96%, 03/16/2021, patient seen eval examined during the rounds labs reviewed medications reviewed care plan discussed, respiratory status is stable denies any chest pain, patient is on room air, patient has been resumed on oral direct anticoagulant off of heparin, it appears that patient was not started on oral anti-coagulants as outpatient as she was supposed to get pain shots patient is a 85-year-old female with advanced Parkinson's disease, patient was diagnosed as pulmonary embolism beginning of this year, patient has been on direct oral anticoagulant, it appears that they were stopped were unclear reason, patient was seen in primary care office with left lower extremity swelling sent for further evaluation duplex ultrasound of the lower extremity came back positive for DVT computed tomography scan of the chest also came back positive for pulmonary embolism patient has been started on IV heparin has been admitted into the hospital Objective - Vital Signs Vital signs: Vital Signs Temp 97.7 F 03/17/21 08:00 Pulse 88 03/17/21 12:00 Resp 16 03/17/21 12:00 BP 119/59 03/17/21 12:00 Pulse Ox 96 03/17/21 12:00 Intake & Output 03/16/21 03/17/21 03/17/21 18:59 06:59 18:59 Intake Total 185 600 50 Balance 185 600 50 Intake: Oral 185 600 50 Other: Voiding Method Diaper Diaper Diaper Incontinent Incontinent Incontinent # Voids 2 1 2 - Exam General appearance: average body habitus, cooperative, disheveled, mild distress - EENT Eyes: EOMI, PERRLA Ears: bilateral: normal - Neck Neck: normal ROM Carotids: bilateral: upstroke normal - Respiratory Respiratory: bilateral: diminished - Cardiovascular Rhythm: regular Heart sounds: normal: S1, S2 - Gastrointestinal General gastrointestinal: normal bowel sounds - Integumentary Integumentary: decreased turgor - Neurologic pill-rolling tremors in the hands for Parkinson's disease Neurologic: CNII-XII intact - Musculoskeletal Musculoskeletal: generalized weakness - Psychiatric Psychiatric: A&O x's 3, appropriate affect, intact judgment & insight - Labs CBC & Chem 7: 03/15/21 01:47 03/15/21 10:00 Labs: Abnormal Lab Results - Last 24 Hours (Table) 03/16/21 03/16/21 03/17/21 Range/Units 16:57 20:28 06:17 POC Glucose (mg/dL) 156 H 205 H 70 L (75-99) mg/dL 03/17/21 Range/Units 11:48 POC Glucose (mg/dL) 114 H (75-99) mg/dL Assessment and Plan Assessment: left lower extremity deep venous thrombosis Bilateral pulmonary embolism Bilateral pneumonitis,Groundglass attenuation and prominence suggestive of ongoing pneumonitis infectious versus noninfectious advanced Parkinson's disease type 2 diabetes mellitus Hypothyroidism Legally blind left eye, hard of hearing, History of COVID pneumonia WITH CURRENT COvid-19 NEGATIVE STATUS status post PEG tube placement Plan: Patient has been on oral diabetic anticoagulant continue home medicine further plan of care as per clinical response of the patient We will evaluated further outpatient basis for long covid syndrome Agree with discharge planning follow-up on outpatient setting Time with Patient: Greater than 30
--- NOTE | 2021-03-17 21:08 | P.DS ---
Providers Date of admission: 03/14/21 20:28 Expected date of discharge: 03/17/21 Attending physician: Loc العراقي Consults: 03/14/21 20:36 Consult Physician Stat Consulting Provider: Tuan Coronado Consult Reason/Comments: extensive DVT LLE, PE Do you want consulting provider notified?: Yes Consult Physician Stat Consulting Provider: Ayush Rodriguez Consult Reason/Comments: extensiveDVT LLE Do you want consulting provider notified?: Yes [facility] Course: Chief Complaint: Left lower extremity swelling History of presenting complaint: This is a 85-year-old patient of Dr. Griffin. Chronic stable medical conditions include diabetes mellitus, hearing deficit, DJD, rheumatoid arthritis, Parkinson disease. Patient was recently in the hospital from February 03 through February 07 to the diagnoses of bilateral COVID 19 pneumonia and a small right pulmonary embolism. Patient was initially placed on IV heparin then on xarelto. Also positive blood cultures E. coli. Was discharged on ciprofloxacin. Patient now presents for swelling of the left lower extremity. She noticed it 3 - 4 days ago. Also discomfort in the legs. Some shortness of breath. Venous Doppler in the ER and chest CT in the ER did confirm DVT and pulmonary embolism. Started on IV heparin. Patient feels a bit tired. No fever. Does use a wheelchair to get about. Patient was seen by vascular not for any further intervention. Spoke to patient's Best. He had not resumed patient's anticoagulation/xarelto at home because patient was due for to pain injection in the spine. Patient's IV heparin changed over to xarelto. Today: Laying in bed. Comfortable. No shortness of breath. HARIKA stockings in place. Discussed. Consultation: Dr. Coronado from pulmonary Dr. Barrow from vascular Past medical history to include: Diabetes mellitus, hearing deficit, DJD, rheumatoid arthritis, Parkinson disease, chronic medical debility, COVID 19 pneumonia, pulmonary embolism in January 2021 Social history: No smoking or alcohol. Lives with her . Does use a wheelchair. Physical examination: VITAL SIGNS: 97.7, 90, 16, 119/59, 96% room air GENERAL: [BMI 22.8, laying in bed, awake, comfortable EYES: Pupils equal. Conjunctiva normal. HEENT: External appearance of nose and ears normal, oral cavity grossly normal. NECK: JVD not raised; masses not palpable. HEART: First and second heart sounds are normal; no edema. LUNGS: Respiratory rate normal; decreased breath sounds. ABDOMEN: Soft, nontender, liver spleen not palpable, no masses palpable. PSYCH: Alert and oriented x3; mood and affect normal. EXTREMITIES: Swelling of left lower extremity Muscular skeletal: Evidence of OA INVESTIGATIONS, reviewed in the clinical context: March 16: Accu-Cheks 68, 71, 105 Computed tomography scan abdomen and pelvis: No intra-abdominal DVT noted. WBC 6.8 hemoglobin 11.6 platelets 212 creatinine 0.69 potassium 4.4 creatinine 0.77 D-dimer 12.8 Coronavirus PCR-not detected Ultrasound venous Doppler left lower extremity: Extensive filling defects seen as intra-arterial echo was as seen throughout the left lower extremity deep venous system including the left common femoral vein, part of the great saphenous vein, left femoral vein and the left popliteal vein. Proximal calf veins are not well seen. Chest CTA: Bilateral nonocclusive pulmonary emboli without evidence of right heart strain. Assessment and plan: -Left lower extremity acute DVT extensive associated with bilateral pulmonary embolism, and a patient who recently had COVID 19 and had a small pulmonary embolus. Patient's had decided not to resume the xarelto pending pain injections. IV heparin. Peripheral vascular-no further intervention. Patient changed over to xarelto. HARIKA stockings -IV heparin monitoring Follow PTT -Diabetes mellitus type 2, on oral hypoglycemics, uncontrolled with hypoglycemia. Continue with metformin. Prandin held -Hard of hearing -Primary osteoarthritis Use analgesics when necessary -Idiopathic Parkinson disorder Continue with Sinemet -Legally blind in the left eye -Hypothyroid Continue with Synthroid -Chronic medical debility, and a baseline patient is wheelchair bound -DO NOT RESUSCITATE Disposition: Home Plan - Discharge Summary Discharge Rx Participant: No New Discharge Prescriptions: New Rivaroxaban [Xarelto Starter Pack] 0 mg PO DIRECTED 30 Days #1 pack Continue Levothyroxine Sodium [Synthroid] 50 mcg PO DAILY Carbidopa-Levodopa 25-100 mg [Sinemet 25-100 mg] 1 tab PO TID Pantoprazole Sodium 20 mg PO BID Discontinued Repaglinide 0.5 mg PO TID Discharge Medication List Carbidopa-Levodopa 25-100 mg [Sinemet 25-100 mg] 1 tab PO TID 09/16/19 [History] Levothyroxine Sodium [Synthroid] 50 mcg PO DAILY 09/16/19 [History] Pantoprazole Sodium 20 mg PO BID 02/03/21 [History] Rivaroxaban [Xarelto Starter Pack] 0 mg PO DIRECTED 30 Days #1 pack 03/15/21 [Rx] Follow up Appointment(s)/Referral(s): Houston Griffin DO [Primary Care Provider] - 1-2 days [facility], [NON-STAFF] - As Needed Tuan Coronado MD [STAFF PHYSICIAN] - 1 Week Patient Instructions/Handouts: Pulmonary Embolism (DC), Deep Vein Thrombosis (DC) Discharge Disposition: HOME SELF-CARE
== END 2021-03-17 13:09 | disposition home health service (06) | DRG 299 ==
LOC: EC 17:06 → 3SCARD 20:28
PROVIDERS: ADMIT Hospitalist; ATTEND Hospitalist
DX: I82.412 Acute embolism and thrombosis of left femoral vein (principal); I26.99 Other pulmonary embolism without acute cor pulmonale; J18.9 Pneumonia, unspecified organism; Z43.1 Encounter for attention to gastrostomy; I82.432 Acute embolism and thrombosis of left popliteal vein; E11.649 Type 2 diabetes mellitus with hypoglycemia without coma; G20 Parkinson's disease; M06.9 Rheumatoid arthritis, unspecified; Z66 Do not resuscitate; Z20.822 Contact with and (suspected) exposure to COVID-19; E03.9 Hypothyroidism, unspecified; M19.91 Primary osteoarthritis, unspecified site; H91.90 Unspecified hearing loss, unspecified ear; H54.62 Unqualified visual loss, left eye, normal vision right eye; R32 Unspecified urinary incontinence; Z79.890 Hormone replacement therapy; Z79.84 Long term (current) use of oral hypoglycemic drugs; Z79.899 Other long term (current) drug therapy; Z86.16 Personal history of COVID-19; Z86.711 Personal history of pulmonary embolism; Z87.19 Personal history of other diseases of the digestive system; Z90.49 Acquired absence of other specified parts of digestive tract; Z90.710 Acquired absence of both cervix and uterus; Z87.42 Personal history of other diseases of the female genital tract; Z87.39 Personal history of other diseases of the musculoskeletal system and connective tissue; Z87.448 Personal history of other diseases of urinary system; Z87.891 Personal history of nicotine dependence; Z99.3 Dependence on wheelchair; Z86.69 Personal history of other diseases of the nervous system and sense organs; Z98.890 Other specified postprocedural states; Z88.8 Allergy status to other drugs, medicaments and biological substances; Z82.5 Family history of asthma and other chronic lower respiratory diseases; Z82.49 Family history of ischemic heart disease and other diseases of the circulatory system; Z80.8 Family history of malignant neoplasm of other organs or systems
CPT/HCPCS: 36415; 71275; 74177; 80053; 82565; 83605; 84484; 84520; 85025; 85379; 85610; 85730; 87635; 93005; 93306; 96374; 99285

== ENCOUNTER → 2021-03-27 | Outpatient (CLI) | payer MEDICARE, BC ==
--- NOTE | 2021-03-27 15:47 | US ---
EXAMINATION TYPE: US venous doppler duplex LE LT DATE OF EXAM: 03/27/2021 2:54 PM COMPARISON: NONE CLINICAL HISTORY: I82.402 DVT. Left leg DVT seen 2 weeks ago, on thinners, assess status of thrombus today, still swollen SIDE PERFORMED: Left TECHNIQUE: The lower extremity deep venous system is examined utilizing real time linear array sonog louie with graded compression, doppler sonography and color-flow sonography. VESSELS IMAGED: Common Femoral Vein Deep Femoral Vein Greater Saphenous Vein * Femoral Vein Popliteal Vein Small Saphenous Vein * Proximal Calf Veins (* superficial vessels) Left Leg: Positive for DVT,. Extensive thrombus throughout the left lower extremity appears to be de creasing from prior exam 2 weeks ago IMPRESSION: 1. Extensive deep venous thrombosis throughout the left lower extremity appears decreased from prior exam dated 03/14/2021
== END | disposition home or self-care (01) ==
LOC: RADUSWWP 14:21
PROVIDERS: ATTEND Internal Medicine Sleep Medicine
DX: I82.402 Acute embolism and thrombosis of unspecified deep veins of left lower extremity (principal)

== ENCOUNTER → 2022-11-08 | Outpatient (CLI) | payer MEDICARE, BC ==
[2022-11-08 12:46] LABS: African American GFR (CKD) 62 (>60 ml/min/1.73 sqM); Anion Gap 4 mmol/L; Blood Urea Nitrogen 24 mg/dL (7-17); Calcium 8.8 mg/dL (8.4-10.2); Carbon Dioxide 28 mmol/L (22-30); Chloride 96 mmol/L (98-107); Glucose 224 mg/dL (74-99); Non-African American GFR(CKD) 54 (>60 ml/min/1.73 sqM); Potassium 5.2 mmol/L (3.5-5.1); Sodium 128 mmol/L (137-145)
== END | disposition home or self-care (01) ==
LOC: LABWHC1 12:03
PROVIDERS: ATTEND Family Medicine
DX: E87.5 Hyperkalemia (principal)
CPT/HCPCS: 36415; 80048

== ENCOUNTER 2023-02-02 14:07 | Observation (INO) | payer MEDICARE, BC ==
[2023-02-02] MEDS ORDERED: SODIUM CHLORIDE 0.9% 500 ML 500 ML IV STA (15:02)
--- NOTE | 2023-02-02 15:11 | ED ---
General Adult HPI - General Chief complaint: Shortness of Breath Stated complaint: poss DVT Time Seen by Provider: 02/02/23 14:30 Source: patient, RN notes reviewed, old records reviewed Mode of arrival: wheelchair Limitations: no limitations - History of Present Illness Initial comments: This is an 87-year-old female presents emergency Department because of increased swelling to the legs and chest pain. states the swelling to her legs is been for the last 3 weeks in the chest pain has been for one day. Patient's gives most of the history because he states his speaks so quite you can barely hear her. Patient denied any shortness of breath or difficulty breathing. Patient denies any lightheadedness or dizziness. Patient denies any abdominal pain patient's any nausea vomiting. Patient denies any recent fever chills or cough. - Related Data Home Medications Medication Instructions Recorded Confirmed Carbidopa-Levodopa 25-100 mg 1 tab PO TID 09/16/19 02/02/23 [Sinemet 25-100 mg] Pantoprazole Sodium 20 mg PO BID 02/03/21 02/02/23 Ascorbic Acid [Vitamin C] 1,000 mg PO DAILY 02/02/23 02/02/23 Cholecalciferol [Vitamin D3 (25 25 mcg PO DAILY 02/02/23 02/02/23 Mcg = 1000 Iu)] Levothyroxine Sodium [Synthroid] 25 mcg PO DAILY 02/02/23 02/02/23 Loratadine [Claritin] 10 mg PO DAILY 02/02/23 02/02/23 metFORMIN HCL ER [Glucophage XR] 1,000 mg PO DAILY@1200 02/02/23 02/02/23 Allergies Allergy/AdvReac Type Severity Reaction Status Date / Time cortisone Allergy Unknown Verified 02/02/23 15:12 Review of Systems ROS Statement: Those systems with pertinent positive or pertinent negative responses have been documented in the HPI. ROS Other: All systems not noted in ROS Statement are negative. Past Medical History Past Medical History: Diabetes Mellitus, Eye Disorder, Hearing Disorder / Deafness, Osteoarthritis (OA), Pulmonary Embolus (PE), Rheumatoid Arthritis (RA), Syncope, Thyroid Disorder Additional Past Medical History / Comment(s): parkinsons, [place], recent admission for covid in 01/2021 History of Any Multi-Drug Resistant Organisms: None Reported Past Surgical History: Appendectomy, Bladder Surgery, Hysterectomy, Orthopedic Surgery Additional Past Surgical History / Comment(s): bladder suspension Past Anesthesia/Blood Transfusion Reactions: No Reported Reaction Past Psychological History: No Psychological Hx Reported Smoking Status: Former smoker Past Alcohol Use History: None Reported Past Drug Use History: None Reported - Past Family History Mother Family Medical History: No Reported History Father Additional Family Medical History / Comment(s): passed from emphysema Sister(s) Family Medical History: Cancer, Myocardial Infarction ([place]) Additional Family Medical History / Comment(s): one sister passed from brain cancer at 28 years old. two other sisters passed from heart attacks General Exam - General Exam Comments Initial Comments: GENERAL: Patient is well-developed and well-nourished. Patient is nontoxic and well- hydrated and is in mild distress. ENT: Neck is soft and supple. No significant lymphadenopathy is noted. Oropharynx is clear. Moist mucous membranes. Neck has full range of motion without eliciting any pain. EYES: The sclera were anicteric and conjunctiva were pink and moist. Extraocular movements were intact and pupils were equal round and reactive to light. Eyelids were unremarkable. PULMONARY: Unlabored respirations. Good breath sounds bilaterally. No audible rales rhonchi or wheezing was noted. CARDIOVASCULAR: There is a regular rate and rhythm without any murmurs gallops or rubs. ABDOMEN: Soft and nontender with normal bowel sounds. SKIN: Skin is clear with no lesions or rashes and otherwise unremarkable. NEUROLOGIC: Patient is alert and oriented x3. Cranial nerves II through XII are grossly intact. Motor and sensory are also intact. Normal speech, volume and content. Symmetrical smile. MUSCULOSKELETAL: Normal extremities with adequate strength and full range of motion. Legs are mildly edematous LYMPHATICS: No significant lymphadenopathy is noted PSYCHIATRIC: Normal psychiatric evaluation. Limitations: no limitations Course Vital Signs 02/02/23 02/02/23 02/02/23 14:19 14:33 14:36 Temperature 98.0 F Pulse Rate 86 85 Respiratory 20 18 18 Rate Blood Pressure 111/74 118/61 O2 Sat by Pulse 100 99 Oximetry 02/02/23 02/02/23 02/02/23 15:37 16:42 18:29 Temperature 97.9 F Pulse Rate 84 80 72 Respiratory 18 18 18 Rate Blood Pressure 142/74 122/67 126/78 O2 Sat by Pulse 98 99 98 Oximetry Medical Decision Making - Medical Decision Making EKG was interpreted by myself shows a sinus rhythm at 85 bpm SC interval 166 QRS is 90 QT interval 351 QTC is 393. EKG is of poor quality. No obvious ST segment elevation. Was pt. sent in by a medical professional or institution (, BO, PARENTING SKILLS INSTRUCTOR, urgent care, hospital, or usp...) When possible be specific @ -No Did you speak to anyone other than the patient for history (EMS, parent, family, police, friend...)? What history was obtained from this source @ -No Did you review nursing and triage notes (agree or disagree)? Why? @ -I reviewed and agree with nursing and triage notes Were old charts reviewed (outside hosp., previous admission, EMS record, old EKG, old radiological studies, urgent care reports/EKG's, usp records)? Report findings @ -Old labs and charts were reviewed Differential Diagnosis (chest pain, altered mental status, abdominal pain women, abdominal pain men, vaginal bleeding, weakness, fever, dyspnea, syncope, headache, dizziness, GI bleed, back pain, seizure, CVA, palpatations, mental health, musculoskeletal)? @ -Differential Chest Pain: Stable Angina, Unstable Angina, STEMI, NSTEMI Aortic Dissection, Pneumothorax, Musculoskeletal, Esophageal Spasm GERD, Cholecystitis, Pancreatitis, Zoster, this is not meant to be an all-inclusive list. EKG interpreted by me (3pts min.). @ -As above X-rays interpreted by me (1pt min.). @ -Chest x-ray was interpreted by myself shows no acute abnormality. CT interpreted by me (1pt min.). @ -None done U/S interpreted by me (1pt. min.). @ -None done What testing was considered but not performed or refused? (CT, X-rays, U/S, labs)? Why? @ -None What meds were considered but not given or refused? Why? @ -None Did you discuss the management of the patient with other professionals (professionals i.e. , BO, PARENTING SKILLS INSTRUCTOR, lab, RT, psych nurse, health care social worker, psychiatric mental health nurse, teacher, helicopter officer, case operator)? Give summary @ -I spoke with Dr. James and he agreed to admit the patient Was smoking cessation discussed for >3mins.? @ -No Was critical care preformed (if so, how long)? @ -No Were there social determinants of health that impacted care today? How? (Homelessness, low income, unemployed, alcoholism, drug addiction, transportation, low edu. Level, literacy, decrease access to med. care, half-way, rehab)? @ -No Was there de-escalation of care discussed even if they declined (Discuss DNR or withdrawal of care, Hospice)? DNR status @ -No What co-morbidities impacted this encounter? (DM, HTN, Smoking, COPD, CAD, Cancer, CVA, ARF, Chemo, Hep., AIDS, mental health diagnosis, sleep apnea, morbid obesity)? @ -None Was patient admitted / discharged? Hospital course, mention meds given and route, prescriptions, significant lab abnormalities, going to OR and other pertinent info. @ -Patient continued to have chest pain so I gave her aspirin and Nitropaste. Patient's mag was low so I placed her magnesium I spoke with Dr. james agreed to admit the patient admitted the patient I consulted cardiology. Undiagnosed new problem with uncertain prognosis? @ -No Drug Therapy requiring intensive monitoring for toxicity (Heparin, Nitro, Insulin, Cardizem)? @ -No Were any procedures done? @ -No Diagnosis/symptom? @ -Pain Acute, or Chronic, or Acute on Chronic? @ -Acute Uncomplicated (without systemic symptoms) or Complicated (systemic symptoms)? @ -Complicated Side effects of treatment? @ -No Exacerbation, Progression, or Severe Exacerbation? @ -No Poses a threat to life or bodily function? How? (Chest pain, [place], [place], pneumonia, PE, COPD, DKA, ARF, appy, cholecystitis, CVA, Diverticulitis, Homicidal, Suicidal, threat to staff... and all critical care pts) @ -Yes this could lead to end organ dysfunction she has an OK Diagnosis/symptom? @ -Hypomagnesemia Acute, or Chronic, or Acute on Chronic? @ -Acute Uncomplicated (without systemic symptoms) or Complicated (systemic symptoms)? @ -Uncomplicated Side effects of treatment? @ -none Exacerbation, Progression, or Severe Exacerbation] @ -no Poses a threat to life or bodily function? @ -no - Lab Data Result diagrams: 02/02/23 14:30 02/02/23 15:05 Lab Results 02/02/23 02/02/2323 Range/Units 14:30 15:05 15:05 WBC 7.9 (3.8-10.6) k/uL RBC 3.80 (3.80-5.40) m/uL Hgb 11.6 (11.4-16.0) gm/dL Hct 35.4 (34.0-46.0) % MCV 93.2 (80.0-100.0) fL MCH 30.5 (25.0-35.0) pg MCHC 32.8 (31.0-37.0) g/dL RDW 13.8 (11.5-15.5) % Plt Count 257 (150-450) k/uL MPV 8.5 Neutrophils % 71 % Lymphocytes % 15 % Monocytes % 9 % Eosinophils % 2 % Basophils % 0 % Neutrophils # 5.6 (1.3-7.7) k/uL Lymphocytes # 1.2 (1.0-4.8) k/uL Monocytes # 0.7 (0-1.0) k/uL Eosinophils # 0.2 (0-0.7) k/uL Basophils # 0.0 (0-0.2) k/uL PT 10.5 (9.0-12.0) sec INR 1.0 (<1.2) APTT 21.8 L (22.0-30.0) sec D-Dimer 0.64 H (<0.60) mg/L FEU Sodium 134 L (137-145) mmol/L Potassium 4.4 (3.5-5.1) mmol/L Chloride 101 (98-107) mmol/L Carbon Dioxide 26 (22-30) mmol/L Anion Gap 7 mmol/L BUN 16 (7-17) mg/dL Creatinine 1.39 H (0.52-1.04) mg/dL Est GFR (CKD-EPI)AfAm 40 (>60 ml/min/1.73 sqM) Est GFR (CKD-EPI)NonAf 35 (>60 ml/min/1.73 sqM) Glucose 144 H (74-99) mg/dL Calcium 8.8 (8.4-10.2) mg/dL Magnesium 1.3 L (1.6-2.3) mg/dL Total Bilirubin 0.5 (0.2-1.3) mg/dL AST 14 (14-36) U/L ALT 7 (4-34) U/L Alkaline Phosphatase 59 (38-126) U/L Troponin I (0.000-0.034) ng/mL Total Protein 5.9 L (6.3-8.2) g/dL Albumin 3.2 L (3.5-5.0) g/dL 02/02/23 Range/Units 15:05 WBC (3.8-10.6) k/uL RBC (3.80-5.40) m/uL Hgb (11.4-16.0) gm/dL Hct (34.0-46.0) % MCV (80.0-100.0) fL MCH (25.0-35.0) pg MCHC (31.0-37.0) g/dL RDW (11.5-15.5) % Plt Count (150-450) k/uL MPV Neutrophils % % Lymphocytes % % Monocytes % % Eosinophils % % Basophils % % Neutrophils # (1.3-7.7) k/uL Lymphocytes # (1.0-4.8) k/uL Monocytes # (0-1.0) k/uL Eosinophils # (0-0.7) k/uL Basophils # (0-0.2) k/uL PT (9.0-12.0) sec INR (<1.2) APTT (22.0-30.0) sec D-Dimer (<0.60) mg/L FEU Sodium (137-145) mmol/L Potassium (3.5-5.1) mmol/L Chloride (98-107) mmol/L Carbon Dioxide (22-30) mmol/L Anion Gap mmol/L BUN (7-17) mg/dL Creatinine (0.52-1.04) mg/dL Est GFR (CKD-EPI)AfAm (>60 ml/min/1.73 sqM) Est GFR (CKD-EPI)NonAf (>60 ml/min/1.73 sqM) Glucose (74-99) mg/dL Calcium (8.4-10.2) mg/dL Magnesium (1.6-2.3) mg/dL Total Bilirubin (0.2-1.3) mg/dL AST (14-36) U/L ALT (4-34) U/L Alkaline Phosphatase (38-126) U/L Troponin I <0.012 (0.000-0.034) ng/mL Total Protein (6.3-8.2) g/dL Albumin (3.5-5.0) g/dL Disposition Clinical Impression: Chest pain, Hypomagnesemia Disposition: ADMITTED IP TO THIS [facility] Time of Disposition: 17:24
[2023-02-02 15:12] LABS: Basophils % (A) 0 %; Eosinophils # (A) 0.2 k/uL (0-0.7); Eosinophils % (A) 2 %; HCT 35.4 % (34.0-46.0); HGB 11.6 gm/dL (11.4-16.0); Lymphocytes # (A) 1.2 k/uL (1.0-4.8); Lymphocytes % (A) 15 %; MCH 30.5 pg (25.0-35.0); MCHC 32.8 g/dL (31.0-37.0); MCV 93.2 fL (80.0-100.0); Mean Platelet Volume 8.5; Monocytes # (A) 0.7 k/uL (0-1.0); Monocytes % (A) 9 %; Neutrophils # (A) 5.6 k/uL (1.3-7.7); Neutrophils % (A) 71 %; Platelet Count 257 k/uL (150-450); RDW 13.8 % (11.5-15.5); WBC 7.9 k/uL (3.8-10.6)
[2023-02-02 15:28] LABS: Albumin 3.2 g/dL (3.5-5.0); Calcium 8.8 mg/dL (8.4-10.2); Magnesium 1.3 mg/dL (1.6-2.3); Potassium 4.4 mmol/L (3.5-5.1); Total Bilirubin 0.5 mg/dL (0.2-1.3); Total Protein 5.9 g/dL (6.3-8.2)
[2023-02-02 15:44] LABS: Prothrombin Time 10.5 sec (9.0-12.0)
[2023-02-02 15:49] LABS: Partial Thromboplastin Time 21.8 sec (22.0-30.0)
--- NOTE | 2023-02-02 15:56 | XR ---
EXAMINATION TYPE: XR chest 2V DATE OF EXAM: 02/02/2023 COMPARISON: 02/06/2021 INDICATION: Chest pain TECHNIQUE: Frontal and lateral views of the chest are obtained. FINDINGS: The heart size is normal. The pulmonary vasculature is normal. The lungs are clear. IMPRESSION: 1. No acute pulmonary process.
[2023-02-02] MEDS: MAGNESIUM SULFATE-D5W PMX 1 GM in DEXTROSE/WATER 1 100ML.BAG IVPB SCH ×2 (16:40→21:11)
[2023-02-02] MEDS ORDERED: NITROGLYCERIN SL TABS 0.4 MG TAB SUBLINGUAL PRN (17:27)
[2023-02-02 20:06] LABS: Glucose,Whole Blood 110 mg/dL (70-110)
[2023-02-02] MEDS: NITROGLYCERIN OINT 1 INCH/GM PACKET TOPICAL SCH ×2 (20:06→23:45)
[2023-02-02] MEDS ORDERED: DEXTROSE 50% SYRINGE 50 ML IVP PRN ×4 (21:08→22:45)
[2023-02-02] MEDS ORDERED: LORazepam 0.5 MG TAB PO PRN (22:46)
[2023-02-02] MEDS ORDERED: ONDANSETRON 4 MG/2 ML VIAL IVP PRN (22:46)
[2023-02-02] MEDS ORDERED: MELATONIN 3 MG TABLET PO PRN (22:46)
[2023-02-02] MEDS ORDERED: NALOXONE 0.4 MG/ML 1 ML VIAL IV PRN (22:46)
[2023-02-02] MEDS ORDERED: ACETAMINOPHEN TAB 325 MG TAB PO PRN (22:46)
[2023-02-02] MEDS ORDERED: CALCIUM CARBONATE 500 MG CHEWABLE PO PRN (22:46)
[2023-02-02] MEDS ORDERED: LACTULOSE 20 GM/30 ML CUP PO PRN (22:46)
--- NOTE | 2023-02-02 22:48 | P.HPIM ---
History of Present Illness H&P Date: 02/02/23 Chief Complaint: During, chest pain History of presenting complaint: This is a 87-year-old patient of Dr. Griffin. Chronic stable medical conditions include diabetes mellitus, hearing deficit, DJD, rheumatoid arthritis, Parkinson disease. On wheelchair. Patient presented to ER with her . He gave the history to the ER physician. Patient normally speaks very softly. She reported that patient's have lower extremity swelling for last 3 weeks. For about one day patient been complaining of pain in the chest. Patient describes it at the lower sternal area. Some pain radiating to the left shoulder. Patient herself denies any leg swelling. Has had DVT in the past. Patient is forgetful. Review of systems: GEN.: Tired EYES: None HEENT: Decreased hearing NECK: None RESPIRATORY: None CARDIOVASCULAR: As above GASTROINTESTINAL: None GENITOURINARY: None MUSCULOSKELETAL: Joint pains LYMPHATICS: None HEMATOLOGICAL: None PSYCHIATRY: None NEUROLOGICAL: Uses a wheelchair Past medical history to include: Diabetes mellitus, hearing deficit, DJD, rheumatoid arthritis, Parkinson disease, chronic medical debility-wheelchair, COVID 19 pneumonia, pulmonary e mbolism in January 2021, left leg DVT-small PE Social history: No smoking or alcohol. Lives with her . Does use a wheelchair. Physical examination: VITAL SIGNS: 97.9, 99, 18, 115/56, 99% room air GENERAL: [BMI 21.7, laying in bed, awake, tired EYES: Pupils equal. Conjunctiva normal. HEENT: External appearance of nose and ears normal, oral cavity grossly normal. NECK: JVD not raised; masses not palpable. HEART: First and second heart sounds are normal; some edema edema. LUNGS: Respiratory rate normal; decreased breath sounds. ABDOMEN: Soft, nontender, liver spleen not palpable, no masses palpable. PSYCH: Patient knows that she the hospital cannot tell the name, year 2020, not sure about the month.l. EXTREMITIES: Swelling of left lower extremity Muscular skeletal: Evidence of OA NEUROLOGICAL: Cranial nerves grossly intact; no facial asymmetry, moving all 4 limbs. LYMPHATICS: No lymph nodes palpable in the axilla and neck INVESTIGATIONS, reviewed in the clinical context: White count 7.9 hemoglobin 11.6 platelets 257 sodium 134 potassium 4.4 creatinine 1.39 Troponin I 3 negative EKG tracing personally reviewed by me-poor R-wave progression. Questionable ST changes Chest x-ray film personally reviewed by me-no obvious abnormalities Assessment and plan: -Bilateral lower extremity swelling. With a prior history of DVT. No shortness of breath. No fever no chills. Bilateral Doppler ultrasound to rule out DVT -Anterior lower sternal chest pain. Some radiation of the shoulder. Troponin I 3 negative. Consult cardiology -Diabetes mellitus type 2, on oral hypoglycemics, uncontrolled with hypoglycemia. metformin. Accu-Cheks -Hard of hearing Hearing aids -Primary osteoarthritis Use analgesics when necessary -Idiopathic Parkinson disorder Continue with Sinemet -Legally blind in the left eye -Hypothyroid 25 g Synthroid -Moderate cognitive impairment. 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 Follow Accu-Cheks. Doppler ultrasound lower extremity. Discussed with patient. Past Medical History Past Medical History: Diabetes Mellitus, Eye Disorder, Hearing Disorder / Deafness, Osteoarthritis (OA), Pulmonary Embolus (PE), Rheumatoid Arthritis (RA), Syncope, Thyroid Disorder Additional Past Medical History / Comment(s): parkinsons, [place], recent admission for covid in 01/2021 History of Any Multi-Drug Resistant Organisms: None Reported Past Surgical History: Appendectomy, Bladder Surgery, Hysterectomy, Orthopedic Surgery Additional Past Surgical History / Comment(s): bladder suspension Past Anesthesia/Blood Transfusion Reactions: No Reported Reaction Past Psychological History: No Psychological Hx Reported Smoking Status: Former smoker Past Alcohol Use History: None Reported Past Drug Use History: None Reported - Past Family History Mother Family Medical History: No Reported History Father Additional Family Medical History / Comment(s): passed from emphysema Sister(s) Family Medical History: Cancer, Myocardial Infarction ([place]) Additional Family Medical History / Comment(s): one sister passed from brain cancer at 28 years old. two other sisters passed from heart attacks Medications and Allergies Home Medications Medication Instructions Recorded Confirmed Type Carbidopa-Levodopa 25-100 mg 1 tab PO TID 09/16/19 02/02/23 History [Sinemet 25-100 mg] Pantoprazole Sodium 20 mg PO BID 02/03/21 02/02/23 History Ascorbic Acid [Vitamin C] 1,000 mg PO DAILY 02/02/23 02/02/23 History Cholecalciferol [Vitamin D3 (25 25 mcg PO DAILY 02/02/23 02/02/23 History Mcg = 1000 Iu)] Levothyroxine Sodium [Synthroid] 25 mcg PO DAILY 02/02/23 02/02/23 History Loratadine [Claritin] 10 mg PO DAILY 02/02/23 02/02/23 History metFORMIN HCL ER [Glucophage XR] 1,000 mg PO DAILY@1200 02/02/23 02/02/23 History Allergies Allergy/AdvReac Type Severity Reaction Status Date / Time cortisone Allergy Unknown Verified 02/02/23 15:12 Physical Exam Vitals: Vital Signs Temp Pulse Resp BP Pulse Ox 02/02/23 21:14 99 18 115/56 99 02/02/23 19:38 79 116/54 97 02/02/23 18:29 72 18 126/78 98 02/02/23 16:42 80 18 122/67 99 02/02/23 15:37 97.9 F 84 18 142/74 98 02/02/23 14:36 85 18 118/61 99 02/02/23 14:33 18 02/02/23 14:19 98.0 F 86 20 111/74 100 Intake and Output 02/02/23 02/02/23 02/02/23 06:59 14:59 22:59 Other: Weight 50.349 kg Results CBC & Chem 7: 02/02/23 14:30 02/02/23 15:05 Labs: Abnormal Lab Results - Last 24 Hours (Table) 02/02/23 02/02/23 Range/Units 15:05 15:05 APTT 21.8 L (22.0-30.0) sec D-Dimer 0.64 H (<0.60) mg/L FEU Sodium 134 L (137-145) mmol/L Creatinine 1.39 H (0.52-1.04) mg/dL Glucose 144 H (74-99) mg/dL Magnesium 1.3 L (1.6-2.3) mg/dL Total Protein 5.9 L (6.3-8.2) g/dL Albumin 3.2 L (3.5-5.0) g/dL
[2023-02-02] MEDS: INSULIN ASPART (NovoLOG) 100 UNIT/ML VIAL SQ SCH (23:06)
[2023-02-02 23:09] LABS: Glucose,Whole Blood 137 mg/dL (70-110)
--- NOTE | 2023-02-02 23:12 | US ---
EXAMINATION TYPE: US venous doppler duplex LE LT DATE OF EXAM: 02/02/2023 10:46 PM COMPARISON: None CLINICAL HISTORY: Rule out DVT. SIDE PERFORMED: Left TECHNIQUE: The lower extremity deep venous system is examined utilizing real time linear array sonog louie with graded compression, doppler sonography and color-flow sonography. VESSELS IMAGED: Common Femoral Vein Deep Femoral Vein Greater Saphenous Vein * Femoral Vein Popliteal Vein Small Saphenous Vein * Proximal Calf Veins (* superficial vessels) Left Leg: Negative for DVT, Grayscale, color doppler, spectral doppler imaging performed of the deep veins of the lower extremities. There is normal flow, compressibility, vascular waveforms. IMPRESSION: No evidence for left lower extremity deep vein thrombosis.
--- NOTE | 2023-02-02 23:18 | US ---
EXAMINATION TYPE: US venous doppler duplex LE RT DATE OF EXAM: 02/02/2023 10:46 PM COMPARISON: NONE CLINICAL HISTORY: Rule out DVT. SIDE PERFORMED: Right TECHNIQUE: The lower extremity deep venous system is examined utilizing real time linear array sonog louie with graded compression, doppler sonography and color-flow sonography. VESSELS IMAGED: Common Femoral Vein Deep Femoral Vein Greater Saphenous Vein * Femoral Vein Popliteal Vein Small Saphenous Vein * Proximal Calf Veins (* superficial vessels) Right Leg: Negative for DVT IMPRESSION: Grayscale, color doppler, spectral doppler imaging performed of the deep veins of the lo wer extremities. There is normal flow, compressibility, vascular waveforms.
[2023-02-02] MEDS: PANTOPRAZOLE 40 MG TABLET PO SCH (23:25)
[2023-02-02] MEDS: CARBIDOPA-LEVODOPA 25-100 MG 1 EACH TAB PO SCH (23:25)
[2023-02-03] MEDS: NITROGLYCERIN OINT 1 INCH/GM PACKET TOPICAL SCH (06:00)
[2023-02-03] MEDS: metFORMIN 500 MG TAB PO SCH ×2 (06:14→17:32)
[2023-02-03] MEDS: LEVOTHYROXINE 25 MCG TAB PO SCH (06:14)
[2023-02-03] MEDS: INSULIN ASPART (NovoLOG) 100 UNIT/ML VIAL SQ SCH ×3 (06:14→16:38)
[2023-02-03 06:15] LABS: Glucose,Whole Blood 101 mg/dL (70-110)
[2023-02-03 08:50] LABS: Magnesium 1.7 mg/dL (1.6-2.3)
[2023-02-03] MEDS ORDERED: ASPIRIN 325 MG TAB PO SCH (09:00)
[2023-02-03] MEDS: CHOLECALCIFEROL 25 MCG (1000 IU) TABLET PO SCH (09:56)
[2023-02-03] MEDS: CARBIDOPA-LEVODOPA 25-100 MG 1 EACH TAB PO SCH ×3 (09:56→22:21)
[2023-02-03] MEDS: ASCORBIC ACID 500 MG TAB PO SCH (09:57)
[2023-02-03] MEDS: PANTOPRAZOLE 40 MG TABLET PO SCH ×2 (09:57→20:38)
[2023-02-03] MEDS: ASPIRIN 81 MG PO SCH (09:58)
--- NOTE | 2023-02-03 10:31 | P.CRDCN ---
History of Present Illness Consult date: 02/03/23 History of present illness: HISTORY OF PRESENT ILLNESS: This is a 87-year-old female with a past medical history significant for hypothyroidism, diabetes, and former nicotine dependence. 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 We have been asked to see the patient in consultation for this pain. Patient examined at the bedside. The patient was currently brought to the hospital by her secondary to lower extremity edema and chest pain. The is currently not at the bedside and the history was taken from the patient. The patient states that she was not having chest pain yesterday prior to coming to the hospital. She denies any chest pain overnight or this morning. She denies any shortness of breath. Vital signs are stable. * EKG reveals sinus mechanism with nonspecific ST-T wave changes * Chest xray negative for acute process * Laboratory data: WBC 7.9. Hemoglobin 11.6. Platelet count 257. D-dimer 0.64. Sodium 134. Potassium 4.4. BUN 16. Creatinine 1.39. Troponin negative 3. ProBNP 313. * Lower extremity Doppler: Negative for DVT bilaterally * Current home cardiac medications include none * Most recent echocardiogram obtained in March 2021 revealing ejection fraction 65-70%, mild aortic stenosis, trace to mild MR, trace TR REVIEW OF SYSTEMS: At the time of my exam: CONSTITUTIONAL: Denies fever or chills. HEENT: Denies blurred vision, vision changes, or eye pain. Denies hemoptysis CARDIOVASCULAR: Denies chest pain. Denies orthopnea. Denies PND. Denies palpitations RESPIRATORY: Denies shortness of breath. GASTROINTESTINAL: Denies abdominal pain. Denies nausea or vomiting. HEMATOLOGIC: Denies bleeding disorders. GENITOURINARY: Denies any blood in urine. SKIN: Denies pruitis. Denies rash. PHYSICAL EXAM: VITAL SIGNS: Reviewed. GENERAL: Well-developed in no acute distress. HEENT: Head is normocephalic. Pupils are equal, round. Sclerae anicteric. Mucous membranes of the mouth are moist. Neck supple. No JVD or thyromegaly LUNGS: Respirations even and unlabored. Lungs essentially clear to auscultation bilaterally. HEART: Regular rate and rhythm. S1 and S2 heard. Systolic murmur noted ABDOMEN: Soft. Nondistended. Nontender. EXTREMITIES: Normal range of motion. No clubbing or cyanosis. Peripheral pulses intact. Trace edema noted around the patient's ankles where her socks are cutting in her skin, otherwise no lower extremity edema NEUROLOGIC: Awake and alert. ASSESSMENT: Chest pain, ruled out, patient denies having chest pain, troponin negative x 3 Minimal lower extremity edema, no evidence of CHF History of mild aortic stenosis Diabetes Hypothyroidism PLAN: Patients lower extremity edema is minimal this morning. This may be secondary to venous insufficiency and immobility. No evidence of congestive heart failure. No recommendations for diuretics at this time Obtain 2-D echo to assess cardiac structure and function Patient is stable from a cardiac standpoint Further recommendations pending patient's course Nurse practitioner note has been reviewed by physician. Signing provider agrees with the documented findings, assessment, and plan of care. Past Medical History Past Medical History: Diabetes Mellitus, Eye Disorder, Hearing Disorder / Deafness, Osteoarthritis (OA), Pulmonary Embolus (PE), Rheumatoid Arthritis (RA), Syncope, Thyroid Disorder Additional Past Medical History / Comment(s): parkinsons, [place], recent admission for covid in 01/2021 History of Any Multi-Drug Resistant Organisms: None Reported Past Surgical History: Appendectomy, Bladder Surgery, Hysterectomy, Orthopedic Surgery Additional Past Surgical History / Comment(s): bladder suspension Past Anesthesia/Blood Transfusion Reactions: No Reported Reaction Past Psychological History: No Psychological Hx Reported Smoking Status: Former smoker Past Alcohol Use History: None Reported Past Drug Use History: None Reported Additional Drug Use History / Comment(s): pt smoked "1 or 2" cigarettes a day and quit when she was 19. - Past Family History Mother Family Medical History: No Reported History Father Additional Family Medical History / Comment(s): passed from emphysema Sister(s) Family Medical History: Cancer, Myocardial Infarction ([place]) Additional Family Medical History / Comment(s): one sister passed from brain cancer at 28 years old. two other sisters passed from heart attacks Medications and Allergies Home Medications Medication Instructions Recorded Confirmed Type Carbidopa-Levodopa 25-100 mg 1 tab PO TID 09/16/19 02/02/23 History [Sinemet 25-100 mg] Pantoprazole Sodium 20 mg PO BID 02/03/21 02/02/23 History Ascorbic Acid [Vitamin C] 1,000 mg PO DAILY 02/02/23 02/02/23 History Cholecalciferol [Vitamin D3 (25 25 mcg PO DAILY 02/02/23 02/02/23 History Mcg = 1000 Iu)] Levothyroxine Sodium [Synthroid] 25 mcg PO DAILY 02/02/23 02/02/23 History Loratadine [Claritin] 10 mg PO DAILY 02/02/23 02/02/23 History metFORMIN HCL ER [Glucophage XR] 1,000 mg PO DAILY@1200 02/02/23 02/02/23 History Allergies Allergy/AdvReac Type Severity Reaction Status Date / Time cortisone Allergy Unknown Verified 02/02/23 15:12 Physical Exam Vitals: Vital Signs Temp Pulse Pulse Resp BP BP Pulse Ox 02/03/23 03:25 97.6 F 69 18 138/67 96 02/03/23 01:55 18 02/03/23 00:22 18 02/02/23 23:19 97.9 F 83 18 113/68 98 02/02/23 21:14 99 18 115/56 99 02/02/23 20:00 97.9 F 85 18 109/59 98 02/02/23 19:38 79 116/54 97 02/02/23 18:29 72 18 126/78 98 02/02/23 16:42 80 18 122/67 99 02/02/23 15:37 97.9 F 84 18 142/74 98 02/02/23 14:36 85 18 118/61 99 02/02/23 14:33 18 02/02/23 14:19 98.0 F 86 20 111/74 100 Intake and Output 02/02/23 02/03/23 02/03/23 22:59 06:59 14:59 Intake Total 118 Output Total 200 Balance -82 Intake: Oral 118 Output: Urine 200 Other: Voiding Method Diaper Weight 50.349 kg Results 02/02/23 14:30 02/02/23 15:05 Cardiac Enzymes 02/02/23 02/02/23 02/02/23 Range/Units 15:05 15:05 18:31 AST 14 (14-36) U/L Troponin I <0.012 <0.012 (0.000-0.034) ng/mL 02/02/23 Range/Units 20:36 AST (14-36) U/L Troponin I <0.012 (0.000-0.034) ng/mL Coagulation 02/02/23 Range/Units 15:05 PT 10.5 (9.0-12.0) sec APTT 21.8 L (22.0-30.0) sec CBC 02/02/23 Range/Units 14:30 WBC 7.9 (3.8-10.6) k/uL RBC 3.80 (3.80-5.40) m/uL Hgb 11.6 (11.4-16.0) gm/dL Hct 35.4 (34.0-46.0) % Plt Count 257 (150-450) k/uL Comprehensive Metabolic Panel 02/02/23 Range/Units 15:05 Sodium 134 L (137-145) mmol/L Potassium 4.4 (3.5-5.1) mmol/L Chloride 101 (98-107) mmol/L Carbon Dioxide 26 (22-30) mmol/L BUN 16 (7-17) mg/dL Creatinine 1.39 H (0.52-1.04) mg/dL Glucose 144 H (74-99) mg/dL Calcium 8.8 (8.4-10.2) mg/dL AST 14 (14-36) U/L ALT 7 (4-34) U/L Alkaline Phosphatase 59 (38-126) U/L Total Protein 5.9 L (6.3-8.2) g/dL Albumin 3.2 L (3.5-5.0) g/dL Current Medications Generic Name Dose Route Start Last Admin Trade Name Freq PRN Reason Stop Dose Admin Acetaminophen 650 mg 02/02/23 22:46 Acetaminophen Tab 325 Mg Tab PO Q6HR PRN Mild Pain or Fever > 100.5 Ascorbic Acid 1,000 mg 02/03/23 09:00 Ascorbic Acid 500 Mg Tab PO DAILY [facility] Aspirin 325 mg 02/03/23 09:00 Aspirin 325 Mg Tab PO DAILY [facility] Calcium Carbonate/Glycine 1,000 mg 02/02/23 22:46 Calcium Carbonate 500 Mg Chewable PO Q4HR PRN Dyspepsia Carbidopa/Levodopa 1 each 02/02/23 22:00 02/02/23 23:25 Carbidopa-Levodopa 25-100 Mg 1 Each Tab PO 1 each TID LUIS Administration Cholecalciferol 25 mcg 02/03/23 09:00 Cholecalciferol 25 Mcg (1000 Iu) Tablet PO DAILY [facility] Dextrose/Water 25 ml 02/02/23 21:08 Dextrose 50% Syringe 50 Ml IVP PER PROTOCOL PRN Hypoglycemia Protocol Dextrose/Water 50 ml 02/02/23 21:08 Dextrose 50% Syringe 50 Ml IVP PER PROTOCOL PRN Hypoglycemia Protocol Dextrose/Water 25 ml 02/02/23 22:45 Dextrose 50% Syringe 50 Ml IVP PER PROTOCOL PRN Hypoglycemia Protocol Dextrose/Water 50 ml 02/02/23 22:45 Dextrose 50% Syringe 50 Ml IVP PER PROTOCOL PRN Hypoglycemia Protocol Insulin Aspart 0 unit 02/02/23 21:09 02/03/23 06:14 Insulin Aspart (Novolog) 100 Unit/Ml Vial SQ Not Given AC-TID [facility] Protocol Lactulose 20 gm 02/02/23 22:46 Lactulose 20 Gm/30 Ml Cup PO DAILY PRN Constipation Levothyroxine Sodium 25 mcg 02/03/23 06:30 02/03/23 06:14 Levothyroxine 25 Mcg Tab PO 25 mcg 0630 [facility] Administration Lorazepam 0.5 mg 02/02/23 22:46 Lorazepam 0.5 Mg Tab PO Q6HR PRN Anxiety Melatonin 3 mg 02/02/23 22:46 Melatonin 3 Mg Tablet PO HS PRN Insomnia Metformin HCl 500 mg 02/03/23 07:30 02/03/23 06:14 Metformin 500 Mg Tab PO 500 mg BID-W/MEALS [facility] Administration Naloxone HCl 0.2 mg 02/02/23 22:46 Naloxone 0.4 Mg/Ml 1 Ml Vial IV Q2M PRN Opioid Reversal Nitroglycerin 0.4 mg 02/02/23 17:27 Nitroglycerin Sl Tabs 0.4 Mg Tab SUBLINGUAL Q5M PRN Chest Pain Nitroglycerin 1 inch 02/02/23 18:00 02/03/23 06:00 Nitroglycerin Oint 1 Inch/Gm Packet TOPICAL Not Given Q6HR [facility] Ondansetron HCl 4 mg 02/02/23 22:46 Ondansetron 4 Mg/2 Ml Vial IVP Q8HR PRN Nausea And Vomiting Pantoprazole Sodium 40 mg 02/02/23 21:08 02/02/23 23:25 Pantoprazole 40 Mg Tablet PO 40 mg BID LUIS Administration Intake and Output 02/02/23 02/03/23 02/03/23 22:59 06:59 14:59 Intake Total 118 Output Total 200 Balance -82 Intake: Oral 118 Output: Urine 200 Other: Voiding Method Diaper Weight 50.349 kg 02/02/23 14:30 02/02/23 15:05
[2023-02-03 11:30] LABS: Glucose,Whole Blood 92 mg/dL (70-110)
--- NOTE | 2023-02-03 13:42 | P.PN ---
Progress Note - Text Progress Note Date: 02/03/23 Chief Complaint: During, chest pain History of presenting complaint: This is a 87-year-old patient of Dr. Griffin. Chronic stable medical conditions include diabetes mellitus, hearing deficit, DJD, rheumatoid arthritis, Parkinson disease. On wheelchair. Patient presented to ER with her . He gave the history to the ER physician. Patient normally speaks very softly. She reported that patient's have lower extremity swelling for last 3 weeks. For about one day patient been complaining of pain in the chest. Patient describes it at the lower sternal area. Some pain radiating to the left shoulder. Patient herself denies any leg swelling. Has had DVT in the past. Patient is forgetful. 02/03/2023: Laying in bed. Comfortable. No further chest pain. DVT lower extremities ruled out. 2-D echo ordered by cardiology. Patient being changed over to ob servation status. Utilization informed Past medical history to include: Diabetes mellitus, hearing deficit, DJD, rheumatoid arthritis, Parkinson disease, chronic medical debility-wheelchair, COVID 19 pneumonia, pulmonary embolism in January 2021, left leg DVT-small PE Social history: No smoking or alcohol. Lives with her . Does use a wheelchair. Physical examination: VITAL SIGNS: 97.9, 78, 16, 112/62, 98% room air GENERAL: [BMI 21.7, laying in bed, comfortable EYES: Pupils equal. Conjunctiva normal. HEENT: External appearance of nose and ears normal, oral cavity grossly normal. NECK: JVD not raised; masses not palpable. HEART: First and second heart sounds are normal; some edema LUNGS: Respiratory rate normal; decreased breath sounds. ABDOMEN: Soft, nontender, liver spleen not palpable, no masses palpable. PSYCH: Patient knows that she the hospital cannot tell the name, year 2020, not sure about the month.l. EXTREMITIES: Swelling of left lower extremity Muscular skeletal: Evidence of OA NEUROLOGICAL: Cranial nerves grossly intact; no facial asymmetry, moving all 4 limbs. INVESTIGATIONS, reviewed in the clinical context: February 03: BNP 313 Doppler ultrasound bilateral lower extremity: Negative for DVT White count 7.9 hemoglobin 11.6 platelets 257 sodium 134 potassium 4.4 creatinine 1.39 Troponin I 3 negative EKG tracing personally reviewed by me-poor R-wave progression. Questionable ST changes Chest x-ray film personally reviewed by me-no obvious abnormalities Assessment and plan: -Bilateral lower extremity swelling. With a prior history of DVT. No shortness of breath. No fever no chills.: From venous insufficiency and decreased mobility Bilateral Doppler ultrasound negative for DVT -Anterior lower sternal chest pain. Some radiation of the shoulder.: Likely musculoskeletal, now resolved Troponin I 3 negative. Consult cardiology -Diabetes mellitus type 2, on oral hypoglycemics, uncontrolled with hypoglycemia. metformin. Accu-Cheks -Hard of hearing Hearing aids -Primary osteoarthritis Use analgesics when necessary -Idiopathic Parkinson disorder Continue with Sinemet -Legally blind in the left eye -Hypothyroid 25 g Synthroid -Moderate cognitive impairment. Possible late onset Alzheimer's dementia -Chronic medical debility, and a baseline patient is wheelchair bound -DO NOT RESUSCITATE Discussed with patient. Awaiting 2-D echocardiogram. Bilateral lower extremity stockings. Likely DC tomorrow.
[2023-02-03 15:51] LABS: Chol/HDL Ratio 2.88 Ratio; LDL Cholesterol,Calculated 121.1 mg/dL (0.0-131.0); VLDL Calculation 16.14 mg/dL (5.00-40.00)
[2023-02-03 16:31] LABS: Glucose,Whole Blood 114 mg/dL (70-110)
[2023-02-03 20:10] LABS: Glucose,Whole Blood 112 mg/dL (70-110)
[2023-02-04 06:07] LABS: Glucose,Whole Blood 80 mg/dL (70-110)
[2023-02-04] MEDS: LEVOTHYROXINE 25 MCG TAB PO SCH (06:23)
[2023-02-04] MEDS: metFORMIN 500 MG TAB PO SCH (06:23)
[2023-02-04] MEDS: INSULIN ASPART (NovoLOG) 100 UNIT/ML VIAL SQ SCH ×2 (06:23→12:07)
[2023-02-04] MEDS: ASPIRIN 81 MG PO SCH (09:16)
[2023-02-04] MEDS: PANTOPRAZOLE 40 MG TABLET PO SCH (09:16)
[2023-02-04] MEDS: ASCORBIC ACID 500 MG TAB PO SCH (09:16)
[2023-02-04] MEDS: CHOLECALCIFEROL 25 MCG (1000 IU) TABLET PO SCH (09:17)
[2023-02-04] MEDS: CARBIDOPA-LEVODOPA 25-100 MG 1 EACH TAB PO SCH (09:17)
--- NOTE | 2023-02-04 10:58 | P.PN ---
Subjective Progress Note Date: 02/04/23 HISTORY OF PRESENT ILLNESS: This is a 87-year-old female with a past medical history significant for hypothyroidism, diabetes, and former nicotine dependence. 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 We have been asked to see the patient in consultation for this pain. Patient examined at the bedside. The patient was currently brought to the hospital by her secondary to lower extremity edema and chest pain. The is currently not at the bedside and the histo ry was taken from the patient. The patient states that she was not having chest pain yesterday prior to coming to the hospital. She denies any chest pain overnight or this morning. She denies any shortness of breath. Vital signs are stable. * EKG reveals sinus mechanism with nonspecific ST-T wave changes * Chest xray negative for acute process * Laboratory data: WBC 7.9. Hemoglobin 11.6. Platelet count 257. D-dimer 0.64. Sodium 134. Potassium 4.4. BUN 16. Creatinine 1.39. Troponin nega tive 3. ProBNP 313. * Lower extremity Doppler: Negative for DVT bilaterally * Current home cardiac medications include none * Most recent echocardiogram obtained in March 2021 revealing ejection fraction 65-70%, mild aortic stenosis, trace to mild MR, trace TR 02/04/2023 Patient examined this morning at the bedside. Patient denies chest pain or pressure. Denies SOB. Patients vital signs are stable. PHYSICAL EXAM: VITAL SIGNS: Reviewed. GENERAL: Well-developed in no acute distress. HEENT: Head is normocephalic. Pupils are equal, round. Sclerae anicteric. Mucous membranes of the mouth are moist. Neck supple. No JVD or thyromegaly LUNGS: Respirations even and unlabored. Lungs essentially clear to auscultation bilaterally. HEART: Regular rate and rhythm. S1 and S2 heard. Systolic murmur noted ABDOMEN: Soft. Nondistended. Nontender. EXTREMITIES: Normal range of motion. No clubbing or cyanosis. Peripheral pulses intact. No lower extremity edema. NEUROLOGIC: Awake and alert. ASSESSMENT: Chest pain, ruled out, patient denies having chest pain, troponin negative x 3 Minimal lower extremity edema, no evidence of CHF History of mild aortic stenosis Diabetes Hypothyroidism PLAN: 2D echo pending. Await results. No evidence of congestive heart failure. No recommendations for diuretics at this time Patient is stable from a cardiac standpoint Further recommendations pending patient's course Nurse practitioner note has been reviewed by physician. Signing provider agrees with the documented findings, assessment, and plan of care. Objective - Vital Signs Vital signs: Vital Signs Temp 98.0 F 02/04/23 08:00 Pulse 80 02/04/23 08:00 Resp 15 02/04/23 08:00 BP 122/55 02/04/23 08:00 Pulse Ox 96 02/04/23 09:17 FiO2 Intake & Output 02/03/23 02/04/23 02/04/23 18:59 06:59 18:59 Intake Total 598 0 Balance 598 0 Intake: Oral 598 0 Other: Voiding Method Diaper # Voids 1 2 1 - Labs CBC & Chem 7: 02/02/23 14:30 02/02/23 15:05 Labs: Abnormal Lab Results - Last 24 Hours (Table) 02/03/23 02/03/23 02/03/23 Range/Units 07:39 16:29 20:09 POC Glucose (mg/dL) 114 H 112 H (70-110) mg/dL Cholesterol 210.00 H (0.00-200.00) mg/dL HDL Cholesterol 72.80 H (40.00-60.00) mg/dL
[2023-02-04 11:34] LABS: Glucose,Whole Blood 78 mg/dL (70-110)
[2023-02-04 11:51] VITALS: BP 115/63; PULSE 82; RESP 16; TEMP 97.4
--- NOTE | 2023-02-04 18:14 | P.DS ---
Providers Date of admission: 02/02/23 17:28 Expected date of discharge: 02/04/23 Attending physician: Loc العراقي Consults: 02/02/23 17:27 Consult Physician Urgent Consulting Provider: [facility] Consult Reason/Comments: Chest pain Do you want consulting provider notified?: Yes Primary care physician: [facility] Course: Chief Complaint: During, chest pain History of presenting complaint: This is a 87-year-old patient of Dr. Griffin. Chronic stable medical conditions include diabetes mellitus, hearing deficit, DJD, rheumatoid arthritis, Parkinson disease. On wheelchair. Patient presented to ER with her . He gave the history to the ER physician. Patient normally speaks very softly. She reported that patient's have lower extremity swelling for last 3 weeks. For about one day patient been complaining of pain in the chest. Patient describes it at the lower sternal area. Some pain radiating to the left shoulder. Patient herself denies any leg swelling. Has had DVT in the past. Patient is forgetful. 02/03/2023: Laying in bed. Comfortable. No further chest pain. DVT lower extremities ruled out. 2-D echo ordered by cardiology. Patient being changed over to observation status. Utilization informed 02/04/2023: Patient comfort. Reclining in bed. No chest pain. Discussed with the at the bedside. Patient will follow up outpatient with cardiology. 2-D echo pending. Past medical history to include: Diabetes mellitus, hearing deficit, DJD, rheumatoid arthritis, Parkinson disea se, chronic medical debility-wheelchair, COVID 19 pneumonia, pulmonary embolism in January 2021, left leg DVT-small PE Social history: No smoking or alcohol. Lives with her . Does use a wheelchair. Physical examination: VITAL SIGNS: 97.4, 82, 16, 11 5 x 63, 99% room air GENERAL: [BMI 21.7, laying in bed, comfortable EYES: Pupils equal. Conjunctiva normal. HEENT: External appearance of nose and ears normal, oral cavity grossly normal. NECK: JVD not raised; masses not palpable. HEART: First and second heart sounds are normal; some edema LUNGS: Respiratory rate normal; decreased breath sounds. ABDOMEN: Soft, nontender, liver spleen not palpable, no masses palpable. PSYCH: Patient knows that she the hospital cannot tell the name, year 2020, not sure about the month.l. EXTREMITIES: Swelling of lower extremity Muscular skeletal: Evidence of OA INVESTIGATIONS, reviewed in the clinical context: 2-D echo: Pending February 03: BNP 313 Doppler ultrasound bilateral lower extremity: Negative for DVT White count 7.9 hemoglobin 11.6 platelets 257 sodium 134 potassium 4.4 creatinine 1.39 Troponin I 3 negative EKG tracing personally reviewed by me-poor R-wave progression. Questionable ST changes Chest x-ray film personally reviewed by me-no obvious abnormalities Assessment and plan: -Bilateral lower extremity swelling. With a prior history of DVT. No shortness of breath. No fever no chills.: From venous insufficiency from decreased mobility Bilateral Doppler ultrasound negative for DVT. -Anterior lower sternal chest pain. Some radiation of the shoulder.: Likely musculoskeletal, now resolved Troponin I 3 negative. Patient follow up outpatient with cartilage E. 2-D echo results pending. -Diabetes mellitus type 2, on oral hypoglycemics, uncontrolled with hypoglycemia. metformin. Accu-Cheks -Hard of hearing Hearing aids -Primary osteoarthritis Use analgesics when necessary -Idiopathic Parkinson disorder Continue with Sinemet -Legally blind in the left eye -Hypothyroid 25 g Synthroid -Moderate cognitive impairment. Possible late onset Alzheimer's dementia -Chronic medical debility, and a baseline patient is wheelchair bound -DO NOT RESUSCITATE Disposition: Home Plan - Discharge Summary Discharge Rx Participant: No New Discharge Prescriptions: New Aspirin 81 mg PO DAILY tab Continue Carbidopa-Levodopa 25-100 mg [Sinemet 25-100 mg] 1 tab PO TID Pantoprazole Sodium 20 mg PO BID Ascorbic Acid [Vitamin C] 1,000 mg PO DAILY metFORMIN HCL ER [Glucophage XR] 1,000 mg PO DAILY@1200 Levothyroxine Sodium [Synthroid] 25 mcg PO DAILY Cholecalciferol [Vitamin D3 (25 Mcg = 1000 Iu)] 25 mcg PO DAILY Discontinued Loratadine [Claritin] 10 mg PO DAILY Discharge Medication List Carbidopa-Levodopa 25-100 mg [Sinemet 25-100 mg] 1 tab PO TID 09/16/19 [History] Pantoprazole Sodium 20 mg PO BID 02/03/21 [History] Ascorbic Acid [Vitamin C] 1,000 mg PO DAILY 02/02/23 [History] Cholecalciferol [Vitamin D3 (25 Mcg = 1000 Iu)] 25 mcg PO DAILY 02/02/23 [History] Levothyroxine Sodium [Synthroid] 25 mcg PO DAILY 02/02/23 [History] metFORMIN HCL ER [Glucophage XR] 1,000 mg PO DAILY@1200 02/02/23 [History] Aspirin 81 mg PO DAILY tab 02/04/23 [Rx] Follow up Appointment(s)/Referral(s): Houston Griffin DO [Primary Care Provider] - 1-2 days (Please follow-up in the next week with Dr. Griffin.) Activity/Diet/Wound Care/Special Instructions: dc if ok with cardiology Discharge Disposition: HOME WITH HOME HEALTH SERVICES
--- NOTE | 2023-02-05 11:28 | CA ---
Transthoracic Echo Report Name: Stephanei Srinivasan Age: 87 Gender: F : 1935 Exam Date: 02/04/2023 08:58 Exam Location: [facility] Ht (in): 60 Wt (lb): 111 Ordering Physician: Loc العراقي MD Attending/Referring Phys: Abstract Clerk Lori Kay RDCS Procedure CPT: Indications: Chest Pain Cardiac Hx: Technical Quality: Technically difficult study Contrast 1: Total Dose (mL): Contrast 2: Total Dose (mL): MEASUREMENTS (Male / Female) Normal Values 2D ECHO LA Volume 26.3 cm??? 18 - 58 / 22 - 52 cm??? LA Volume Index 18.0 cm???/m??? 16 - 28 cm???/m??? M-MODE Aortic Root Diameter MM 2.7 cm AV Cusp Separation MM 1.0 cm DOPPLER AV Peak Velocity 232.3 cm/s AV Peak Gradient 21.6 mmHg LVOT Peak Velocity 95.3 cm/s LVOT Peak Gradient 3.6 mmHg MV Area PHT 4.0 cm??? Mitral E Point Velocity 128.1 cm/s Mitral A Point Velocity 193.9 cm/s Mitral E to A Ratio 0.7 MV Deceleration Time 189.7 ms FINDINGS Left Ventricle Left ventricular ejection fraction is estimated at greater than 65 %. Grade 1 diastolic dysfunction. Left ventricular hypertrophy. Right Ventricle Right ventricle not well visualized. Right Atrium Normal right atrial size. Left Atrium Normal left atrial size. Mitral Valve No mitral regurgitation. Aortic Valve Aortic valve not well visualized. . Mild aortic regurgitation. Mild aortic stenosis Tricuspid Valve Trace tricuspid regurgitation. Pulmonic Valve Pulmonic valve not well visualized. Pericardium No pericardial or pleural effusion. Aorta Aortic root and proximal ascending aorta not well visualized. CONCLUSIONS Normal LV size and systolic function with mild concentric LVH. Poor quality study. Valve structures are poorly seen there appears to be aortic sclerosis possibly mild stenosis. There is mitral annular calcification. No pericardial effusion Previewed by: Dr. Carlos Sharif MD (Electronically Signed) Final Date: 05 February 2023 11:27
== END 2023-02-04 16:17 | disposition home health service (06) ==
LOC: EC 14:07 → INTOOBSV 17:28 → 3SCARD 17:28
PROVIDERS: ADMIT Hospitalist; ATTEND Hospitalist
DX: R07.89 Other chest pain (principal); E83.42 Hypomagnesemia; E11.649 Type 2 diabetes mellitus with hypoglycemia without coma; R22.43 Localized swelling, mass and lump, lower limb, bilateral; G20 Parkinson's disease; E03.9 Hypothyroidism, unspecified; R41.89 Other symptoms and signs involving cognitive functions and awareness; I87.2 Venous insufficiency (chronic) (peripheral); I35.0 Nonrheumatic aortic (valve) stenosis; M19.91 Primary osteoarthritis, unspecified site; M06.9 Rheumatoid arthritis, unspecified; H91.90 Unspecified hearing loss, unspecified ear; H57.9 Unspecified disorder of eye and adnexa; Z99.3 Dependence on wheelchair; H54.8 Legal blindness, as defined in USA; Z79.890 Hormone replacement therapy; Z79.84 Long term (current) use of oral hypoglycemic drugs; Z79.899 Other long term (current) drug therapy; Z88.8 Allergy status to other drugs, medicaments and biological substances; Z90.710 Acquired absence of both cervix and uterus; Z95.5 Presence of coronary angioplasty implant and graft; Z86.711 Personal history of pulmonary embolism; Z86.16 Personal history of COVID-19; Z86.718 Personal history of other venous thrombosis and embolism; Z66 Do not resuscitate; Z87.891 Personal history of nicotine dependence; Z87.01 Personal history of pneumonia (recurrent); Z98.890 Other specified postprocedural states; Z82.5 Family history of asthma and other chronic lower respiratory diseases; Z82.49 Family history of ischemic heart disease and other diseases of the circulatory system; Z80.8 Family history of malignant neoplasm of other organs or systems
CPT/HCPCS: 96365; 96366; 99285; 36415; 94760 ×2; 93005; 93306; 85379; 83880; 80061; 80053; 83735 ×2; 84484; 85025; 85610; 85730; 71046; 93971 ×2; G0378 ×2; J3475

== ENCOUNTER 2023-02-05 12:34 | Inpatient (IN) | payer MEDICARE, BC ==
--- NOTE | 2023-02-05 12:42 | ED ---
Altered Mental Status HPI - General Chief Complaint: Altered Mental Status Stated Complaint: Weakness Time Seen by Provider: 02/05/23 12:40 Source: patient Mode of arrival: wheelchair Limitations: no limitations - History of Present Illness Initial Comments: 87 year old female past medical history of Parkinson's, diabetes who presents to the emergency department with altered mental status. is at bedside and provides history. States she was just recently discharged from the hospital yesterday. She was evaluated for chest pain and lower extremity swelling. There were discharge around 6:00 and he went home and he put her in bed. She ended up having an episode where her eyes rolled back in her head and she went unresponsive. He reports she was extremely confused after the event. There is no seizure-like activity. She did not injure herself. Since the episode has happened the patient has not been her normal self. He reports that she's been extremely fatigued. Can't open her eyes or hold up her arms. She cannot shift herself at all on the toilet or in bed which she normally is capable of doing. She is wheelchair bound at baseline. states that she has not eaten much since she got home. Her glucose has been normal. No other alleviating, precipitating or modifying factors - Related Data Home Medications Medication Instructions Recorded Confirmed Carbidopa-Levodopa 25-100 mg 1 tab PO TID 09/16/19 02/07/23 [Sinemet 25-100 mg] Pantoprazole Sodium 20 mg PO BID 02/03/21 02/07/23 Ascorbic Acid [Vitamin C] 1,000 mg PO DAILY 02/02/23 02/07/23 Cholecalciferol [Vitamin D3 (25 25 mcg PO DAILY 02/02/23 02/07/23 Mcg = 1000 Iu)] Levothyroxine Sodium [Synthroid] 25 mcg PO DAILY 02/02/23 02/07/23 Previous Rx's Medication Instructions Recorded Aspirin 81 mg PO DAILY tab 02/04/23 Atorvastatin [Lipitor] 20 mg PO HS #30 tab 02/07/23 Acetaminophen Tab [Tylenol] 650 mg PO Q6HR PRN tab 02/11/23 Multivitamin [Multivitamins Adult 1 each PO DAILY #30 tablet 02/11/23 Gummies] Allergies Allergy/AdvReac Type Severity Reaction Status Date / Time cortisone Allergy Unknown Verified 02/05/23 13:29 Review of Systems ROS Statement: Those systems with pertinent positive or pertinent negative responses have been documented in the HPI. ROS Other: All systems not noted in ROS Statement are negative. Past Medical History Past Medical History: Diabetes Mellitus, Eye Disorder, Hearing Disorder / Deafness, Osteoarthritis (OA), Pulmonary Embolus (PE), Rheumatoid Arthritis (RA), Syncope, Thyroid Disorder Additional Past Medical History / Comment(s): parkinsons, [place], recent admission for covid in 01/2021 History of Any Multi-Drug Resistant Organisms: None Reported Past Surgical History: Appendectomy, Bladder Surgery, Hysterectomy, Orthopedic Surgery Additional Past Surgical History / Comment(s): bladder suspension Past Anesthesia/Blood Transfusion Reactions: No Reported Reaction Past Psychological History: No Psychological Hx Reported Smoking Status: Former smoker Past Alcohol Use History: None Reported Past Drug Use History: None Reported - Past Family History Mother Family Medical History: No Reported History Father Additional Family Medical History / Comment(s): passed from emphysema Sister(s) Family Medical History: Cancer, Myocardial Infarction ([place]) Additional Family Medical History / Comment(s): one sister passed from brain cancer at 28 years old. two other sisters passed from heart attacks General Exam Limitations: altered mental status General appearance: lethargic Head exam: Present: atraumatic, normocephalic, normal inspection Eye exam: Present: normal appearance, PERRL, EOMI. Absent: scleral icterus, conjunctival injection, periorbital swelling ENT exam: Present: normal exam, mucous membranes dry Neck exam: Present: normal inspection. Absent: tenderness, meningismus, lymphadenopathy Respiratory exam: Present: normal lung sounds bilaterally. Absent: respiratory distress, wheezes, rales, rhonchi, stridor Cardiovascular Exam: Present: regular rate, normal rhythm, normal heart sounds. Absent: systolic murmur, diastolic murmur, rubs, gallop, clicks GI/Abdominal exam: Present: soft, normal bowel sounds. Absent: distended, tenderness, guarding, rebound, rigid Extremities exam: Present: normal inspection, full ROM, normal capillary refill. Absent: tenderness, pedal edema, joint swelling, calf tenderness Back exam: Present: normal inspection Neurological exam: Present: altered, oriented X3, CN II-XII intact Psychiatric exam: Present: flat affect Skin exam: Present: warm, dry, intact, normal color. Absent: rash Course Vital Signs 02/05/23 02/05/23 02/05/23 12:36 13:30 14:00 Temperature 98.2 F Pulse Rate 93 83 81 Respiratory 20 14 14 Rate Blood Pressure 106/71 108/56 104/57 O2 Sat by Pulse 98 98 98 Oximetry 02/05/23 02/05/23 02/05/23 14:30 15:00 15:30 Temperature Pulse Rate 81 84 87 Respiratory 15 17 14 Rate Blood Pressure 119/62 122/65 129/63 O2 Sat by Pulse 99 99 98 Oximetry 02/05/23 02/05/23 02/05/23 16:00 16:30 17:00 Temperature Pulse Rate 85 88 87 Respiratory 18 18 17 Rate Blood Pressure 105/88 120/66 107/55 O2 Sat by Pulse 97 98 99 Oximetry 02/05/23 17:30 Temperature Pulse Rate 85 Respiratory 15 Rate Blood Pressure 117/55 O2 Sat by Pulse 97 Oximetry Medical Decision Making - Medical Decision Making Was pt. sent in by a medical professional or institution (, PA, ETL INFORMATICA ARCHITECT, urgent care, hospital, or residential...) When possible be specific @ -No Did you speak to anyone other than the patient for history (EMS, parent, family, police, friend...)? What history was obtained from this source @ -The provides history Did you review nursing and triage notes (agree or disagree)? Why? @ -I reviewed and agree with nursing and triage notes Were old charts reviewed (outside hosp., previous admission, EMS record, old EKG, old radiological studies, urgent care reports/EKG's, residential records)? Report findings @ -I reviewed the patients previous admission with discharge summary from yesterday Differential Diagnosis (chest pain, altered mental status, abdominal pain women, abdominal pain men, vaginal bleeding, weakness, fever, dyspnea, syncope, headache, dizziness, GI bleed, back pain, seizure, CVA, palpatations, mental health, musculoskeletal)? @ -cva, sah, sdh, sepsis, uti, brain mass, parkingsons exaceration EKG interpreted by me (3pts min.). @ -yes X-rays interpreted by me (1pt min.). @ -yes CT interpreted by me (1pt min.). @ -yes U/S interpreted by me (1pt. min.). @ -None done What testing was considered but not performed or refused? (CT, X-rays, U/S, labs)? Why? @ -None What meds were considered but not given or refused? Why? @ -None Did you discuss the management of the patient with other professionals (sol manjarrez i.e. , PA, ETL INFORMATICA ARCHITECT, lab, RT, psych nurse, social sciences chair, greenhouse instructor, teacher, cra officer, rn field case manager)? Give summary @ -Dr. james Was smoking cessation discussed for >3mins.? @ -No Was critical care preformed (if so, how long)? @ -No Were there social determinants of health that impacted care today? How? (Homelessness, low income, unemployed, alcoholism, drug addiction, santizo sportation, low edu. Level, literacy, decrease access to med. care, half-way, rehab)? @ -No Was there de-escalation of care discussed even if they declined (Discuss DNR or withdrawal of care, Hospice)? DNR status @ -No What co-morbidities impacted this encounter? (DM, HTN, Smoking, COPD, CAD, Cancer, CVA, ARF, Chemo, Hep., AIDS, mental health diagnosis, sleep apnea, morbid obesity)? @ -Parkingsons Was patient admitted / discharged? Hospital course, mention meds given and route, prescriptions, significant lab abnormalities, going to OR and other pertinent info. @ -Upon arrival patient was placed into room 3. Through history and physical exam was performed. IV is established. Laboratory studies were conducted and reviewed. Patient does go for a CT of her brain as well as a chest x-ray. Laboratory studies are remarkable for a magnesium of 1.5. Sodium 129. CT brain demonstrates age-related atrophic and chronic small vessel ischemic changes. Chest x-ray demonstrates COPD findings. Results are discussed with the patient. She is able to open her eyes upon my evaluation. Discuss results with the patient and her at bedside. is having difficult to caring for the patient at home due to her extensive weakness. Recommended admission. Spoke with Dr. James who agreed to admit the patient. Neurology will be placed on consult Undiagnosed new problem with uncertain prognosis? @ -Yes Drug Therapy requiring intensive monitoring for toxicity (Heparin, Nitro, Insulin, Cardizem)? @ -No Were any procedures done? @ -No Diagnosis/symptom? @ -acute encephalopathy Acute, or Chronic, or Acute on Chronic? @ -acute Uncomplicated (without systemic symptoms) or Complicated (systemic symptoms)? @ -complicated Side effects of treatment? @ -None Exacerbation, Progression, or Severe Exacerbation? @ -No Poses a threat to life or bodily function? How? (Chest pain, [place], [place], pneumonia, PE, COPD, DKA, ARF, appy, cholecystitis, CVA, Diverticulitis, Homicidal, Suicidal, threat to staff... and all critical care pts) @ -No - Lab Data Result diagrams: 02/06/23 06:15 02/06/23 06:15 Lab Results 02/05/23 02/05/23 02/05/23 Range/Units 13:08 13:08 13:08 WBC 5.9 (3.8-10.6) k/uL RBC 3.71 L (3.80-5.40) m/uL Hgb 10.9 L (11.4-16.0) gm/dL Hct 34.4 (34.0-46.0) % MCV 92.7 (80.0-100.0) fL MCH 29.5 (25.0-35.0) pg MCHC 31.8 (31.0-37.0) g/dL RDW 13.7 (11.5-15.5) % Plt Count 273 (150-450) k/uL MPV 8.5 Neutrophils % 77 % Lymphocytes % 11 % Monocytes % 7 % Eosinophils % 1 % Basophils % 0 % Neutrophils # 4.6 (1.3-7.7) k/uL Lymphocytes # 0.7 L (1.0-4.8) k/uL Monocytes # 0.4 (0-1.0) k/uL Eosinophils # 0.1 (0-0.7) k/uL Basophils # 0.0 (0-0.2) k/uL PT 10.0 (9.0-12.0) sec INR 0.9 (<1.2) APTT 22.4 (22.0-30.0) sec Sodium 129 L (137-145) mmol/L Potassium 4.7 (3.5-5.1) mmol/L Chloride 100 (98-107) mmol/L Carbon Dioxide 22 (22-30) mmol/L Anion Gap 7 mmol/L BUN 23 H (7-17) mg/dL Creatinine 1.38 H (0.52-1.04) mg/dL Est GFR (CKD-EPI)AfAm 40 (>60 ml/min/1.73 sqM) Est GFR (CKD-EPI)NonAf 35 (>60 ml/min/1.73 sqM) Glucose 275 H (74-99) mg/dL Calcium 8.4 (8.4-10.2) mg/dL Magnesium 1.5 L (1.6-2.3) mg/dL Total Bilirubin 0.5 (0.2-1.3) mg/dL AST 15 (14-36) U/L ALT 12 (4-34) U/L Alkaline Phosphatase 54 (38-126) U/L Ammonia (<30) umol/L Troponin I (0.000-0.034) ng/mL Total Protein 5.3 L (6.3-8.2) g/dL Albumin 2.8 L (3.5-5.0) g/dL TSH 2.230 (0.465-4.680) mIU/L Urine Color Urine Appearance (Clear) Urine pH (5.0-8.0) Ur Specific [place] (1.001-1.035) Urine Protein (Negative) Urine Glucose (UA) (Negative) Urine Ketones (Negative) Urine Blood (Negative) Urine Nitrite (Negative) Urine Bilirubin (Negative) Urine Urobilinogen (<2.0) mg/dL Ur Leukocyte Esterase (Negative) Urine RBC (0-5) /hpf Urine WBC (0-5) /hpf Urine WBC Clumps (None) /hpf Ur Squamous Epith Cells (0-4) /hpf Urine Bacteria (None) /hpf Urine Mucus (None) /hpf Salicylates <1.0 mg/dL Acetaminophen <10.0 ug/mL 02/05/23 02/05/23 02/05/23 Range/Units 13:08 13:08 13:08 WBC (3.8-10.6) k/uL RBC (3.80-5.40) m/uL Hgb (11.4-16.0) gm/dL Hct (34.0-46.0) % MCV (80.0-100.0) fL MCH (25.0-35.0) pg MCHC (31.0-37.0) g/dL RDW (11.5-15.5) % Plt Count (150-450) k/uL MPV Neutrophils % % Lymphocytes % % Monocytes % % Eosinophils % % Basophils % % Neutrophils # (1.3-7.7) k/uL Lymphocytes # (1.0-4.8) k/uL Monocytes # (0-1.0) k/uL Eosinophils # (0-0.7) k/uL Basophils # (0-0.2) k/uL PT (9.0-12.0) sec INR (<1.2) APTT (22.0-30.0) sec Sodium (137-145) mmol/L Potassium (3.5-5.1) mmol/L Chloride (98-107) mmol/L Carbon Dioxide (22-30) mmol/L Anion Gap mmol/L BUN (7-17) mg/dL Creatinine (0.52-1.04) mg/dL Est GFR (CKD-EPI)AfAm (>60 ml/min/1.73 sqM) Est GFR (CKD-EPI)NonAf (>60 ml/min/1.73 sqM) Glucose (74-99) mg/dL Calcium (8.4-10.2) mg/dL Magnesium (1.6-2.3) mg/dL Total Bilirubin (0.2-1.3) mg/dL AST (14-36) U/L ALT (4-34) U/L Alkaline Phosphatase (38-126) U/L Ammonia <9 (<30) umol/L Troponin I <0.012 (0.000-0.034) ng/mL Total Protein (6.3-8.2) g/dL Albumin (3.5-5.0) g/dL TSH (0.465-4.680) mIU/L Urine Color Yellow Urine Appearance Cloudy H (Clear) Urine pH 6.5 (5.0-8.0) Ur Specific [place] 1.013 (1.001-1.035) Urine Protein Trace H (Negative) Urine Glucose (UA) Negative (Negative) Urine Ketones 1+ H (Negative) Urine Blood Negative (Negative) Urine Nitrite Negative (Negative) Urine Bilirubin Negative (Negative) Urine Urobilinogen 2.0 (<2.0) mg/dL Ur Leukocyte Esterase Large H (Negative) Urine RBC 4 (0-5) /hpf Urine WBC 34 H (0-5) /hpf Urine WBC Clumps Moderate H (None) /hpf Ur Squamous Epith Cells 8 H (0-4) /hpf Urine Bacteria Many H (None) /hpf Urine Mucus Rare H (None) /hpf Salicylates mg/dL Acetaminophen ug/mL - EKG Data EKG Comments: EKG demonstrates sinus rhythm rate of 88. PA interval 174. QRS 86. QTC of 405. No acute ST segment elevations or depressions Disposition Clinical Impression: Hyponatremia, Hypomagnesemia, Syncope, Weakness, Parkinson disease Disposition: ADMITTED IP TO THIS HOSP Is patient prescribed a controlled substance at d/c from ED?: No Time of Disposition: 14:47 Decision to Admit Reason: Admit from EC Decision Date: 02/05/23 Decision Time: 14:47
--- NOTE | 2023-02-05 13:32 | CT ---
EXAMINATION TYPE: CT brain wo con DATE OF EXAM: 02/05/2023 COMPARISON: 09/16/2019 HISTORY: weakness, AMS CT DLP: 1099.[address] of the brain was performed. The ventricles, basal cisterns and sulci overlying the cerebral convexities demonstrate mild enlargem ent. There is no evidence for intracranial hemorrhage or sulcal effacement. There is decreased attenuation about the periventricular white matter and deep white matter of both c erebral hemispheres, compatible with chronic small vessel ischemia. Differential diagnosis does inclu de demyelination. No mass effects are seen.No midline shift. Osseous calvarium is intact. If symptoms persist consider MRI. IMPRESSION: 1. Age related atrophic and chronic small vessel ischemic change without acute intracranial process s een at this time.
[2023-02-05 13:35] LABS: Basophils % (A) 0 %; Eosinophils # (A) 0.1 k/uL (0-0.7); Eosinophils % (A) 1 %; HCT 34.4 % (34.0-46.0); HGB 10.9 gm/dL (11.4-16.0); Lymphocytes # (A) 0.7 k/uL (1.0-4.8); Lymphocytes % (A) 11 %; MCH 29.5 pg (25.0-35.0); MCHC 31.8 g/dL (31.0-37.0); MCV 92.7 fL (80.0-100.0); Mean Platelet Volume 8.5; Monocytes # (A) 0.4 k/uL (0-1.0); Monocytes % (A) 7 %; Neutrophils # (A) 4.6 k/uL (1.3-7.7); Neutrophils % (A) 77 %; Platelet Count 273 k/uL (150-450); RBC 3.71 m/uL (3.80-5.40); RDW 13.7 % (11.5-15.5); WBC 5.9 k/uL (3.8-10.6)
[2023-02-05 13:45] LABS: INR 0.9 (<1.2); Partial Thromboplastin Time 22.4 sec (22.0-30.0)
[2023-02-05 13:47] LABS: ALT 12 U/L (4-34); AST 15 U/L (14-36); Acetaminophen <10.0 ug/mL; African American GFR (CKD) 40 (>60 ml/min/1.73 sqM); Albumin 2.8 g/dL (3.5-5.0); Alkaline Phosphatase 54 U/L (38-126); Anion Gap 7 mmol/L; Blood Urea Nitrogen 23 mg/dL (7-17); Calcium 8.4 mg/dL (8.4-10.2); Carbon Dioxide 22 mmol/L (22-30); Chloride 100 mmol/L (98-107); Glucose 275 mg/dL (74-99); Magnesium 1.5 mg/dL (1.6-2.3); Non-African American GFR(CKD) 35 (>60 ml/min/1.73 sqM); Potassium 4.7 mmol/L (3.5-5.1); Salicylate <1.0 mg/dL; Sodium 129 mmol/L (137-145); Total Bilirubin 0.5 mg/dL (0.2-1.3); Total Protein 5.3 g/dL (6.3-8.2)
--- NOTE | 2023-02-05 13:56 | XR ---
EXAMINATION TYPE: XR chest 2V DATE OF EXAM: 02/05/2023 COMPARISON: 02/02/2023 HISTORY: 87-year-old female weakness, altered mental status TECHNIQUE: AP and lateral views FINDINGS: Accentuated lower thoracic kyphosis with previous vertebral plasty change. Heart normal size. Mild at herosclerotic arch calcifications. Mild interstitial prominence. No consolidation or pleural effusion . Increased retrosternal clear space. IMPRESSION: Chronic changes, possible underlying COPD. No acute process seen.
[2023-02-05] MEDS ORDERED: NALOXONE 0.4 MG/ML 1 ML VIAL IV PRN (14:47)
[2023-02-05] MEDS ORDERED: MAGNESIUM SULFATE-D5W PMX 1 GM in DEXTROSE/WATER 1 100ML.BAG IVPB ONE (14:53)
[2023-02-05] MEDS: CARBIDOPA-LEVODOPA 25-100 MG 1 EACH TAB PO SCH ×2 (17:54→20:11)
[2023-02-05] MEDS: ENOXAPARIN 30 MG/0.3 ML SYRINGE SQ SCH (17:54)
[2023-02-05 18:54] LABS: Appearance,Urine Cloudy (Clear); Bacteria,Urine Many /hpf; Bilirubin,Urine Negative (Negative); Blood,Urine Negative (Negative); Color,Urine Yellow; Glucose,Urine (UA) Negative (Negative); Ketones,Urine 1+ (Negative); Leukocyte Esterase,Urine Large (Negative); Mucus,Urine Rare /hpf; Nitrite,Urine Negative (Negative); PH, Urine 6.5 (5.0-8.0); Protein,Urine Trace (Negative); RBC,Urine 4 /hpf (0-5); Specific Gravity,Urine 1.013 (1.001-1.035); Squamous Epithelial Cell,Urine 8 /hpf (0-4); WBC,Urine 34 /hpf (0-5)
[2023-02-05] MEDS ORDERED: DEXTROSE 50% SYRINGE 50 ML IVP PRN ×2 (19:18)
--- NOTE | 2023-02-05 19:55 | P.HPIM ---
History of Present Illness H&P Date: 02/05/23 Chief Complaint: Altered mental status Per ER notes: 87 year old female past medical history of Parkinson's, diabetes who presents to the emergency department with altered mental status. is at bedside and provides history. States she was just recently discharged from the hospital yesterday. She was evaluated for chest pain and lower extremity swelling. There are discharge around 6:00 and he went home and he put her in bed. She ended up having an episode where her eyes rolled back in her head and she went unresponsive. He reports she was extremely confused after the event. There is no seizure-like activity. She did not injure herself. Since the episode has happened the patient has not been her normal self. He reports that she's been extremely fatigued. Can't open her eyes or hold up her arms. She cannot shift herself at all on the toilet or in bed which she normally is capable of doing. She is wheelchair bound at baseline. states that she has not eaten much since she got home. Her glucose has been normal. No other alleviating, pr ecipitating or modifying factors PCP: Dr. Griffin. Chronic stable medical conditions include diabetes mellitus, hearing deficit, DJD, rheumatoid arthritis, Parkinson disease. On wheelchair. Patient was discharged from the hospital yesterday. Chest pain was felt to be muscular skeletal. Lower extremity swelling was felt to be from venous insufficiency. Baseline patient is on wheelchair. Patient was taken home yesterday evening. Doesn't episode when patient's had lower back eyes rolled ba ck. She was not able to shift herself in bed which she is not able to set. Quite some time after that patient has not a normal self. No obvious seizure activity was noted. Patient doesn't remember much of the activity earlier. At the baseline speaks in a soft voice. Review of systems: GEN.: Tired EYES: None HEENT: Decreased hearing NECK: None RESPIRATORY: None CARDIOVASCULAR: As above GASTROINTESTINAL: None GENITOURINARY: None MUSCULOSKELETAL: Joint pains LYMPHATICS: None HEMATOLOGICAL: None PSYCHIATRY: None NEUROLOGICAL: Uses a wheelchair Past medical history to include: Diabetes mellitus, hearing deficit, DJD, rheumatoid arthritis, Parkinson disease, chronic medical debility-wheelchair, COVID 19 pneumonia, pulmonary embolism in January 2021, left leg DVT-small PE Social history: No smoking or alcohol. Lives with her . Does use a wheelchair. Physical examination: VITAL SIGNS: 98.2, 93, 20, 106/71, 98% room air GENERAL: [BMI 21.7, laying in bed, awake, tired EYES: Pupils equal. Conjunctiva normal. HEENT: External appearance of nose and ears normal, oral cavity grossly normal. NECK: JVD not raised; masses not palpable. HEART: First and second heart sounds are normal; some edema edema. LUNGS: Respiratory rate normal; decreased breath sounds. ABDOMEN: Soft, nontender, liver spleen not palpable, no masses palpable. PSYCH: Able to answer some simple questions l. EXTREMITIES: Swelling of lower extremity Muscular skeletal: Evidence of OA NEUROLOGICAL: Cranial nerves grossly intact; no facial asymmetry, moving all 4 limbs. LYMPHATICS: No lymph nodes palpable in the axilla and neck INVESTIGATIONS, reviewed in the clinical context: White count 5.9 hemoglobin 10.9 platelets 273 sodium 129 potassium 4.7 BUN 23, INR 1.3 UA: Negative for nitrite. CT brain: Without contrast: Age-related changes. Chest x-ray film personally reviewed by me-unremarkable EKG tracing personally reviewed by me: Sinus rhythm Recent testin-D echo: EF 65%. Doppler ultrasound bilateral lower extremity: Negative for DVT Creatinine 02/02/2023: 1.39 Assessment and plan: -Episode of patient's eyes rolling back. Confused. Not herself a few hours after that. Possible seizure EEG. Neurology consulted. -Bilateral lower extremity swelling. From venous insufficiency from decreased mobility Bilateral Doppler ultrasound negative for DVT. -Diabetes mellitus type 2, on oral hypoglycemics, uncontrolled with hypoglycemia. metformin. 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 EEG. Consult neurology. Telemetry. Past Medical History Past Medical History: Diabetes Mellitus, Eye Disorder, Hearing Disorder / Deafness, Osteoarthritis (OA), Pulmonary Embolus (PE), Rheumatoid Arthritis (RA), Syncope, Thyroid Disorder Additional Past Medical History / Comment(s): parkinsons, [place], recent admission for covid in 01/2021 History of Any Multi-Drug Resistant Organisms: None Reported Past Surgical History: Appendectomy, Bladder Surgery, Hysterectomy, Orthopedic Surgery Additional Past Surgical History / Comment(s): bladder suspension Past Anesthesia/Blood Transfusion Reactions: No Reported Reaction Past Psychological History: No Psychological Hx Reported Smoking Status: Former smoker Past Alcohol Use History: None Reported Past Drug Use History: None Reported - Past Family History Mother Family Medical History: No Reported History Father Additional Family Medical History / Comment(s): passed from emphysema Sister(s) Family Medical History: Cancer, Myocardial Infarction ([place]) Additional Family Medical History / Comment(s): one sister passed from brain cancer at 28 years old. two other sisters passed from heart attacks Medications and Allergies Home Medications Medication Instructions Recorded Confirmed Type Carbidopa-Levodopa 25-100 mg 1 tab PO TID 09/16/19 02/05/23 History [Sinemet 25-100 mg] Pantoprazole Sodium 20 mg PO BID 02/03/21 02/05/23 History Ascorbic Acid [Vitamin C] 1,000 mg PO DAILY 02/02/23 02/05/23 History Cholecalciferol [Vitamin D3 (25 25 mcg PO DAILY 02/02/23 02/05/23 History Mcg = 1000 Iu)] Levothyroxine Sodium [Synthroid] 25 mcg PO DAILY 02/02/23 02/05/23 History metFORMIN HCL ER [Glucophage XR] 1,000 mg PO DAILY@1200 02/02/23 02/05/23 History Aspirin 81 mg PO DAILY tab 02/04/23 02/05/23 Rx Allergies Allergy/AdvReac Type Severity Reaction Status Date / Time cortisone Allergy Unknown Verified 02/05/23 13:29 Physical Exam Vitals: Vital Signs Temp Pulse Resp BP Pulse Ox 02/05/23 12:36 98.2 F 93 20 106/71 98 Intake and Output 02/05/23 02/05/23 02/05/23 06:59 14:59 22:59 Other: Weight 50.349 kg Results CBC & Chem 7: 02/05/23 13:08 02/05/23 13:08 Labs: Abnormal Lab Results - Last 24 Hours (Table) 02/05/23 02/05/23 Range/Units 13:08 13:08 RBC 3.71 L (3.80-5.40) m/uL Hgb 10.9 L (11.4-16.0) gm/dL Lymphocytes # 0.7 L (1.0-4.8) k/uL Sodium 129 L (137-145) mmol/L BUN 23 H (7-17) mg/dL Creatinine 1.38 H (0.52-1.04) mg/dL Glucose 275 H (74-99) mg/dL Magnesium 1.5 L (1.6-2.3) mg/dL Total Protein 5.3 L (6.3-8.2) g/dL Albumin 2.8 L (3.5-5.0) g/dL
[2023-02-05 20:09] LABS: Glucose,Whole Blood 119 mg/dL (70-110)
[2023-02-05] MEDS: INSULIN ASPART (NovoLOG) 100 UNIT/ML VIAL SQ SCH (20:10)
[2023-02-05] MEDS: PANTOPRAZOLE 40 MG TABLET PO SCH (20:11)
[2023-02-06 01:51] LABS: Glucose,Whole Blood 81 mg/dL (70-110)
[2023-02-06] MEDS: LEVOTHYROXINE 25 MCG TAB PO SCH (06:07)
[2023-02-06 06:14] LABS: Glucose,Whole Blood 86 mg/dL (70-110)
[2023-02-06] MEDS: INSULIN ASPART (NovoLOG) 100 UNIT/ML VIAL SQ SCH ×4 (06:14→21:23)
[2023-02-06] MEDS ORDERED: metFORMIN 500 MG TAB PO SCH (07:30)
[2023-02-06] MEDS: ENOXAPARIN 30 MG/0.3 ML SYRINGE SQ SCH (09:21)
[2023-02-06] MEDS: PANTOPRAZOLE 40 MG TABLET PO SCH ×2 (09:21→21:29)
[2023-02-06] MEDS: ASCORBIC ACID 500 MG TAB PO SCH (09:21)
[2023-02-06] MEDS: ASPIRIN 81 MG PO SCH (09:21)
[2023-02-06] MEDS: CHOLECALCIFEROL 25 MCG (1000 IU) TABLET PO SCH (09:21)
[2023-02-06] MEDS: CARBIDOPA-LEVODOPA 25-100 MG 1 EACH TAB PO SCH ×3 (09:21→21:28)
[2023-02-06 11:22] LABS: Basophils # (A) 0.03 X 10*3/uL (0.00-0.10); Basophils % (A) 0.5 %; Eosinophils # (A) 0.27 X 10*3/uL (0.04-0.35); Eosinophils % (A) 4.6 %; HCT 32.2 % (37.2-46.3); HGB 10.4 g/dL (12.0-15.0); Immature Grans, Automated 0.2 %; Lymphocytes # (A) 1.19 X 10*3/uL (0.90-5.00); Lymphocytes % (A) 20.2 %; MCH 29.7 pg (27.0-32.0); MCHC 32.3 g/dL (32.0-37.0); Mean Platelet Volume 10.9 fL (9.5-12.2); Monocytes # (A) 0.87 X 10*3/uL (0.20-1.00); Monocytes % (A) 14.8 %; NRBC Per 100 WBC 0 /100 WBCS (0.0-0.0); Neutrophils # (A) 3.51 X 10*3/uL (1.80-7.70); Neutrophils % (A) 59.7 %; Platelet Count 243 X 10*3/uL (140-440); RDW 14.1 % (11.5-14.5); WBC 5.88 X 10*3/uL (4.50-10.00)
[2023-02-06 11:32] LABS: Glucose,Whole Blood 94 mg/dL (70-110)
[2023-02-06 12:09] LABS: African American GFR (CKD) 41.8 (60.0-200.0); BUN/Creat Ratio 14.18 Ratio (12.00-20.00); Calcium 8.8 mg/dL (8.7-10.3); Carbon Dioxide 21.6 mmol/L (20.0-27.5); Potassium 4.4 mmol/L (3.5-5.5)
--- NOTE | 2023-02-06 15:49 | P.PN ---
Progress Note - Text Progress Note Date: 02/06/23 Chief Complaint: Altered mental status Per ER notes: 87 year old female past medical history of Parkinson's, diabetes who presents to the emergency department with altered mental status. is at bedside and provides history. States she was just recently discharged from the hospital yesterday. She was evaluated for chest pain and lower extremity swelling. There are discharge around 6:00 and he went home and he put her in bed. She ended up having an episode where her eyes rolled back in her head and she went unresponsive. He reports she was extremely confused after the event. There is no seizure-like activity. She did not injure herself. Since the episode has happened the patient has not been her normal self. He reports that she's been extremely fatigued. Can't open her eyes or hold up her arms. She cannot shift herself at all on the toilet or in bed which she normally is capable of doing. She is wheelchair bound at baseline. states that she has not eaten much since she got home. Her glucose has been normal. No other alleviating, precipitating or modifying factors PCP: Dr. Griffin. Chronic stable medical conditions include diabetes mellitus, hearing deficit, DJD, rheumatoid arthritis, Parkinson disease. On wheelchair. Patient was discharged from the hospital yesterday. Chest pain was felt to be muscular skeletal. Lower extremity swelling was felt to be from venous insufficiency. Baseline patient is on wheelchair. Patient was taken home yesterday evening. Doesn't episode when patient's had lower back eyes rolled back. She was not able to shift herself in bed which she is not able to set. Quite some time after that patient has not a normal self. No obvious seizure activity was noted. Patient doesn't remember much of the activity earlier. At the baseline speaks in a soft voice. 02/06/2023: Declining bed. Comforter. Decreased appetite. EEG pending. Discussed with case loader operator. wants her take her home when she is ready Past medical history to include: Diabetes mellitus, hearing deficit, DJD, rheumatoid arthritis, Parkinson disease, chronic medical debility-wheelchair, COVID 19 pneumonia, pulmonary embolism in January 2021, left leg DVT-small PE Social history: No smoking or alcohol. Lives with her . Does use a wheelchair. Physical examination: VITAL SIGNS: Very 7.8, 78, 10 7 x 68, 100% room air GENERAL: [BMI 21.7, declining in bed, awake, tired EYES: Pupils equal. Conjunctiva normal.Blind The left eye HEENT: External appearance of nose and ears normal, oral cavity grossly normal. NECK: JVD not raised; masses not palpable. HEART: First and second heart sounds are normal; some edema edema. LUNGS: Respiratory rate normal; decreased breath sounds. ABDOMEN: Soft, nontender, liver spleen not palpable, no masses palpable. PSYCH: Able to answer some simple questions l. EXTREMITIES: Mild Swelling of lower extremity Muscular skeletal: Evidence of OA INVESTIGATIONS, reviewed in the clinical context: February 06: White count 5.80 globin 10.4 platelets 243 potassium 4.4 creatinine 1.3 White count 5.9 hemoglobin 10.9 platelets 273 sodium 129 potassium 4.7 BUN 23, INR 1.3 UA: Negative for nitrite. CT brain: Without contrast: Age-related changes. Chest x-ray film personally reviewed by me-unremarkable EKG tracing personally reviewed by me: Sinus rhythm Recent testin-D echo: EF 65%. Doppler ultrasound bilateral lower extremity: Negative for DVT Creatinine 02/02/2023: 1.39 Assessment and plan: -Episode of patient's eyes rolling back. Confused. Not herself a few hours after that. Possible seizure Pending EEG. Neurology consulted. -Bilateral lower extremity swelling. From venous insufficiency from decreased mobility Bilateral Doppler ultrasound negative for DVT. Stockings -Diabetes mellitus type 2, on oral hypoglycemics,. Accu-Cheks in the lower site. metformin. 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 Possible late onset Alzheimer's dementia -Chronic medical debility, and a baseline - wheelchair bound -DO NOT RESUSCITATE Pending EEG. Continue current medications. Stop metformin.
--- NOTE | 2023-02-06 16:02 | US ---
EXAMINATION TYPE: US carotid duplex BILAT DATE OF EXAM: 02/06/2023 COMPARISON: NONE CLINICAL HISTORY: Syncope. syncope TECHNIQUE: Carotid duplex ultrasound examination. Indirect Doppler criteria was utilized. FINDINGS: EXAM MEASUREMENTS: RIGHT: Peak Systolic Velocity (PSV) cm/sec ----- Right CCA: 70.6 ----- Right ICA: 98.1 ----- Right ECA: 85.5 ICA/CCA ratio: 1.4 RIGHT: End Diastole cm/sec ----- Right CCA: 11.5 ----- Right ICA: 23.0 ----- Right ECA: 0.0 LEFT: Peak Systolic Velocity (PSV) cm/sec ----- Left CCA: 67.2 ----- Left ICA: 122 ----- Left ECA: 78.5 ICA/CCA ratio: 1.8 LEFT: End Diastole cm/sec ----- Left CCA: 9.0 ----- Left ICA: 22.1 ----- Left ECA: 0.0 VERTEBRALS (direction of flow): Right Vertebral: Antegrade Left Vertebral: Antegrade Rhythm: Normal FARM MACHINERY MECHANIC NOTES: Mild plaque bilateral bifurcations. No evidence of significant stenosis Mild peripheral plaque on grayscale images. IMPRESSION: No hemodynamically significant stenosis in either internal carotid artery. Criteria for Assigning % of Stenosis / Diameter reduction (Estimation based on the indirect measurements of the internal carotid artery velocities (ICA PSV). 1. Normal (no stenosis)=ICA PSV < 125 cm/s: ratio < 2.0: ICA EDV<40 cm/s. 2. Less than 50% stenosis=ICA PSV < 125 cm/s: ratio < 2.0: ICA EDV<40 cm/s. 3. 50 to 69% stenosis=ICA PSV of 125 to 230 cm/s: ration 2.0 ? 4.0: ICA EDV 40-100 cm/s. 4. Greater than 70% stenosis to near occlusion= ICA PSV > 230 cm/s: ratio > 4.0: ICA EDV > 100 cm/s. 5. Near occlusion= ICA PSV velocities may be low or undetectable: variable ratio and ICA EDV. 6. Total occlusion=unable to detect flow.
--- NOTE | 2023-02-06 16:03 | P.CNNES ---
History of Present Illness Consult date: 02/06/23 Requesting physician: Akosua Iyer Reason for Consult: Encephalopathy, history of Parkinson's History of Present Illness: Patient is a 87-year-old female came to the hospital yesterday at 12:34 PM for syncopal spell. Patient's was also present, who provided the history. Patient has history of Parkinson's disease. Patient was recently admitted to the hospital from 02/02/2023 for leg swelling, chest pain. DVT was ruled out, cardiac workup was negative. Patient was discharged on 02/04/2023. She arrived home at 6 PM. She was getting ready to go to the bed and she was sitting in the potty chair when her eyes rolled up and she was "out of it". Patient's To snapping fingers, but she would not response. Her son helped her and placed her in the bed. She then slept for straight 13 hours. Next morning at 7 AM she woke up, and she felt her legs were not working. She was just generalized weak. Therefore family brought her to the hospital. Vital signs on arrival blood pressure 106/71, pulse rate 93 temperature 98.2. Blood test shows normal WBC, hemoglobin 10.9, platelets 273. PT/PTT is normal, sodium 129 potassium 4.7, BUN 23, creatinine 1.38. Hepatic panel is normal, troponin negative, UA shows large amount of leukocyte esterase and 34 WBCs, and moderate WBC clumps. Many bacteria. Hemoglobin A1c 6.8. CT head revealed age- related atrophic and chronic small vessel ischemic change without acute intracranial process. Chest x-ray revealed chronic changes, possible underlying COPD. No acute process. EKG shows sinus rhythm. At present patient's believes that she is doing well, moving her hands. She is almost back to baseline. Patient takes Sinemet 25/100, 1 tablet 3 times a day, Protonix 20 mg twice a day, metformin 1000 mg daily, levothyroxine 25 mg daily, vitamin D3, aspirin 81 mg. Patient had exactly similar presentation with syncopal spell and she was sitting in the potty chair on 09/18/2019. Patient was seen by Dr. Brown, and she felt patient had syncope secondary to autonomic dysfunction related to Parkinson's disease and anemia. Patient was recommended midodrine. Patient was discharged on it, but currently not taking midodrine. Patient's states that patient has history of cognitive impairment, but short-term memory loss. She has never smoked, does not drink. She does have diabetes. Patient has history of DVT in the left leg for which she was on Xarelto for 6-9 months it was stopped about 3-4 years ago. Review of Systems Constitutional: Denies chills, Denies fever Eyes: left loss of vision (Chronic), denies blurred vision, denies pain Ears: deny: ear discharge, earache Ears, nose, mouth and throat: Denies headache, Denies sore throat Cardiovascular: Denies chest pain, Denies shortness of breath Respiratory: Denies cough, Denies excessive sputum Gastrointestinal: Denies abdominal pain, Denies diarrhea, Denies nausea, Denies vomiting Musculoskeletal: Denies myalgias Integumentary: Denies pruritus, Denies rash Neurological: Reports as per HPI Past Medical History Past Medical History: Diabetes Mellitus, Eye Disorder, Hearing Disorder / Deafness, Osteoarthritis (OA), Pulmonary Embolus (PE), Rheumatoid Arthritis (RA), Syncope, Thyroid Disorder Additional Past Medical History / Comment(s): parkinsons, QAGAN TAYAGUNGIN, recent admission for covid in 01/2021 History of Any Multi-Drug Resistant Organisms: None Reported Past Surgical History: Appendectomy, Bladder Surgery, Hysterectomy, Orthopedic Surgery Additional Past Surgical History / Comment(s): bladder suspension Past Anesthesia/Blood Transfusion Reactions: No Reported Reaction Past Psychological History: No Psychological Hx Reported Smoking Status: Former smoker Past Alcohol Use History: None Reported Past Drug Use History: None Reported - Past Family History Mother Family Medical History: No Reported History Father Additional Family Medical History / Comment(s): passed from emphysema Sister(s) Family Medical History: Cancer, Myocardial Infarction ([place]) Additional Family Medical History / Comment(s): one sister passed from brain cancer at 28 years old. two other sisters passed from heart attacks Medications and Allergies Home Medications Medication Instructions Recorded Confirmed Type Carbidopa-Levodopa 25-100 mg 1 tab PO TID 09/16/19 02/05/23 History [Sinemet 25-100 mg] Pantoprazole Sodium 20 mg PO BID 02/03/21 02/05/23 History Ascorbic Acid [Vitamin C] 1,000 mg PO DAILY 02/02/23 02/05/23 History Cholecalciferol [Vitamin D3 (25 25 mcg PO DAILY 02/02/23 02/05/23 History Mcg = 1000 Iu)] Levothyroxine Sodium [Synthroid] 25 mcg PO DAILY 02/02/23 02/05/23 History metFORMIN HCL ER [Glucophage XR] 1,000 mg PO DAILY@1200 02/02/23 02/05/23 History Aspirin 81 mg PO DAILY tab 02/04/23 02/05/23 Rx Allergies Allergy/AdvReac Type Severity Reaction Status Date / Time cortisone Allergy Unknown Verified 02/05/23 13:29 Physical Examination - Vital Signs Vital Signs: Vital Signs Temp Pulse Pulse Pulse Resp BP BP 02/06/23 07:05 98.4 F 72 16 108/63 02/06/23 01:41 97.4 F L 74 17 96/59 02/05/23 20:13 97.9 F 81 18 120/70 02/05/23 17:30 85 15 117/55 02/05/23 17:00 87 17 107/55 02/05/23 16:30 88 18 120/66 02/05/23 16:00 85 18 105/88 02/05/23 15:30 87 14 129/63 02/05/23 15:00 84 17 122/65 02/05/23 14:30 81 15 119/62 02/05/23 14:00 81 14 104/57 02/05/23 13:30 83 14 108/56 02/05/23 12:36 98.2 F 93 20 106/71 Pulse Ox 02/06/23 07:05 99 02/06/23 01:41 97 02/05/23 20:13 99 02/05/23 17:30 97 02/05/23 17:00 99 02/05/23 16:30 98 02/05/23 16:00 97 02/05/23 15:30 98 02/05/23 15:00 99 02/05/23 14:30 99 02/05/23 14:00 98 02/05/23 13:30 98 02/05/23 12:36 98 Intake and Output 02/05/23 02/06/23 02/06/23 22:59 06:59 14:59 Other: Voiding Method Incontinent # Voids 2 # Bowel Movements 2 Weight 50.349 kg Patient is an elderly female, who appears slightly somnolent, but did wake up and was appropriate. Patient is alert awake. Patient states it is December and the year is 2023 and then she said was 3. She says that she is in [facility] but she knows that she lives in [facility] in [facility]. She could not tell name of the current president. She knows that she was born on [birth year], but she said was born in (actually in 1935). Speech and language functions are normal. Patient can name and repeat very well. No aphasia or dysarthria. She speaks with low volume. Attention, concentration intact and fund of knowledge is limited. Detailed testing deferred. On cranial nerve examination, pupils are equal, round and reacting to light, visual gonzalez are full on confrontation, grossly, although patient is legally blind in the left eye from past. There is no neglect on double simultaneous stimulation. Extraocular muscles are intact with no nystagmus. Face is symmetric, tongue protrudes to the midline. Palatal elevation and sensation normal, hearing is decreased and shoulder shrug normal, facial sensation normal. On muscle strength testing, there is no pronator drift and the strength is normal in arms and legs distally and proximally except for hip flexion, which is 4+4-bilaterally. Deep tendon reflexes are symmetric 1 at the biceps, 1 brachioradialis, 2 at the knees, 1 ankles and plantars are possibly upgoing versus withdrawal bilaterally. Sensory to touch is equal with no neglect on double simultaneous stimulation. Cerebellar function showed no ataxia for [id number] testing. No ataxia for [id number] testing on either side. Tone and bulk of muscles normal. Patient does appear bradykinetic. Very mild intermittent resting tremors noted. Gait deferred.. On general examination, there is questionable carotid bruit. There is a murmur heard at the base of the heart. S1-S2 audible. Chest is clear on consultation. Abdomen is soft nontender. No organomegaly, bowel sounds present. Peripheral pulses are present. No edema. Results - Laboratory Findings CBC and BMP: 02/06/23 06:15 02/06/23 06:15 Abnormal Lab Findings: Abnormal Labs 02/05/23 02/05/23 02/05/23 13:08 13:08 13:08 RBC 3.71 L Hgb 10.9 L Hct Lymphocytes # 0.7 L Sodium 129 L BUN 23 H Creatinine 1.38 H Glucose 275 H POC Glucose (mg/dL) Hemoglobin A1c Magnesium 1.5 L Total Protein 5.3 L Albumin 2.8 L Urine Appearance Cloudy H Urine Protein Trace H Urine Ketones 1+ H Ur Leukocyte Esterase Large H Urine WBC 34 H Urine WBC Clumps Moderate H Ur Squamous Epith Cells 8 H Urine Bacteria Many H Urine Mucus Rare H 02/05/23 02/05/23 02/06/23 19:18 20:08 06:15 RBC 3.50 L Hgb 10.4 L Hct 32.2 L Lymphocytes # Sodium BUN Creatinine Glucose POC Glucose (mg/dL) 119 H Hemoglobin A1c 6.8 H Magnesium Total Protein Albumin Urine Appearance Urine Protein Urine Ketones Ur Leukocyte Esterase Urine WBC Urine WBC Clumps Ur Squamous Epith Cells Urine Bacteria Urine Mucus Assessment and Plan Assessment: * Syncopal spell, likely vasovagal versus orthostatic. Rule out arrhythmia. * Generalized weakness on waking, unclear cause. Doubt TIA. * History of syncopal spell with similar presentation back on 09/18/2019. * Parkinson's disease, controlled * Diabetes * Hypertension * Anemia * Hyperlipidemia * Hypothyroidism * Legally blind left eye. * Cardiac murmur. Plan: * Patient underwent EEG today, and preliminary report is normal. No epileptiform activity was seen. * Check carotid Doppler * 2-D echo revealed normal left ventricular ejection fraction 65%. Left atrial size is normal. Aortic valve not well visualized, but appears mild aortic stenosis. * Hemoglobin A1c 6.8, diabetes well controlled * Lipid panel with cholesterol 210, LDL 121, HDL 72, triglycerides 80. We will start Lipitor 20 mg daily. * Check orthostatics. * Telemetric monitoring showing sinus rhythm. * Stay hydrated. * Continue aspirin 81 mg daily. * Patient's Parkinson's is well controlled, continue Sinemet 25/500, 1 tablet 3 times a day. * Neurologically clear, if above test comes back normal. * Thank you for the consult. Addendum: Carotid Doppler performed today is normal. Antegrade flow in both vertebral arteries. Orthostatics supine blood pressure 107/68, pulse rate 78. Sitting blood pressure 112/60 and pulse of 81. Patient could not tolerate standing vitals, as she is mostly wheelchair bound. Neurologically clear.
[2023-02-06 20:36] LABS: Glucose,Whole Blood 112 mg/dL (70-110)
[2023-02-06] MEDS ORDERED: ATORVASTATIN 20 MG TAB PO SCH (21:00)
--- NOTE | 2023-02-06 21:25 | EEG ---
ELECTROENCEPHALOGRAM REPORT PREAMBLE: This is an 87-year-old female with possible seizure. EEG FINDINGS: This is a 21-channel digital EEG recorded with video component, utilizing 10/20 international system with referential and bipolar montages. Background consists of well developed, well regulated moderate voltage activity in 8-9 hertz alpha. Background is posteriorly dominant and reactive to eye opening and closing. Photic driving response was not seen. Different stages of sleep were not seen. No focal or generalized epileptiform activity was seen. IMPRESSION: This is a normal awake EEG. No focal, lateralized or epileptiform activity was seen. MMODL / IJN: [id number] / [facility]
[2023-02-07 01:29] LABS: Glucose,Whole Blood 85 mg/dL (70-110)
[2023-02-07 06:06] LABS: Glucose,Whole Blood 82 mg/dL (70-110)
[2023-02-07] MEDS: INSULIN ASPART (NovoLOG) 100 UNIT/ML VIAL SQ SCH ×2 (06:15→11:58)
[2023-02-07] MEDS: LEVOTHYROXINE 25 MCG TAB PO SCH (06:19)
[2023-02-07 08:22] VITALS: BP 109/69; PULSE 78; RESP 18; TEMP 98.6
[2023-02-07] MEDS: CARBIDOPA-LEVODOPA 25-100 MG 1 EACH TAB PO SCH (09:02)
[2023-02-07] MEDS: ENOXAPARIN 30 MG/0.3 ML SYRINGE SQ SCH (09:02)
[2023-02-07] MEDS: PANTOPRAZOLE 40 MG TABLET PO SCH (09:02)
[2023-02-07] MEDS: ASCORBIC ACID 500 MG TAB PO SCH (09:02)
[2023-02-07] MEDS: CHOLECALCIFEROL 25 MCG (1000 IU) TABLET PO SCH (09:02)
[2023-02-07] MEDS: ASPIRIN 81 MG PO SCH (09:03)
[2023-02-07 11:54] LABS: Glucose,Whole Blood 91 mg/dL (70-110)
--- NOTE | 2023-02-07 17:39 | P.DS ---
Providers Date of admission: 02/05/23 14:47 Expected date of discharge: 02/07/23 Attending physician: Loc العراقي Consults: 02/05/23 14:47 Consult Physician Urgent Consulting Provider: Puneet Cabrera Consult Reason/Comments: encephalopathy, hx parkinsons Do you want consulting provider notified?: Yes Primary care physician: [facility] Course: Chief Complaint: Altered mental status Per ER notes: 87 year old female past medical history of Parkinson's, diabetes who presents to the emergency department with altered mental status. is at bedside and provides history. States she was just recently discharged from the hospital yesterday. She was evaluated for chest pain and lower extremity swelling. There are discharge around 6:00 and he went home and he put her in bed. She ended up having an episode where her eyes rolled back in her head and she went unresponsive. He reports she was extremely confused after the event. There is no seizure-like activity. She did not injure herself. Since the episode has happened the patient has not been her normal self. He reports that she's been extremely fatigued. Can't open her eyes or hold up her arms. She cannot shift herself at all on the toilet or in bed which she normally is capable of doing. She is wheelchair bound at baseline. states that she has not eaten much since she got home. Her glucose has been normal. No other alleviating, precipitating or modifying factors PCP: Dr. Griffin. Chronic stable medical conditions include diabetes mellitus, hearing deficit, DJD, rheumatoid arthritis, Parkinson disease. On wheelchair. Patient was discharged from the hospital yesterday. Chest pain was felt to be muscular skeletal. Lower extremity swelling was felt to be from venous insufficiency. Baseline patient is on wheelchair. Patient was taken home yesterday evening. Doesn't episode when patient's had lower back eyes rolled back. She was not able to shift herself in bed which she is not able to set. Quite some time after that patient has not a normal self. No obvious seizure activity was noted. Patient doesn't remember much of the activity earlier. At the baseline speaks in a soft voice. 02/06/2023: Declining bed. Comforter. Decreased appetite. EEG pending. Discussed with vocational case manager. wants her take her home when she is ready 02/07/2023: Accu-Cheks every running on the lower side with some decreased oral intake. Metformin was discontinued. EEG negative for seizure. Likely presentation from vasovagal. Discussed details with the patient and at the bedside. Accu-Chek today, 82, 91 Discussion and discharge planning more than 35 minutes Past medical history to include: Diabetes mellitus, hearing deficit, DJD, rheumatoid arthritis, Parkinson disease, chronic medical debility-wheelchair, COVID 19 pneumonia, pulmonary embolism in January 2021, left leg DVT-small PE Social history: No smoking or alcohol. Lives with her . Does use a wheelchair. Physical examination: VITAL SIGNS: 98.6, 78, 18, 10 9 x 69, 97% room air GENERAL: [BMI 21.7, reclining awake, EYES: Pupils equal. Conjunctiva normal.Blind The left eye HEENT: External appearance of nose and ears normal, oral cavity grossly normal. NECK: JVD not raised; masses not palpable. HEART: First and second heart sounds are normal; some edema edema. LUNGS: Respiratory rate normal; decreased breath sounds. ABDOMEN: Soft, nontender, liver spleen not palpable, no masses palpable. PSYCH: Able to answer some simple questions EXTREMITIES: Mild Swelling of lower extremity Muscular skeletal: Evidence of OA INVESTIGATIONS, reviewed in the clinical context: February 06: White count 5.80 globin 10.4 platelets 243 potassium 4.4 creatinine 1.3 White count 5.9 hemoglobin 10.9 platelets 273 sodium 129 potassium 4.7 BUN 23, INR 1.3 UA: Negative for nitrite. CT brain: Without contrast: Age-related changes. Chest x-ray film personally reviewed by me-unremarkable EKG tracing personally reviewed by me: Sinus rhythm Recent testin-D echo: EF 65%. Doppler ultrasound bilateral lower extremity: Negative for DVT Creatinine 02/02/2023: 1.39 Assessment and plan: -Possible vasovagal episode. Negative EEG. Neurology consulted. Metformin discontinued -Bilateral lower extremity swelling. From venous insufficiency from decreased mobility Bilateral Doppler ultrasound negative for DVT. Stockings -Diabetes mellitus type 2, on oral hypoglycemics,. Accu-Cheks running low because of low oral intake metformin discontinued. Accu-Cheks -Hard of hearing Hearing aids -Primary osteoarthritis Use analgesics when necessary -Idiopathic Parkinson disorder Sinemet. Patient follow-up in neurology outpatient. -Legally blind in the left eye -Hypothyroid 25 g Synthroid -Moderate cognitive impairment. Possible late onset Alzheimer's dementia -Chronic medical debility, and a baseline - wheelchair bound -DO NOT RESUSCITATE Disposition: Home Plan - Discharge Summary Discharge Rx Participant: No New Discharge Prescriptions: New Atorvastatin [Lipitor] 20 mg PO HS #30 tab Continue Carbidopa-Levodopa 25-100 mg [Sinemet 25-100 mg] 1 tab PO TID Pantoprazole Sodium 20 mg PO BID Ascorbic Acid [Vitamin C] 1,000 mg PO DAILY Levothyroxine Sodium [Synthroid] 25 mcg PO DAILY Cholecalciferol [Vitamin D3 (25 Mcg = 1000 Iu)] 25 mcg PO DAILY Aspirin 81 mg PO DAILY tab Discontinued metFORMIN HCL ER [Glucophage XR] 1,000 mg PO DAILY@1200 Discharge Medication List Carbidopa-Levodopa 25-100 mg [Sinemet 25-100 mg] 1 tab PO TID 09/16/19 [History] Pantoprazole Sodium 20 mg PO BID 02/03/21 [History] Ascorbic Acid [Vitamin C] 1,000 mg PO DAILY 02/02/23 [History] Cholecalciferol [Vitamin D3 (25 Mcg = 1000 Iu)] 25 mcg PO DAILY 02/02/23 [History] Levothyroxine Sodium [Synthroid] 25 mcg PO DAILY 02/02/23 [History] Aspirin 81 mg PO DAILY tab 02/04/23 [Rx] Atorvastatin [Lipitor] 20 mg PO HS #30 tab 02/07/23 [Rx] Follow up Appointment(s)/Referral(s): Houston Griffin DO [Primary Care Provider] - 1-2 days (Office closed at time of discharge. Please call for appointment.) Ozzy Pisano MD [STAFF PHYSICIAN] - 1 Week (parkinson) Patient Instructions/Handouts: Syncope (DC), Weakness (DC) Discharge Disposition: HOME SELF-CARE
== END 2023-02-07 12:22 | disposition home or self-care (01) | DRG 312 ==
LOC: EC 12:34 → 4SSUR 14:47 → OBSVTOIN 14:47 → 4SSUR 17:52
PROVIDERS: ADMIT Hospitalist; ATTEND Hospitalist
DX: R55 Syncope and collapse (principal); E87.1 Hypo-osmolality and hyponatremia; G20 Parkinson's disease; G30.1 Alzheimer's disease with late onset; F02.80 Dementia in other diseases classified elsewhere, unspecified severity, without behavioral disturbance, psychotic disturbance, mood disturbance, and anxiety; E11.9 Type 2 diabetes mellitus without complications; E03.9 Hypothyroidism, unspecified; E78.5 Hyperlipidemia, unspecified; D64.9 Anemia, unspecified; M06.9 Rheumatoid arthritis, unspecified; J44.9 Chronic obstructive pulmonary disease, unspecified; Z66 Do not resuscitate; H54.62 Unqualified visual loss, left eye, normal vision right eye; H91.90 Unspecified hearing loss, unspecified ear; E83.42 Hypomagnesemia; I10 Essential (primary) hypertension; I87.2 Venous insufficiency (chronic) (peripheral); M19.91 Primary osteoarthritis, unspecified site; R32 Unspecified urinary incontinence; Z79.82 Long term (current) use of aspirin; Z79.890 Hormone replacement therapy; Z79.84 Long term (current) use of oral hypoglycemic drugs; Z79.899 Other long term (current) drug therapy; Z86.711 Personal history of pulmonary embolism; Z86.718 Personal history of other venous thrombosis and embolism; Z86.16 Personal history of COVID-19; Z99.3 Dependence on wheelchair; Z88.8 Allergy status to other drugs, medicaments and biological substances
CPT/HCPCS: 36415; 70450; 71046; 80048; 80053; 80143; 80179; 81001; 82140; 83036; 83735; 84443; 84484; 85025; 85610; 85730; 93005; 93880; 95816; 96365; 96372; 99285

== ENCOUNTER 2023-02-07 18:17 | Inpatient (IN) | payer MEDICARE, BC ==
[2023-02-07 19:07] LABS: Calcium 8.5 mg/dL (8.4-10.2); Magnesium 1.6 mg/dL (1.6-2.3); Potassium 4.6 mmol/L (3.5-5.1); Total Bilirubin 0.6 mg/dL (0.2-1.3); Total Protein 5.7 g/dL (6.3-8.2)
[2023-02-07 19:13] LABS: Basophils % (A) 0 %; Eosinophils # (A) 0.1 k/uL (0-0.7); Eosinophils % (A) 2 %; HCT 35.8 % (34.0-46.0); HGB 11.4 gm/dL (11.4-16.0); Lymphocytes # (A) 0.9 k/uL (1.0-4.8); Lymphocytes % (A) 14 %; MCH 29.9 pg (25.0-35.0); MCHC 31.9 g/dL (31.0-37.0); MCV 93.5 fL (80.0-100.0); Monocytes # (A) 0.5 k/uL (0-1.0); Monocytes % (A) 8 %; Neutrophils # (A) 4.8 k/uL (1.3-7.7); Neutrophils % (A) 73 %; Platelet Count 246 k/uL (150-450); RBC 3.83 m/uL (3.80-5.40); RDW 13.3 % (11.5-15.5); WBC 6.6 k/uL (3.8-10.6)
[2023-02-07] MEDS ORDERED: NALOXONE 0.4 MG/ML 1 ML VIAL IV PRN (20:11)
--- NOTE | 2023-02-07 20:11 | ED ---
Seizure HPI - General Chief Complaint: Seizure Stated Complaint: poss seizure Source: patient, EMS Mode of arrival: EMS Limitations: no limitations, altered mental status - History of Present Illness Initial Comments: 87-year-old female past history of Parkinson's, diabetes, PE who presents to the emergency department with an episode of altered mental status. She was just recently hospitalized for questionable syncope. She was evaluated by neurology and had an EEG which was negative for seizures. She has no history of seizure disorder. She was discharged home today. states that she had a nap at home and then got up to eat dinner. She had just eaten when her eyes rolled back in her head and she went unresponsive. There is no tonic-clonic movements. The patient then had an episode of emesis. EMS states that when he got to the house the patient was significantly altered however during the EMS ride into the hospital she returned to her normal baseline. They did not provide her with any medications. Patient arrives and is able to answer all questions appropriately at this time. No chest pain or shortness of breath. No visual changes. Denies any new weakness. No other alleviating, precipitating or modifying factors - Related Data Home Medications Medication Instructions Recorded Confirmed Carbidopa-Levodopa 25-100 mg 1 tab PO TID 09/16/19 02/07/23 [Sinemet 25-100 mg] Pantoprazole Sodium 20 mg PO BID 02/03/21 02/07/23 Ascorbic Acid [Vitamin C] 1,000 mg PO DAILY 02/02/23 02/07/23 Cholecalciferol [Vitamin D3 (25 25 mcg PO DAILY 02/02/23 02/07/23 Mcg = 1000 Iu)] Levothyroxine Sodium [Synthroid] 25 mcg PO DAILY 02/02/23 02/07/23 Previous Rx's Medication Instructions Recorded Aspirin 81 mg PO DAILY tab 02/04/23 Atorvastatin [Lipitor] 20 mg PO HS #30 tab 02/07/23 Allergies Allergy/AdvReac Type Severity Reaction Status Date / Time cortisone Allergy Unknown Verified 02/05/23 13:29 Review of Systems ROS Statement: Those systems with pertinent positive or pertinent negative responses have been documented in the HPI. ROS Other: All systems not noted in ROS Statement are negative. Past Medical History Past Medical History: Diabetes Mellitus, Eye Disorder, Hearing Disorder / Deafness, Osteoarthritis (OA), Pulmonary Embolus (PE), Rheumatoid Arthritis (RA), Syncope, Thyroid Disorder Additional Past Medical History / Comment(s): parkinsons, QAGAN TAYAGUNGIN, recent admission for covid in 01/2021 History of Any Multi-Drug Resistant Organisms: None Reported Past Surgical History: Appendectomy, Bladder Surgery, Hysterectomy, Orthopedic Surgery Additional Past Surgical History / Comment(s): bladder suspension Past Anesthesia/Blood Transfusion Reactions: No Reported Reaction Past Psychological History: No Psychological Hx Reported Smoking Status: Former smoker Past Alcohol Use History: None Reported Past Drug Use History: None Reported - Past Family History Mother Family Medical History: No Reported History Father Additional Family Medical History / Comment(s): passed from emphysema Sister(s) Family Medical History: Cancer, Myocardial Infarction ([place]) Additional Family Medical History / Comment(s): one sister passed from brain cancer at 28 years old. two other sisters passed from heart attacks General Exam Limitations: no limitations, altered mental status Course Vital Signs 02/07/23 02/07/23 18:45 19:55 Temperature 96.9 F L Pulse Rate 80 89 Respiratory 18 18 Rate Blood Pressure 130/70 116/55 O2 Sat by Pulse 100 99 Oximetry Medical Decision Making - Medical Decision Making Was pt. sent in by a medical professional or institution (, PA, SHIPPING TECHNICIAN, urgent care, hospital, or custodial...) When possible be specific @ -[No] Did you speak to anyone other than the patient for history (EMS, parent, family, police, friend...)? What history was obtained from this source @ -[No] Did you review nursing and triage notes (agree or disagree)? Why? @ -[I reviewed and agree with nursing and triage notes] Were old charts reviewed (outside hosp., previous admission, EMS record, old EKG, old radiological studies, urgent care reports/EKG's, custodial records)? Report findings @ -[No old charts were reviewed] Differential Diagnosis (chest pain, altered mental status, abdominal pain women, abdominal pain men, vaginal bleeding, weakness, fever, dyspnea, syncope, headache, dizziness, GI bleed, back pain, seizure, CVA, palpatations, mental health, musculoskeletal)? @ -[not applicable] EKG interpreted by me (3pts min.). @ -[As above] X-rays interpreted by me (1pt min.). @ -[None done] CT interpreted by me (1pt min.). @ -[None done] U/S interpreted by me (1pt. min.). @ -[None done] What testing was considered but not performed or refused? (CT, X-rays, U/S, labs)? Why? @ -[None] What meds were considered but not given or refused? Why? @ -[None] Did you discuss the management of the patient with other professionals (professionals i.e. , PA, SHIPPING TECHNICIAN, lab, RT, psych nurse, public health social worker, marble rubber, teacher, chief media officer, corrections caseworker)? Give summary @ -[No] Was smoking cessation discussed for >3mins.? @ -[No] Was critical care preformed (if so, how long)? @ -[No] Were there social determinants of health that impacted care today? How? (Homelessness, low income, unemployed, alcoholism, drug addiction, transportat ion, low edu. Level, literacy, decrease access to med. care, care home, rehab)? @ -[No] Was there de-escalation of care discussed even if they declined (Discuss DNR or withdrawal of care, Hospice)? DNR status @ -[No] What co-morbidities impacted this encounter? (DM, HTN, Smoking, COPD, CAD, Cancer, CVA, ARF, Chemo, Hep., AIDS, mental health diagnosis, sleep apnea, morbid obesity)? @ -[None] Was patient admitted / discharged? Hospital course, mention meds given and route, prescriptions, significant lab abnormalities, going to OR and other pertinent info. @ - Upon arrival patient was placed into room 5. Thorough history and physical exam is performed here patient does answer questions appropriately. She is up to continuous pulse ox and cardiac monitoring. Laboratory studies are conducted and reviewed. Patient just had imaging of her chest and brain. therefore it is not repeated. She has no episodes while she is here in the emergency department. I did call and speak with Dr. james regards to the patient's symptoms. Was agreeable to admit the patient for longer imaging. Patient is currently awaiting a bed on the floor in stable condition Undiagnosed new problem with uncertain prognosis? @ -[No] Drug Therapy requiring intensive monitoring for toxicity (Heparin, Nitro, Insulin, Cardizem)? @ -[No] Were any procedures done? @ -[No] Diagnosis/symptom? @ -[default] Acute, or Chronic, or Acute on Chronic? @ -[default] Uncomplicated (without systemic symptoms) or Complicated (systemic symptoms)? @ -[default] Side effects of treatment? @ -[No] Exacerbation, Progression, or Severe Exacerbation? @ -[No] Poses a threat to life or bodily function? How? (Chest pain, [place], [place], pneumonia, PE, COPD, DKA, ARF, appy, cholecystitis, CVA, Diverticulitis, Homicidal, Suicidal, threat to staff... and all critical care pts) @ -[No] - Lab Data Result diagrams: 02/07/23 18:45 02/07/23 18:45 Lab Results 02/07/23 02/07/23 02/07/23 Range/Units 18:45 18:45 18:45 WBC 6.6 (3.8-10.6) k/uL RBC 3.83 (3.80-5.40) m/uL Hgb 11.4 (11.4-16.0) gm/dL Hct 35.8 (34.0-46.0) % MCV 93.5 (80.0-100.0) fL MCH 29.9 (25.0-35.0) pg MCHC 31.9 (31.0-37.0) g/dL RDW 13.3 (11.5-15.5) % Plt Count 246 (150-450) k/uL MPV 8.0 Neutrophils % 73 % Lymphocytes % 14 % Monocytes % 8 % Eosinophils % 2 % Basophils % 0 % Neutrophils # 4.8 (1.3-7.7) k/uL Lymphocytes # 0.9 L (1.0-4.8) k/uL Monocytes # 0.5 (0-1.0) k/uL Eosinophils # 0.1 (0-0.7) k/uL Basophils # 0.0 (0-0.2) k/uL Sodium 130 L (137-145) mmol/L Potassium 4.6 (3.5-5.1) mmol/L Chloride 100 (98-107) mmol/L Carbon Dioxide 23 (22-30) mmol/L Anion Gap 7 mmol/L BUN 16 (7-17) mg/dL Creatinine 1.23 H (0.52-1.04) mg/dL Est GFR (CKD-EPI)AfAm 46 (>60 ml/min/1.73 sqM) Est GFR (CKD-EPI)NonAf 40 (>60 ml/min/1.73 sqM) Glucose 109 H (74-99) mg/dL Plasma Lactic Acid Jayjay 1.3 (0.7-2.0) mmol/L Calcium 8.5 (8.4-10.2) mg/dL Magnesium 1.6 (1.6-2.3) mg/dL Total Bilirubin 0.6 (0.2-1.3) mg/dL AST 17 (14-36) U/L ALT 7 (4-34) U/L Alkaline Phosphatase 52 (38-126) U/L Creatine Kinase 35 (30-135) U/L Total Protein 5.7 L (6.3-8.2) g/dL Albumin 3.0 L (3.5-5.0) g/dL - EKG Data EKG Comments: EKG demonstrates sinus rhythm with rate of 82. OR interval 181. QRS 91. QTC of 404. No acute ST segment elevations or depressions Disposition Clinical Impression: New onset seizure, Vomiting Disposition: ADMITTED IP TO THIS [facility] Condition: Stable Is patient prescribed a controlled substance at d/c from ED?: No Time of Disposition: 20:11 Decision to Admit Reason: Admit from EC Decision Date: 02/07/23 Decision Time: 20:11
[2023-02-07] MEDS: CARBIDOPA-LEVODOPA 25-100 MG 1 EACH TAB PO SCH ×2 (21:53→21:56)
[2023-02-07] MEDS: PANTOPRAZOLE 40 MG TABLET PO SCH ×2 (21:53→21:56)
[2023-02-07] MEDS: ATORVASTATIN 20 MG TAB PO SCH ×2 (21:53→21:56)
[2023-02-08] MEDS: LEVOTHYROXINE 25 MCG TAB PO SCH (06:56)
[2023-02-08] MEDS: PANTOPRAZOLE 40 MG TABLET PO SCH ×2 (06:57→17:15)
[2023-02-08 08:55] LABS: Basophils % (A) 0 %; Eosinophils # (A) 0.2 k/uL (0-0.7); Eosinophils % (A) 3 %; HCT 32.9 % (34.0-46.0); HGB 10.6 gm/dL (11.4-16.0); Lymphocytes # (A) 0.9 k/uL (1.0-4.8); Lymphocytes % (A) 20 %; MCH 30.2 pg (25.0-35.0); MCHC 32.1 g/dL (31.0-37.0); Monocytes # (A) 0.4 k/uL (0-1.0); Monocytes % (A) 10 %; Neutrophils % (A) 65 %; Platelet Count 246 k/uL (150-450); RDW 13.4 % (11.5-15.5); WBC 4.6 k/uL (3.8-10.6)
[2023-02-08 09:10] LABS: Calcium 8.7 mg/dL (8.4-10.2); Potassium 5.1 mmol/L (3.5-5.1)
[2023-02-08] MEDS: CARBIDOPA-LEVODOPA 25-100 MG 1 EACH TAB PO SCH ×3 (09:43→20:06)
[2023-02-08] MEDS: ASPIRIN 81 MG PO SCH (09:43)
[2023-02-08 11:15] LABS: Prolactin 34.5 ng/mL (2.800-29.200)
[2023-02-08] MEDS: ASCORBIC ACID 500 MG TAB PO SCH (16:09)
[2023-02-08] MEDS: CHOLECALCIFEROL 25 MCG (1000 IU) TABLET PO SCH (16:10)
[2023-02-08] MEDS ORDERED: ONDANSETRON 4 MG/2 ML VIAL IVP PRN (16:47)
[2023-02-08] MEDS ORDERED: ACETAMINOPHEN TAB 325 MG TAB PO PRN (16:47)
[2023-02-08] MEDS ORDERED: MELATONIN 3 MG TABLET PO PRN (16:47)
[2023-02-08] MEDS ORDERED: LACTULOSE 20 GM/30 ML CUP PO PRN (16:47)
[2023-02-08] MEDS ORDERED: CALCIUM CARBONATE 500 MG CHEWABLE PO PRN (16:47)
--- NOTE | 2023-02-08 16:51 | P.HPIM ---
History of Present Illness H&P Date: 02/08/23 Chief Complaint: Altered mentation Per ER notes on 02/05/2023: 87 year old female past medical history of Parkinson's, diabetes who presents to the emergency department with altered mental status. is at bedside and provides history. States she was just recently discharged from the hospital yesterday. She was evaluated for chest pain and lower extremity swelling. There are discharge around 6:00 and he went home and he put her in bed. She ended up having an episode where her eyes rolled back in her head and she went unresponsive. He reports she was extremely confused after the event. There is no seizure-like activity. She did not injure herself. Since the episode has happened the patient has not been her normal self. He reports that she's been extremely fatigued. Can't open her eyes or hold up her arms. She cannot shift herself at all on the toilet or in bed which she normally is capable of doing. She is wheelchair bound at baseline. states that she has not eaten much since she got home. Her glucose has been normal. No other alleviating, precipitating or modifying factors PCP: Dr. Griffin. Chronic stable medical conditions include diabetes mellitus, hearing deficit, DJD, rheumatoid arthritis, Parkinson disease. On wheelchair. Patient was discharged from the hospital 02/04/2023:. Chest pain was felt to be muscular skeletal. Lower extremity swelling was felt to be from venous insufficiency. Baseline patient is on wheelchair. Readmitted 02/05/2023:. Doesn't episode when patient's had lower back eyes rolled back. She was not able to shift herself in bed which she is not able to set. Quite some time after that patient has not a normal self. No obvious seizure activity was noted. Patient doesn't remember much of the activity earlier. At the baseline speaks in a soft voice. Seen by neurology Dr. Samayoa. EEG was negative. Because decreased appetite Accu-Cheks running on the lower side metformin was discontinued. Discharged on 02/07/2023 Readmitted on the evening on 02/07/2023: ER physician notes on 02/07/2023: " She was discharged home today. states that she had a nap at home and then got up to eat dinner. She had just eaten when her eyes rolled back in her head and she went unresponsive. There is no tonic-clonic movements. The patient then had an episode of emesis. EMS states that when he got to the house the patient was significantly altered however during the EMS ride into the hospital she returned to her normal baseline. They did not provide her with any medications. Patient arrives and is able to answer all questions appropriately at this time. No chest pain or shortness of breath. No visual changes. Denies any new weakness. No other alleviating, precipitating or modifying factors". Accu-Chek at the scene at home by EMS was 122 On my questioning patient does not remember what happened. Denies any fever or chills no cough. No urinary symptoms. Smiling. Blood glucose in the ER was 66 Review of systems: GEN.: Tired EYES: None HEENT: Decreased hearing NECK: None RESPIRATORY: None CARDIOVASCULAR: As above GASTROINTESTINAL: None GENITOURINARY: None MUSCULOSKELETAL: Joint pains LYMPHATICS: None HEMATOLOGICAL: None PSYCHIATRY: None NEUROLOGICAL: As above Past medical history to include: Diabetes mellitus, hearing deficit, DJD, rheumatoid arthritis, Parkinson disease, chronic medical debility-wheelchair, COVID 19 pneumonia, pulmonary embolism in January 2021, left leg DVT-small PE Social history: No smoking or alcohol. Lives with her . Does use a wheelchair. Physical examination: VITAL SIGNS: 97.6, 75, 16, 126/58, 98% room air upon presentation GENERAL: [BMI 18.7, laying in bed, awake, tired EYES: Pupils equal. Conjunctiva normal. Decreased vision left eye HEENT: External appearance of nose and ears normal, oral cavity grossly normal., NECK: JVD not raised; masses not palpable. HEART: First and second heart sounds are normal; some edema edema. LUNGS: Respiratory rate normal; decreased breath sounds. ABDOMEN: Soft, nontender, liver spleen not palpable, no masses palpable. PSYCH: Able to answer some simple questions EXTREMITIES: Swelling of lower extremity Muscular skeletal: Evidence of OA NEUROLOGICAL: Cranial nerves grossly intact; [decreased vision left eye] no facial asymmetry, moving all 4 limbs. LYMPHATICS: No lymph nodes palpable in the axilla and neck INVESTIGATIONS, reviewed in the clinical context: February 08: White count 4.6 hemoglobin 10.6 platelets 246 sodium 133 potassium 5.1 BUN 14 creatinine 1.39 blood glucose 66 Recent testing: UA: Negative for nitrite. CT brain: Without contrast: Age-related changes. Carotid Doppler: No significant stenosis EEG [February 06: Negative for seizure 2-D echo: EF 65%. Doppler ultrasound bilateral lower extremity: Negative for DVT Creatinine 02/02/2023: 1.39 Assessment and plan: -Episode of patient having eyes rolled back. Vomited. Confused after that. Then patient came around. Patient is EEG 2 days ago was negative. Still the diagnosis cannot be ruled out. Hypoglycemia could be contributing. Metformin was discontinued a day prior. Ammonia Solution Preparer neurology. Prolonged EEG in the morning. - -Bilateral lower extremity swelling. From venous insufficiency from decreased mobility Bilateral Doppler ultrasound negative for DVT. Stockings -Diabetes mellitus type 2, metformin was discontinued 2 days ago. Uncontrolled with hyperglycemia from decreased oral intake Follow Accu-Cheks. We'll give glucose tablet 3 times a day. Change to regular diet. -Hard of hearing Hearing aids -Primary osteoarthritis Use analgesics when necessary -Idiopathic Parkinson disorder Sinemet. Patient follow-up in neurology outpatient. -Legally blind in the left eye -Hypothyroid 25 g Synthroid -Moderate cognitive impairment. Possible late onset Alzheimer's dementia -Chronic medical debility, and a baseline - wheelchair bound -DO NOT RESUSCITATE Past Medical History Past Medical History: Diabetes Mellitus, Eye Disorder, Hearing Disorder / Deafness, Osteoarthritis (OA), Pulmonary Embolus (PE), Rheumatoid Arthritis (RA), Syncope, Thyroid Disorder Additional Past Medical History / Comment(s): parkinsons, [place]O [place], recent admission for covid in 01/2021 History of Any Multi-Drug Resistant Organisms: None Reported Past Surgical History: Appendectomy, Bladder Surgery, Hysterectomy, Orthopedic Surgery Additional Past Surgical History / Comment(s): bladder suspension Past Anesthesia/Blood Transfusion Reactions: No Reported Reaction Past Psychological History: No Psychological Hx Reported Smoking Status: Former smoker Past Alcohol Use History: None Reported Past Drug Use History: None Reported Additional Drug Use History / Comment(s): pt smoked "1 or 2" cigarettes a day and quit when she was 19. - Past Family History Mother Family Medical History: No Reported History Father Additional Family Medical History / Comment(s): passed from emphysema Sister(s) Family Medical History: Cancer, Myocardial Infarction ([place]) Additional Family Medical History / Comment(s): one sister passed from brain c ancer at 28 years old. two other sisters passed from heart attacks Medications and Allergies Home Medications Medication Instructions Recorded Confirmed Type Carbidopa-Levodopa 25-100 mg 1 tab PO TID 09/16/19 02/07/23 History [Sinemet 25-100 mg] Pantoprazole Sodium 20 mg PO BID 02/03/21 02/07/23 History Ascorbic Acid [Vitamin C] 1,000 mg PO DAILY 02/02/23 02/07/23 History Cholecalciferol [Vitamin D3 (25 25 mcg PO DAILY 02/02/23 02/07/23 History Mcg = 1000 Iu)] Levothyroxine Sodium [Synthroid] 25 mcg PO DAILY 02/02/23 02/07/23 History Aspirin 81 mg PO DAILY tab 02/04/23 02/07/23 Rx Atorvastatin [Lipitor] 20 mg PO HS #30 tab 02/07/23 02/07/23 Rx Loratadine [Claritin] 10 mg PO DAILY 02/08/23 02/08/23 History Allergies Allergy/AdvReac Type Severity Reaction Status Date / Time cortisone Allergy Unknown Verified 02/05/23 13:29 Physical Exam Vitals: Vital Signs Temp Pulse Pulse Resp BP BP Pulse Ox 02/08/23 12:00 98.4 F 78 16 101/60 99 02/08/23 08:00 97.8 F 78 16 99/60 99 02/08/23 04:00 79 16 112/63 98 02/08/23 00:00 97.8 F 82 16 107/62 99 02/07/23 21:45 97.6 F 75 16 126/58 98 02/07/23 19:55 89 18 116/55 99 02/07/23 18:45 96.9 F L 80 18 130/70 100 Intake and Output 02/07/23 02/08/23 02/08/23 22:59 06:59 14:59 Other: # Voids 1 1 Weight 49.895 kg Results CBC & Chem 7: 02/08/23 08:17 02/08/23 08:17 Labs: Abnormal Lab Results - Last 24 Hours (Table) 02/07/23 02/07/23 02/08/23 Range/Units 18:45 18:45 08:17 RBC 3.50 L (3.80-5.40) m/uL Hgb 10.6 L (11.4-16.0) gm/dL Hct 32.9 L (34.0-46.0) % Lymphocytes # 0.9 L 0.9 L (1.0-4.8) k/uL Sodium 130 L (137-145) mmol/L Creatinine 1.23 H (0.52-1.04) mg/dL Glucose 109 H (74-99) mg/dL Total Protein 5.7 L (6.3-8.2) g/dL Albumin 3.0 L (3.5-5.0) g/dL Prolactin 34.500 H (2.800-29.200) ng/mL 02/08/23 Range/Units 08:17 RBC (3.80-5.40) m/uL Hgb (11.4-16.0) gm/dL Hct (34.0-46.0) % Lymphocytes # (1.0-4.8) k/uL Sodium 133 L (137-145) mmol/L Creatinine 1.39 H (0.52-1.04) mg/dL Glucose 66 L (74-99) mg/dL Total Protein (6.3-8.2) g/dL Albumin (3.5-5.0) g/dL Prolactin (2.800-29.200) ng/mL Thrombosis Risk Factor Assmnt - Choose All That Apply Any of the Below Risk Factors Present?: No Other Risk Factors: Yes Each Risk Factor Represents 3 Points: Age 75 years or older, History of DVT/PE Thrombosis Risk Factor Assessment Total Risk Factor Score: 6 Thrombosis Risk Factor Assessment Level: High Risk
[2023-02-08] MEDS: DEXTROSE 4 GM CHEWABLE PO SCH ×2 (16:56→22:30)
[2023-02-08 16:57] LABS: Glucose,Whole Blood 79 mg/dL (70-110)
[2023-02-08] MEDS ORDERED: ENOXAPARIN 40 MG/0.4 ML SYRINGE SQ SCH (17:00)
[2023-02-08] MEDS ORDERED: ENOXAPARIN 30 MG/0.3 ML SYRINGE SQ SCH (17:00)
[2023-02-08] MEDS: ENOXAPARIN 30 MG/0.3 ML SYRINGE SQ SCH (17:15)
[2023-02-08] MEDS: ATORVASTATIN 20 MG TAB PO SCH (20:06)
[2023-02-08 23:22] LABS: Glucose,Whole Blood 81 mg/dL (70-110)
--- NOTE | 2023-02-09 02:05 | P.CNNES ---
History of Present Illness Consult date: 02/08/23 Requesting physician: Akosua Iyer Reason for Consult: Possible new oneset seizure History of Present Illness: Patient is a 87-year-old female, who was just recently seen in hospital consultation came to the hospital by ambulance yesterday at 6:17 PM for syncope versus seizure. Patient states that she was sitting in the chair, when suddenly her eyes rolled back in head and she fainted. Patient says that she does not remember details, this was mentioned by her family. As per EMS flow sheet when they arrived, patient was sitting in her walker chair. Patient had an unresponsive episode lasting 1-2 minutes. When EMS arrived, patient was alert and oriented 3. She has no neurological deficits. Patient seen by family staring off in space, would not respond to questions. She would just gaze with no answer or noise. During the incident patient was sitting in her walker. Patient in this state for a few minutes before coming to, and starting vomiting. Patient was diaphoretic and is very soft spoken. Laureen hemphill mentioned that patient had no history of seizure and was just in the hospital 2 days ago and was released earlier today for syncopal episode. Patient denied any chest pain or dyspnea. She does not remember going up nor does she remember any events that were described by family members. Patient's blood pressure at the scene was 118/70, pulse rate 86, respiration 22, saturation 97% and blood sugar 122 mg/dL. patient's EKG showed atrial fibrillation with heart rate between 50-120. Patient's blood test shows normal CBC, sodium 130 potassium 4.6, BUN 16, creatinine 1.23. EKG shows normal sinus rhythm. Possible left atrial enlargement. Review of Systems Constitutional: Denies chills, Denies fever Eyes: left blurred vision, left photophobia (For long time.), denies diplopia Ears: deny: decreased hearing, earache Ears, nose, mouth and throat: Denies headache, Denies sore throat Cardiovascular: Denies chest pain, Denies shortness of breath Respiratory: Denies cough, Denies excessive sputum Gastrointestinal: Denies abdominal pain, Denies diarrhea, Denies nausea, Denies vomiting Genitourinary: Denies dysuria, Denies hematuria, Denies urge incontinence Musculoskeletal: Denies low back pain, Denies myalgias Integumentary: Denies pruritus, Denies rash Neurological: Reports as per HPI Psychiatric: Denies anxiety, Denies depression Hematologic/Lymphatic: Denies easy bleeding, Denies easy bruising Past Medical History Past Medical History: Diabetes Mellitus, Eye Disorder, Hearing Disorder / Deafness, Osteoarthritis (OA), Pulmonary Embolus (PE), Rheumatoid Arthritis (RA), Syncope, Thyroid Disorder Additional Past Medical History / Comment(s): parkinsons, CIT[place], recent admission for covid in 01/2021 History of Any Multi-Drug Resistant Organisms: None Reported Past Surgical History: Appendectomy, Bladder Surgery, Hysterectomy, Orthopedic Surgery Additional Past Surgical History / Comment(s): bladder suspension Past Anesthesia/Blood Transfusion Reactions: No Reported Reaction Past Psychological History: No Psychological Hx Reported Smoking Status: Former smoker Past Alcohol Use History: None Reported Past Drug Use History: None Reported Additional Drug Use History / Comment(s): pt smoked "1 or 2" cigarettes a day and quit when she was 19. - Past Family History Mother Family Medical History: No Reported History Father Additional Family Medical History / Comment(s): passed from emphysema Sister(s) Family Medical History: Cancer, Myocardial Infarction ([place]) Additional Family Medical History / Comment(s): one sister passed from brain cancer at 28 years old. two other sisters passed from heart attacks Medications and Allergies Home Medications Medication Instructions Recorded Confirmed Type Carbidopa-Levodopa 25-100 mg 1 tab PO TID 09/16/19 02/07/23 History [Sinemet 25-100 mg] Pantoprazole Sodium 20 mg PO BID 02/03/21 02/07/23 History Ascorbic Acid [Vitamin C] 1,000 mg PO DAILY 02/02/23 02/07/23 History Cholecalciferol [Vitamin D3 (25 25 mcg PO DAILY 02/02/23 02/07/23 History Mcg = 1000 Iu)] Levothyroxine Sodium [Synthroid] 25 mcg PO DAILY 02/02/23 02/07/23 History Aspirin 81 mg PO DAILY tab 02/04/23 02/07/23 Rx Atorvastatin [Lipitor] 20 mg PO HS #30 tab 02/07/23 02/07/23 Rx Loratadine [Claritin] 10 mg PO DAILY 02/08/23 02/08/23 History Allergies Allergy/AdvReac Type Severity Reaction Status Date / Time cortisone Allergy Unknown Verified 02/05/23 13:29 Physical Examination - Vital Signs Vital Signs: Vital Signs Temp Pulse Pulse Resp BP BP Pulse Ox 02/08/23 13:44 78 16 02/08/23 12:00 98.4 F 78 16 101/60 99 02/08/23 08:00 97.8 F 78 16 99/60 99 02/08/23 04:00 79 16 112/63 98 02/08/23 00:00 97.8 F 82 16 107/62 99 02/07/23 21:45 97.6 F 75 16 126/58 98 02/07/23 19:55 89 18 116/55 99 02/07/23 18:45 96.9 F L 80 18 130/70 100 Intake and Output 02/08/23 02/08/23 02/08/23 06:59 14:59 22:59 Intake Total 118 Balance 118 Intake: Oral 118 Other: # Voids 1 2 Patient is an elderly female, who appears slightly somnolent, but did wake up and was appropriate. Patient is alert awake. Patient states it is December and the year is 2023 or 2022. She says that she is in [facility] but she knows that she lives in [facility] in [facility]. She could not tell name of the current president. She knows that she was born on 1935. Speech and language functions are normal. Patient can name and repeat very well. No aphasia or dysarthria. She speaks with low volume. Attention, concentration intact and fund of knowledge is limited. Detailed testing deferred. On cranial nerve examination, pupils are equal, round and reacting to light, visual gonzalez are full on confrontation, grossly, although patient states she h as chronic blurred vision left eye. Patient was counting fingers incorrectly with the left eye. She was able to recognize pen and eyeglasses with her left eye. There is no neglect on double simultaneous stimulation. Extraocular muscles are intact with no nystagmus. Face is symmetric, tongue protrudes to the midline. No evidence of tongue trauma. Palatal elevation and sensation normal, hearing is decreased and shoulder shrug normal, facial sensation normal. On muscle strength testing, there is no pronator drift and the strength is normal in arms and legs distally and proximally except for hip flexion, which is 4+4-bilaterally. Deep tendon reflexes are symmetric 1 at the biceps, 1 brachioradialis, 2 at the knees, 1 ankles and plantars are possibly upgoing versus withdrawal bilaterally. Sensory to touch is equal with no neglect on double simultaneous stimulation. Cerebellar function showed no ataxia for [id number] testing. No ataxia for [id number] testing on either side. Tone and bulk of muscles normal. Patient does appear bradykinetic. Very mild intermittent resting tremors noted. Gait deferred.. On general examination, there is questionable carotid bruit. There is a murmur heard at the base of the heart. S1-S2 audible. Chest is clear on consultation. Abdomen is soft nontender. No organomegaly, bowel sounds present. Peripheral pulses are present. No edema. Results - Laboratory Findings CBC and BMP: 02/08/23 08:17 02/08/23 08:17 Abnormal Lab Findings: Abnormal Labs 02/07/23 02/07/23 02/08/23 18:45 18:45 08:17 RBC 3.50 L Hgb 10.6 L Hct 32.9 L Lymphocytes # 0.9 L 0.9 L Sodium 130 L Creatinine 1.23 H Glucose 109 H Total Protein 5.7 L Albumin 3.0 L Prolactin 34.500 H 02/08/23 08:17 RBC Hgb Hct Lymphocytes # Sodium 133 L Creatinine 1.39 H Glucose 66 L Total Protein Albumin Prolactin Assessment and Plan Assessment: * Seizure versus syncope vs TIA. Rule out arrhythmia. Although event concerning for seizure, but neurological workup was negative performed recently, and the EMS flow sheet mentioning atrial fibrillation, which may be the cause of syncopal spell. Rule out TIA. * History of syncopal spell 02/05/2023 and also previously on 09/18/2019. * Parkinson's disease, controlled * Diabetes * Hypertension * Anemia * Hyperlipidemia * Hypothyroidism * Decreased vision left eye * Cardiac murmur Plan: * Cardiology consultation rule out arrhythmia. EMS flow sheet reported atrial fibrillation rhythm at the scene. Currently in normal sinus rhythm. * Recommend 30 day event monitoring to rule out arrhythmia. * MRI brain, rule out CVA * Carotid Doppler performed 02/06/2023 was normal. Antegrade flow in both vertebral arteries. * EEG 02/06/2023 was normal with no epileptiform activity. May consider prolonged EEG, if cardiac workup comes back negative. * 2-D echo performed 02/04/2023 showed normal left atrial size, LVEF > 65%. Left ventricle hypertrophy * Orthostatics checked on last admission 02/06/2023 were normal. * Lipid panel with cholesterol 210, LDL 121, HDL 72 triglycerides 80. Patient recently started on Lipitor 20 mg daily on 02/06/2023 * Hemoglobin A1c 6.8, diabetes well controlled * Dr. Ozzy Alvarez starting neurology service in the morning. Thank you for the consult.
[2023-02-09 05:57] LABS: Glucose,Whole Blood 80 mg/dL (70-110)
[2023-02-09] MEDS: PANTOPRAZOLE 40 MG TABLET PO SCH ×2 (06:22→17:48)
[2023-02-09] MEDS: LEVOTHYROXINE 25 MCG TAB PO SCH (06:22)
[2023-02-09] MEDS: CHOLECALCIFEROL 25 MCG (1000 IU) TABLET PO SCH (09:06)
[2023-02-09] MEDS: ASPIRIN 81 MG PO SCH (09:06)
[2023-02-09] MEDS: ASCORBIC ACID 500 MG TAB PO SCH (09:06)
[2023-02-09] MEDS: ENOXAPARIN 30 MG/0.3 ML SYRINGE SQ SCH (09:06)
[2023-02-09] MEDS: CARBIDOPA-LEVODOPA 25-100 MG 1 EACH TAB PO SCH ×3 (09:07→23:43)
[2023-02-09] MEDS: DEXTROSE 4 GM CHEWABLE PO SCH ×5 (09:10→20:30)
--- NOTE | 2023-02-09 10:36 | CONS ---
CONSULTATION HISTORY OF PRESENT ILLNESS: Stephanie Srinivasan is an 87-year-old lady, who was recently in the hospital about less than a week ago, was seen by Dr. Blanton for what seems to be an atypical chest pain. She was discharged after also seen by Neurology for syncope. In the consult from Dr. Blanton, there is no mention about any syncope or such issues. The consult seems to be for lower extremity edema and chest pain. The patient's edema was minimal, and there was no evidence of CHF, and the patient's echo revealed normal systolic function with mild gradient across aortic valve. She was then seen by Neurology. An EEG was performed which was unremarkable, and she was sent home. After going home, she comes back into the hospital, and this hospitalization happened last night, and the reason for this was she apparently got up to eat dinner, and then her eyes rolled back, she became unresponsive without any tonic-clonic movements or loss of bladder or bowel. There is again a question of seizure. She already has a diagnosis of Parkinson's disorder, hypothyroidism, and hyperlipidemia. She had a complete evaluation done in the form of a carotid Doppler study which was unremarkable recently, and she has been seen by Neurology again. Her presentation is somewhat unclear. She also may have some underlying dementia as well. Her carotid Doppler from February 06, was unremarkable. 2D echo revealed mild gradient across aortic valve with a normal systolic function. There were no orthostatic changes. She is already on a small dose of statin, does not have diabetes. Rhythm strip evaluation here suggests some baseline artifact with sinus mechanism. No evidence of any significant tachy or brionna arrhythmias. PHYSICAL EXAMINATION: VITAL SIGNS: Blood pressure is 118/70. Pulse rate is 70 and regular. HEENT: Unremarkable. Fundus was not examined by me. NECK: Supple. No JVD. I do not hear a carotid bruit. HEART: Reveals S1 and S2 heard normally. There is an ejection systolic murmur at the base and left sternal border with preserved second heart sound. LUNGS: Clear. ABDOMEN: Soft and nontender. EXTREMITIES: Lower extremities reveal normal pulses. No edema. CENTRAL NERVOUS SYSTEM: Normal. DIAGNOSTIC STUDIES: EKG revealed sinus mechanism with baseline artifact and PACs. IMPRESSION: 1. Syncope versus seizure. 2. History of mild aortic stenosis with insignificant gradient. 3. History of Parkinson's. 4. Recent hospitalization with chest pain and seizure disorder. EEG was unremarkable. RECOMMENDATIONS: I would recommend a 30-day event monitor to be placed. She is also going to have a prolonged EEG study as well. Her blood pressure control is optimal. She can be discharged after she has the event monitor and cleared by Neurology and see Dr. Blanton in the office. I discussed my thoughts in detail with the patient. I am not sure how much she comprehends. Thank you very much for the consult. DANA / CRISSN: [id number] /
[2023-02-09 12:11] LABS: Glucose,Whole Blood 100 mg/dL (70-110)
[2023-02-09 13:19] VITALS: BMI 18.8
--- NOTE | 2023-02-09 14:27 | P.PN ---
Subjective Progress Note Date: 02/09/23 I am seeing the patient for the first time during this admission. Please refer to Dr. Cabrera's notes for further details. It seems the patient is having syncopal episodes vs seizure. But work-up recently has been negative. Objective - Vital Signs Vital signs: Vital Signs Temp 98 F 02/09/23 09:05 Pulse 82 02/09/23 11:25 Resp 18 02/09/23 11:25 BP 128/56 02/09/23 11:25 Pulse Ox 97 02/09/23 11:25 FiO2 Intake & Output 02/08/23 02/09/23 02/09/23 18:59 06:59 18:59 Intake Total 236 Output Total 600 300 Balance 236 -600 -300 Weight 49.895 kg Intake: Oral 236 Output: Urine 600 300 Other: Voiding Method External Catheter External Catheter # Voids 2 - Exam GENERAL: The patient is lying in bed and is not in acute distress. NEUROLOGICAL: Higher mental function: The patient is awake, alert, oriented to self, place. She was able to tell me year but not month. Patient is following simple commands. Somewhat slow following commands. No aphasia and no neglect. Cranial nerves: The pupils are round, equal and reactive to light. Visual gonzalez are full to confrontation throughout. Extraocular movement is intact no nystagmus is noted. Facial sensation is normal to touch throughout. The facial strength is normal throughout. Tongue is midline and moved [id number] without any difficulty. No dysarthria is noted. Is hypophonia. Shoulder shrug is normal bilaterally. Motor: The strength is 5 over 5 throughout. Normal tone and bulk. Cerebellum: Normal finger to nose heel to chin bilaterally. Sensation: Sensation is normal to touch throughout. - Labs CBC & Chem 7: 02/08/23 08:17 02/08/23 08:17 Assessment and Plan Assessment: * Seizure versus syncope vs TIA. Rule out arrhythmia. Although event con cerning for seizure, but neurological workup was negative performed recently, and the EMS flow sheet mentioning atrial fibrillation, which may be the cause of syncopal spell. Rule out TIA. * History of syncopal spell 02/05/2023 and also previously on 09/18/2019. * Parkinson's disease, controlled * Diabetes * Hypertension * Anemia * Hyperlipidemia * Hypothyroidism * Decreased vision left eye * Cardiac murmur Plan: * Cardiology consultation rule out arrhythmia. EMS flow sheet reported atrial fibrillation rhythm at the scene. Currently in normal sinus rhythm. * Recommend 30 day event monitoring to rule out arrhythmia. * MRI brain is pending, rule out CVA * Carotid Doppler performed 02/06/2023 was normal. Antegrade flow in both vertebral arteries. * EEG 02/06/2023 was normal with no epileptiform activity. Will pursue with prolonged EEG. * 2-D echo performed 02/04/2023 showed normal left atrial size, LVEF > 65%. Left ventricle hypertrophy * Orthostatics checked on last admission 02/06/2023 were normal. * Lipid panel with cholesterol 210, LDL 121, HDL 72 triglycerides 80. Patient recently started on Lipitor 20 mg daily on 02/06/2023 * Hemoglobin A1c 6.8, diabetes well controlled. The plan is discussed with primary team and cardiology team. Time with Patient: Less than 30
--- NOTE | 2023-02-09 15:01 | FL ---
Modified barium swallow. HISTORY: Dysphagia. Modified barium swallow was performed with the department of speech pathology. The patient was prese nted with various consistencies of barium. There is aspiration with thin liquid barium noted. Full report is to follow from the department of sp ch pathology. Impression: There is aspiration with thin liquid barium noted.
[2023-02-09 16:29] LABS: Glucose,Whole Blood 104 mg/dL (70-110)
[2023-02-09 19:53] LABS: Glucose,Whole Blood 155 mg/dL (70-110)
[2023-02-09] MEDS: ATORVASTATIN 20 MG TAB PO SCH (20:30)
--- NOTE | 2023-02-09 23:33 | P.PN ---
Progress Note - Text Progress Note Date: 02/09/23 Chief Complaint: Altered mentation Per ER notes on 02/05/2023: 87 year old female past medical history of Parkinson's, diabetes who presents to the emergency department with altered mental status. is at bedside and provides history. States she was just recently discharged from the hospital yesterday. She was evaluated for chest pain and lower extremity swelling. There are discharge around 6:00 and he went home and he put her in bed. She ended up having an episode where her eyes rolled back in her head and she went unresponsive. He reports she was extremely confused after the event. There is no seizure-like activity. She did not injure herself. Since the episode has happened the patient has not been her normal self. He reports that she's been extremely fatigued. Can't open her eyes or hold up her arms. She cannot shift herself at all on the toilet or in bed which she normally is capable of doing. She is wheelchair bound at baseline. states that she has not eaten much since she got home. Her glucose has been normal. No other alleviating, precipitating or modifying factors PCP: Dr. Griffin. Chronic stable medical conditions include diabetes mellitus, hearing deficit, DJD, rheumatoid arthritis, Parkinson disease. On wheelchair. Patient was discharged from the hospital 02/04/2023:. Chest pain was felt to be muscular skeletal. Lower extremity swelling was felt to be from venous insufficiency. Baseline patient is on wheelchair. Readmitted 02/05/2023:. Doesn't episode when patient's had lower back eyes rolled back. She was not able to shift herself in bed which she is not able to set. Quite some time after that patient has not a normal self. No obvious seizure activity was noted. Patient doesn't remember much of the activity earlier. At the baseline speaks in a soft voice. Seen by neurology Dr. Samayoa. EEG was negative. Because decreased appetite Accu-Cheks running on the lower side metformin was discontinued. Discharged on 02/07/2023 Readmitted on the evening on 02/07/2023: ER physician notes on 02/07/2023: " She was discharged home today. states that she had a nap at home and then got up to eat dinner. She had just eaten when her eyes rolled back in her head and she went unresponsive. There is no tonic-clonic movements. The patient then had an episode of emesis. EMS states that when he got to the house the patient was significantly altered however during the EMS ride into the hospital she returned to her normal baseline. They did not provide her with any medications. Patient arrives and is able to answer all questions appropriately at this time. No chest pain or shortness of breath. No visual changes. Denies any new weakness. No other alleviating, precipitating or modifying factors". Accu-Chek at the scene at home by EMS was 122 On my questioning patient does not remember what happened. Denies any fever or chills no cough. No urinary symptoms. Smiling. Blood glucose in the ER was 66 02/09/2023: Spoke to the in the morning. Also discussed with Dr. Matos from neurology. Prolonged EEG ordered. said patient H fairly decent for age at home. But she has to be encouraged. At baseline left eye vision is very bloody Continue to glucose tablets for hypoglycemia. Active Medications Acetaminophen (Acetaminophen Tab 325 Mg Tab) 650 mg PO Q6HR PRN PRN Reason: Mild Pain or Fever > 100.5 Ascorbic Acid (Ascorbic Acid 500 Mg Tab) 1,000 mg PO DAILY [facility] Last Admin: 02/09/23 09:06 Dose: 1,000 mg Aspirin (Aspirin 81 Mg) 81 mg PO DAILY [facility] Last Admin: 02/09/23 09:06 Dose: 81 mg Atorvastatin Calcium (Atorvastatin 20 Mg Tab) 20 mg PO HS [facility] Last Admin: 02/09/23 20:30 Dose: 20 mg Calcium Carbonate/Glycine (Calcium Carbonate 500 Mg Chewable) 1,000 mg PO Q4HR PRN PRN Reason: Dyspepsia Carbidopa/Levodopa (Carbidopa-Levodopa 25-100 Mg 1 Each Tab) 1 each PO TID [facility] Last Admin: 02/09/23 17:48 Dose: 1 each Cholecalciferol (Cholecalciferol 25 Mcg (1000 Iu) Tablet) 25 mcg PO DAILY [facility] Last Admin: 02/09/23 09:06 Dose: 25 mcg Enoxaparin Sodium (Enoxaparin 30 Mg/0.3 Ml Syringe) 30 mg SQ DAILY [facility] Last Admin: 02/09/23 09:06 Dose: 30 mg Glucose (Dextrose 4 Gm Chewable) 4 gm PO QID [facility] Last Admin: 02/09/23 20:30 Dose: Not Given Lactulose (Lactulose 20 Gm/30 Ml Cup) 20 gm PO DAILY PRN PRN Reason: Constipation Levothyroxine Sodium (Levothyroxine 25 Mcg Tab) 25 mcg PO DAILY@0630 [facility] Last Admin: 02/09/23 06:22 Dose: 25 mcg Melatonin (Melatonin 3 Mg Tablet) 3 mg PO HS PRN PRN Reason: Insomnia Naloxone HCl (Naloxone 0.4 Mg/Ml 1 Ml Vial) 0.2 mg IV Q2M PRN PRN Reason: Opioid Reversal Ondansetron HCl (Ondansetron 4 Mg/2 Ml Vial) 4 mg IVP Q8HR PRN PRN Reason: Nausea And Vomiting Pantoprazole Sodium (Pantoprazole 40 Mg Tablet) 40 mg PO AC-BID [facility] Last Admin: 02/09/23 17:48 Dose: 40 mg Past medical history to include: Diabetes mellitus, hearing deficit, DJD, rheumatoid arthritis, Parkinson disease, chronic medical debility-wheelchair, COVID 19 pneumonia, pulmonary embolism in January 2021, left leg DVT-small PE Social history: No smoking or alcohol. Lives with her . Does use a wheelchair. Physical examination: VITAL SIGNS: 98.1, 89, 16, 10 5 x 65, 98% room air GENERAL: [BMI 18.9, laying in bed, awake, tired EYES: Pupils equal. Conjunctiva normal. Decreased vision left eye HEENT: External appearance of nose and ears normal, oral cavity grossly normal., NECK: JVD not raised; masses not palpable. HEART: First and second heart sounds are normal; some edema edema. LUNGS: Respiratory rate normal; decreased breath sounds. ABDOMEN: Soft, nontender, liver spleen not palpable, no masses palpable. PSYCH: Able to answer some simple questions EXTREMITIES: Swelling of lower extremity Muscular skeletal: Evidence of OA NEUROLOGICAL: Cranial nerves grossly intact; [decreased vision left eye] no facial asymmetry, moving all 4 limbs. INVESTIGATIONS, reviewed in the clinical context: February 08: White count 4.6 hemoglobin 10.6 platelets 246 sodium 133 potassium 5.1 BUN 14 creatinine 1.39 blood glucose 66 Recent testing: UA: Negative for nitrite. CT brain: Without contrast: Age-related changes. Carotid Doppler: No significant stenosis EEG [February 06: Negative for seizure 2-D echo: EF 65%. Doppler ultrasound bilateral lower extremity: Negative for DVT Creatinine 02/02/2023: 1.39 Assessment and plan: -Episode of patient having eyes rolled back. Vomited. Confused after that. Then patient came around. Patient is EEG 2 days ago was negative. Still the diagnosis cannot be ruled out. Hypoglycemia could be contributing. Metformin was discontinued a day prior. Follow-up with neurology. Prolonged EEG pending - -Bilateral lower extremity swelling. From venous insufficiency from decreased mobility Bilateral Doppler ultrasound negative for DVT. Stockings -Diabetes mellitus type 2, metformin was discontinued 2 days ago. Uncontrolled with hyperglycemia from decreased oral intake Follow Accu-Cheks. We'll give glucose tablet 4 times a day. regular diet. -Hard of hearing Hearing aids -Primary osteoarthritis Use analgesics when necessary -Idiopathic Parkinson disorder Sinemet. Patient follow-up in neurology outpatient. -Legally blind in the left eye-baseline blurry vision in the left eye -Hypothyroid 25 g Synthroid -Moderate cognitive impairment. 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 Dose of glucose tablets increased. Check TSH. Discussed with , neurology, the nurse.
[2023-02-10 05:57] LABS: Glucose,Whole Blood 86 mg/dL (70-110)
[2023-02-10] MEDS: PANTOPRAZOLE 40 MG TABLET PO SCH ×2 (06:13→15:58)
[2023-02-10] MEDS: LEVOTHYROXINE 25 MCG TAB PO SCH (06:13)
[2023-02-10] MEDS: CHOLECALCIFEROL 25 MCG (1000 IU) TABLET PO SCH (08:56)
[2023-02-10] MEDS: CARBIDOPA-LEVODOPA 25-100 MG 1 EACH TAB PO SCH ×3 (08:56→20:30)
[2023-02-10] MEDS: ASPIRIN 81 MG PO SCH (08:56)
[2023-02-10] MEDS: ASCORBIC ACID 500 MG TAB PO SCH (08:56)
[2023-02-10] MEDS: ENOXAPARIN 30 MG/0.3 ML SYRINGE SQ SCH (08:56)
[2023-02-10] MEDS: DEXTROSE 4 GM CHEWABLE PO SCH ×4 (08:57→20:26)
--- NOTE | 2023-02-10 12:13 | MR ---
EXAMINATION TYPE: MR brain wo con DATE OF EXAM: 02/10/2023 COMPARISON: NONE HISTORY: TIA vs Seizure vs Syncope TECHNIQUE: T1-weighted sagittal, T2, FLAIR, and diffusion axial, and T2 coronal coronal views of the brain are submitted. FINDINGS: There is no evidence of acute ischemia. The ventricles, basal cisterns, and sulci overlying the conv exities are consistent with moderate to severe degenerative change.. There is no mass effect. Craniocervical junction maintained. Sella turcica has a normal appearance of the pituitary gland mild ly prominent.. There is diffuse focal areas of abnormal signal seen throughout the white matter signal pattern. No cerebellopontine angle mass. Orbits are symmetric. IMPRESSION: 1. No acute intracranial process. Degenerative and remote ischemic changes discussed above.
--- NOTE | 2023-02-10 12:16 | P.PN ---
Subjective Progress Note Date: 02/10/23 History of present illness: This is an 87 year old female patient of Dr. Ferguson with history of Parkinson's, hypothyroidism, hyperlipidemia. Patient presented to the hospital due to lower extremity edema and chest pain. No evidence of heart failure found. EF normal systolic function and mild gradient across aortic valve. Patient has been seen by neurology and alone EEG was scheduled. Patient is seen today in follow-up. She is waiting for MRI of the brain. Telemetry was reviewed and she's been in a sinus rhythm with no arrhythmias. Vital signs are stable. Physical examination: Gen: This is a 87-year-old female, resting in bed and appears to be comfortable. No acute distress. VS: reviewed HEENT: Head is atraumatic, normocephalic. Pupils equal, round. Sclerae is anicteric. NECK: Supple. No JVD. LUNGS: Clear to auscultation. No wheezes or rhonchi. No intercostal retractions. HEART: Regular rate and rhythm. Systolic ejection murmur at the base and left sternal border. EXTREMITIES: Minimal pedal edema. No calf tenderness. NEUROLOGICAL: Patient is awake. Assessment: Syncope versus seizure History of mild aortic stenosis History of Parkinson's Recent hospitalization for chest pain and seizure disorder. EEG was unremarkable. Plan: Continue current medications Continue telemetry monitoring Recommend Holter monitor at the time of discharge. Patient can follow-up with Dr. Ferguson in the office in 2 weeks. Cardiology will sign off and follow on an as-needed basis. Please reconsult for any new concerns.. Nurse practitioner note has been reviewed, I agree with documented findings and plan of care. Patient was seen and examined. Objective - Vital Signs Vital signs: Vital Signs Temp 97.7 F 02/10/23 08:00 Pulse 86 02/10/23 08:00 Resp 20 02/10/23 08:00 BP 80/40 02/10/23 08:00 Pulse Ox 97 02/10/23 08:00 FiO2 Intake & Output 02/09/23 02/10/23 02/10/23 18:59 06:59 18:59 Output Total 500 Balance -500 Weight 49.895 kg Output: Urine 500 Other: Voiding Method External Catheter External Catheter Diaper Incontinent External Catheter # Voids 1 - Labs CBC & Chem 7: 02/08/23 08:17 02/08/23 08:17 Labs: Abnormal Lab Results - Last 24 Hours (Table) 02/09/23 Range/Units 19:50 POC Glucose (mg/dL) 155 H (70-110) mg/dL
--- NOTE | 2023-02-10 15:54 | P.PN ---
Subjective Progress Note Date: 02/10/23 The patient is seen at bedside and feels about the same. Objective - Vital Signs Vital signs: Vital Signs Temp 98.1 F 02/10/23 15:19 Pulse 86 02/10/23 15:19 Resp 14 02/10/23 15:19 BP 98/56 02/10/23 15:19 Pulse Ox 96 02/10/23 15:19 FiO2 Intake & Output 02/09/23 02/10/23 02/10/23 18:59 06:59 18:59 Intake Total 100 Output Total 500 Balance -500 100 Weight 49.895 kg Intake: Oral 100 Output: Urine 500 Other: Voiding Method External Catheter External Catheter Diaper Incontinent External Catheter # Voids 1 - Exam GENERAL: The patient is lying in bed and is not in acute distress. NEUROLOGICAL: Higher mental function: The patient is awake, alert, oriented to self, Patient is following simple commands. Somewhat slow following commands. No aphasia and no neglect. Cranial nerves: The pupils are round, equal and reactive to light. Visual gonzalez are full to confrontation throughout. Extraocular movement is intact no nystagmus is noted. Facial sensation is normal to touch throughout. The facial strength is normal throughout. Tongue is midline and moved [id number] without any difficulty. No dysarthria is noted. Is very hypophonic. Shoulder shrug is normal bilaterally. Motor: The strength is lifting all extremities above gravity without focality. Normal tone and bulk. - Labs CBC & Chem 7: 02/08/23 08:17 02/08/23 08:17 Labs: Abnormal Lab Results - Last 24 Hours (Table) 02/09/23 Range/Units 19:50 POC Glucose (mg/dL) 155 H (70-110) mg/dL Assessment and Plan Assessment: * Seizure versus syncope vs TIA. Rule out arrhythmia. Although event concerning for seizure, but neurological workup was negative performed recently, and the EMS flow sheet mentioning atrial fibrillation, which may be the cause of syncopal spell. Rule out TIA. * History of syncopal spell 02/05/2023 and also previously on 09/18/2019. * Parkinson's disease, controlled * Diabetes * Hypertension * Anemia * Hyperlipidemia * Hypothyroidism * Decreased vision left eye * Cardiac murmur Plan: * Cardiology consultation rule out arrhythmia. EMS flow sheet reported atrial fibrillation rhythm at the scene. Currently in normal sinus rhythm. * Recommend 30 day event monitoring to rule out arrhythmia. * MRI brain: Is reported as no acute intracranial process. Degenerative and remote ischemic changes discussed above. I personally reviewed the MRI and I agree there is no acute or subacute ischemia. * Carotid Doppler performed 02/06/2023 was normal. Antegrade flow in both vertebral arteries. * EEG 02/06/2023 was normal with no epileptiform activity. Today had 2.5 hour EEG and pending report. * 2-D echo performed 02/04/2023 showed normal left atrial size, LVEF > 65%. Left ventricle hypertrophy * Orthostatics checked on last admission 02/06/2023 were normal. * Lipid panel with cholesterol 210, LDL 121, HDL 72 triglycerides 80. Patient recently started on Lipitor 20 mg daily on 02/06/2023 * Hemoglobin A1c 6.8, diabetes well controlled. Will continue to follow. Time with Patient: Less than 30
[2023-02-10 16:20] LABS: Glucose,Whole Blood 104 mg/dL (70-110)
--- NOTE | 2023-02-10 19:14 | P.PN ---
Progress Note - Text Progress Note Date: 02/10/23 Chief Complaint: Altered mentation Per ER notes on 02/05/2023: 87 year old female past medical history of Parkinson's, diabetes who presents to the emergency department with altered mental status. is at bedside and provides history. States she was just recently discharged from the hospital yesterday. She was evaluated for chest pain and lower extremity swelling. There are discharge around 6:00 and he went home and he put her in bed. She ended up having an episode where her eyes rolled back in her head and she went unresponsive. He reports she was extremely confused after the event. There is no seizure-like activity. She did not injure herself. Since the episode has happened the patient has not been her normal self. He reports that she's been extremely fatigued. Can't open her eyes or hold up her arms. She cannot shift herself at all on the toilet or in bed which she normally is capable of doing. She is wheelchair bound at baseline. states that she has not eaten much since she got home. Her glucose has been normal. No other alleviating, precipitating or modifying factors PCP: Dr. Griffin. Chronic stable medical conditions include diabetes mellitus, hearing deficit, DJD, rheumatoid arthritis, Parkinson disease. On wheelchair. Patient was discharged from the hospital 02/04/2023:. Chest pain was felt to be muscular skeletal. Lower extremity swelling was felt to be from venous insufficiency. Baseline patient is on wheelchair. Readmitted 02/05/2023:. Doesn't episode when patient's had lower back eyes rolled back. She was not able to shift herself in bed which she is not able to set. Quite some time after that patient has not a normal self. No obvious seizure activity was noted. Patient doesn't remember much of the activity earlier. At the baseline speaks in a soft voice. Seen by neurology Dr. Samayoa. EEG was negative. Because decreased appetite Accu-Cheks running on the lower side metformin was discontinued. Discharged on 02/07/2023 Readmitted on the evening on 02/07/2023: ER physician notes on 02/07/2023: " She was discharged home today. states that she had a nap at home and then got up to eat dinner. She had just eaten when her eyes rolled back in her head and she went unresponsive. There is no tonic-clonic movements. The patient then had an episode of emesis. EMS states that when he got to the house the patient was significantly altered however during the EMS ride into the hospital she returned to her normal baseline. They did not provide her with any medications. Patient arrives and is able to answer all questions appropriately at this time. No chest pain or shortness of breath. No visual changes. Denies any new weakness. No other alleviating, precipitating or modifying factors". Accu-Chek at the scene at home by EMS was 122 On my questioning patient does not remember what happened. Denies any fever or chills no cough. No urinary symptoms. Smiling. Blood glucose in the ER was 66 02/09/2023: Spoke to the in the morning. Also discussed with Dr. Alvarez from neurology. Prolonged EEG ordered. said patient H fairly decent for age at home. But she has to be encouraged. At baseline left eye vision is very bloody Continue to glucose tablets for hypoglycemia. 02/10/2023: Laying in bed. Comfortable. MRI brain unremarkable. Chronic changes. Was also prolonged EEG pending. EMS run sheet at the site had shown patient to be in atrial fibrillation with a rate of 15-120. Patient today's in sinus rhythm. Seen by oncology-for outpatient Holter monitor. Active Medications Acetaminophen (Acetaminophen Tab 325 Mg Tab) 650 mg PO Q6HR PRN PRN Reason: Mild Pain or Fever > 100.5 Last Admin: 02/10/23 06:12 Dose: 650 mg Ascorbic Acid (Ascorbic Acid 500 Mg Tab) 1,000 mg PO DAILY [facility] Last Admin: 02/10/23 08:56 Dose: 1,000 mg Aspirin (Aspirin 81 Mg) 81 mg PO DAILY [facility] Last Admin: 02/10/23 08:56 Dose: 81 mg Atorvastatin Calcium (Atorvastatin 20 Mg Tab) 20 mg PO HS [facility] Last Admin: 02/09/23 20:30 Dose: 20 mg Calcium Carbonate/Glycine (Calcium Carbonate 500 Mg Chewable) 1,000 mg PO Q4HR PRN PRN Reason: Dyspepsia Carbidopa/Levodopa (Carbidopa-Levodopa 25-100 Mg 1 Each Tab) 1 each PO TID [facility] Last Admin: 02/10/23 15:58 Dose: 1 each Cholecalciferol (Cholecalciferol 25 Mcg (1000 Iu) Tablet) 25 mcg PO DAILY [facility] Last Admin: 02/10/23 08:56 Dose: 25 mcg Enoxaparin Sodium (Enoxaparin 30 Mg/0.3 Ml Syringe) 30 mg SQ DAILY [facility] Last Admin: 02/10/23 08:56 Dose: 30 mg Glucose (Dextrose 4 Gm Chewable) 4 gm PO QID [facility] Last Admin: 02/10/23 17:36 Dose: Not Given Lactulose (Lactulose 20 Gm/30 Ml Cup) 20 gm PO DAILY PRN PRN Reason: Constipation Levothyroxine Sodium (Levothyroxine 25 Mcg Tab) 25 mcg PO DAILY@0630 [facility] Last Admin: 02/10/23 06:13 Dose: 25 mcg Melatonin (Melatonin 3 Mg Tablet) 3 mg PO HS PRN PRN Reason: Insomnia Naloxone HCl (Naloxone 0.4 Mg/Ml 1 Ml Vial) 0.2 mg IV Q2M PRN PRN Reason: Opioid Reversal Ondansetron HCl (Ondansetron 4 Mg/2 Ml Vial) 4 mg IVP Q8HR PRN PRN Reason: Nausea And Vomiting Pantoprazole Sodium (Pantoprazole 40 Mg Tablet) 40 mg PO AC-BID [facility] Last Admin: 02/10/23 15:58 Dose: 40 mg Past medical history to include: Diabetes mellitus, hearing deficit, DJD, rheumatoid arthritis, Parkinson disease, chronic medical debility-wheelchair, COVID 19 pneumonia, pulmonary embolism in January 2021, left leg DVT-small PE Social history: No smoking or alcohol. Lives with her . Does use a wheelchair. Physical examination: VITAL SIGNS: 98.1, 86, 14, 90/56, 96% room air GENERAL: [BMI 18.9, laying in bed, awake, tired EYES: Pupils equal. Conjunctiva normal. Decreased vision left eye HEENT: External appearance of nose and ears normal, oral cavity grossly normal., NECK: JVD not raised; masses not palpable. HEART: First and second heart sounds are normal; some edema edema. LUNGS: Respiratory rate normal; decreased breath sounds. ABDOMEN: Soft, nontender, liver spleen not palpable, no masses palpable. PSYCH: Able to answer some simple questions EXTREMITIES: Swelling of lower extremity Muscular skeletal: Evidence of OA NEUROLOGICAL: Cranial nerves grossly intact; [decreased vision left eye] no facial asymmetry, moving all 4 limbs. INVESTIGATIONS, reviewed in the clinical context: February 08: White count 4.6 hemoglobin 10.6 platelets 246 sodium 133 potassium 5.1 BUN 14 creatinine 1.39 blood glucose 66 Recent testing: UA: Negative for nitrite. CT brain: Without contrast: Age-related changes. Carotid Doppler: No significant stenosis EEG [February 06: Negative for seizure 2-D echo: EF 65%. Doppler ultrasound bilateral lower extremity: Negative for DVT Creatinine 02/02/2023: 1.39 Assessment and plan: -Episode of patient having eyes rolled back. Vomited. Confused after that. Then patient came around. Patient is EEG 2 days ago was negative. Still the diagnosis cannot be ruled out. Hypoglycemia could be contributing. Metformin was discontinued a day prior. Follow-up with neurology. Prolonged EEG pending. -Possible Atrial fibrillation reported on EMS strip. Seen by cardiology. Outpatient Holter monitor and follow up with Dr. Sneha Blanton -Bilateral lower extremity swelling. From venous insufficiency from decreased mobility Bilateral Doppler ultrasound negative for DVT. Stockings -Diabetes mellitus type 2, metformin was discontinued 2 days ago. Uncontrolled with hyperglycemia from decreased oral intake Follow Accu-Cheks. We'll give glucose tablet 4 times a day. regular diet. -Hard of hearing Hearing aids -Primary osteoarthritis Use analgesics when necessary -Idiopathic Parkinson disorder Sinemet. Patient follow-up in neurology outpatient. -Legally blind in the left eye-baseline blurry vision in the left eye -Hypothyroid 25 g Synthroid -Moderate cognitive impairment. 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 Renal ultrasound. UA. -DO NOT RESUSCITATE Pending prolonged EEG results pending.. Renal ultrasound. UA.
[2023-02-10 19:53] LABS: Glucose,Whole Blood 116 mg/dL (70-110)
[2023-02-10] MEDS: ATORVASTATIN 20 MG TAB PO SCH (20:30)
[2023-02-10] MEDS: LACTATED RINGERS 1,000 ML IV SCH (20:30)
--- NOTE | 2023-02-10 21:10 | US ---
EXAMINATION TYPE: US kidneys/renal and bladder DATE OF EXAM: 02/10/2023 COMPARISON: CT:03/15/21 CLINICAL HISTORY: Evaluate for CK D. EXAM MEASUREMENTS: Right Kidney: 9.1 x 4.7 x 4.8 cm Left Kidney: 9.4 x 3.6 x 5.2 cm Right Kidney: No hydronephrosis or masses seen, increased echotexture to the cortex. Left Kidney: No hydronephrosis or masses seen, increased echotexture to the cortex. Bladder: Echogenic layer seen on the right side of the bladder Bilateral Jets seen: No There is no evidence for hydronephrosis at this point in time. No nephrolithiasis is seen. No rosendo s are identified. The urinary bladder is anechoic. IMPRESSION: 1. Layering debris within the urinary bladder correlate with urinalysis. 2. No obstructive uropathy. 3. Medical renal disease.
--- NOTE | 2023-02-10 21:56 | EEG ---
ELECTROENCEPHALOGRAM REPORT ELECTROENCEPHALOGRAM (EEG) REPORT: TECHNIQUE: This is a report from a prolonged 2.5-hour inpatient digital EEG performed using the 10/20 international placement system. HISTORY: The patient was sitting in her chair with her eyes rolled back and the patient fainted. OTHER MEDICAL HISTORY: Includes diabetes, thyroid disorder. CURRENT MEDICATIONS: 1. Tylenol. 2. Vitamin C. 3. Vitamin D3. 4. Aspirin. 5. Lipitor. 6. Tums. 7. Sinemet. 8. Lovenox. 9. Synthroid. 10.Melatonin. 11.Zofran. 12.Protonix. FINDINGS: Recording start time: 02/10/2023 at 11:46 a.m. Recording end time: 02/10/2023 at 1403. EVENTS: During this 2.5-hour video EEG, no clinical or electrographic seizures were recorded. BACKGROUND: The background activity consists of 8-9 hertz rhythmic waveforms symmetrically distributed throughout both posterior quadrants. ACTIVATION: Hyperventilation: Not performed. Photic stimulation: Symmetric driving seen. Sleep: Stages I and II sleep noted. ABNORMALITIES: Rare frontally predominant delta range slowing was seen. IMPRESSION: Mildly abnormal 2.5-hour video EEG. No clinical or electrographic seizures were recorded. No epileptiform activity was present. The rare frontally predominant delta range slowing mentioned above is not epileptiform in nature. These findings suggest mild diffuse cerebral dysfunction and may in part be due to medication effect. No seizures were recorded. No epileptiform activity was present. These findings were called to the consulting neurologist at 5:40 p.m. on 02/10/2023. MMELISSA / CRISSN: [id number] /
[2023-02-11 04:42] LABS: Amorphous Sediment,Urine Occasional /hpf; Appearance,Urine Cloudy (Clear); Bacteria,Urine Occasional /hpf; Bilirubin,Urine Negative (Negative); Blood,Urine Negative (Negative); Calcium Oxalate Crystals,Urine Few /hpf; Color,Urine Yellow; Glucose,Urine (UA) Negative (Negative); Ketones,Urine 1+ (Negative); Leukocyte Esterase,Urine Small (Negative); Mucus,Urine Rare /hpf; Nitrite,Urine Negative (Negative); Protein,Urine Trace (Negative); RBC,Urine <1 /hpf (0-5); Specific Gravity,Urine 1.017 (1.001-1.035); Squamous Epithelial Cell,Urine 4 /hpf (0-4); WBC,Urine 9 /hpf (0-5)
[2023-02-11 05:54] LABS: Glucose,Whole Blood 80 mg/dL (70-110)
[2023-02-11] MEDS: LEVOTHYROXINE 25 MCG TAB PO SCH (06:04)
[2023-02-11] MEDS: PANTOPRAZOLE 40 MG TABLET PO SCH (06:04)
[2023-02-11 08:00] LABS: Glucose,Whole Blood 83 mg/dL (70-110)
[2023-02-11] MEDS: CARBIDOPA-LEVODOPA 25-100 MG 1 EACH TAB PO SCH (08:47)
[2023-02-11] MEDS: CHOLECALCIFEROL 25 MCG (1000 IU) TABLET PO SCH (08:47)
[2023-02-11] MEDS: ASCORBIC ACID 500 MG TAB PO SCH (08:47)
[2023-02-11] MEDS: ASPIRIN 81 MG PO SCH (08:48)
[2023-02-11] MEDS: ENOXAPARIN 30 MG/0.3 ML SYRINGE SQ SCH (08:48)
[2023-02-11] MEDS: LACTATED RINGERS 1,000 ML IV SCH (08:48)
[2023-02-11] MEDS: DEXTROSE 4 GM CHEWABLE PO SCH ×2 (08:48→12:36)
[2023-02-11 09:03] VITALS: PULSE 80; TEMP 98.1
[2023-02-11 10:27] LABS: Calcium 8.4 mg/dL (8.4-10.2); Potassium 4.3 mmol/L (3.5-5.1)
[2023-02-11 11:35] VITALS: BP 104/64; RESP 18
[2023-02-11 11:48] LABS: Glucose,Whole Blood 81 mg/dL (70-110)
--- NOTE | 2023-02-11 13:34 | P.PN ---
Subjective Progress Note Date: 01/31/23 The patient is seen at bedside and she is accompanied by her . Patient states that she's feeling about the same. According the patient's he stated that her episodes at home was she was stare off but no jerk in of any extremity urinary or bowel incontinence. Episodes would last a few minutes at least at. Denies any history of seizure in the past. Objective - Vital Signs Vital signs: Vital Signs Temp 98.1 F 02/11/23 08:00 Pulse 80 02/11/23 11:10 Resp 18 02/11/23 11:10 BP 104/64 02/11/23 11:10 Pulse Ox 97 02/11/23 11:10 FiO2 Intake & Output 02/10/23 02/11/23 02/11/23 18:59 06:59 18:59 Intake Total 300 Output Total 100 Balance 300 -100 Weight 49.895 kg Intake: Oral 300 Output: Urine 100 Other: Voiding Method Diaper Diaper Diaper Incontinent Incontinent Incontinent External Catheter External Catheter External Catheter # Voids 1 0 # Bowel Movements 0 - Exam GENERAL: The patient is lying in bed and is not in acute distress. NEUROLOGICAL: Higher mental function: The patient is awake, alert, oriented to self, Patient is following simple commands. Somewhat slow following commands. No aphasia and no neglect. Cranial nerves: The pupils are round, equal and reactive to light. Visual gonzalez are full to confrontation throughout. Extraocular movement is intact no nystagmus is noted. Facial sensation is normal to touch throughout. The facial strength is normal throughout. Tongue is midline and moved [id number] without any difficulty. No dysarthria is noted. Is very hypophonic. Shoulder shrug is normal bilaterally. Motor: The strength is lifting all extremities above gravity without focality. Normal tone and bulk. - Labs CBC & Chem 7: 02/08/23 08:17 02/11/23 07:54 Labs: Abnormal Lab Results - Last 24 Hours (Table) 02/10/23 02/11/23 02/11/23 Range/Units 19:52 03:54 07:54 Sodium 133 L (137-145) mmol/L Creatinine 1.24 H (0.52-1.04) mg/dL Glucose 67 L (74-99) mg/dL POC Glucose (mg/dL) 116 H (70-110) mg/dL Urine Appearance Cloudy H (Clear) Urine Protein Trace H (Negative) Urine Ketones 1+ H (Negative) Ur Leukocyte Esterase Small H (Negative) Urine WBC 9 H (0-5) /hpf Calcium Oxalate Crystal Few H (None) /hpf Amorphous Sediment Occasional H (None) /hpf Urine Bacteria Occasional H (None) /hpf Urine Mucus Rare H (None) /hpf Assessment and Plan Assessment: * Seizure versus syncope. Rule out arrhythmia. Although event concerning for seizure, but neurological workup was negative performed recently, and the EMS flow sheet mentioning atrial fibrillation, which may be the cause of syncopal spell. 2.5 hour EEG during this admission is negative for seizure or discharge. * History of syncopal spell 02/05/2023 and also previously on 09/18/2019. * Parkinson's disease, controlled * Diabetes * Hypertension * Anemia * Hyperlipidemia * Hypothyroidism * Decreased vision left eye * Cardiac murmur Plan: * Cardiology consultation rule out arrhythmia. EMS flow sheet reported atrial fibrillation rhythm at the scene. Currently in normal sinus rhythm. * Recommend 30 day event monitoring to rule out arrhythmia. * MRI brain: Is reported as no acute intracranial process. Degenerative and remote ischemic changes discussed above. I personally reviewed the MRI and I agree there is no acute or subacute ischemia. * Carotid Doppler performed 02/06/2023 was normal. Antegrade flow in both vertebral arteries. * EEG 02/06/2023 was normal with no epileptiform activity. * 2.5 hour EEG: Was reported as mild abnormal 20 half hour EEG. No clinical or electrographic seizures were recorded. No epileptiform activity was present. There is rare frontal predominant delta range slowing mentioned above is not e pileptiform in nature. These findings suggest mild diffuse cerebral dysfunction and may in part be due to medication effect. * I notified the patient and her that the we can consider starting her on prophylactic antiseizure medication since the patient continues to have these episodes but the base stated they'll they want to hold off and that we'll see what the Holter monitor shows. * 2-D echo performed 02/04/2023 showed normal left atrial size, LVEF > 65%. Left ventricle hypertrophy * Orthostatics checked on last admission 02/06/2023 were normal. * Lipid panel with cholesterol 210, LDL 121, HDL 72 triglycerides 80. Patient recently started on Lipitor 20 mg daily on 02/06/2023 * Hemoglobin A1c 6.8, diabetes well controlled. * Recommend the patient follow up with a neurologist as an outpatient within 1-2 weeks He is no additional neurological workup. Patient is clear from a neurology perspective. Time with Patient: Less than 30
== END 2023-02-11 13:36 | disposition home or self-care (01) | DRG 310 ==
LOC: EC 18:17 → 3SCARD 20:11 → OBSVTOIN 02-10 16:06
PROVIDERS: ADMIT Hospitalist; ATTEND Hospitalist
DX: I48.91 Unspecified atrial fibrillation (principal); I10 Essential (primary) hypertension; H54.8 Legal blindness, as defined in USA; H91.90 Unspecified hearing loss, unspecified ear; I87.2 Venous insufficiency (chronic) (peripheral); G30.1 Alzheimer's disease with late onset; K59.00 Constipation, unspecified; R53.81 Other malaise; F02.80 Dementia in other diseases classified elsewhere, unspecified severity, without behavioral disturbance, psychotic disturbance, mood disturbance, and anxiety; I35.0 Nonrheumatic aortic (valve) stenosis; M06.9 Rheumatoid arthritis, unspecified; M19.91 Primary osteoarthritis, unspecified site; Z66 Do not resuscitate; Z71.3 Dietary counseling and surveillance; Z79.82 Long term (current) use of aspirin; Z79.890 Hormone replacement therapy; Z79.899 Other long term (current) drug therapy; Z82.49 Family history of ischemic heart disease and other diseases of the circulatory system; Z86.16 Personal history of COVID-19; Z86.711 Personal history of pulmonary embolism; Z87.01 Personal history of pneumonia (recurrent); Z99.3 Dependence on wheelchair; Z86.718 Personal history of other venous thrombosis and embolism; Z88.8 Allergy status to other drugs, medicaments and biological substances
CPT/HCPCS: 36415; 70551; 74230; 76770; 80048; 80053; 81001; 82550; 83605; 83735; 84146; 85025; 93005; 93270; 95713

== ENCOUNTER 2024-09-06 17:40 | Inpatient (IN) | payer MEDICARE, BC ==
--- NOTE | 2024-09-06 19:07 | ED ---
General Adult HPI - General Chief complaint: Syncope Stated complaint: syncope Time Seen by Provider: 09/06/24 17:48 Source: patient, EMS, RN notes reviewed, old records reviewed Mode of arrival: EMS Limitations: no limitations - History of Present Illness Initial comments: This is an 89-year-old female presents to the emergency department after having had a syncopal episode. According to the who gave all of the history because the patient cannot speak. 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 took her to the bathroom and sat on the toilet and the patient then went unresponsive and then started to vomit. According to the the patient remained unresponsive for about 10 minutes and her son put her in the bed until the ambulance arrived. Patient is back to her baseline according to the and she does not appear in any distress. states prior to the event patient was not exhibiting any signs of being sick in any way. states that the patient is a DNR - Related Data Home Medications Medication Instructions Recorded Confirmed Carbidopa-Levodopa 25-100 mg 1 tab PO TID 09/16/19 02/07/23 [Sinemet 25-100 mg] Pantoprazole Sodium 20 mg PO BID 02/03/21 02/07/23 Ascorbic Acid [Vitamin C] 1,000 mg PO DAILY 02/02/23 02/07/23 Cholecalciferol [Vitamin D3 (25 25 mcg PO DAILY 02/02/23 02/07/23 Mcg = 1000 Iu)] Levothyroxine Sodium [Synthroid] 25 mcg PO DAILY 02/02/23 02/07/23 Previous Rx's Medication Instructions Recorded Aspirin 81 mg PO DAILY tab 02/04/23 Atorvastatin [Lipitor] 20 mg PO HS #30 tab 02/07/23 Acetaminophen Tab [Tylenol] 650 mg PO Q6HR PRN tab 02/11/23 Multivitamin [Multivitamins Adult 1 each PO DAILY #30 tablet 02/11/23 Gummies] Allergies Allergy/AdvReac Type Severity Reaction Status Date / Time cortisone Allergy Unknown Verified 09/06/24 17:46 Review of Systems ROS Statement: Those systems with pertinent positive or pertinent negative responses have been documented in the HPI. ROS Other: All systems not noted in ROS Statement are negative. Past Medical History Past Medical History: Diabetes Mellitus, Eye Disorder, Hearing Disorder / Deafness, Osteoarthritis (OA), Pulmonary Embolus (PE), Rheumatoid Arthritis (RA), Syncope, Thyroid Disorder Additional Past Medical History / Comment(s): parkinsons, [place], recent admission for covid in 01/2021 History of Any Multi-Drug Resistant Organisms: None Reported Past Surgical History: Appendectomy, Bladder Surgery, Hysterectomy, Orthopedic Surgery Additional Past Surgical History / Comment(s): bladder suspension Past Anesthesia/Blood Transfusion Reactions: No Reported Reaction Past Psychological History: No Psychological Hx Reported Smoking Status: Former smoker Past Alcohol Use History: None Reported Past Drug Use History: None Reported - Past Family History Mother Family Medical History: No Reported History Father Additional Family Medical History / Comment(s): passed from emphysema Sister(s) Family Medical History: Cancer, Myocardial Infarction ([place]) Additional Family Medical History / Comment(s): one sister passed from brain cancer at 28 years old. two other sisters passed from heart attacks General Exam - General Exam Comments Initial Comments: GENERAL: Patient is well-developed and well-nourished. Patient is nontoxic and well- hydrated and is in no acute distress. ENT: Neck is soft and supple. No significant lymphadenopathy is noted. Oropharynx is clear. Moist mucous membranes. Neck has full range of motion without eliciting any pain. EYES: The sclera were anicteric and conjunctiva were pink and moist. Extraocular movements were intact and pupils were equal round and reactive to light. Eyelids were unremarkable. PULMONARY: Unlabored respirations. Good breath sounds bilaterally. No audible rales rhonchi or wheezing was noted. CARDIOVASCULAR: There is a regular rate and rhythm without any murmurs gallops or rubs. ABDOMEN: Soft and nontender with normal bowel sounds. SKIN: Skin is clear with no lesions or rashes and otherwise unremarkable. NEUROLOGIC: Patient is alert and oriented unable to assess since patient has not speak. Would not follow commands to do a full neuroexam MUSCULOSKELETAL: Patient is moving all 4 extremities hard to test full range of motion or str ength LYMPHATICS: No significant lymphadenopathy is noted PSYCHIATRIC: Normal psychiatric evaluation. Limitations: no limitations Course Vital Signs 09/06/24 09/06/24 09/06/24 17:41 18:57 19:25 Temperature 97.8 F Pulse Rate 83 82 83 Respiratory 18 16 Rate Blood Pressure 109/51 109/51 116/55 O2 Sat by Pulse 98 98 97 Oximetry 09/06/24 21:00 Temperature Pulse Rate 80 Respiratory 16 Rate Blood Pressure 109/75 O2 Sat by Pulse 98 Oximetry Medical Decision Making - Medical Decision Making EKG is interpreted by myself. EKG shows a sinus rhythm at 85 bpm ME was under 54 QRS is 94 QT interval 370 QTc is 412. Patient's EKG shows no ST segment elevation or depression Was pt. sent in by a medical professional or institution (, BO, [employer]OVEMENT [employer], urgent care, hospital, or intermediate...) When possible be specific @ -No Did you speak to anyone other than the patient for history (EMS, parent, family, police, friend...)? What history was obtained from this source @ -No Did you review nursing and triage notes (agree or disagree)? Why? @ -I reviewed and agree with nursing and triage notes Were old charts reviewed (outside hosp., previous admission, EMS record, old EKG, old radiological studies, urgent care reports/EKG's, intermediate records)? Report findings @ -No old charts were reviewed Differential Diagnosis? @ -Differential Syncope: Valvular disease, hypertrophic cardiomyopathy, pulmonary embolism, tamponade, t achycardia, bradycardia, ME, hypovolemia, hemorrhage, dissection, anemia, intracranial hemorrhage, seizure, hypoglycemia, carbon monoxide poisoning, this is not meant to be an all-inclusive list. EKG interpreted by me (3pts min.). @ -As above X-rays interpreted by me (1pt min.). @ -None done CT interpreted by me (1pt min.). @ -None done U/S interpreted by me (1pt. min.). @ -None done What testing was considered but not performed or refused? (CT, X-rays, U/S, labs)? Why? @ -None What meds were considered but not given or refused? Why? @ -None Did you discuss the management of the patient with other professionals (professionals i.e. BO Paulino, CONT[employer]OVEMENT [employer], lab, RT, psych nurse, social services, commercial director, te acher, dog control officer, medical case worker)? Give summary @ -Spoke with Dr. العراقي he agreed to admit the patient to the patient with admitting orders Was smoking cessation discussed for >3mins.? @ -No Was critical care preformed (if so, how long)? @ -No Were there social determinants of health that impacted care today? How? (Homelessness, low income, unemployed, alcoholism, drug addiction, transportati on, low edu. Level, literacy, decrease access to med. care, alf, rehab)? @ -No Was there de-escalation of care discussed even if they declined (Discuss DNR or withdrawal of care, Hospice)? DNR status @ -No What co-morbidities impacted this encounter? (DM, HTN, Smoking, COPD, CAD, Cancer, CVA, ARF, Chemo, Hep., AIDS, mental health diagnosis, sleep apnea, morbid obesity)? @ -None Was patient admitted / discharged? Hospital course, mention meds given and route, prescriptions, significant lab abnormalities, going to OR and other pertinent info. @ -Patient was somewhat drowsy when I first saw her but she can he became more arousable but the family was not comfortable taking her back home considering how dependent she is on them and the fact that she was unresponsive for 10 minutes. Undiagnosed new problem with uncertain prognosis? @ -No Drug Therapy requiring intensive monitoring for toxicity (Heparin, Nitro, Insulin, Cardizem)? @ -No Were any procedures done? @ -No Diagnosis/symptom? @ -Syncope Acute, or Chronic, or Acute on Chronic? @ -Acute Uncomplicated (without systemic symptoms) or Complicated (systemic symptoms)? @ -Complicated Side effects of treatment? @ -No Exacerbation, Progression, or Severe Exacerbation? @ -No Poses a threat to life or bodily function? How? (Chest pain, [place], ME, pneumonia, PE, COPD, DKA, ARF, appy, cholecystitis, CVA, Diverticulitis, Homicidal, Suicida l, threat to staff... and all critical care pts) @ -No Diagnosis/symptom? @ -Acute vomiting Acute, or Chronic, or Acute on Chronic? @ -Default Uncomplicated (without systemic symptoms) or Complicated (systemic symptoms)? @ -Default Side effects of treatment? @ -None Exacerbation, Progression, or Severe Exacerbation] @ -No Poses a threat to life or bodily function? @ -No - Lab Data Result diagrams: 09/06/24 19:01 09/06/24 19:01 Lab Results 09/06/24 09/06/24 09/06/24 Range/Units 19:01 19: 19: WBC 11.2 H (3.8-10.6) k/uL RBC 4.06 (3.80-5.40) m/uL Hgb 12.4 (11.4-16.0) gm/dL Hct 40.0 (34.0-46.0) % MCV 98.5 (80.0-100.0) fL MCH 30.5 (25.0-35.0) pg MCHC 31.0 (31.0-37.0) g/dL RDW 13.9 (11.5-15.5) % Plt Count 206 (150-450) k/uL MPV 9.1 Neutrophils % 86 % Lymphocytes % 5 % Monocytes % 7 % Eosinophils % 1 % Basophils % 0 % Neutrophils # 9.6 H (1.3-7.7) k/uL Lymphocytes # 0.6 L (1.0-4.8) k/uL Monocytes # 0.7 (0-1.0) k/uL Eosinophils # 0.1 (0-0.7) k/uL Basophils # 0.0 (0-0.2) k/uL PT 11.4 (10.0-12.5) sec INR 1.1 (<1.2) APTT 20.3 L (22.0-30.0) sec Sodium 140 (137-145) mmol/L Potassium 4.2 (3.5-5.1) mmol/L Chloride 108 H (98-107) mmol/L Carbon Dioxide 23 (22-30) mmol/L Anion Gap 9 mmol/L BUN 48 H (7-17) mg/dL Creatinine 1.04 (0.52-1.04) mg/dL Est GFR (CKD-EPI)AfAm 56 (>60 ml/min/1.73 sqM) Est GFR (CKD-EPI)NonAf 49 (>60 ml/min/1.73 sqM) Glucose 197 H (74-99) mg/dL Calcium 8.8 (8.4-10.2) mg/dL Magnesium 1.5 L (1.6-2.3) mg/dL Total Bilirubin 0.3 (0.2-1.3) mg/dL AST 23 (14-36) U/L ALT 7 (4-34) U/L Alkaline Phosphatase 54 (38-126) U/L Troponin I (0.000-0.034) ng/mL Total Protein 6.1 L (6.3-8.2) g/dL Albumin 3.2 L (3.5-5.0) g/dL 09/06/24 Range/Units 19:01 WBC (3.8-10.6) k/uL RBC (3.80-5.40) m/uL Hgb (11.4-16.0) gm/dL Hct (34.0-46.0) % MCV (80.0-100.0) fL MCH (25.0-35.0) pg MCHC (31.0-37.0) g/dL RDW (11.5-15.5) % Plt Count (150-450) k/uL MPV Neutrophils % % Lymphocytes % % Monocytes % % Eosinophils % % Basophils % % Neutrophils # (1.3-7.7) k/uL Lymphocytes # (1.0-4.8) k/uL Monocytes # (0-1.0) k/uL Eosinophils # (0-0.7) k/uL Basophils # (0-0.2) k/uL PT (10.0-12.5) sec INR (<1.2) APTT (22.0-30.0) sec Sodium (137-145) mmol/L Potassium (3.5-5.1) mmol/L Chloride (98-107) mmol/L Carbon Dioxide (22-30) mmol/L Anion Gap mmol/L BUN (7-17) mg/dL Creatinine (0.52-1.04) mg/dL Est GFR (CKD-EPI)AfAm (>60 ml/min/1.73 sqM) Est GFR (CKD-EPI)NonAf (>60 ml/min/1.73 sqM) Glucose (74-99) mg/dL Calcium (8.4-10.2) mg/dL Magnesium (1.6-2.3) mg/dL Total Bilirubin (0.2-1.3) mg/dL AST (14-36) U/L ALT (4-34) U/L Alkaline Phosphatase (38-126) U/L Troponin I <0.012 (0.000-0.034) ng/mL Total Protein (6.3-8.2) g/dL Albumin (3.5-5.0) g/dL Disposition Clinical Impression: Syncope, Acute vomiting Disposition: ADMITTED IP TO THIS HOSP Referrals: Houston Griffin DO [Primary Care Provider] - 1-2 days Time of Disposition: 21:38
[2024-09-06] MEDS: ONDANSETRON 4 MG/2 ML VIAL IVP STA (19:33)
[2024-09-06] MEDS: SODIUM CHLORIDE 0.9% 500 ML 500 ML IV STA (19:34)
[2024-09-06 19:38] LABS: Basophils % (A) 0 %; Eosinophils # (A) 0.1 k/uL (0-0.7); Eosinophils % (A) 1 %; HGB 12.4 gm/dL (11.4-16.0); Lymphocytes # (A) 0.6 k/uL (1.0-4.8); Lymphocytes % (A) 5 %; MCH 30.5 pg (25.0-35.0); MCV 98.5 fL (80.0-100.0); Mean Platelet Volume 9.1; Monocytes # (A) 0.7 k/uL (0-1.0); Monocytes % (A) 7 %; Neutrophils # (A) 9.6 k/uL (1.3-7.7); Neutrophils % (A) 86 %; Platelet Count 206 k/uL (150-450); RBC 4.06 m/uL (3.80-5.40); RDW 13.9 % (11.5-15.5); WBC 11.2 k/uL (3.8-10.6)
[2024-09-06 20:03] LABS: INR 1.1 (<1.2); Prothrombin Time 11.4 sec (10.0-12.5)
[2024-09-06 20:05] LABS: Partial Thromboplastin Time 20.3 sec (22.0-30.0)
[2024-09-06 20:07] LABS: ALT 7 U/L (4-34); AST 23 U/L (14-36); African American GFR (CKD) 56 (>60 ml/min/1.73 sqM); Albumin 3.2 g/dL (3.5-5.0); Alkaline Phosphatase 54 U/L (38-126); Anion Gap 9 mmol/L; Blood Urea Nitrogen 48 mg/dL (7-17); Calcium 8.8 mg/dL (8.4-10.2); Carbon Dioxide 23 mmol/L (22-30); Chloride 108 mmol/L (98-107); Glucose 197 mg/dL (74-99); Magnesium 1.5 mg/dL (1.6-2.3); Non-African American GFR(CKD) 49 (>60 ml/min/1.73 sqM); Potassium 4.2 mmol/L (3.5-5.1); Sodium 140 mmol/L (137-145); Total Bilirubin 0.3 mg/dL (0.2-1.3); Total Protein 6.1 g/dL (6.3-8.2)
--- NOTE | 2024-09-06 20:53 | XR ---
EXAMINATION TYPE: XR chest 2V DATE OF EXAM: 09/06/2024 COMPARISON: 02/05/2023 INDICATION: Chest pain unresponsive episode TECHNIQUE: Frontal and lateral views of the chest are obtained. FINDINGS: The heart size is normal. The pulmonary vasculature is normal. The lungs are clear. IMPRESSION: 1. No acute pulmonary process. [facility], Workstation: [facility], 09/06/2024 8:51 PM
[2024-09-06] MEDS: MAGNESIUM SULFATE-D5W PMX 1 GM in DEXTROSE/WATER 1 100ML.BAG IVPB ONE (21:35)
[2024-09-06] MEDS ORDERED: NITROGLYCERIN SL TABS 0.4 MG TAB SUBLINGUAL PRN (21:38)
[2024-09-06 21:53] LABS: Appearance,Urine Clear (Clear); Bacteria,Urine Many /hpf; Bilirubin,Urine Negative (Negative); Blood,Urine Negative (Negative); Color,Urine Colorless; Glucose,Urine (UA) Negative (Negative); Ketones,Urine Negative (Negative); Leukocyte Esterase,Urine Small (Negative); Mucus,Urine Rare /hpf; Nitrite,Urine Positive (Negative); PH, Urine 5.5 (5.0-8.0); Protein,Urine Trace (Negative); RBC,Urine <1 /hpf (0-5); Specific Gravity,Urine 1.019 (1.001-1.035); Squamous Epithelial Cell,Urine <1 /hpf (0-4); Urobilinogen,Urine <2.0 mg/dL (<2.0); WBC,Urine 4 /hpf (0-5)
[2024-09-07] MEDS: ASPIRIN 325 MG TAB PO SCH (09:44)
[2024-09-07 10:29] LABS: Chol/HDL Ratio 3.27 Ratio; LDL Cholesterol,Calculated 102.2 mg/dL (0.0-131.0); VLDL Calculation 13.84 mg/dL (5.00-40.00)
[2024-09-07] MEDS: PANTOPRAZOLE 40 MG TABLET PO SCH (11:21)
[2024-09-07] MEDS: CHOLECALCIFEROL 25 MCG (1000 IU) TABLET PO SCH (11:21)
[2024-09-07] MEDS: CARBIDOPA-LEVODOPA 25-100 MG 1 EACH TAB PO SCH (11:21)
[2024-09-07] MEDS: droNABinol 2.5 MG CAP PO SCH (11:21)
[2024-09-07] MEDS: ASCORBIC ACID 500 MG TAB PO SCH (11:22)
[2024-09-07] MEDS: ENOXAPARIN 40 MG/0.4 ML SYRINGE SQ SCH (11:23)
[2024-09-07] MEDS: ENOXAPARIN 30 MG/0.3 ML SYRINGE SQ SCH (11:23)
[2024-09-07] MEDS: DORZOLAMIDE-TIMOLOL 2.23%/0.68 10ML BTL BOTH EYES SCH (11:54)
--- NOTE | 2024-09-07 15:22 | P.HPIM ---
History of Present Illness H&P Date: 09/07/24 Chief Complaint: Episode of unresponsiveness PCP: Dr. Griffin. Chronic stable medical conditions include diabetes mellitus, hearing deficit, DJD, rheumatoid arthritis, Parkinson disease. On wheelchair. Per ER notes patient presented to having a syncopal episode. The told the ER physician that patient was taken to the bathroom and sat on the toilet and then patient became unresponsive and started to vomit. Probably unresponsive about 10 minutes. Patient was put in the bed. Until ambulance arrived. Patient able to answer simple questions for me. She will tell me she is in the hospital. Cannot tell me the year. Not sure why she is here. The EMS arrived the patient was actually doing better. Patient's had decreased oral intake. Review of systems: Difficult to obtain Past medical history to include: Diabetes mellitus, hearing deficit, DJD, rheumatoid arthritis, Parkinson disease, chronic medical debility-wheelchair, COVID 19 pneumonia, pulmonary embolism in January 2021, left leg DVT-small PE. She is wheelchair Social history: No smoking or alcohol. Lives with her . Does use a wheelchair. Physical examination: VITAL SIGNS: 97.8, 83, 18, 109/51, 98% room air upon presentation GENERAL: [BMI 17.7, laying in bed awake, tired, EYES: Pupils equal. Conjunctiva normal. Decreased vision left eye HEENT: External appearance of nose and ears normal, oral cavity grossly normal., NECK: JVD not raised; masses not palpable. HEART: First and second heart sounds are normal; some edema edema. LUNGS: Respiratory rate normal; decreased breath sounds. ABDOMEN: Soft, nontender, liver spleen not palpable, no masses palpable. PSYCH: Able to answer some simple questions. Knows the place. Cannot tell me the year. EXTREMITIES: Mild swelling of lower extremity Muscular skeletal: Evidence of OA NEUROLOGICAL: Cranial nerves grossly intact; [decreased vision left eye] no facial asymmetry, moving all 4 limbs. LYMPHATICS: No lymph nodes palpable in the axilla and neck INVESTIGATIONS, reviewed in the clinical context: September 06, 2024: White count 9.2 hemoglobin 12.4 platelets 206 sodium 140 potassium 4.2 BUN 48 creatinine 1.04 Troponin I less than 0.012 x 3 LDL 102.2 UA positive for nitrite, leukoesterase EKG tracing personally reviewed by me-sinus rhythm. Chest x-ray film personally reviewed by me-unremarkable Assessment and plan: -Patient was assisted to the commode with her . Patient passed out for some time. About 10 minutes per the ER notes. Does feel weak and tired. Clinically rather malnourished. Possibly vasovagal. Need to rule out arrhythmia. Telemetry. Check orthostatic. -Prior history of arrhythmia. Patient had Holter monitor outpatient. Unknown -Bilateral chronic lower extremity venous insufficiency -Diabetes mellitus type 2, diet controlled Follow Accu-Cheks. -Hard of hearing Hearing aids -Severe protein calorie malnutrition from decreased oral intake Ensure 1 can 3 times daily. -Primary osteoarthritis Use analgesics when necessary -Idiopathic Parkinson disorder Sinemet. Patient follow-up in neurology outpatient. -Legally blind in the left eye-baseline blurry vision in the left eye -Hypothyroid 25 g Synthroid -Moderate cognitive impairment. Possible late onset Alzheimer's dementia -Chronic medical debility, and a baseline - wheelchair bound - CK D stage III -DNR Check orthostatic. Telemetry. Past Medical History Past Medical History: Diabetes Mellitus, Eye Disorder, Hearing Disorder / Deafness, Osteoarthritis (OA), Pulmonary Embolus (PE), Rheumatoid Arthritis (RA), Syncope, Thyroid Disorder Additional Past Medical History / Comment(s): parkinsons, [place], recent admission for covid in 01/2021 History of Any Multi-Drug Resistant Organisms: None Reported Past Surgical History: Appendectomy, Bladder Surgery, Hysterectomy, Orthopedic Surgery Additional Past Surgical History / Comment(s): bladder suspension Past Anesthesia/Blood Transfusion Reactions: No Reported Reaction Past Psychological History: No Psychological Hx Reported Smoking Status: Former smoker Past Alcohol Use History: None Reported Past Drug Use History: None Reported - Past Family History Mother Family Medical History: No Reported History Father Additional Family Medical History / Comment(s): passed from emphysema Sister(s) Family Medical History: Cancer, Myocardial Infarction ([place]) Additional Family Medical History / Comment(s): one sister passed from brain cancer at 28 years old. two other sisters passed from heart attacks Medications and Allergies Home Medications Medication Instructions Recorded Confirmed Type Carbidopa-Levodopa 25-100 mg 1 tab PO TID 09/16/19 09/07/24 History [Sinemet 25-100 mg] Pantoprazole Sodium 20 mg PO BID 02/03/21 09/07/24 History Ascorbic Acid [Vitamin C] 1,000 mg PO DAILY 02/02/23 09/07/24 History Cholecalciferol [Vitamin D3 (25 25 mcg PO DAILY 02/02/23 09/07/24 History Mcg = 1000 Iu)] Aspirin 81 mg PO DAILY tab 02/04/23 09/07/24 Rx Dorzolamide-Timol 2.23%/0.68% 1 drop BOTH EYES DAILY 09/07/24 09/07/24 History [Cosopt] Loratadine [Claritin] 10 mg PO DAILY PRN 09/07/24 09/07/24 History droNABinol [Marinol] 2.5 mg PO AC-BID@1300,1700 09/07/24 09/07/24 History traMADol HCL 50 - 100 mg PO Q8H PRN 09/07/24 09/07/24 History Allergies Allergy/AdvReac Type Severity Reaction Status Date / Time cortisone Allergy Unknown Verified 09/07/24 09:50 Physical Exam Vitals: Vital Signs Temp Pulse Pulse Resp BP BP Pulse Ox 09/07/24 14:11 64 16 92/51 09/07/24 11:33 71 16 121/61 100 09/07/24 09:40 71 16 106/67 09/07/24 04:36 64 16 103/50 96 09/07/24 03:00 66 16 127/60 97 09/07/24 02:00 71 16 127/66 97 09/06/24 23:00 73 16 120/62 96 09/06/24 21:00 80 16 109/75 98 09/06/24 19:25 83 16 116/55 97 09/06/24 18:57 82 109/51 98 09/06/24 17:41 97.8 F 83 18 109/51 98 Intake and Output 09/07/24 09/07/24 09/07/24 06:59 14:59 22:59 Other: # Voids 2 Results CBC & Chem 7: 09/06/24 19:01 09/06/24 19:01 Labs: Abnormal Lab Results - Last 24 Hours (Table) 09/06/24 09/06/24 09/06/24 Range/Units 19:01 19:01 19:01 WBC 11.2 H (3.8-10.6) k/uL Neutrophils # 9.6 H (1.3-7.7) k/uL Lymphocytes # 0.6 L (1.0-4.8) k/uL APTT 20.3 L (22.0-30.0) sec Chloride 108 H (98-107) mmol/L BUN 48 H (7-17) mg/dL Glucose 197 H (74-99) mg/dL Magnesium 1.5 L (1.6-2.3) mg/dL Total Protein 6.1 L (6.3-8.2) g/dL Albumin 3.2 L (3.5-5.0) g/dL Urine Protein (Negative) Urine Nitrite (Negative) Ur Leukocyte Esterase (Negative) Urine Bacteria (None) /hpf Urine Mucus (None) /hpf 09/06/24 Range/Units 21:25 WBC (3.8-10.6) k/uL Neutrophils # (1.3-7.7) k/uL Lymphocytes # (1.0-4.8) k/uL APTT (22.0-30.0) sec Chloride (98-107) mmol/L BUN (7-17) mg/dL Glucose (74-99) mg/dL Magnesium (1.6-2.3) mg/dL Total Protein (6.3-8.2) g/dL Albumin (3.5-5.0) g/dL Urine Protein Trace H (Negative) Urine Nitrite Positive H (Negative) Ur Leukocyte Esterase Small H (Negative) Urine Bacteria Many H (None) /hpf Urine Mucus Rare H (None) /hpf
--- NOTE | 2024-09-08 16:15 | P.PN ---
Progress Note - Text Progress Note Date: 09/08/24 PCP: Dr. Griffin. Chronic stable medical conditions include diabetes mellitus, hearing deficit, DJD, rheumatoid arthritis, Parkinson disease. On wheelchair. Per ER notes patient presented to having a syncopal episode. The told the ER physician that patient was taken to the bathroom and sat on the toilet and then patient became unresponsive and started to vomit. Probably unresponsive about 10 minutes. Patient was put in the bed. Until ambulance arrived. Patient able to answer simple questions for me. She will tell me she is in the hospital. Cannot tell me the year. Not sure why she is here. The EMS arrived the patient was actually doing better. Patient's had decreased oral intake. September 08: Laying in bed. Awake. Awake tired appearing. at the bedside. Spoke to the aide at the bedside. Did drink Ensure a little bit of food. Patient unable to stand for orthostatic. Though still positive as supine systolic 104 and sitting systolic 118. Will order HARIKA stockings. Add Lidiaf. Nurse called me later that the expressed still finding it difficult to take care of patient at the home. Call JOE to social security assessor. PT OT. Look for possible rehab. Active Medications Ascorbic Acid (Ascorbic Acid 500 Mg Tab) 1,000 mg PO DAILY [facility] Last Admin: 09/08/24 09:55 Dose: 1,000 mg Aspirin (Aspirin 325 Mg Tab) 325 mg PO DAILY [facility] Last Admin: 09/08/24 09:58 Dose: 325 mg Carbidopa/Levodopa (Carbidopa-Levodopa 25-100 Mg 1 Each Tab) 1 each PO TID [facility] Last Admin: 09/08/24 09:55 Dose: 1 each Cholecalciferol (Cholecalciferol 25 Mcg (1000 Iu) Tablet) 25 mcg PO DAILY [facility] Last Admin: 09/08/24 09:55 Dose: 25 mcg Dorzolamide/Timolol (Dorzolamide-Timolol 2.23%/0.68 10ml Btl) 1 drops BOTH EYES DAILY [facility] Last Admin: 09/08/24 09:56 Dose: 1 drops Dronabinol (Dronabinol 2.5 Mg Cap) 2.5 mg PO AC-BID@1300,1700 [facility] Last Admin: 09/08/24 13:25 Dose: 2.5 mg Enoxaparin Sodium (Enoxaparin 30 Mg/0.3 Ml Syringe) 30 mg SQ DAILY [facility] Last Admin: 09/08/24 09:57 Dose: 30 mg Fludrocortisone Acetate (Fludrocortisone 0.1 Mg Tab) 0.05 mg PO BID [facility] Nitroglycerin (Nitroglycerin Sl Tabs 0.4 Mg Tab) 0.4 mg SUBLINGUAL Q5M PRN PRN Reason: Chest Pain Pantoprazole Sodium (Pantoprazole 40 Mg Tablet) 40 mg PO BID [facility] Last Admin: 09/08/24 09:57 Dose: 40 mg Petrolatum (Zinc Oxide Paste (Z-Guard) 1 Applic) 1 applic TOPICAL Q2HR PRN; Protocol PRN Reason: Wound Healing Past medical history to include: Diabetes mellitus, hearing deficit, DJD, rheumatoid arthritis, Parkinson disease, chronic medical debility-wheelchair, COVID 19 pneumonia, pulmonary embolism in January 2021, left leg DVT-small PE. She is wheelchair Social history: No smoking or alcohol. Lives with her . Does use a wheelchair. Physical examination: VITAL SIGNS: 97.8, 68, 17, orthostatic GENERAL: [BMI 17.7, reclining awake, tired, EYES: Pupils equal. Conjunctiva normal. Decreased vision left eye HEENT: External appearance of nose and ears normal, oral cavity grossly normal., NECK: JVD not raised; masses not palpable. HEART: First and second heart sounds are normal; some edema edema. LUNGS: Respiratory rate normal; decreased breath sounds. ABDOMEN: Soft, nontender, liver spleen not palpable, no masses palpable. PSYCH: Able to answer some simple questions. Knows the place. Cannot tell me the year. EXTREMITIES: Mild swelling of lower extremity Muscular skeletal: Evidence of OA INVESTIGATIONS, reviewed in the clinical context: September 06, 2024: White count 9.2 hemoglobin 12.4 platelets 206 sodium 140 potassium 4.2 BUN 48 creatinine 1.04 Troponin I less than 0.012 x 3 LDL 102.2 UA positive for nitrite, leukoesterase EKG tracing personally reviewed by me-sinus rhythm. Chest x-ray film personally reviewed by me-unremarkable Assessment and plan: -Patient was assisted to the commode with her . Patient passed out for some time. About 10 minutes per the ER notes. Does feel weak and tired. Clinically rather malnourished. Possibly vasovagal and orthostatic. Add Florinef 0.05 mg twice daily. HARIKA stockings below knee both the legs. -Prior history of arrhythmia. Patient had Holter monitor outpatient. Unknown -Bilateral chronic lower extremity venous insufficiency -Diabetes mellitus type 2, diet controlled Follow Accu-Cheks. -Hard of hearing Hearing aids -Severe protein calorie malnutrition from decreased oral intake Ensure 1 can 3 times daily. -Primary osteoarthritis Use analgesics when necessary -Idiopathic Parkinson disorder Sinemet. Patient follow-up in neurology outpatient. -Legally blind in the left eye-baseline blurry vision in the left eye -Hypothyroid 25 g Synthroid -Moderate cognitive impairment. Possible late onset Alzheimer's dementia -Chronic medical debility, and a baseline - wheelchair bound - CK D stage III -DNR Add Florinef. HARIKA stockings. skip pit worker looking into placement. At this point patient not safe to go home. Adjust medications for orthostatic. Change patient's admission status to inpatient Past Medical History Past Medical History: Diabetes Mellitus, Eye Disorder, Hearing Disorder / Deafness, Osteoarthritis (OA), Pulmonary Embolus (PE), Rheumatoid Arthritis (RA), Syncope, Thyroid Disorder Additional Past Medical History / Comment(s): parkinsons, [place], recent admission for covid in 01/2021 History of Any Multi-Drug Resistant Organisms: None Reported Past Surgical History: Appendectomy, Bladder Surgery, Hysterectomy, Orthopedic Surgery Additional Past Surgical History / Comment(s): bladder suspension Past Anesthesia/Blood Transfusion Reactions: No Reported Reaction Past Psychological History: No Psychological Hx Reported Smoking Status: Former smoker Past Alcohol Use History: None Reported Past Drug Use History: None Reported
[2024-09-08 16:53] VITALS: BMI 17.7
[2024-09-08] MEDS: FLUDROCORTISONE 0.1 MG TAB PO SCH (22:29)
[2024-09-09] MEDS: ZINC OXIDE PASTE (Z-GUARD) 1 APPLIC TOPICAL PRN
--- NOTE | 2024-09-09 18:19 | P.PN ---
Progress Note - Text Progress Note Date: 09/09/24 PCP: Dr. Griffin. Chronic stable medical conditions include diabetes mellitus, hearing deficit, DJD, rheumatoid arthritis, Parkinson disease. On wheelchair. Per ER notes patient presented to having a syncopal episode. The told the ER physician that patient was taken to the bathroom and sat on the toilet and then patient became unresponsive and started to vomit. Probably unresponsive about 10 minutes. Patient was put in the bed. Until ambulance arrived. Patient able to answer simple questions for me. She will tell me she is in the hospital. Cannot tell me the year. Not sure why she is here. The EMS arrived the patient was actually doing better. Patient's had decreased oral intake. September 08: Laying in bed. Awake. Awake tired appearing. at the bedside. Spoke to the aide at the bedside. Did drink Ensure a little bit of food. Patient unable to stand for orthostatic. Though still positive as supine systolic 104 and sitting systolic 118. Will order HARIKA stockings. Add Lidiaf. Nurse called me later that the expressed still finding it difficult to take care of patient at the home. Call JOE to foster care social worker. PT OT. Look for possible rehab. September 09: Comfortable. Oral intake fair. Spoke to nurse case manager Gonzalez. Family is wishing to to take the patient home. The plan to take her home tomorrow. Florinef was added yesterday. Active Medications Ascorbic Acid (Ascorbic Acid 500 Mg Tab) 1,000 mg PO DAILY [facility] Last Admin: 09/09/24 10:13 Dose: 1,000 mg Aspirin (Aspirin 325 Mg Tab) 325 mg PO DAILY [facility] Last Admin: 09/09/24 10:13 Dose: 325 mg Carbidopa/Levodopa (Carbidopa-Levodopa 25-100 Mg 1 Each Tab) 1 each PO TID [facility] Last Admin: 09/09/24 17:41 Dose: 1 each Cholecalciferol (Cholecalciferol 25 Mcg (1000 Iu) Tablet) 25 mcg PO DAILY [facility] Last Admin: 09/09/24 10:13 Dose: 25 mcg Dorzolamide/Timolol (Dorzolamide-Timolol 2.23%/0.68 10ml Btl) 1 drops BOTH EYES DAILY [facility] Last Admin: 09/09/24 10:13 Dose: 1 drops Dronabinol (Dronabinol 2.5 Mg Cap) 2.5 mg PO AC-BID@1300,1700 [facility] Last Admin: 09/09/24 17:41 Dose: 2.5 mg Enoxaparin Sodium (Enoxaparin 30 Mg/0.3 Ml Syringe) 30 mg SQ DAILY [facility] Last Admin: 09/09/24 10:12 Dose: 30 mg Fludrocortisone Acetate (Fludrocortisone 0.1 Mg Tab) 0.05 mg PO BID [facility] Last Admin: 09/09/24 10:13 Dose: 0.05 mg Nitroglycerin (Nitroglycerin Sl Tabs 0.4 Mg Tab) 0.4 mg SUBLINGUAL Q5M PRN PRN Reason: Chest Pain Pantoprazole Sodium (Pantoprazole 40 Mg Tablet) 40 mg PO BID [facility] Last Admin: 09/09/24 10:13 Dose: 40 mg Petrolatum (Zinc Oxide Paste (Z-Guard) 1 Applic) 1 applic TOPICAL Q2HR PRN; Protocol PRN Reason: Wound Healing Last Admin: 09/09/24 00:00 Dose: 1 applic Past medical history to include: Diabetes mellitus, hearing deficit, DJD, rheumatoid arthritis, Parkinson disease, chronic medical debility-wheelchair, COVID 19 pneumonia, pulmonary embolism in January 2021, left leg DVT-small PE. She is wheelchair Social history: No smoking or alcohol. Lives with her . Does use a wheelchair. Physical examination: VITAL SIGNS: 98.3, 70, 16, 105 x 65, 93% room air GENERAL: [BMI 17.7, reclining awake, tired, EYES: Pupils equal. Conjunctiva normal. Decreased vision left eye HEENT: External appearance of nose and ears normal, oral cavity grossly normal., NECK: JVD not raised; masses not palpable. HEART: First and second heart sounds are normal; some edema edema. LUNGS: Respiratory rate normal; decreased breath sounds. ABDOMEN: Soft, nontender, liver spleen not palpable, no masses palpable. PSYCH: Able to answer some simple questions. Knows the place. Cannot tell me the year. EXTREMITIES: Mild swelling of lower extremity Muscular skeletal: Evidence of OA INVESTIGATIONS, reviewed in the clinical context: September 06, 2024: White count 9.2 hemoglobin 12.4 platelets 206 sodium 140 pot assium 4.2 BUN 48 creatinine 1.04 Troponin I less than 0.012 x 3 LDL 102.2 UA positive for nitrite, leukoesterase EKG tracing personally reviewed by me-sinus rhythm. Chest x-ray film personally reviewed by me-unremarkable Assessment and plan: -Patient was assisted to the commode with her . Patient passed out for some time. About 10 minutes per the ER notes. Does feel weak and tired. Clinically rather malnourished. Possibly vasovagal and orthostatic. Added Florinef 0.05 mg twice daily. HARIKA stockings below knee both the legs. -Prior history of arrhythmia. Patient had Holter monitor outpatient. Unknown -Bilateral chronic lower extremity venous insufficiency -Diabetes mellitus type 2, diet controlled Follow Accu-Cheks. -Hard of hearing Hearing aids -Severe protein calorie malnutrition from decreased oral intake Ensure 1 can 3 times daily. -Primary osteoarthritis Use analgesics when necessary -Idiopathic Parkinson disorder Sinemet. Patient follow-up in neurology outpatient. -Legally blind in the left eye-baseline blurry vision in the left eye -Hypothyroid 25 g Synthroid -Moderate cognitive impairment. Possible late onset Alzheimer's dementia -Chronic medical debility, and a baseline - wheelchair bound - CKD stage III -DNR Initially plan was to look for rehab. Now the family wishes to take the patient home. For discharge tomorrow. Past Medical History Past Medical History: Diabetes Mellitus, Eye Disorder, Hearing Disorder / Deafness, Osteoarthritis (OA), Pulmonary Embolus (PE), Rheumatoid Arthritis (RA), Syncope, Thyroid Disorder Additional Past Medical History / Comment(s): parkinsons, [place], recent admission for covid in 01/2021 History of Any Multi-Drug Resistant Organisms: None Reported Past Surgical History: Appendectomy, Bladder Surgery, Hysterectomy, Orthopedic Surgery Additional Past Surgical History / Comment(s): bladder suspension Past Anesthesia/Blood Transfusion Reactions: No Reported Reaction Past Psychological History: No Psychological Hx Reported Smoking Status: Former smoker Past Alcohol Use History: None Reported Past Drug Use History: None Reported
[2024-09-10 08:51] VITALS: BP 107/66; PULSE 73; RESP 15; TEMP 97.6
--- NOTE | 2024-09-10 12:35 | P.DS ---
Providers Date of admission: 09/08/24 14:24 Expected date of discharge: 09/10/24 Attending physician: Loc العراقي Primary care physician: Houston Griffin [facility] Hospital Course: PCP: Dr. Griffin. Chronic stable medical conditions include diabetes mellitus, hearing deficit, DJD, rheumatoid arthritis, Parkinson disease. On wheelchair. Per ER notes patient presented to having a syncopal episode. The told the ER physician that patient was taken to the bathroom and sat on the toilet and then patient became unresponsive and started to vomit. Probably unresponsive about 10 minutes. Patient was put in the bed. Until ambulance arrived. Patient able to answer simple questions for me. She will tell me she is in the hospital. Cannot tell me the year. Not sure why she is here. The EMS arrived the patient was actually doing better. Patient's had decreased oral intake. September 08: Laying in bed. Awake. Awake tired appearing. at the bedside. Spoke to the aide at the bedside. Did drink Ensure a little bit of food. Patient unable to stand for orthostatic. Though still positive as supine systolic 104 and sitting systolic 118. Will order HARIKA stockings. Add Florinef. Nurse called me later that the expressed still finding it difficult to take care of patient at the home. Call JOE to pediatric social worker. PT OT. Look for possible rehab. September 09: Comfortable. Oral intake fair. Spoke to case planner Gonzalez. Family is wishing to to take the patient home. The plan to take her home tomorrow. Florinef was added yesterday. September 10. Patient eating some. Increase Florinef to 0.1 mg twice daily. will be taking her home today. Overall prognosis guarded given her age and comorbidities. Past medical history to include: Diabetes mellitus, hearing deficit, DJD, rheumatoid arthritis, Parkinson disease, chronic medical debility-wheelchair, COVID 19 pneumonia, pulmonary embolism in January 2021, left leg DVT-small PE. She is wheelchair Social history: No smoking or alcohol. Lives with her . Does use a wheelchair. Physical examination: VITAL SIGNS: 97.6, 73, 15, 107 x 66, 97% room air GENERAL: [BMI 17.7, reclining awake, tired, EYES: Pupils equal. Conjunctiva normal. Decreased vision left eye HEENT: External appearance of nose and ears normal, oral cavity grossly normal., NECK: JVD not raised; masses not palpable. HEART: First and second heart sounds are normal; some edema edema. LUNGS: Respiratory rate normal; decreased breath sounds. ABDOMEN: Soft, nontender, liver spleen not palpable, no masses palpable. PSYCH: Able to answer some simple questions. Knows the place. Cannot tell me the year. EXTREMITIES: Mild swelling of lower extremity Muscular skeletal: Evidence of OA INVESTIGATIONS, reviewed in the clinical context: September 06, 2024: White count 9.2 hemoglobin 12.4 platelets 206 sodium 140 potassium 4.2 BUN 48 creatinine 1.04 Troponin I less than 0.012 x 3 LDL 102.2 UA positive for nitrite, leukoesterase EKG tracing personally reviewed by me-sinus rhythm. Chest x-ray film personally reviewed by me-unremarkable Assessment and plan: -Patient was assisted to the commode with her . Patient passed out for some time. About 10 minutes per the ER notes. Does feel weak and tired. Clinically rather malnourished. Possibly vasovagal and orthostatic. Increase Florinef to 0.5 mg twice daily. HARIKA stockings below knee both the legs. -Prior history of arrhythmia. Patient had Holter monitor outpatient. Unknown -Bilateral chronic lower extremity venous insufficiency -Diabetes mellitus type 2, diet controlled Follow Accu-Cheks. -Hard of hearing Hearing aids -Severe protein calorie malnutrition from decreased oral intake Ensure 1 can 3 times daily. -Primary osteoarthritis Use analgesics when necessary -Idiopathic Parkinson disorder Sinemet. Patient follow-up in neurology outpatient. -Legally blind in the left eye-baseline blurry vision in the left eye -Hypothyroid 25 g Synthroid -Moderate cognitive impairment. Possible late onset Alzheimer's dementia -Chronic medical debility, and a baseline - wheelchair bound - CKD stage III -DNR Disposition: Home with Past Medical History Past Medical History: Diabetes Mellitus, Eye Disorder, Hearing Disorder / Deafness, Osteoarthritis (OA), Pulmonary Embolus (PE), Rheumatoid Arthritis (RA), Syncope, Thyroid Disorder Additional Past Medical History / Comment(s): parkinsons, [place], recent admission for covid in 01/2021 History of Any Multi-Drug Resistant Organisms: None Reported Past Surgical History: Appendectomy, Bladder Surgery, Hysterectomy, Orthopedic Surgery Additional Past Surgical History / Comment(s): bladder suspension Past Anesthesia/Blood Transfusion Reactions: No Reported Reaction Past Psychological History: No Psychological Hx Reported Smoking Status: Former smoker Past Alcohol Use History: None Reported Past Drug Use History: None Reported Plan - Discharge Summary Discharge Rx Participant: Yes New Discharge Prescriptions: New Fludrocortisone [Florinef] 0.1 mg PO BID #60 tab Continue Carbidopa-Levodopa 25-100 mg [Sinemet 25-100 mg] 1 tab PO TID Pantoprazole Sodium 20 mg PO BID Ascorbic Acid [Vitamin C] 1,000 mg PO DAILY Dorzolamide-Timol 2.23%/0.68% [Cosopt] 1 drop BOTH EYES DAILY Cholecalciferol [Vitamin D3 (25 Mcg = 1000 Iu)] 25 mcg PO DAILY Aspirin 81 mg PO DAILY tab traMADol HCL 50 - 100 mg PO Q8H PRN PRN Reason: Pain droNABinol [Marinol] 2.5 mg PO AC-BID@1300,1700 Discontinued Loratadine [Claritin] 10 mg PO DAILY PRN PRN Reason: Runny Nose Discharge Medication List Carbidopa-Levodopa 25-100 mg [Sinemet 25-100 mg] 1 tab PO TID 09/16/19 [History] Pantoprazole Sodium 20 mg PO BID 02/03/21 [History] Ascorbic Acid [Vitamin C] 1,000 mg PO DAILY 02/02/23 [History] Cholecalciferol [Vitamin D3 (25 Mcg = 1000 Iu)] 25 mcg PO DAILY 02/02/23 [History] Aspirin 81 mg PO DAILY tab 02/04/23 [Rx] Dorzolamide-Timol 2.23%/0.68% [Cosopt] 1 drop BOTH EYES DAILY 09/07/24 [History] droNABinol [Marinol] 2.5 mg PO AC-BID@1300,1700 09/07/24 [History] traMADol HCL 50 - 100 mg PO Q8H PRN 09/07/24 [History] Fludrocortisone [Florinef] 0.1 mg PO BID #60 tab 09/10/24 [Rx] Follow [facility]ment[facility]Ref[facility] 1 Week Houston Griffin DO [Primary Care Provider] - 1-2 days Patient Instructions/Handouts: Dizziness (ED)
== END 2024-09-10 12:00 | disposition home or self-care (01) | DRG 312 ==
LOC: EC 17:40 → 3SCARD 21:39 → 5NMEDONC 09-07 16:48 → OBSVTOIN 09-08 14:24
PROVIDERS: ADMIT Hospitalist; ATTEND Hospitalist
DX: I95.1 Orthostatic hypotension (principal); E43 Unspecified severe protein-calorie malnutrition; Z68.1 Body mass index [BMI] 19.9 or less, adult; G20.A1 Parkinson's disease without dyskinesia, without mention of fluctuations; N18.30 Chronic kidney disease, stage 3 unspecified; E11.22 Type 2 diabetes mellitus with diabetic chronic kidney disease; M06.9 Rheumatoid arthritis, unspecified; I87.2 Venous insufficiency (chronic) (peripheral); H91.90 Unspecified hearing loss, unspecified ear; M19.91 Primary osteoarthritis, unspecified site; H54.8 Legal blindness, as defined in USA; G30.1 Alzheimer's disease with late onset; E03.9 Hypothyroidism, unspecified; F02.B0 Dementia in other diseases classified elsewhere, moderate, without behavioral disturbance, psychotic disturbance, mood disturbance, and anxiety; Z66 Do not resuscitate; Z86.711 Personal history of pulmonary embolism; Z79.82 Long term (current) use of aspirin; Z79.890 Hormone replacement therapy; Z99.3 Dependence on wheelchair; Z88.8 Allergy status to other drugs, medicaments and biological substances; Z86.16 Personal history of COVID-19; Z87.01 Personal history of pneumonia (recurrent); Z87.891 Personal history of nicotine dependence; Z86.718 Personal history of other venous thrombosis and embolism; Z90.710 Acquired absence of both cervix and uterus
CPT/HCPCS: 36415; 71046; 80053; 80061; 81001; 83735; 84484; 85025; 85610; 85730; 93005; 96361; 96365; 96372; 99285

== ENCOUNTER → 2024-10-13 | Outpatient (CLI) | payer MEDICARE, BC ==
--- NOTE | 2024-10-13 15:30 | US ---
EXAMINATION TYPE: US venous doppler duplex LE BI DATE OF EXAM: 10/13/2024 2:56 PM COMPARISON: NONE CLINICAL INDICATION: Female, 89 years old with history of R22.43 LOCALIZED SWELLING, MASS AND LUMP, B LE; edema, Pain limited exam due to shadowing from calcified arteries. TECHNIQUE: The lower extremity deep venous system is examined utilizing real time linear array sonog louie with graded compression, color doppler sonography, and spectral doppler. SIDE PERFORMED: Bilateral FINDINGS: VESSELS IMAGED: Common Femoral Vein Deep Femoral Vein Greater Saphenous Vein * Femoral Vein Popliteal Vein Right Leg: Negative for DVT, Color Doppler imaging shows patency of the vessels. Spectral waveforms are within normal limits. Left Leg: Negative for DVT, Color Doppler imaging shows patency of the vessels. Spectral waveforms a re within normal limits. IMPRESSION: No ultrasound evidence for deep venous thrombosis. [facility], , 10/13/2024 3:28 PM
== END | disposition home or self-care (01) ==
LOC: RADUSWWP 13:30
PROVIDERS: ATTEND Family Medicine
DX: R22.43 Localized swelling, mass and lump, lower limb, bilateral (principal)
CPT/HCPCS: 93970

== ENCOUNTER 2024-11-16 11:17 | Observation (INO) | payer MEDICARE, BC ==
--- NOTE | 2024-11-16 11:39 | ED ---
General Adult HPI - General Stated complaint: AMS Time Seen by Provider: 11/16/24 11:22 Source: family, RN notes reviewed Limitations: altered mental status - History of Present Illness Initial comments: Patient is an 89-year-old female presenting to the emergency department with concern for change in mental status. Symptoms started somewhat yesterday. Patient has not ate or drank since yesterday morning. Patient is weaker than normal and they are unable to get her out of bed. Patient can usually help transfer to wheelchair. Patient does have some minimal communication skills and is able to whisper at times. - Related Data Home Medications Medication Instructions Recorded Confirmed Carbidopa-Levodopa 25-100 mg 1 tab PO TID 09/16/19 11/16/24 [Sinemet 25-100 mg] Pantoprazole Sodium 20 mg PO BID 02/03/21 11/16/24 Ascorbic Acid [Vitamin C] 1,000 mg PO DAILY 02/02/23 11/16/24 Cholecalciferol [Vitamin D3 (25 25 mcg PO DAILY 02/02/23 11/16/24 Mcg = 1000 Iu)] Dorzolamide-Timol 2.23%/0.68% 1 drop LEFT EYE DAILY 09/07/24 11/16/24 [Cosopt] droNABinol [Marinol] 2.5 mg PO AC-BID@1300,1700 09/07/24 11/16/24 traMADol HCL 50 - 100 mg PO Q8H PRN 09/07/24 11/16/24 Previous Rx's Medication Instructions Recorded Aspirin 81 mg PO DAILY tab 02/04/23 Fludrocortisone [Florinef] 0.1 mg PO BID #60 tab 09/10/24 Allergies Allergy/AdvReac Type Severity Reaction Status Date / Time cortisone Allergy Unknown Verified 11/16/24 12:23 Review of Systems ROS Statement: Those systems with pertinent positive or pertinent negative responses have been documented in the HPI. ROS Other: All systems not noted in ROS Statement are negative. Limitations: ROS unobtainable due to patients medical condition Neurological: Reports: as per HPI, weakness Past Medical History Past Medical History: Diabetes Mellitus, Eye Disorder, Hearing Disorder / Deafness, Osteoarthritis (OA), Pulmonary Embolus (PE), Rheumatoid Arthritis (RA ), Syncope, Thyroid Disorder Additional Past Medical History / Comment(s): parkinsons, [place], recent admission for covid in 01/2021 History of Any Multi-Drug Resistant Organisms: None Reported Past Surgical History: Appendectomy, Bladder Surgery, Hysterectomy, Orthopedic Surgery Additional Past Surgical History / Comment(s): bladder suspension Past Anesthesia/Blood Transfusion Reactions: No Reported Reaction Smoking Status: Never smoker - Past Family History Mother Family Medical History: No Reported History Father Additional Family Medical History / Comment(s): passed from emphysema Sister(s) Family Medical History: Cancer, Myocardial Infarction ([place]) Additional Family Medical History / Comment(s): one sister passed from brain cancer at 28 years old. two other sisters passed from heart attacks General Exam Limitations: altered mental status, physical limitation General appearance: other (Drowsy but arousable to loud voice) Head exam: Present: atraumatic Eye exam: Present: normal appearance, PERRL ENT exam: Present: mucous membranes dry Neck exam: Present: normal inspection. Absent: tenderness, meningismus Respiratory exam: Present: normal lung sounds bilaterally Cardiovascular Exam: Present: regular rate, normal rhythm GI/Abdominal exam: Present: soft. Absent: tenderness Extremities exam: Present: normal inspection. Absent: pedal edema, calf tenderness Neurological exam: Present: other (Drowsy but arouses to voice. Follows some simple commands. No focal paralysis.) Expanded Neurological exam: Present: protecting the airway Patient oriented to: Present: person Motor strength exam: RUE: 4, LUE: 4, RLE: 4, LLE: 4 Eye Response: (3) open to voice Motor Response: (6) obeys commands Verbal Response: (4) confused conversation Psychiatric exam: Present: flat affect Skin exam: Present: normal color Course Vital Signs 11/16/24 11/16/24 11/16/24 11:29 12:10 12:38 Temperature 98 F Pulse Rate 78 79 Respiratory 18 18 18 Rate Blood Pressure 143/89 128/69 O2 Sat by Pulse 99 98 Oximetry EKG Findings - EKG Results: EKG: interpreted by ERMD (Low QRS voltage. Inferior Q waves. Nonspecific ST- T.), sinus rhythm, normal axis Medical Decision Making - Medical Decision Making Was pt. sent in by a medical professional or institution (, PA, PRODUCT EXAMINER, urgent care, hospital, or fdc...) When possible be specific @ -No Did you speak to anyone other than the patient for history (EMS, parent, family, police, friend...)? What history was obtained from this source @ -Family is present and provides entire history as patient has limited capability to do so Did you review nursing and triage notes (agree or disagree)? Why? @ -I reviewed and agree with nursing and triage notes Were old charts reviewed (outside hosp., previous admission, EMS record, old EKG, old radiological studies, urgent care reports/EKG's, fdc records)? Report findings @ -Previous labs reviewed including renal function from previous Differential Diagnosis (chest pain, altered mental status, abdominal pain women, abdominal pain men, vaginal bleeding, weakness, fever, dyspnea, syncope, headache, dizziness, GI bleed, back pain, seizure, CVA, palpatations, mental health, musculoskeletal)? @ -Differential Weakness: Hypoglycemia, shock, sepsis, hyponatremia, anemia, infection, ND, ETOH, adverse medicine reaction, overdose, stroke, this is not meant to be an all-inclusive list. EKG interpreted by me (3pts min.). @ -As above X-rays interpreted by me (1pt min.). @ -Chest x-ray shows no acute process CT interpreted by me (1pt min.). @ -CT scan brain without acute abnormality U/S interpreted by me (1pt. min.). @ -None done What testing was considered but not performed or refused? (CT, X-rays, U/S, labs)? Why? @ -None What meds were considered but not given or refused? Why? @ -None Did you discuss the management of the patient with other professionals (professionals i.e. , PA, PRODUCT EXAMINER, lab, RT, psych nurse, director of social media marketing, enroller, teacher, correctional officer sergeant, rn case mgr)? Give summary @ -Case was discussed with Dr. Leon who will admit covering Dr. Pugh Was smoking cessation discussed for >3mins.? @ -No Was critical care preformed (if so, how long)? @ -No Were there social determinants of health that impacted care today? How? (Homelessness, low income, unemployed, alcoholism, drug addiction, transportation, low edu. Level, literacy, decrease access to med. care, nursing home, rehab)? @ -No Was there de-escalation of care discussed even if they declined (Discuss DNR or withdrawal of care, Hospice)? DNR status @ -No What co-morbidities impacted this encounter? (DM, HTN, Smoking, COPD, CAD, Cancer, CVA, ARF, Chemo, Hep., AIDS, mental health diagnosis, sleep apnea, morbid obesity)? @ -None Was patient admitted / discharged? Hospital course, mention meds given and route, prescriptions, significant lab abnormalities, going to OR and other pertinent info. @ -Patient presents with decreased alertness and increased weakness. Patient has concerning results for urinary tract infection as well as dehydration. Patient reevaluated and resting comfortably in bed, family not present at this time. Patient to be admitted, admission orders written. Undiagnosed new problem with uncertain prognosis? @ -No Drug Therapy requiring intensive monitoring for toxicity (Heparin, Nitro, Insu serge, Cardizem)? @ -No Were any procedures done? @ -No Diagnosis/symptom? @ -Urinary tract infection, dehydration Acute, or Chronic, or Acute on Chronic? @ -Acute, acute Uncomplicated (without systemic symptoms) or Complicated (systemic symptoms)? @ -Default Side effects of treatment? @ -No Exacerbation, Progression, or Severe Exacerbation? @ -No Poses a threat to life or bodily function? How? (Chest pain, USA, ND, pneumonia, PE, COPD, DKA, ARF, appy, cholecystitis, CVA, Diverticulitis, Homicidal, Suicidal, threat to staff... and all critical care pts) @ -Threat to renal function, threat for worsening infection - Lab Data Result diagrams: 11/16/24 12:35 11/16/24 12:35 Lab Results 11/16/24 11/16/24 11/16/24 Range/Units 12:35 12:35 12:35 WBC 18.7 H (3.8-10.6) k/uL RBC 3.84 (3.80-5.40) m/uL Hgb 12.0 (11.4-16.0) gm/dL Hct 37.8 (34.0-46.0) % MCV 98.3 (80.0-100.0) fL MCH 31.3 (25.0-35.0) pg MCHC 31.8 (31.0-37.0) g/dL RDW 13.4 (11.5-15.5) % Plt Count 188 (150-450) k/uL MPV 8.1 Neutrophils % 88 % Lymphocytes % 6 % Monocytes % 4 % Eosinophils % 0 % Basophils % 0 % Neutrophils # 16.5 H (1.3-7.7) k/uL Lymphocytes # 1.2 (1.0-4.8) k/uL Monocytes # 0.8 (0-1.0) k/uL Eosinophils # 0.0 (0-0.7) k/uL Basophils # 0.0 (0-0.2) k/uL Hypochromasia Slight PT 11.4 (10.0-12.5) sec INR 1.0 (<1.2) APTT 18.7 L (22.0-30.0) sec Sodium 144 (137-145) mmol/L Potassium 4.5 (3.5-5.1) mmol/L Chloride 116 H (98-107) mmol/L Carbon Dioxide 21 L (22-30) mmol/L Anion Gap 7 mmol/L BUN 63 H (7-17) mg/dL Creatinine 1.30 H (0.52-1.04) mg/dL Est GFR (CKD-EPI)AfAm 43 (>60 ml/min/1.73 sqM) Est GFR (CKD-EPI)NonAf 37 (>60 ml/min/1.73 sqM) Glucose 230 H (74-99) mg/dL POC Glucose (mg/dL) (70-110) mg/dL POC Glu Senior Managing Director ID Calcium 9.3 (8.4-10.2) mg/dL Total Bilirubin 0.6 (0.2-1.3) mg/dL AST 15 (14-36) U/L ALT 11 (4-34) U/L Alkaline Phosphatase 67 (38-126) U/L Troponin I (0.000-0.034) ng/mL Total Protein 6.4 (6.3-8.2) g/dL Albumin 3.2 L (3.5-5.0) g/dL Urine Color Urine Appearance (Clear) Urine pH (5.0-8.0) Ur Specific Carson (1.001-1.035) Urine Protein (Negative) Urine Glucose (UA) (Negative) Urine Ketones (Negative) Urine Blood (Negative) Urine Nitrite (Negative) Urine Bilirubin (Negative) Urine Urobilinogen (<2.0) mg/dL Ur Leukocyte Esterase (Negative) Urine RBC (0-5) /hpf Urine WBC (0-5) /hpf Urine WBC Clumps (None) /hpf Ur Squamous Epith Cells (0-4) /hpf Urine Bacteria (None) /hpf Urine Mucus (None) /hpf 11/16/24 11/16/24 11/16/24 Range/Units 12:35 12:43 12:59 WBC (3.8-10.6) k/uL RBC (3.80-5.40) m/uL Hgb (11.4-16.0) gm/dL Hct (34.0-46.0) % MCV (80.0-100.0) fL MCH (25.0-35.0) pg MCHC (31.0-37.0) g/dL RDW (11.5-15.5) % Plt Count (150-450) k/uL MPV Neutrophils % % Lymphocytes % % Monocytes % % Eosinophils % % Basophils % % Neutrophils # (1.3-7.7) k/uL Lymphocytes # (1.0-4.8) k/uL Monocytes # (0-1.0) k/uL Eosinophils # (0-0.7) k/uL Basophils # (0-0.2) k/uL Hypochromasia PT (10.0-12.5) sec INR (<1.2) APTT (22.0-30.0) sec Sodium (137-145) mmol/L Potassium (3.5-5.1) mmol/L Chloride (98-107) mmol/L Carbon Dioxide (22-30) mmol/L Anion Gap mmol/L BUN (7-17) mg/dL Creatinine (0.52-1.04) mg/dL Est GFR (CKD-EPI)AfAm (>60 ml/min/1.73 sqM) Est GFR (CKD-EPI)NonAf (>60 ml/min/1.73 sqM) Glucose (74-99) mg/dL POC Glucose (mg/dL) 223 H (70-110) mg/dL POC Glu Senior Managing Director ID Vandana Lupe Calcium (8.4-10.2) mg/dL Total Bilirubin (0.2-1.3) mg/dL AST (14-36) U/L ALT (4-34) U/L Alkaline Phosphatase (38-126) U/L Troponin I 0.022 (0.000-0.034) ng/mL Total Protein (6.3-8.2) g/dL Albumin (3.5-5.0) g/dL Urine Color Light Yellow Urine Appearance Cloudy H (Clear) Urine pH 7.0 (5.0-8.0) Ur Specific Carson 1.019 (1.001-1.035) Urine Protein 1+ H (Negative) Urine Glucose (UA) Negative (Negative) Urine Ketones Negative (Negative) Urine Blood Trace H (Negative) Urine Nitrite Positive H (Negative) Urine Bilirubin Negative (Negative) Urine Urobilinogen <2.0 (<2.0) mg/dL Ur Leukocyte Esterase Large H (Negative) Urine RBC 2 (0-5) /hpf Urine WBC >182 H (0-5) /hpf Urine WBC Clumps Moderate H (None) /hpf Ur Squamous Epith Cells 3 (0-4) /hpf Urine Bacteria Few H (None) /hpf Urine Mucus Rare H (None) /hpf Disposition Clinical Impression: Dehydration, Urinary tract infection Disposition: ADMITTED IP TO THIS HOSP Is patient prescribed a controlled substance at d/c from ED?: No Referrals: Neel Werner MD [Primary Care Provider] - 1-2 days Time of Disposition: 14:16
[2024-11-16] MEDS: SODIUM CHLORIDE 0.9% 1,000 ML IV ONE (12:40)
[2024-11-16 12:45] LABS: Glucose,Whole Blood 223 mg/dL (70-110)
[2024-11-16 13:01] LABS: Basophils % (A) 0 %; Eosinophils % (A) 0 %; HCT 37.8 % (34.0-46.0); Hypochromasia Slight; Lymphocytes # (A) 1.2 k/uL (1.0-4.8); Lymphocytes % (A) 6 %; MCH 31.3 pg (25.0-35.0); MCHC 31.8 g/dL (31.0-37.0); MCV 98.3 fL (80.0-100.0); Mean Platelet Volume 8.1; Monocytes # (A) 0.8 k/uL (0-1.0); Monocytes % (A) 4 %; Neutrophils # (A) 16.5 k/uL (1.3-7.7); Neutrophils % (A) 88 %; Platelet Count 188 k/uL (150-450); RBC 3.84 m/uL (3.80-5.40); RDW 13.4 % (11.5-15.5); WBC 18.7 k/uL (3.8-10.6)
[2024-11-16 13:20] LABS: ALT 11 U/L (4-34); AST 15 U/L (14-36); African American GFR (CKD) 43 (>60 ml/min/1.73 sqM); Albumin 3.2 g/dL (3.5-5.0); Alkaline Phosphatase 67 U/L (38-126); Anion Gap 7 mmol/L; Blood Urea Nitrogen 63 mg/dL (7-17); Calcium 9.3 mg/dL (8.4-10.2); Carbon Dioxide 21 mmol/L (22-30); Chloride 116 mmol/L (98-107); Glucose 230 mg/dL (74-99); Non-African American GFR(CKD) 37 (>60 ml/min/1.73 sqM); Potassium 4.5 mmol/L (3.5-5.1); Sodium 144 mmol/L (137-145); Total Bilirubin 0.6 mg/dL (0.2-1.3); Total Protein 6.4 g/dL (6.3-8.2)
[2024-11-16 13:22] LABS: Prothrombin Time 11.4 sec (10.0-12.5)
--- NOTE | 2024-11-16 13:31 | XR ---
EXAMINATION TYPE: XR chest 2V DATE OF EXAM: 11/16/2024 1:26 PM COMPARISON: 09/06/2024 CLINICAL INDICATION: Female, 89 years old with history of altered mental status, TECHNIQUE: XR chest 2V view(s) obtained. FINDINGS: The heart size is normal. The pulmonary vasculature is normal. The lungs are clear. IMPRESSION: 1. No acute pulmonary process. [facility], , 11/16/2024 1:28 PM
[2024-11-16 13:34] LABS: Appearance,Urine Cloudy (Clear); Bacteria,Urine Few /hpf; Bilirubin,Urine Negative (Negative); Blood,Urine Trace (Negative); Color,Urine Light Yellow; Glucose,Urine (UA) Negative (Negative); Ketones,Urine Negative (Negative); Leukocyte Esterase,Urine Large (Negative); Mucus,Urine Rare /hpf; Nitrite,Urine Positive (Negative); Protein,Urine 1+ (Negative); RBC,Urine 2 /hpf (0-5); Specific Gravity,Urine 1.019 (1.001-1.035); Squamous Epithelial Cell,Urine 3 /hpf (0-4); Urobilinogen,Urine <2.0 mg/dL (<2.0); WBC,Urine >182 /hpf (0-5)
[2024-11-16 13:38] LABS: Partial Thromboplastin Time 18.7 sec (22.0-30.0)
--- NOTE | 2024-11-16 14:13 | CT ---
EXAMINATION TYPE: CT brain wo con DATE OF EXAM: 11/16/2024 COMPARISON: 02/05/2023 CLINICAL INDICATION: Female, 89 years old with history of Altered mental status; PHH, AMS. CT DLP: 1172.4 mGycm Automated exposure control for dose reduction was used. Findings: The ventricles, basal cisterns and sulci over convexities are moderately enlarged consistent with mod erate generalized atrophy, appropriate for the patient's age. There is moderate decreased density in the periventricular white matter consistent with chronic ische samina white matter demyelination. There is no mass effect or shift of midline structures. There is no acute intra or extra-axial hemorrhage. The posterior fossa including the brainstem, fourth ventricle and cerebellopontine angles appear howard sly normal. The intraorbital contents appear normal symmetric Visualized paranasal sinuses and mastoid air cells are well aerated. Calvarium is intact. IMPRESSION: 1. Age appropriate senescent changes as described above. 2. No significant interval change. 3. No acute bleed or mass effect. [facility], , 11/16/2024 2:11 PM
[2024-11-16] MEDS ORDERED: NALOXONE 0.4 MG/ML 1 ML VIAL IV PRN (14:16)
[2024-11-16] MEDS: SODIUM CHLORIDE 0.9% 1,000 ML IV SCH (15:12)
[2024-11-16] MEDS: CARBIDOPA-LEVODOPA 25-100 MG 1 EACH TAB PO SCH (16:37)
[2024-11-16] MEDS: droNABinol 2.5 MG CAP PO SCH (17:12)
[2024-11-16] MEDS ORDERED: DEXTROSE 50% SYRINGE 50 ML IVP PRN ×2 (18:22)
--- NOTE | 2024-11-16 18:25 | P.HPIM ---
History of Present Illness H&P Date: 11/16/24 Patient is a poor historian and unable to effectively communicate thus history is limited. 89 year old F with PMH of Parkinsons, DM, h/o PE, RA, Thyroid disorder, GERD presents to the ED for altered mentation since yesterday along with poor oral intake. Apparently patient is weaker than normal and unable to get out of bed. In the ED she underwent extensive evaluation. BP 112/63, HR 71, T 97.9F, RR 14, 98% on RA. CBC, Coag panel, CMP significant for WBC 18.7, APTT 18.7, Cl 116, bicarb 21, BUN 63, Cr 1.3, glu 230, alb 3.2. Trop 0.022. Lactic acid 1.3. UA large LE with > 182 WBCs. EKG sinus rhythm with nonspecific ST-T wave changes and inferior Q waves. CXR neg. CT brain neg for acute pathology. Patient is admitted for treatment of UTI. General: non toxic, no distress, appears at stated age Derm: warm, dry Head: atraumatic, normocephalic, symmetric Eyes: EOMI, no lid lag, anicteric sclera Mouth: no lip lesion, mucus membranes moist Cardiovascular: S1S2 reg, no murmur Lungs: CTA bilateral, no rhonchi, no rales , no accessory muscle use Ext: no gross muscle atrophy, no edema, no contractures, RUE fistula Neuro: no focal neuro deficits Psych: Alert, oriented, appropriate affect Based on my assessment of this patient, this patient meets a high complexity level of care. Acute metabolic encephalopathy secondary to UTI Acute kidney injury on CKD stage 3a Diabetes mellitus with hyperglycemia Parkinsons disorder Glaucoma GERD Start Rocephin 1g IV QD. Follow UCx. Does not meet sepsis criteria. Likely prerenal. Start NS at 75 cc/hr. Bladder scan now. Renal US ordered. ISS + Accuchecks ACHS with hypoglycemic precautions. Fall precautions. PT and OT consulted. Restart Carbidopa-Levodopa. Restart Drozolamide-Timolol eye drops. Restart Protonix 20 mg PO BID. CODE STATUS: FULL CODE. DVT Prophylaxis: Heparin SQ GI Prophylaxis: Protonix PO Designated medical POA if patient is not able to make medical decisions for themselves: I have reviewed the following as400 consultant notes: ED note. I have reviewed the results of the following tests: As above. I have ordered the following tests: As above. I have discussed the care of this patient with the following independent historian: CXR I have independently interpreted the following test below: I have discussed the management of this patient with the following physician: Past Medical History Past Medical History: Diabetes Mellitus, Eye Disorder, Hearing Disorder / Deafness, Osteoarthritis (OA), Pulmonary Embolus (PE), Rheumatoid Arthritis (RA), Syncope, Thyroid Disorder Additional Past Medical History / Comment(s): parkinsons, [place], recent admission for covid in 01/2021 History of Any Multi-Drug Resistant Organisms: None Reported Past Surgical History: Appendectomy, Bladder Surgery, Hysterectomy, Orthopedic Surgery Additional Past Surgical History / Comment(s): bladder suspension Past Anesthesia/Blood Transfusion Reactions: No Reported Reaction Smoking Status: Never smoker - Past Family History Mother Family Medical History: No Reported History Father Additional Family Medical History / Comment(s): passed from emphysema Sister(s) Family Medical History: Cancer, Myocardial Infarction ([place]) Additional Family Medical History / Comment(s): one sister passed from brain cancer at 28 years old. two other sisters passed from heart attacks Medications and Allergies Home Medications Medication Instructions Recorded Confirmed Type Carbidopa-Levodopa 25-100 mg 1 tab PO TID 09/16/19 11/16/24 History [Sinemet 25-100 mg] Pantoprazole Sodium 20 mg PO BID 02/03/21 11/16/24 History Ascorbic Acid [Vitamin C] 1,000 mg PO DAILY 02/02/23 11/16/24 History Cholecalciferol [Vitamin D3 (25 25 mcg PO DAILY 02/02/23 11/16/24 History Mcg = 1000 Iu)] Aspirin 81 mg PO DAILY tab 02/04/23 11/16/24 Rx Dorzolamide-Timol 2.23%/0.68% 1 drop LEFT EYE DAILY 09/07/24 11/16/24 History [Cosopt] droNABinol [Marinol] 2.5 mg PO AC-BID@1300,1700 09/07/24 11/16/24 History traMADol HCL 50 - 100 mg PO Q8H PRN 09/07/24 11/16/24 History Fludrocortisone [Florinef] 0.1 mg PO BID #60 tab 09/10/24 11/16/24 Rx Allergies Allergy/AdvReac Type Severity Reaction Status Date / Time cortisone Allergy Unknown Verified 11/16/24 12:23 Physical Exam Vitals: Vital Signs Temp Pulse Resp BP Pulse Ox 11/16/24 17:12 71 14 112/63 98 11/16/24 16:14 97.9 F 73 14 130/64 96 11/16/24 15:17 71 18 114/53 98 11/16/24 12:38 79 18 128/69 98 11/16/24 12:10 18 11/16/24 11:29 98 F 78 18 143/89 99 Intake and Output 11/16/24 11/16/24 11/16/24 06:59 14:59 22:59 Other: Weight 40.37 kg Results CBC & Chem 7: 11/16/24 12:35 11/16/24 12:35 Labs: Abnormal Lab Results - Last 24 Hours (Table) 11/16/24 11/16/24 11/16/24 Range/Units 12:35 12:35 12:35 WBC 18.7 H (3.8-10.6) k/uL Neutrophils # 16.5 H (1.3-7.7) k/uL APTT 18.7 L (22.0-30.0) sec Chloride 116 H (98-107) mmol/L Carbon Dioxide 21 L (22-30) mmol/L BUN 63 H (7-17) mg/dL Creatinine 1.30 H (0.52-1.04) mg/dL Glucose 230 H (74-99) mg/dL POC Glucose (mg/dL) (70-110) mg/dL Albumin 3.2 L (3.5-5.0) g/dL Urine Appearance (Clear) Urine Protein (Negative) Urine Blood (Negative) Urine Nitrite (Negative) Ur Leukocyte Esterase (Negative) Urine WBC (0-5) /hpf Urine WBC Clumps (None) /hpf Urine Bacteria (None) /hpf Urine Mucus (None) /hpf 11/16/24 11/16/24 Range/Units 12:43 12:59 WBC (3.8-10.6) k/uL Neutrophils # (1.3-7.7) k/uL APTT (22.0-30.0) sec Chloride (98-107) mmol/L Carbon Dioxide (22-30) mmol/L BUN (7-17) mg/dL Creatinine (0.52-1.04) mg/dL Glucose (74-99) mg/dL POC Glucose (mg/dL) 223 H (70-110) mg/dL Albumin (3.5-5.0) g/dL Urine Appearance Cloudy H (Clear) Urine Protein 1+ H (Negative) Urine Blood Trace H (Negative) Urine Nitrite Positive H (Negative) Ur Leukocyte Esterase Large H (Negative) Urine WBC >182 H (0-5) /hpf Urine WBC Clumps Moderate H (None) /hpf Urine Bacteria Few H (None) /hpf Urine Mucus Rare H (None) /hpf
[2024-11-16 21:25] LABS: Glucose,Whole Blood 151 mg/dL (70-110)
--- NOTE | 2024-11-16 21:55 | US ---
EXAMINATION TYPE: US kidneys/renal and bladder DATE OF EXAM: 11/16/2024 COMPARISON: US 2022, CT 2020 CLINICAL INDICATION: Female, 89 years old with history of LUIS on CKD; LUIS on CKD TECHNIQUE: Grayscale imaging of the bilateral kidneys and urinary bladder: FINDINGS: EXAM MEASUREMENTS: Right Kidney: 9.4 x 4.4 x 4.9 cm Left Kidney: 9.7 x 4.5 x 4.9 cm Exam is very limited due to gas and rib shadow. Right Kidney: *There appears to be hydronephrosis medially -Hyperechoic focus seen upper: 0.7 x 0.7 x 0.6 cm. Left Kidney: No hydronephrosis or masses seen Bladder: *Echogenic material seen toward right of the bladder: 3.1 x 4.4 x 1.1 cm. Bilateral Jets seen: Yes IMPRESSION: 1. No evidence for obstructive uropathy or renal tightness. 2. Right no obstructing renal calculus. [facility], , 11/16/2024 9:53 PM
[2024-11-16] MEDS: FLUDROCORTISONE 0.1 MG TAB PO SCH (22:50)
[2024-11-16] MEDS: HEPARIN SODIUM,PORCINE 5,000 UNIT/ML 1 ML VIAL SQ SCH (22:50)
[2024-11-16] MEDS: INSULIN ASPART (NovoLOG) 100 UNIT/ML VIAL SQ SCH (22:50)
[2024-11-17 06:32] LABS: Glucose,Whole Blood 96 mg/dL (70-110)
[2024-11-17] MEDS: PANTOPRAZOLE 40 MG TABLET PO SCH (06:47)
[2024-11-17] MEDS: ASCORBIC ACID 500 MG TAB PO SCH (08:10)
[2024-11-17] MEDS: ASPIRIN 81 MG PO SCH (08:10)
[2024-11-17] MEDS: CHOLECALCIFEROL 25 MCG (1000 IU) TABLET PO SCH (08:11)
[2024-11-17] MEDS: DORZOLAMIDE-TIMOLOL 2.23%/0.68 10ML BTL LEFT EYE SCH (08:11)
[2024-11-17 09:10] LABS: Basophils # (A) 0.04 X 10*3/uL (0.00-0.10); Basophils % (A) 0.3 %; Eosinophils # (A) 0.15 X 10*3/uL (0.04-0.35); Eosinophils % (A) 1.3 %; HCT 40.9 % (37.2-46.3); HGB 12.1 g/dL (12.0-15.0); Lymphocytes # (A) 1.38 X 10*3/uL (0.90-5.00); Lymphocytes % (A) 11.6 %; MCHC 29.6 g/dL (32.0-37.0); MCV 101.5 FL (80.0-97.0); Mean Platelet Volume 12.2 FL (9.5-12.2); Monocytes # (A) 0.83 X 10*3/uL (0.20-1.00); NRBC Per 100 WBC 0 X 10*3/uL (0.00-0.01); Neutrophils # (A) 9.42 X 10*3/uL (1.80-7.70); Neutrophils % (A) 79.4 %; Platelet Count 199 X 10*3/uL (140-440); RBC 4.03 X 10*6/uL (4.10-5.20); RDW 14.6 % (11.5-14.5); WBC 11.87 X 10*3/uL (4.50-10.00)
[2024-11-17 09:12] LABS: BUN/Creat Ratio 46.55 Ratio (12.00-20.00); Blood Urea Nitrogen 51.2 mg/dL (9.0-27.0); Calcium 8.8 mg/dL (8.7-10.3); Carbon Dioxide 19.8 mmol/L (21.6-31.8); Chloride 118 mmol/L (96-109); Glucose 126 mg/dL (70-110); Potassium 4.4 mmol/L (3.5-5.5); Sodium 149 mmol/L (135-145)
[2024-11-17 11:40] LABS: Glucose,Whole Blood 99 mg/dL (70-110)
[2024-11-17] MEDS: SODIUM CHLORIDE 0.45% 1,000 ML IV SCH (12:22)
--- NOTE | 2024-11-17 13:13 | P.PN ---
Subjective Progress Note Date: 11/17/24 Patient is a poor historian and unable to effectively communicate thus history is limited. 89 year old F with PMH of Parkinsons, DM, h/o PE, RA, Thyroid disorder, GERD presents to the ED for altered mentation since yesterday along with poor oral intake. Apparently patient is weaker than normal and unable to get out of bed. In the ED she underwent extensive evaluation. BP 112/63, HR 71, T 97.9F, RR 14, 98% on RA. CBC, Coag panel, CMP significant for WBC 18.7, APTT 18.7, Cl 116, bicarb 21, BUN 63, Cr 1.3, glu 230, alb 3.2. Trop 0.022. Lactic acid 1.3. UA large LE with > 182 WBCs. EKG sinus rhythm with nonspecific ST-T wave changes and inferior Q waves. CXR neg. CT brain neg for acute pathology. Patient is admitted for treatment of UTI. 11/17 Patient was seen and examined. Unchanged clinically. CBC and BMP significant for WBC 11.87, RBC 4.03, MCV 101.5, Na 149, Cl 118, bicarb 19.8, BUN 51.2, glu 126. Renal US negative for hydronephrosis. Maintained on Rocephin 1g IV QD (D2). General: non toxic, no distress, appears at stated age Derm: warm, dry Head: atraumatic, normocephalic, symmetric Eyes: EOMI, no lid lag, anicteric sclera Mouth: no lip lesion, mucus membranes moist Cardiovascular: S1S2 reg, no murmur Lungs: CTA bilateral, no rhonchi, no rales , no accessory muscle use Ext: no gross muscle atrophy, no edema, no contractures Neuro: no focal neuro deficits Psych: Alert, oriented, appropriate affect Based on my assessment of this patient, this patient meets a high complexity le lorri of care. Acute metabolic encephalopathy secondary to UTI Acute kidney injury on CKD stage 3a Hypernatremia Diabetes mellitus with hyperglycemia Parkinsons disorder Glaucoma GERD Continue Rocephin 1g IV QD. Follow UCx. Does not meet sepsis criteria. Switch NS to 1/2 NS at 75 cc/hr given hypoNa. ISS + Accuchecks ACHS with hypoglycemic precautions. Fall precautions. PT and OT consulted. Carbidopa-Levodopa. Drozolamide-Timolol eye drops. Protonix 20 mg PO BID. CODE STATUS: FULL CODE. DVT Prophylaxis: Heparin SQ GI Prophylaxis: Protonix PO Designated medical POA if patient is not able to make medical decisions for themselves: I have reviewed the following compliance consultant notes: I have reviewed the results of the following tests: CBC, BMP, renal US. I have ordered the following tests: CBC, BMP in the AM. I have discussed the care of this patient with the following independent historian: I have independently interpreted the following test below: I have discussed the management of this patient with the following physician: Objective - Vital Signs Vital signs: Vital Signs Temp 96.9 F L 11/17/24 06:50 Pulse 71 11/17/24 06:50 Resp 17 11/17/24 06:50 BP 131/73 11/17/24 06:50 Pulse Ox 99 11/17/24 06:50 FiO2 Intake & Output 11/16/24 11/17/24 11/17/24 18:59 06:59 18:59 Intake Total 75 Balance 75 Weight 40.37 kg 40.37 kg Intake: Oral 75 Other: Voiding Method External Catheter # Voids 1 - Labs CBC & Chem 7: 11/17/24 03:39 11/17/24 03:47 Labs: Abnormal Lab Results - Last 24 Hours (Table) 11/16/24 11/16/24 11/16/24 Range/Units 12:35 12:35 12:59 WBC (4.50-10.00) X 10*3/uL RBC (4.10-5.20) X 10*6/uL MCV (80.0-97.0) FL MCHC (32.0-37.0) g/dL RDW (11.5-14.5) % Immature Gran # (0.00-0.04) X 10*3/uL Neutrophils # (1.80-7.70) X 10*3/uL APTT 18.7 L (22.0-30.0) sec Sodium (135-145) mmol/L Chloride 116 H (98-107) mmol/L Carbon Dioxide 21 L (22-30) mmol/L BUN 63 H (7-17) mg/dL Creatinine 1.30 H (0.52-1.04) mg/dL Est GFR (CKD-EPI) (>=60) BUN/Creatinine Ratio (12.00-20.00) Ratio Glucose 230 H (74-99) mg/dL POC Glucose (mg/dL) (70-110) mg/dL Albumin 3.2 L (3.5-5.0) g/dL Urine Appearance Cloudy H (Clear) Urine Protein 1+ H (Negative) Urine Blood Trace H (Negative) Urine Nitrite Positive H (Negative) Ur Leukocyte Esterase Large H (Negative) Urine WBC >182 H (0-5) /hpf Urine WBC Clumps Moderate H (None) /hpf Urine Bacteria Few H (None) /hpf Urine Mucus Rare H (None) /hpf 11/16/24 11/17/24 11/17/24 Range/Units 21:24 03:39 03:47 WBC 11.87 H (4.50-10.00) X 10*3/uL RBC 4.03 L (4.10-5.20) X 10*6/uL MCV 101.5 H (80.0-97.0) FL MCHC 29.6 L (32.0-37.0) g/dL RDW 14.6 H (11.5-14.5) % Immature Gran # 0.05 H (0.00-0.04) X 10*3/uL Neutrophils # 9.42 H (1.80-7.70) X 10*3/uL APTT (22.0-30.0) sec Sodium 149 H (135-145) mmol/L Chloride 118 H (98-107) mmol/L Carbon Dioxide 19.8 L (22-30) mmol/L BUN 51.2 H (7-17) mg/dL Creatinine (0.52-1.04) mg/dL Est GFR (CKD-EPI) 49 L (>=60) BUN/Creatinine Ratio 46.55 H (12.00-20.00) Ratio Glucose 126 H (74-99) mg/dL POC Glucose (mg/dL) 151 H (70-110) mg/dL Albumin (3.5-5.0) g/dL Urine Appearance (Clear) Urine Protein (Negative) Urine Blood (Negative) Urine Nitrite (Negative) Ur Leukocyte Esterase (Negative) Urine WBC (0-5) /hpf Urine WBC Clumps (None) /hpf Urine Bacteria (None) /hpf Urine Mucus (None) /hpf
[2024-11-17 13:28] VITALS: BMI 17.4
[2024-11-17 16:47] LABS: Glucose,Whole Blood 150 mg/dL (70-110)
[2024-11-17 20:11] LABS: Glucose,Whole Blood 149 mg/dL (70-110)
[2024-11-18 06:48] LABS: Glucose,Whole Blood 120 mg/dL (70-110)
[2024-11-18 11:41] LABS: Glucose,Whole Blood 181 mg/dL (70-110)
--- NOTE | 2024-11-18 16:30 | P.PN ---
Subjective Progress Note Date: 11/18/24 Patient is a poor historian and unable to effectively communicate thus history is limited. 89 year old F with PMH of Parkinsons, DM, h/o PE, RA, Thyroid disorder, GERD presents to the ED for altered mentation since yesterday along with poor oral intake. Apparently patient is weaker than normal and unable to get out of bed. In the ED she underwent extensive evaluation. BP 112/63, HR 71, T 97.9F, RR 14, 98% on RA. CBC, Coag panel, CMP significant for WBC 18.7, APTT 18.7, Cl 116, bicarb 21, BUN 63, Cr 1.3, glu 230, alb 3.2. Trop 0.022. Lactic acid 1.3. UA large LE with > 182 WBCs. EKG sinus rhythm with nonspecific ST-T wave changes and inferior Q waves. CXR neg. CT brain neg for acute pathology. Patient is admitted for treatment of UTI. 11/17 Patient was seen and examined. Unchanged clinically. CBC and BMP significant for WBC 11.87, RBC 4.03, MCV 101.5, Na 149, Cl 118, bicarb 19.8, BUN 51.2, glu 126. Renal US negative for hydronephrosis. Maintained on Rocephin 1g IV QD (D2). 11/18 Patient was seen and examined. Doing well. Working with PT. More vocal today. UCx GNB. Maintained on Rocephin 1g IV QD (D3). General: non toxic, no distress, appears at stated age Derm: warm, dry Head: atraumatic, normocephalic, symmetric Eyes: EOMI, no lid lag, anicteric sclera Mouth: no lip lesion, mucus membranes moist Cardiovascular: S1S2 reg, no murmur Lungs: CTA bilateral, no rhonchi, no rales , no accessory muscle use Ext: no gross muscle atrophy, no edema, no contractures Neuro: no focal neuro deficits Psych: Alert, oriented, appropriate affect Based on my assessment of this patient, this patient meets a high complexity level of care. Acute metabolic encephalopathy secondary to UTI Acute kidney injury on CKD stage 3a Hypernatremia Diabetes mellitus with hyperglycemia Parkinsons disorder Glaucoma GERD Continue Rocephin 1g IV QD. Follow UCx. Does not meet sepsis criteria. 1/2 NS at 75 cc/hr given hypoNa. Repeat BMP in the AM. ISS + Accuchecks ACHS with hypoglycemic precautions. Fall precautions. PT and OT on board. Carbidopa-Levodopa. Drozolamide-Timolol eye drops. Protonix 20 mg PO BID. Anticipate discharge when urine culture finalizes, likely tomorrow. CODE STATUS: FULL CODE. DVT Prophylaxis: Heparin SQ GI Prophylaxis: Protonix PO Designated medical POA if patient is not able to make medical decisions for themselves: I have reviewed the following production consultant notes: I have reviewed the results of the following tests: UCx. I have ordered the following tests: CBC, BMP in the AM. I have discussed the care of this patient with the following independent historian: RN. Case management. I have independently interpreted the following test below: I have discussed the management of this patient with the following physician: Objective - Vital Signs Vital signs: Vital Signs Temp 97.4 F L 11/18/24 12:59 Pulse 71 11/18/24 12:59 Resp 17 11/18/24 12:59 BP 104/65 11/18/24 12:59 Pulse Ox 100 11/18/24 12:59 FiO2 Intake & Output 11/17/24 11/18/24 11/18/24 18:59 06:59 18:59 Output Total 150 Balance -150 Weight 40.37 kg Output: Urine 150 Other: Voiding Method External Catheter - Labs CBC & Chem 7: 11/17/24 03:39 11/17/24 03:47 Labs: Abnormal Lab Results - Last 24 Hours (Table) 11/17/24 11/17/24 11/18/24 Range/Units 16:43 20:06 06:46 POC Glucose (mg/dL) 150 H 149 H 120 H (70-110) mg/dL 11/18/24 Range/Units 11:39 POC Glucose (mg/dL) 181 H (70-110) mg/dL Microbiology - Last 24 Hours (Table) 11/16/24 12:59 Urine Culture - Preliminary Urine,Voided Gram Neg Bacilli 11/16/24 14:56 Blood Culture - Preliminary Blood
[2024-11-18 16:37] LABS: Glucose,Whole Blood 252 mg/dL (70-110)
[2024-11-18 20:57] LABS: Glucose,Whole Blood 221 mg/dL (70-110)
[2024-11-19 02:04] VITALS: RESP 16
[2024-11-19 06:29] LABS: HCT 39.1 % (34.0-46.0); Hypochromasia Marked; MCH 31.2 pg (25.0-35.0); MCHC 30.7 g/dL (31.0-37.0); MCV 101.8 fL (80.0-100.0); Macrocytosis Slight; Mean Platelet Volume 8.7; Platelet Count 151 k/uL (150-450); RBC 3.84 m/uL (3.80-5.40); RDW 13.4 % (11.5-15.5); WBC 6.7 k/uL (3.8-10.6)
[2024-11-19 06:30] LABS: Glucose,Whole Blood 120 mg/dL (70-110)
[2024-11-19 07:02] LABS: African American GFR (CKD) 76 (>60 ml/min/1.73 sqM); Anion Gap 6 mmol/L; Blood Urea Nitrogen 29 mg/dL (7-17); Calcium 8.1 mg/dL (8.4-10.2); Carbon Dioxide 18 mmol/L (22-30); Chloride 110 mmol/L (98-107); Glucose 114 mg/dL (74-99); Non-African American GFR(CKD) 66 (>60 ml/min/1.73 sqM); Potassium 3.7 mmol/L (3.5-5.1); Sodium 134 mmol/L (137-145)
[2024-11-19 07:55] VITALS: BP 130/69; PULSE 71; TEMP 98.1
--- NOTE | 2024-11-19 10:22 | P.DS ---
Providers Date of admission: 11/16/24 14:17 Expected date of discharge: 11/19/24 Attending physician: Isaac Simpson [facility] Course: Patient is a poor historian and unable to effectively communicate thus history is limited. 89 year old F with PMH of Parkinsons, DM, h/o PE, RA, Thyroid disorder, GERD presents to the ED for altered mentation since yesterday along with poor oral intake. Apparently patient is weaker than normal and unable to get out of bed. In the ED she underwent extensive evaluation. BP 112/63, HR 71, T 97.9F, RR 14, 98% on RA. CBC, Coag panel, CMP significant for WBC 18.7, APTT 18.7, Cl 116, bicarb 21, BUN 63, Cr 1.3, glu 230, alb 3.2. Trop 0.022. Lactic acid 1.3. UA large LE with > 182 WBCs. EKG sinus rhythm with nonspecific ST-T wave changes and inferior Q waves. CXR neg. CT brain neg for acute pathology. Patient is admitted for treatment of UTI. 11/17 Patient was seen and examined. Unchanged clinically. CBC and BMP significant for WBC 11.87, RBC 4.03, MCV 101.5, Na 149, Cl 118, bicarb 19.8, BUN 51.2, glu 126. Renal US negative for hydronephrosis. Maintained on Rocephin 1g IV QD (D2). 11/18 Patient was seen and examined. Doing well. Working with PT. More vocal today. UCx GNB. Maintained on Rocephin 1g IV QD (D3). 11/19 Patient was seen and examined. CBC and BMP significant for MCV 101.8, Na 134, Cl 110, bicarb 18, BUN 29, glu 114. UCx growing Proteus. Maintained on Rocephin 1g IV QD (D4). Discharge Plan: Augmentin x 4 days to complete a total of 7 days antibiotics. Follow up with PCP within 1-2 days of discharge. General: non toxic, no distress, appears at stated age Derm: warm, dry Head: atraumatic, normocephalic, symmetric Eyes: EOMI, no lid lag, anicteric sclera Mouth: no lip lesion, mucus membranes moist Cardiovascular: S1S2 reg, no murmur Lungs: CTA bilateral, no rhonchi, no rales , no accessory muscle use Ext: no gross muscle atrophy, no edema, no contractures Neuro: no focal neuro deficits Psych: Alert, oriented, appropriate affect Discharge Diagnosis: Acute metabolic encephalopathy secondary to UTI Acute kidney injury on CKD stage 3a Diabetes mellitus with hyperglycemia Parkinsons disorder Glaucoma GERD Resolved: HyperNa This complex discharge took 35 minutes to complete. Patient Condition at Discharge: Stable Plan - Discharge Summary New Discharge Prescriptions: New Amoxic-Pot Clav 875-125Mg [Augmentin 875-125] 1 tab PO Q12HR 4 Days #8 tab Continue Carbidopa-Levodopa 25-100 mg [Sinemet 25-100 mg] 1 tab PO TID Pantoprazole Sodium 20 mg PO BID Ascorbic Acid [Vitamin C] 1,000 mg PO DAILY Dorzolamide-Timol 2.23%/0.68% [Cosopt] 1 drop LEFT EYE DAILY Fludrocortisone [Florinef] 0.1 mg PO BID #60 tab Cholecalciferol [Vitamin D3 (25 Mcg = 1000 Iu)] 25 mcg PO DAILY Aspirin 81 mg PO DAILY tab traMADol HCL 50 - 100 mg PO Q8H PRN PRN Reason: Pain droNABinol [Marinol] 2.5 mg PO AC-BID@1300,1700 Discharge Medication List Carbidopa-Levodopa 25-100 mg [Sinemet 25-100 mg] 1 tab PO TID 09/16/19 [History] Pantoprazole Sodium 20 mg PO BID 02/03/21 [History] Ascorbic Acid [Vitamin C] 1,000 mg PO DAILY 02/02/23 [History] Cholecalciferol [Vitamin D3 (25 Mcg = 1000 Iu)] 25 mcg PO DAILY 02/02/23 [History] Aspirin 81 mg PO DAILY tab 02/04/23 [Rx] Dorzolamide-Timol 2.23%/0.68% [Cosopt] 1 drop LEFT EYE DAILY 09/07/24 [History] droNABinol [Marinol] 2.5 mg PO AC-BID@1300,1700 09/07/24 [History] traMADol HCL 50 - 100 mg PO Q8H PRN 09/07/24 [History] Fludrocortisone [Florinef] 0.1 mg PO BID #60 tab 09/10/24 [Rx] Amoxic-Pot Clav 875-125Mg [Augmentin 875-125] 1 tab PO Q12HR 4 Days #8 tab 11/19/24 [Rx] Follow up Appointment(s)/Referral(s): Neel Werner MD [Primary Care Provider] - 1-2 days (Office is closed at time of discharge. Please call for follow-up appointment.) Discharge Disposition: HOME SELF-CARE
== END 2024-11-19 11:56 | disposition home or self-care (01) ==
LOC: EC 11:17 → 4SSUR 14:17
PROVIDERS: ADMIT Student in an Organized Health Care Education/Training Program; ATTEND Student in an Organized Health Care Education/Training Program
DX: G93.41 Metabolic encephalopathy (principal); N39.0 Urinary tract infection, site not specified; N17.9 Acute kidney failure, unspecified; N18.31 Chronic kidney disease, stage 3a; E11.65 Type 2 diabetes mellitus with hyperglycemia; E86.0 Dehydration; G20.A1 Parkinson's disease without dyskinesia, without mention of fluctuations; K21.9 Gastro-esophageal reflux disease without esophagitis; E11.22 Type 2 diabetes mellitus with diabetic chronic kidney disease; E87.0 Hyperosmolality and hypernatremia; H40.9 Unspecified glaucoma; Z86.711 Personal history of pulmonary embolism; Z79.82 Long term (current) use of aspirin; Z79.899 Other long term (current) drug therapy
CPT/HCPCS: 96376 ×3; 96365 ×2; 96366 ×3; 96372 ×4; 99285; 51798; 36415; 93005; 97162; 97530; 97166; 80053; 80048 ×2; 83605; 84484; 85025 ×2; 85027; 85610; 85730; 81001; 87040; 87086; 87077; 87186; 71046; 76770; 70450; G0378 ×4; J1644 ×4; Q0167 ×2; J0696 ×4

== ENCOUNTER 2024-11-21 13:45 | Observation (INO) | payer MEDICARE, BC ==
--- NOTE | 2024-11-21 14:26 | ED ---
General Adult HPI - General Chief complaint: Altered Mental Status Stated complaint: Vomiting Time Seen by Provider: 11/21/24 13:47 Source: patient, EMS, RN notes reviewed, old records reviewed Mode of arrival: EMS Limitations: altered mental status - History of Present Illness Initial comments: Patient is an 89-year-old female presenting to the emergency department with concerns with vomiting. Patient was recently discharged from the hospital with urinary tract infection. Patient reportedly was doing well this morning and then started vomiting. Patient still feels unwell at this time and still complains of nausea. Patient received Zofran in route and did vomit again in the emergency department. History is somewhat limited secondary to patient's chronic altered mental status. - Related Data Home Medications Medication Instructions Recorded Confirmed Carbidopa-Levodopa 25-100 mg 1 tab PO TID 09/16/19 11/21/24 [Sinemet 25-100 mg] Previous Rx's Medication Instructions Recorded Amoxic-Pot Clav 875-125Mg 1 tab PO Q12HR 4 Days #8 tab 11/19/24 [Augmentin 875-125] Allergies Allergy/AdvReac Type Severity Reaction Status Date / Time cortisone Allergy Unknown Verified 11/21/24 16:17 Review of Systems ROS Statement: Those systems with pertinent positive or pertinent negative responses have been documented in the HPI. ROS Other: All systems not noted in ROS Statement are negative. Constitutional: Denies: fever Eyes: Denies: eye pain ENT: Denies: ear pain Respiratory: Denies: cough Cardiovascular: Denies: chest pain Endocrine: Denies: fatigue Gastrointestinal: Reports: as per HPI, nausea, vomiting Genitourinary: Denies: dysuria Musculoskeletal: Denies: back pain Past Medical History Past Medical History: Diabetes Mellitus, Eye Disorder, Hearing Disorder / Deafness, Osteoarthritis (OA), Pulmonary Embolus (PE), Rheumatoid Arthritis (RA), Syncope, Thyroid Disorder Additional Past Medical History / Comment(s): parkinsons, [place] History of Any Multi-Drug Resistant Organisms: None Reported Past Surgical History: Appendectomy, Bladder Surgery, Hysterectomy, Orthopedic Surgery Additional Past Surgical History / Comment(s): bladder suspension Past Anesthesia/Blood Transfusion Reactions: No Reported Reaction Past Psychological History: No Psychological Hx Reported Smoking Status: Never smoker Past Alcohol Use History: None Reported Past Drug Use History: None Reported - Past Family History Mother Family Medical History: No Reported History Father Additional Family Medical History / Comment(s): passed from emphysema Sister(s) Family Medical History: Cancer, Myocardial Infarction (ID) Additional Family Medical History / Comment(s): one sister passed from brain cancer at 28 years old. two other sisters passed from heart attacks General Exam Limitations: altered mental status General appearance: alert, in no apparent distress Head exam: Present: normocephalic Eye exam: Present: normal appearance Neck exam: Present: normal inspection Respiratory exam: Present: normal lung sounds bilaterally Cardiovascular Exam: Present: tachycardia GI/Abdominal exam: Present: soft, tenderness (Mild diffuse abdominal tender), normal bowel sounds Extremities exam: Present: normal inspection Neurological exam: Present: alert, altered. Absent: motor sensory deficit Psychiatric exam: Present: flat affect Skin exam: Present: normal color Course Vital Signs 11/21/24 13:52 Temperature 97.6 F Pulse Rate 115 H Respiratory 18 Rate Blood Pressure 101/55 O2 Sat by Pulse 97 Oximetry EKG Findings - EKG Results: EKG: interpreted by ERMD (Inferior Q waves.), sinus rhythm, normal axis, normal ST/T EKG shows: tachycardia Medical Decision Making - Medical Decision Making MDM back MDM back was pt. sent in by a medical professional or institution (, PA, RIM BUSTER, urgent care, hospital, or senior care...) When possible be specific @ -No Did you speak to anyone other than the patient for history (EMS, parent, family, police, friend...)? What history was obtained from this source @ -No Did you review nursing and triage notes (agree or disagree)? Why? @ -I reviewed and agree with nursing and triage notes Were old charts reviewed (outside hosp., previous admission, EMS record, old EKG, old radiological studies, urgent care reports/EKG's, senior care records)? Report findings @ -Chart and labs from previous admission reviewed including renal function Differential Diagnosis (chest pain, altered mental status, abdominal pain women, abdominal pain men, vaginal bleeding, weakness, fever, dyspnea, syncope, headache, dizziness, GI bleed, back pain, seizure, CVA, palpatations, mental health, musculoskeletal)? @ -Differential Weakness: Hypoglycemia, shock, sepsis, hyponatremia, anemia, infection, ID, ETOH, adverse medicine reaction, overdose, stroke, this is not meant to be an all-inclusive list. EKG interpreted by me (3pts min.). @ -As above X-rays interpreted by me (1pt min.). @ -Chest x-ray shows no acute process. Abdominal x-ray does show some increased stool CT interpreted by me (1pt min.). @ -None done U/S interpreted by me (1pt. min.). @ -None done What testing was considered but not performed or refused? (CT, X-rays, U/S, labs)? Why? @ -None What meds were considered but not given or refused? Why? @ -None Did you discuss the management of the patient with other professionals (professionals i.e. DrJoselo, PA, RIM BUSTER, lab, RT, psych nurse, health social work professor, hotel or motel receptionist, teacher, commanding officer traffic division, case reviewer)? Give summary @ -Case was discussed with Dr. Leon who will admit covering Dr. Rojas Was smoking cessation discussed for >3mins.? @ -No Was critical care preformed (if so, how long)? @ -No Were there social determinants of health that impacted care today? How? (Homele ssness, low income, unemployed, alcoholism, drug addiction, transportation, low edu. Level, literacy, decrease access to med. care, alf, rehab)? @ -No Was there de-escalation of care discussed even if they declined (Discuss DNR or withdrawal of care, Hospice)? DNR status @ -No What co-morbidities impacted this encounter? (DM, HTN, Smoking, COPD, CAD, Cancer, CVA, ARF, Chemo, Hep., AIDS, mental health diagnosis, sleep apnea, morbid obesity)? @ -Recent hospitalization for dehydration and urinary tract Was patient admitted / discharged? Hospital course, mention meds given and route, prescriptions, significant lab abnormalities, going to OR and other pertinent info. @ -Patient presents with nausea vomiting. Patient does appear dry on exam. Patient has elevated BUN/creatinine ratio as well as lactic acid. There is concern for continued urinary tract infection noticed at 1710. Patient will be admitted. Blood culture and lactic acid and urine culture and IV antibiotics have all been ordered. Patient updated. Admission orders written Undiagnosed new problem with uncertain prognosis? @ -No Drug Therapy requiring intensive monitoring for toxicity (Heparin, Nitro, Insulin, Cardizem)? @ -No Were any procedures done? @ -No Diagnosis/symptom? @ -Dehydration Acute, or Chronic, or Acute on Chronic? @ -Acute Uncomplicated (without systemic symptoms) or Complicated (systemic symptoms)? @ -Default Side effects of treatment? @ -No Exacerbation, Progression, or Severe Exacerbation? @ -No Poses a threat to life or bodily function? How? (Chest pain, [place], ID, pneumonia, PE, COPD, DKA, ARF, appy, cholecystitis, CVA, Diverticulitis, Homicidal, Suicidal, threat to staff... and all critical care pts) @ -No - Lab Data Result diagrams: 11/21/24 15:02 11/21/24 15:02 Lab Results 11/21/24 11/21/24 11/21/24 Range/Units 15:02 15:02 15:02 WBC 9.3 (3.8-10.6) k/uL RBC 4.34 (3.80-5.40) m/uL Hgb 13.3 (11.4-16.0) gm/dL Hct 43.1 (34.0-46.0) % MCV 99.2 (80.0-100.0) fL MCH 30.6 (25.0-35.0) pg MCHC 30.9 L (31.0-37.0) g/dL RDW 13.2 (11.5-15.5) % Plt Count 248 (150-450) k/uL MPV 8.3 Neutrophils % 95 % Lymphocytes % 2 % Monocytes % 1 % Eosinophils % 1 % Basophils % 0 % Neutrophils # 8.8 H (1.3-7.7) k/uL Lymphocytes # 0.2 L (1.0-4.8) k/uL Monocytes # 0.1 (0-1.0) k/uL Eosinophils # 0.1 (0-0.7) k/uL Basophils # 0.0 (0-0.2) k/uL Manual Slide Review Performed Hypochromasia Moderate PT 10.6 (10.0-12.5) sec INR 0.9 (<1.2) APTT 20.3 L (22.0-30.0) sec Sodium 137 (137-145) mmol/L Potassium 5.0 (3.5-5.1) mmol/L Chloride 104 (98-107) mmol/L Carbon Dioxide 20 L (22-30) mmol/L Anion Gap 13 mmol/L BUN 41 H (7-17) mg/dL Creatinine 1.05 H (0.52-1.04) mg/dL Est GFR (CKD-EPI)AfAm 55 (>60 ml/min/1.73 sqM) Est GFR (CKD-EPI)NonAf 48 (>60 ml/min/1.73 sqM) Glucose 263 H (74-99) mg/dL Plasma Lactic Acid Jayjay (0.7-2.0) mmol/L Calcium 9.2 (8.4-10.2) mg/dL Magnesium 1.8 (1.6-2.3) mg/dL Total Bilirubin 0.6 (0.2-1.3) mg/dL AST 19 (14-36) U/L ALT 9 (4-34) U/L Alkaline Phosphatase 90 (38-126) U/L Troponin I (0.000-0.034) ng/mL Total Protein 6.5 (6.3-8.2) g/dL Albumin 3.2 L (3.5-5.0) g/dL Urine Color Urine Appearance (Clear) Urine pH (5.0-8.0) Ur Specific [place] (1.001-1.035) Urine Protein (Negative) Urine Glucose (UA) (Negative) Urine Ketones (Negative) Urine Blood (Negative) Urine Nitrite (Negative) Urine Bilirubin (Negative) Urine Urobilinogen (<2.0) mg/dL Ur Leukocyte Esterase (Negative) Urine RBC (0-5) /hpf Urine WBC (0-5) /hpf Ur Squamous Epith Cells (0-4) /hpf Urine Bacteria (None) /hpf Urine Mucus (None) /hpf 11/21/24 11/21/24 11/21/24 Range/Units 15:02 15:02 15:35 WBC (3.8-10.6) k/uL RBC (3.80-5.40) m/uL Hgb (11.4-16.0) gm/dL Hct (34.0-46.0) % MCV (80.0-100.0) fL MCH (25.0-35.0) pg MCHC (31.0-37.0) g/dL RDW (11.5-15.5) % Plt Count (150-450) k/uL MPV Neutrophils % % Lymphocytes % % Monocytes % % Eosinophils % % Basophils % % Neutrophils # (1.3-7.7) k/uL Lymphocytes # (1.0-4.8) k/uL Monocytes # (0-1.0) k/uL Eosinophils # (0-0.7) k/uL Basophils # (0-0.2) k/uL Manual Slide Review Hypochromasia PT (10.0-12.5) sec INR (<1.2) APTT (22.0-30.0) sec Sodium (137-145) mmol/L Potassium (3.5-5.1) mmol/L Chloride (98-107) mmol/L Carbon Dioxide (22-30) mmol/L Anion Gap mmol/L BUN (7-17) mg/dL Creatinine (0.52-1.04) mg/dL Est GFR (CKD-EPI)AfAm (>60 ml/min/1.73 sqM) Est GFR (CKD-EPI)NonAf (>60 ml/min/1.73 sqM) Glucose (74-99) mg/dL Plasma Lactic Acid Jayjay 5.5 H* (0.7-2.0) mmol/L Calcium (8.4-10.2) mg/dL Magnesium (1.6-2.3) mg/dL Total Bilirubin (0.2-1.3) mg/dL AST (14-36) U/L ALT (4-34) U/L Alkaline Phosphatase (38-126) U/L Troponin I <0.012 (0.000-0.034) ng/mL Total Protein (6.3-8.2) g/dL Albumin (3.5-5.0) g/dL Urine Color Light Yellow Urine Appearance Clear (Clear) Urine pH 5.5 (5.0-8.0) Ur Specific [place] 1.017 (1.001-1.035) Urine Protein Trace H (Negative) Urine Glucose (UA) Negative (Negative) Urine Ketones Negative (Negative) Urine Blood Negative (Negative) Urine Nitrite Negative (Negative) Urine Bilirubin Negative (Negative) Urine Urobilinogen <2.0 (<2.0) mg/dL Ur Leukocyte Esterase Moderate H (Negative) Urine RBC 1 (0-5) /hpf Urine WBC 54 H (0-5) /hpf Ur Squamous Epith Cells 1 (0-4) /hpf Urine Bacteria Rare H (None) /hpf Urine Mucus Rare H (None) /hpf Disposition Clinical Impression: Dehydration Disposition: ADMITTED IP TO THIS HOSP Is patient prescribed a controlled substance at d/c from ED?: No Referrals: Neel Werner MD [Primary Care Provider] - 1-2 days Time of Disposition: 17:13
[2024-11-21] MEDS: SODIUM CHLORIDE 0.9% 1,000 ML IV STA ×2 (15:10→17:36)
[2024-11-21] MEDS: METOCLOPRAMIDE 5 MG/ML 2 ML VIAL IVP STA (15:10)
[2024-11-21 15:11] LABS: Basophils % (A) 0 %; Eosinophils # (A) 0.1 k/uL (0-0.7); Eosinophils % (A) 1 %; HCT 43.1 % (34.0-46.0); HGB 13.3 gm/dL (11.4-16.0); Hypochromasia Moderate; Lymphocytes # (A) 0.2 k/uL (1.0-4.8); Lymphocytes % (A) 2 %; MCH 30.6 pg (25.0-35.0); MCHC 30.9 g/dL (31.0-37.0); MCV 99.2 fL (80.0-100.0); Mean Platelet Volume 8.3; Monocytes # (A) 0.1 k/uL (0-1.0); Monocytes % (A) 1 %; Neutrophils # (A) 8.8 k/uL (1.3-7.7); Neutrophils % (A) 95 %; Platelet Count 248 k/uL (150-450); RBC 4.34 m/uL (3.80-5.40); RDW 13.2 % (11.5-15.5); WBC 9.3 k/uL (3.8-10.6)
[2024-11-21] MEDS: FAMOTIDINE 20 MG/2 ML VIAL IV STA (15:13)
[2024-11-21 15:26] LABS: ALT 9 U/L (4-34); AST 19 U/L (14-36); African American GFR (CKD) 55 (>60 ml/min/1.73 sqM); Albumin 3.2 g/dL (3.5-5.0); Alkaline Phosphatase 90 U/L (38-126); Anion Gap 13 mmol/L; Blood Urea Nitrogen 41 mg/dL (7-17); Calcium 9.2 mg/dL (8.4-10.2); Carbon Dioxide 20 mmol/L (22-30); Chloride 104 mmol/L (98-107); Glucose 263 mg/dL (74-99); Magnesium 1.8 mg/dL (1.6-2.3); Non-African American GFR(CKD) 48 (>60 ml/min/1.73 sqM); Sodium 137 mmol/L (137-145); Total Bilirubin 0.6 mg/dL (0.2-1.3); Total Protein 6.5 g/dL (6.3-8.2)
[2024-11-21 15:31] LABS: INR 0.9 (<1.2); Prothrombin Time 10.6 sec (10.0-12.5)
[2024-11-21 15:32] LABS: Partial Thromboplastin Time 20.3 sec (22.0-30.0)
[2024-11-21 16:07] LABS: Appearance,Urine Clear (Clear); Bacteria,Urine Rare /hpf; Bilirubin,Urine Negative (Negative); Blood,Urine Negative (Negative); Color,Urine Light Yellow; Glucose,Urine (UA) Negative (Negative); Ketones,Urine Negative (Negative); Leukocyte Esterase,Urine Moderate (Negative); Mucus,Urine Rare /hpf; Nitrite,Urine Negative (Negative); PH, Urine 5.5 (5.0-8.0); Protein,Urine Trace (Negative); RBC,Urine 1 /hpf (0-5); Specific Gravity,Urine 1.017 (1.001-1.035); Squamous Epithelial Cell,Urine 1 /hpf (0-4); Urobilinogen,Urine <2.0 mg/dL (<2.0); WBC,Urine 54 /hpf (0-5)
--- NOTE | 2024-11-21 16:18 | XR ---
EXAMINATION TYPE: XR chest 2V DATE OF EXAM: 11/21/2024 4:09 PM COMPARISON: Chest x-ray 5 days earlier CLINICAL INDICATION: Female, 89 years old with history of Weakness, TECHNIQUE: Frontal and lateral views of the chest are obtained. FINDINGS: There is new small to tiny right-sided pleural effusion. Left lung remains clear. The card iac silhouette size is within normal limits. Vertebroplasty near the thoracolumbar junction is redemo nstrated. IMPRESSION: New small to tiny right pleural effusion. [facility], , 11/21/2024 4:16 PM
[2024-11-21] MEDS: SODIUM CHLORIDE 0.9% 500 ML 500 ML IV STA (16:19)
--- NOTE | 2024-11-21 16:20 | XR ---
EXAMINATION TYPE: XR abdomen 1V DATE OF EXAM: 11/21/2024 4:09 PM CLINICAL HISTORY: Abdominal pain and vomiting TECHNIQUE: Single supine KUB image of the abdomen is obtained. COMPARISON: CT March 15, 2021. FINDINGS: Scattered gas is seen in non-distended small and large bowel loops. Moderate to severe rect al fecal prominence. There is vertebroplasty at L1 level redemonstrated. Vascular calcifications are redemonstrated most prominent in the epigastric and left upper quadrant. Bilateral pelvic phleboliths . IMPRESSION: Overall nonobstructive bowel gas pattern. Moderate to severe rectal fecal stasis and/or constipation noted. [facility], , 11/21/2024 4:18 PM
[2024-11-21] MEDS ORDERED: NALOXONE 0.4 MG/ML 1 ML VIAL IV PRN (17:13)
[2024-11-21] MEDS ORDERED: ONDANSETRON 4 MG/2 ML VIAL IVP PRN (17:13)
[2024-11-21] MEDS ORDERED: polyethylene glycoL 3350 17 GM POWD.PACK PO PRN (17:33)
[2024-11-21] MEDS ORDERED: DOCUSATE 100 MG CAP PO PRN (17:33)
[2024-11-21] MEDS: SODIUM CHLORIDE 0.9% 1,000 ML IV SCH (17:37)
[2024-11-21] MEDS ORDERED: DEXTROSE 50% SYRINGE 50 ML IVP PRN ×2 (17:42)
--- NOTE | 2024-11-21 17:43 | P.HPIM ---
History of Present Illness H&P Date: 11/21/24 Patient is a poor historian and unable to effectively communicate thus history is limited. 89 year old F with PMH of Parkinsons, DM, h/o PE, RA, Thyroid disorder, GERD presents to the ED for nausea and vomiting that started today. She was recently hospitalized from 11/16-11/19 for treatment of UTI and discharged home on Augmentin. In the ED she underwent extensive evaluation. BP 101/55, HR 115, T 9 7.6F, RR 18, 97% on RA. CBC, Coag panel, CMP significant for APTT 20.3, bicarb 20, BUN 41, Cr 1.05, glu 263, alb 3.2. Trop < 0.012. Lactic acid 5.5. UA mod LE with 54 WBCs. EKG sinus rhythm with nonspecific ST-T wave changes and inferior Q waves. CXR small right pleural effusion. KUB moderate to severe rectal fecal stasis. Patient is admitted for further workup and management. General: non toxic, no distress, appears at stated age Derm: warm, dry Head: atraumatic, normocephalic, symmetric Eyes: EOMI, no lid lag, anicteric sclera Mouth: no lip lesion, mucus membranes moist Cardiovascular: S1S2 reg, no murmur Lungs: CTA bilateral, no rhonchi, no rales , no accessory muscle use Ext: no gross muscle atrophy, no edema, no contractures Neuro: no focal neuro deficits Psych: Alert, oriented x 0 Based on my assessment of this patient, this patient meets a high complexity level of care. Nausea and vomiting likely secondary to rectal fecal stasis versus side effect of Augmentin: Docusate 100 mg PO QD PRN, Miralax 17g PO QD PRN, Lactulose 20g PO BID. Surgery consult. Lactic acidosis likely related to dehydration: Start NS at 75 cc/hr. Trend until negative. UTI: Previous urine culture growing Proteus. Start Rocephin 1g IV QD. Does not meet sepsis criteria. Acute kidney injury on CKD stage 3a: Likely prerenal due to above. IV hydration as above. Diabetes mellitus: ISS + Accuchecks ACHS with hypoglycemic precautions. Parkinsons disorder: PT and OT consult. Restart Carbidopa-Levodopa. CODE STATUS: FULL CODE. DVT Prophylaxis: Heparin SQ GI Prophylaxis: Protonix PO Designated medical POA if patient is not able to make medical decisions for themselves: I have reviewed the following underwriting consultant notes: ED note. I have reviewed the results of the following tests: As above. I have ordered the following tests: As above. I have discussed the care of this patient with the following independent historian: I have independently interpreted the following test below: KUB I have discussed the management of this patient with the following physician: Past Medical History Past Medical History: Diabetes Mellitus, Eye Disorder, Hearing Disorder / Deafne ss, Osteoarthritis (OA), Pulmonary Embolus (PE), Rheumatoid Arthritis (RA), Syncope, Thyroid Disorder Additional Past Medical History / Comment(s): parkinsons, [id number] History of Any Multi-Drug Resistant Organisms: None Reported Past Surgical History: Appendectomy, Bladder Surgery, Hysterectomy, Orthopedic Surgery Additional Past Surgical History / Comment(s): bladder suspension Past Anesthesia/Blood Transfusion Reactions: No Reported Reaction Past Psychological History: No Psychological Hx Reported Smoking Status: Never smoker Past Alcohol Use History: None Reported Past Drug Use History: None Reported - Past Family History Mother Family Medical History: No Reported History Father Additional Family Medical History / Comment(s): passed from emphysema Sister(s) Family Medical History: Cancer, Myocardial Infarction ([place]) Additional Family Medical History / Comment(s): one sister passed from brain cancer at 28 years old. two other sisters passed from heart attacks Medications and Allergies Home Medications Medication Instructions Recorded Confirmed Type Carbidopa-Levodopa 25-100 mg 1 tab PO TID 09/16/19 11/21/24 History [Sinemet 25-100 mg] Amoxic-Pot Clav 875-125Mg 1 tab PO Q12HR 4 Days #8 tab 11/19/24 11/21/24 Rx [Augmentin 875-125] Allergies Allergy/AdvReac Type Severity Reaction Status Date / Time cortisone Allergy Unknown Verified 11/21/24 16:17 Physical Exam Vitals: Vital Signs Temp Pulse Resp BP Pulse Ox 11/21/24 13:52 97.6 F 115 H 18 101/55 97 Intake and Output 11/21/24 11/21/24 11/21/24 06:59 14:59 22:59 Other: Weight 47.627 kg Results CBC & Chem 7: 11/21/24 15:02 11/21/24 15:02 Labs: Abnormal Lab Results - Last 24 Hours (Table) 11/21/24 11/21/24 11/21/24 Range/Units 15:02 15:02 15:02 MCHC 30.9 L (31.0-37.0) g/dL Neutrophils # 8.8 H (1.3-7.7) k/uL Lymphocytes # 0.2 L (1.0-4.8) k/uL APTT 20.3 L (22.0-30.0) sec Carbon Dioxide 20 L (22-30) mmol/L BUN 41 H (7-17) mg/dL Creatinine 1.05 H (0.52-1.04) mg/dL Glucose 263 H (74-99) mg/dL Plasma Lactic Acid Jayjay (0.7-2.0) mmol/L Albumin 3.2 L (3.5-5.0) g/dL Urine Protein (Negative) Ur Leukocyte Esterase (Negative) Urine WBC (0-5) /hpf Urine Bacteria (None) /hpf Urine Mucus (None) /hpf 11/21/24 11/21/24 Range/Units 15:02 15:35 MCHC (31.0-37.0) g/dL Neutrophils # (1.3-7.7) k/uL Lymphocytes # (1.0-4.8) k/uL APTT (22.0-30.0) sec Carbon Dioxide (22-30) mmol/L BUN (7-17) mg/dL Creatinine (0.52-1.04) mg/dL Glucose (74-99) mg/dL Plasma Lactic Acid Jayjay 5.5 H* (0.7-2.0) mmol/L Albumin (3.5-5.0) g/dL Urine Protein Trace H (Negative) Ur Leukocyte Esterase Moderate H (Negative) Urine WBC 54 H (0-5) /hpf Urine Bacteria Rare H (None) /hpf Urine Mucus Rare H (None) /hpf
[2024-11-21] MEDS: ACETAMINOPHEN TAB 325 MG TAB PO PRN (18:42)
[2024-11-21 20:21] LABS: Glucose,Whole Blood 201 mg/dL (70-110)
[2024-11-21] MEDS: INSULIN ASPART (NovoLOG) 100 UNIT/ML VIAL SQ SCH (21:27)
[2024-11-21] MEDS: LACTULOSE 20 GM/30 ML CUP PO SCH (21:28)
[2024-11-21] MEDS: CARBIDOPA-LEVODOPA 25-100 MG 1 EACH TAB PO SCH (21:28)
[2024-11-21] MEDS: HEPARIN SODIUM,PORCINE 5,000 UNIT/ML 1 ML VIAL SQ SCH (21:28)
[2024-11-22 06:12] LABS: Glucose,Whole Blood 124 mg/dL (70-110)
[2024-11-22] MEDS: PANTOPRAZOLE 40 MG TABLET PO SCH (06:55)
[2024-11-22] MEDS: PANTOPRAZOLE 40 MG/10 ML VIAL IV SCH (08:37)
[2024-11-22 08:47] LABS: ALT 8 U/L (8-44); AST 22 U/L (13-35); Albumin 2.4 g/dL (3.8-4.9); Albumin/Globulin Ratio 1.04 Ratio (1.60-3.17); Alkaline Phosphatase 49 U/L (41-126); BUN/Creat Ratio 35.27 Ratio (12.00-20.00); Blood Urea Nitrogen 38.8 mg/dL (9.0-27.0); Calcium 7.5 mg/dL (8.7-10.3); Chloride 113 mmol/L (96-109); Globulin 2.3 g/dL (1.6-3.3); Glucose 148 mg/dL (70-110); Potassium 4.2 mmol/L (3.5-5.5); Sodium 140 mmol/L (135-145); Total Bilirubin <0.2 mg/dL (0.3-1.2); Total Protein 4.7 g/dL (6.2-8.2)
[2024-11-22 09:06] LABS: Basophils # (A) 0.01 X 10*3/uL (0.00-0.10); Basophils % (A) 0.1 %; Eosinophils # (A) 0.01 X 10*3/uL (0.04-0.35); Eosinophils % (A) 0.1 %; HCT 32.7 % (37.2-46.3); Lymphocytes % (A) 4.4 %; MCH 30.5 pg (27.0-32.0); MCHC 30.6 g/dL (32.0-37.0); MCV 99.7 FL (80.0-97.0); Mean Platelet Volume 12.1 FL (9.5-12.2); Monocytes # (A) 0.59 X 10*3/uL (0.20-1.00); Monocytes % (A) 8.7 %; NRBC Per 100 WBC 0 X 10*3/uL (0.00-0.01); Neutrophils % (A) 85.5 %; Platelet Count 198 X 10*3/uL (140-440); RBC 3.28 X 10*6/uL (4.10-5.20); RDW 14.3 % (11.5-14.5); WBC 6.79 X 10*3/uL (4.50-10.00)
[2024-11-22 10:51] VITALS: BMI 20.5
[2024-11-22 11:35] LABS: Glucose,Whole Blood 95 mg/dL (70-110)
--- NOTE | 2024-11-22 14:39 | P.GSCN ---
History of Present Illness Consult date: 11/22/24 History of present illness: CHIEF COMPLAINT: Vomiting HISTORY OF PRESENT ILLNESS: This is a 89-year-old female who presented to the hospital with concerns of vomiting. She was recently discharged from the hospital on 11/19/2024 for UTI. Patient presents back to the hospital with vomiting and dehydration. Patient did have 1 large bowel movement. She had abdominal x-ray completed that showed moderate to severe rectal fecal stasis. She did have a temp of 101 last night and mild tachycardia. She was started on lactulose yesterday. She had urinary retention with Lan catheter placed. This morning patient complaining mostly of headache. With sensitivity to sound and light. Patient reports it has been a few days since her last bowel movement. Per nursing staff patient having difficulty with swallowing. And speech therapy has been consulted. PAST MEDICAL HISTORY: Diabetes Mellitus, Eye Disorder, Hearing Disorder / Deafness, Osteoarthritis (OA), Pulmonary Embolus (PE), Rheumatoid Arthritis (RA), Syncope, Thyroid Disorder, hard of hearing, Parkinson's PAST SURGICAL HISTORY: Appendectomy, bladder suspension, hysterectomy MEDICATIONS: See below ALLERGIES: See below SOCIAL HISTORY: No illicit drug use. REVIEW OF SYSTEMS: CONSTITUTIONAL: Denies fever or chills. HEENT: Denies blurred vision, vision changes, or eye pain. Denies hemoptysis CARDIOVASCULAR: Denies chest pain or pressure. RESPIRATORY: No shortness of breath. GASTROINTESTINAL: See HPI for pertinent findings HEMATOLOGIC: Denies bleeding disorders. GENITOURINARY: Denies any blood in urine or increased urinary frequency. SKIN: Denies pruitis. Denies rash. PHYSICAL EXAM: VITAL SIGNS: Reviewed GENERAL: Well-developed in no acute distress. HEENT: No sclera icterus. Extraocular movements grossly intact. Moist buccal mucosa. Head is atraumatic, normocephalic. No nasal drainage. ABDOMEN: Soft. Nondistended. Mild tenderness palpation of lower abdomen NEUROLOGIC: Alert and oriented. Cranial nerves II through XII grossly intact. LABORATORY DATA: WBC 6.79 Hgb 13 down to 10.0 platelets 198 Sodium is 140 potassium 4.2 creatinine 1.1 IMAGING: Abdominal x-ray reports overall nonobstructive bowel gas pattern. Moderate to severe rectal fecal stasis and/or constipation. ASSESSMENT: 1. Constipation. Abdominal x-ray reporting moderate to severe rectal fecal stasis and/or constipation 2. Nausea and vomiting 3. UTI PLAN: -Continue lactulose -Soapsuds enema added for constipation -Continue to monitor Physician Construction Recruiter note has been reviewed by physician. Signing provider agrees with the documented findings, assessment, and plan of care. Past Medical History Past Medical History: Diabetes Mellitus, Eye Disorder, Hearing Disorder / Deafness, Osteoarthritis (OA), Pulmonary Embolus (PE), Rheumatoid Arthritis (RA), Syncope, Thyroid Disorder Additional Past Medical History / Comment(s): parkinsons, MARSHALL History of Any Multi-Drug Resistant Organisms: None Reported Past Surgical History: Appendectomy, Bladder Surgery, Hysterectomy, Orthopedic Surgery Additional Past Surgical History / Comment(s): bladder suspension Past Anesthesia/Blood Transfusion Reactions: No Reported Reaction Past Psychological History: No Psychological Hx Reported Smoking Status: Never smoker Past Alcohol Use History: None Reported Past Drug Use History: None Reported Additional Drug Use History / Comment(s): pt smoked "1 or 2" cigarettes a day and quit when she was 19. - Past Family History Mother Family Medical History: No Reported History Father Additional Family Medical History / Comment(s): passed from emphysema Sister(s) Family Medical History: Cancer, Myocardial Infarction ([place]) Additional Family Medical History / Comment(s): one sister passed from brain cancer at 28 years old. two other sisters passed from heart attacks Medications and Allergies Home Medications Medication Instructions Recorded Confirmed Type Carbidopa-Levodopa 25-100 mg 1 tab PO TID 09/16/19 11/21/24 History [Sinemet 25-100 mg] Amoxic-Pot Clav 875-125Mg 1 tab PO Q12HR 4 Days #8 tab 11/19/24 11/21/24 Rx [Augmentin 875-125] Allergies Allergy/AdvReac Type Severity Reaction Status Date / Time cortisone Allergy Unknown Verified 11/21/24 16:17 Surgical - Exam Osteopathic Statement: *. No significant issues noted on an osteopathic structural exam other than those noted in the History and Physical/Consult. Vital Signs Temp Pulse Resp BP Pulse Ox 97.6 F 115 H 18 101/55 97 11/21/24 13:52 11/21/24 13:52 11/21/24 13:52 11/21/24 13:52 11/21/24 13:52 Results - Labs 11/22/24 04:36 11/22/24 04:36 Abnormal Lab Results - Last 24 Hours (Table) 11/21/24 11/21/24 11/21/24 Range/Units 15:02 15:02 15:02 RBC (4.10-5.20) X 10*6/uL Hgb (12.0-15.0) g/dL Hct (37.2-46.3) % MCV (80.0-97.0) FL MCHC 30.9 L (31.0-37.0) g/dL Immature Gran # (0.00-0.04) X 10*3/uL Neutrophils # 8.8 H (1.3-7.7) k/uL Lymphocytes # 0.2 L (1.0-4.8) k/uL Eosinophils # (0.04-0.35) X 10*3/uL APTT 20.3 L (22.0-30.0) sec Chloride (96-109) mmol/L Carbon Dioxide 20 L (22-30) mmol/L BUN 41 H (7-17) mg/dL Creatinine 1.05 H (0.52-1.04) mg/dL Est GFR (CKD-EPI) (>=60) BUN/Creatinine Ratio (12.00-20.00) Ratio Glucose 263 H (74-99) mg/dL POC Glucose (mg/dL) (70-110) mg/dL Plasma Lactic Acid Jayjay (0.7-2.0) mmol/L Calcium (8.7-10.3) mg/dL Total Bilirubin (0.3-1.2) mg/dL Total Protein (6.2-8.2) g/dL Albumin 3.2 L (3.5-5.0) g/dL Albumin/Globulin Ratio (1.60-3.17) Ratio Urine Protein (Negative) Ur Leukocyte Esterase (Negative) Urine WBC (0-5) /hpf Urine Bacteria (None) /hpf Urine Mucus (None) /hpf 11/21/24 11/21/24 11/21/24 Range/Units 15:02 15:35 18:11 RBC (4.10-5.20) X 10*6/uL Hgb (12.0-15.0) g/dL Hct (37.2-46.3) % MCV (80.0-97.0) FL MCHC (31.0-37.0) g/dL Immature Gran # (0.00-0.04) X 10*3/uL Neutrophils # (1.3-7.7) k/uL Lymphocytes # (1.0-4.8) k/uL Eosinophils # (0.04-0.35) X 10*3/uL APTT (22.0-30.0) sec Chloride (96-109) mmol/L Carbon Dioxide (22-30) mmol/L BUN (7-17) mg/dL Creatinine (0.52-1.04) mg/dL Est GFR (CKD-EPI) (>=60) BUN/Creatinine Ratio (12.00-20.00) Ratio Glucose (74-99) mg/dL POC Glucose (mg/dL) (70-110) mg/dL Plasma Lactic Acid Jayjay 5.5 H* 3.4 H* (0.7-2.0) mmol/L Calcium (8.7-10.3) mg/dL Total Bilirubin (0.3-1.2) mg/dL Total Protein (6.2-8.2) g/dL Albumin (3.5-5.0) g/dL Albumin/Globulin Ratio (1.60-3.17) Ratio Urine Protein Trace H (Negative) Ur Leukocyte Esterase Moderate H (Negative) Urine WBC 54 H (0-5) /hpf Urine Bacteria Rare H (None) /hpf Urine Mucus Rare H (None) /hpf 11/21/24 11/22/24 11/22/24 Range/Units 20:19 04:36 04:36 RBC 3.28 L (4.10-5.20) X 10*6/uL Hgb 10.0 L (12.0-15.0) g/dL Hct 32.7 L (37.2-46.3) % MCV 99.7 H (80.0-97.0) FL MCHC 30.6 L (31.0-37.0) g/dL Immature Gran # 0.08 H (0.00-0.04) X 10*3/uL Neutrophils # (1.3-7.7) k/uL Lymphocytes # 0.30 L (1.0-4.8) k/uL Eosinophils # 0.01 L (0.04-0.35) X 10*3/uL APTT (22.0-30.0) sec Chloride 113 H (96-109) mmol/L Carbon Dioxide 18.0 L (22-30) mmol/L BUN 38.8 H (7-17) mg/dL Creatinine (0.52-1.04) mg/dL Est GFR (CKD-EPI) 49 L (>=60) BUN/Creatinine Ratio 35.27 H (12.00-20.00) Ratio Glucose 148 H (74-99) mg/dL POC Glucose (mg/dL) 201 H (70-110) mg/dL Plasma Lactic Acid Jayjay (0.7-2.0) mmol/L Calcium 7.5 L (8.7-10.3) mg/dL Total Bilirubin <0.2 L (0.3-1.2) mg/dL Total Protein 4.7 L (6.2-8.2) g/dL Albumin 2.4 L (3.5-5.0) g/dL Albumin/Globulin Ratio 1.04 L (1.60-3.17) Ratio Urine Protein (Negative) Ur Leukocyte Esterase (Negative) Urine WBC (0-5) /hpf Urine Bacteria (None) /hpf Urine Mucus (None) /hpf 11/22/24 Range/Units 06:11 RBC (4.10-5.20) X 10*6/uL Hgb (12.0-15.0) g/dL Hct (37.2-46.3) % MCV (80.0-97.0) FL MCHC (31.0-37.0) g/dL Immature Gran # (0.00-0.04) X 10*3/uL Neutrophils # (1.3-7.7) k/uL Lymphocytes # (1.0-4.8) k/uL Eosinophils # (0.04-0.35) X 10*3/uL APTT (22.0-30.0) sec Chloride (96-109) mmol/L Carbon Dioxide (22-30) mmol/L BUN (7-17) mg/dL Creatinine (0.52-1.04) mg/dL Est GFR (CKD-EPI) (>=60) BUN/Creatinine Ratio (12.00-20.00) Ratio Glucose (74-99) mg/dL POC Glucose (mg/dL) 124 H (70-110) mg/dL Plasma Lactic Acid Jayjay (0.7-2.0) mmol/L Calcium (8.7-10.3) mg/dL Total Bilirubin (0.3-1.2) mg/dL Total Protein (6.2-8.2) g/dL Albumin (3.5-5.0) g/dL Albumin/Globulin Ratio (1.60-3.17) Ratio Urine Protein (Negative) Ur Leukocyte Esterase (Negative) Urine WBC (0-5) /hpf Urine Bacteria (None) /hpf Urine Mucus (None) /hpf Diabetes panel 11/21/24 11/22/24 Range/Units 15:02 04:36 Sodium 137 140 (137-145) mmol/L Potassium 5.0 4.2 (3.5-5.1) mmol/L Chloride 104 113 H (98-107) mmol/L Carbon Dioxide 20 L 18.0 L (22-30) mmol/L BUN 41 H 38.8 H (7-17) mg/dL Creatinine 1.05 H 1.1 (0.52-1.04) mg/dL Glucose 263 H 148 H (74-99) mg/dL Calcium 9.2 7.5 L (8.4-10.2) mg/dL AST 19 22 (14-36) U/L ALT 9 8 (4-34) U/L Alkaline Phosphatase 90 49 (38-126) U/L Total Protein 6.5 4.7 L (6.3-8.2) g/dL Albumin 3.2 L 2.4 L (3.5-5.0) g/dL Calcium panel 11/21/24 11/22/24 Range/Units 15:02 04:36 Calcium 9.2 7.5 L (8.4-10.2) mg/dL Albumin 3.2 L 2.4 L (3.5-5.0) g/dL Pituitary panel 11/21/24 11/22/24 Range/Units 15:02 04:36 Sodium 137 140 (137-145) mmol/L Potassium 5.0 4.2 (3.5-5.1) mmol/L Chloride 104 113 H (98-107) mmol/L Carbon Dioxide 20 L 18.0 L (22-30) mmol/L BUN 41 H 38.8 H (7-17) mg/dL Creatinine 1.05 H 1.1 (0.52-1.04) mg/dL Glucose 263 H 148 H (74-99) mg/dL Calcium 9.2 7.5 L (8.4-10.2) mg/dL Adrenal panel 11/21/24 11/22/24 Range/Units 15:02 04:36 Sodium 137 140 (137-145) mmol/L Potassium 5.0 4.2 (3.5-5.1) mmol/L Chloride 104 113 H (98-107) mmol/L Carbon Dioxide 20 L 18.0 L (22-30) mmol/L BUN 41 H 38.8 H (7-17) mg/dL Creatinine 1.05 H 1.1 (0.52-1.04) mg/dL Glucose 263 H 148 H (74-99) mg/dL Calcium 9.2 7.5 L (8.4-10.2) mg/dL Total Bilirubin 0.6 <0.2 L (0.2-1.3) mg/dL AST 19 22 (14-36) U/L ALT 9 8 (4-34) U/L Alkaline Phosphatase 90 49 (38-126) U/L Total Protein 6.5 4.7 L (6.3-8.2) g/dL Albumin 3.2 L 2.4 L (3.5-5.0) g/dL Assessment and Plan Assessment: 89 yo female constipation multiple bowel movements keep on bowel regimen and titrate to 1-2 bowel movements per day no further surgical intervention Tylor Fitzgerald DO [id number] Time with Patient: Less than 30
[2024-11-22 16:38] LABS: Glucose,Whole Blood 89 mg/dL (70-110)
--- NOTE | 2024-11-22 16:53 | P.PN ---
Subjective Hospital Course: 89 year old F with PMH of Parkinsons, DM, h/o PE, RA, Thyroid disorder, GERD presents to the ED for nausea and vomiting that started today. She was recently hospitalized from 11/16-11/19 for treatment of UTI and discharged home on Augmentin. In the ED she underwent extensive evaluation. BP 101/55, HR 115, T 97.6F, RR 18, 97% on RA. CBC, Coag panel, CMP significant for APTT 20.3, bicarb 20, BUN 41, Cr 1.05, glu 263, alb 3.2. Trop < 0.012. Lactic acid 5.5. UA mod LE with 54 WBCs. EKG sinus rhythm with nonspecific ST-T wave changes and inferior Q waves. CXR small right pleural effusion. KUB moderate to severe rectal fecal stasis. Patient is admitted for further workup and management. Patient was started on docusate, MiraLAX, lactulose, surgery consulted. IV fluids initiated Per patient's , she is on thickened liquids at home, it was reported by RN that patient was coughing after fluid intake, AEROSOL SUPERVISOR consulted Pertinent Imaging: Abdominal x-ray from admission reviewed Subjective: Very soft-spoken, denies abdominal pain today, denies headache Pertinent positives and negatives as discussed above, a complete review of systems was performed and all other systems are negative. Vitals Signs Reviewed. General: [nontoxic], [chronically ill-appearing Derm: [warm], [dry] Head: [atraumatic], [normocephalic], [symmetric] Eyes: [EOMI], [no lid lag], [anicteric sclera] Mouth: [no lip lesion], [mucus membranes moist] Cardiovascular: [S1S2 reg], [no murmur] Lungs: [CTA bilateral], [no rhonchi, no rales] , [no accessory muscle use] Abdominal: [soft], [ nontender to palpation], [no guarding], [no appreciable organomegaly] Ext: [no gross muscle atrophy], [no edema], [no contractures] Neuro: [ CN II-XI grossly intact], [no focal neuro deficits] no cogwheel rigidity Psych: [Alert], [oriented], [appropriate affect] Data Reviewed Today: Pertinent Labs: [Normal WBC, hemoglobin 10.0, normal platelet count, sodium and potassium WNL, creatinine 1.1, glucose well-controlled, AST ALT normal Imaging: [] Assessment and Plan: Nausea and vomiting secondary to rectal fecal status versus side effect of Au gmentin: Continue with docusate, MiraLAX, lactulose,-surgery consulted, agreed with conservative management CKD stage IIIa Lactic acidosis secondary to above -Continue IV fluids, continue Rocephin type II DM: Continue ISS and Accu-Cheks, hypoglycemia protocol Parkinson's disease: PT OT, resume carbidopa-levodopa Bedbound/wheelchair-bound [ DVT ppx: Heparin Code status: Full code Anticipated discharge place: Per patient's spouse, home at discharge Anticipated discharge time: 24 to 48 hours Objective - Vital Signs Vital signs: Vital Signs Temp 97.8 F 11/22/24 13:15 Pulse 75 11/22/24 13:15 Resp 16 11/22/24 13:15 BP 104/63 11/22/24 13:15 Pulse Ox 100 11/22/24 13:15 FiO2 Intake & Output 11/21/24 11/22/24 11/22/24 18:59 06:59 18:59 Output Total 200 Balance -200 Weight 47.627 kg 47.627 kg 47.627 kg Output: Urine 200 Other: Voiding Method Indwelling Catheter Indwelling Catheter # Bowel Movements 1 - Labs CBC & Chem 7: 11/22/24 04:36 11/22/24 04:36 Labs: Abnormal Lab Results - Last 24 Hours (Table) 11/21/24 11/21/24 11/22/24 Range/Units 18:11 20:19 04:36 RBC 3.28 L (4.10-5.20) X 10*6/uL Hgb 10.0 L (12.0-15.0) g/dL Hct 32.7 L (37.2-46.3) % MCV 99.7 H (80.0-97.0) FL MCHC 30.6 L (32.0-37.0) g/dL Immature Gran # 0.08 H (0.00-0.04) X 10*3/uL Lymphocytes # 0.30 L (0.90-5.00) X 10*3/uL Eosinophils # 0.01 L (0.04-0.35) X 10*3/uL Chloride (96-109) mmol/L Carbon Dioxide (21.6-31.8) mmol/L BUN (9.0-27.0) mg/dL Est GFR (CKD-EPI) (>=60) BUN/Creatinine Ratio (12.00-20.00) Ratio Glucose (70-110) mg/dL POC Glucose (mg/dL) 201 H (70-110) mg/dL Plasma Lactic Acid Jayjay 3.4 H* (0.7-2.0) mmol/L Calcium (8.7-10.3) mg/dL Total Bilirubin (0.3-1.2) mg/dL Total Protein (6.2-8.2) g/dL Albumin (3.8-4.9) g/dL Albumin/Globulin Ratio (1.60-3.17) Ratio 11/22/24 11/22/24 Range/Units 04:36 06:11 RBC (4.10-5.20) X 10*6/uL Hgb (12.0-15.0) g/dL Hct (37.2-46.3) % MCV (80.0-97.0) FL MCHC (32.0-37.0) g/dL Immature Gran # (0.00-0.04) X 10*3/uL Lymphocytes # (0.90-5.00) X 10*3/uL Eosinophils # (0.04-0.35) X 10*3/uL Chloride 113 H (96-109) mmol/L Carbon Dioxide 18.0 L (21.6-31.8) mmol/L BUN 38.8 H (9.0-27.0) mg/dL Est GFR (CKD-EPI) 49 L (>=60) BUN/Creatinine Ratio 35.27 H (12.00-20.00) Ratio Glucose 148 H (70-110) mg/dL POC Glucose (mg/dL) 124 H (70-110) mg/dL Plasma Lactic Acid Jayjay (0.7-2.0) mmol/L Calcium 7.5 L (8.7-10.3) mg/dL Total Bilirubin <0.2 L (0.3-1.2) mg/dL Total Protein 4.7 L (6.2-8.2) g/dL Albumin 2.4 L (3.8-4.9) g/dL Albumin/Globulin Ratio 1.04 L (1.60-3.17) Ratio
[2024-11-22 20:23] LABS: Glucose,Whole Blood 107 mg/dL (70-110)
[2024-11-23 06:44] LABS: Glucose,Whole Blood 74 mg/dL (70-110)
[2024-11-23 09:14] LABS: BUN/Creat Ratio 28.44 Ratio (12.00-20.00); Blood Urea Nitrogen 25.6 mg/dL (9.0-27.0); Calcium 7.3 mg/dL (8.7-10.3); Carbon Dioxide 19.1 mmol/L (21.6-31.8); Chloride 113 mmol/L (96-109); Glucose 86 mg/dL (70-110); Sodium 139 mmol/L (135-145)
[2024-11-23 10:16] LABS: Basophils # (A) 0.02 X 10*3/uL (0.00-0.10); Basophils % (A) 0.3 %; Eosinophils # (A) 0.23 X 10*3/uL (0.04-0.35); HCT 32.4 % (37.2-46.3); Lymphocytes # (A) 1.09 X 10*3/uL (0.90-5.00); Lymphocytes % (A) 14.4 %; MCH 30.1 pg (27.0-32.0); MCHC 30.9 g/dL (32.0-37.0); MCV 97.6 FL (80.0-97.0); Mean Platelet Volume 11.7 FL (9.5-12.2); Monocytes # (A) 0.98 X 10*3/uL (0.20-1.00); Monocytes % (A) 12.9 %; NRBC Per 100 WBC 0 X 10*3/uL (0.00-0.01); Neutrophils # (A) 5.22 X 10*3/uL (1.80-7.70); Platelet Count 182 X 10*3/uL (140-440); RBC 3.32 X 10*6/uL (4.10-5.20); RDW 14.6 % (11.5-14.5); WBC 7.57 X 10*3/uL (4.50-10.00)
[2024-11-23 11:23] LABS: Glucose,Whole Blood 95 mg/dL (70-110)
--- NOTE | 2024-11-23 14:35 | P.DS ---
Providers Date of admission: 11/21/24 17:20 Attending physician: Isaac Simpson Primary care physician: [facility] Course: Discharge Diagnosis: [] Hospital Course: 89 year old F with PMH of Parkinsons, DM, h/o PE, RA, Thyroid disorder, GERD presents to the ED for nausea and vomiting that started today. She was recently hospitalized from 11/16-11/19 for treatment of UTI and discharged home on Augmentin. In the ED she underwent extensive evaluation. BP 101/55, HR 115, T 97.6F, RR 18, 97% on RA. CBC, Coag panel, CMP significant for APTT 20.3, bicarb 20, BUN 41, Cr 1.05, glu 263, alb 3.2. Trop < 0.012. Lactic acid 5.5. UA mod LE with 54 WBCs. EKG sinus rhythm with nonspecific ST-T wave changes and inferior Q waves. CXR small right pleural effusion. KUB moderate to severe rectal fecal stasis. Patient is admitted for further workup and management. Patient was started on docusate, MiraLAX, lactulose, surgery consulted. IV fluids initiated, patient had several bowel movements, on 11/23 no nausea, vomiting, abdominal pain, patient is medically stable for discharge. I extensively reviewed patient's chart Per patient's , she is on thickened liquids at home Discussed with patient's , patient has been having symptoms of her eyes rolled up and being unresponsive for about 5 years or so for, with no clear reason identified source, did follow with neurology for her Parkinson's however, did not bring this concern up. he states she had a cardiac event monitor WAS recommended but did not show any heart rhythm abnormalities. Patient had several EKG including prolonged EEG that did not show any epileptiform activity, neurology was involved 6, it was believed that she probably had autonomic dysfunction related to Parkinson disease, she even had brain MRI done in February 2024 that showed no acute process, degenerative and remote ischemic changes, carotid Doppler was also done and was normal, orthostatics were negative. Patient's was instructed to closely follow-up with patient's primary neurology to identify whether she needs further workup, no acute intervention warranted at this time, patient appears to be at baseline, no seizure-like activity noted during this hospitalization. Again, patient is wheelchair/bedbound Overall prognosis is guarded. High risk or readmission. suggest outpatient Palliative care Patient seen and examined at bedside= Vital signs reviewed and stable. General: [nontoxic], [chronically ill-appearing Derm: [warm], [dry] Head: [atraumatic], [normocephalic], [symmetric] Eyes: [EOMI], [no lid lag], [anicteric sclera] Mouth: [no lip lesion], [mucus membranes moist] Cardiovascular: [S1S2 reg], [no murmur] Lungs: [CTA bilateral], [no rhonchi, no rales] , [no accessory muscle use] Abdominal: [soft], [ nontender to palpation], [no guarding], [no appreciable org anomegaly] Ext: [no gross muscle atrophy], [no edema], [no contractures] Neuro: [ CN II-XI grossly intact], [no focal neuro deficits] no cogwheel rigidity. Psych: [Alert], [oriented], [appropriate affect] A total of 40 minutes of time were spent preparing this complex discharge summary. Patient was discharged on [11/23]. Patient Condition at Discharge: Stable Plan - Discharge Summary New Discharge Prescriptions: New Docusate [Colace] 100 mg PO DAILY PRN #30 cap PRN Reason: Constipation polyethylene glycoL 3350 [Miralax] 17 gm PO DAILY PRN #30 packet PRN Reason: Constipation Continue Carbidopa-Levodopa 25-100 mg [Sinemet 25-100 mg] 1 tab PO TID Discontinued Amoxic-Pot Clav 875-125Mg [Augmentin 875-125] 1 tab PO Q12HR 4 Days #8 tab Discharge Medication List Carbidopa-Levodopa 25-100 mg [Sinemet 25-100 mg] 1 tab PO TID 09/16/19 [History] Docusate [Colace] 100 mg PO DAILY PRN #30 cap 11/23/24 [Rx] polyethylene glycoL 3350 [Miralax] 17 gm PO DAILY PRN #30 packet 11/23/24 [Rx] Follow up Appointment(s)/Referral(s): Neel Werner MD [Primary Care Provider] - 1-2 days Patient Instructions/Handouts: Constipation (DC) Activity/Diet/Wound Care/Special Instructions: Please, follow up with PCP and neurology Discharge Disposition: HOME SELF-CARE
[2024-11-23 16:42] LABS: Glucose,Whole Blood 67 mg/dL (70-110)
[2024-11-23 17:01] LABS: Glucose,Whole Blood 79 mg/dL (70-110)
[2024-11-23 20:37] LABS: Glucose,Whole Blood 103 mg/dL (70-110)
[2024-11-24 01:40] VITALS: RESP 16
[2024-11-24 06:16] LABS: Glucose,Whole Blood 76 mg/dL (70-110)
[2024-11-24 09:24] VITALS: BP 138/76; PULSE 71; TEMP 98.5
[2024-11-24 12:02] LABS: Glucose,Whole Blood 82 mg/dL (70-110)
--- NOTE | 2024-11-24 13:08 | P.PN ---
Subjective Progress Note Date: 11/24/24 Hospital Course: 89 year old F with PMH of Parkinsons, DM, h/o PE, RA, Thyroid disorder, GERD p resents to the ED for nausea and vomiting that started today. She was recently hospitalized from 11/16-11/19 for treatment of UTI and discharged home on Augmentin. In the ED she underwent extensive evaluation. BP 101/55, HR 115, T 97.6F, RR 18, 97% on RA. CBC, Coag panel, CMP significant for APTT 20.3, bicarb 20, BUN 41, Cr 1.05, glu 263, alb 3.2. Trop < 0.012. Lactic acid 5.5. UA mod LE with 54 WBCs. EKG sinus rhythm with nonspecific ST-T wave changes and inferior Q waves. CXR small right pleural effusion. KUB moderate to severe rectal fecal stasis. Patient is admitted for further workup and management. Patient was started on docusate, MiraLAX, lactulose, surgery consulted. IV fluids initiated, patient had several bowel movements, on 11/23 no nausea, vomiting, abdominal pain, patient is medically stable for discharge. I extensively reviewed patient's chart Per patient's , she is on thickened liquids at home Discussed with patient's , patient has been having symptoms of her eyes rolled up and being unresponsive for about 5 years or so for, with no clear reason identified source, did follow with neurology for her Parkinson's however, did not bring this concern up. he states she had a cardiac event monitor WAS recommended but did not show any heart rhythm abnormalities. Patient had several EKG including prolonged EEG that did not show any epileptiform activity, neurology was involved 6, it was believed that she probably had autonomic dysfunction related to Parkinson disease, she even had brain MRI done in February 2024 that showed no acute process, degenerative and remote ischemic changes, carotid Doppler was also done and was normal, orthostatics were negative. Patient's was instructed to closely follow-up with patient's primary neurology to identify whether she needs further workup, no acute intervention warranted at this time, patient appears to be at baseline, no seizure-like activity noted during this hospitalization. Again, patient is wheel chair/bedbound Overall prognosis is guarded. High risk or readmission. suggest outpatient Palliative care Patient was cleared for discharge from 11/23, , Lan catheter was removed, no urinary retention after removal, she was not picked up by family member Please see discharge summary dated 11/23/2024 Subjective: Seen and examined at bedside this morning, she only has pain in her tailbone, otherwise no complaints Pertinent positives and negatives as discussed above, a complete review of systems was performed and all other systems are negative. Vitals Signs Reviewed. General: [nontoxic], [chronically ill-appearing Derm: [warm], [dry] Head: [atraumatic], [normocephalic], [symmetric] Eyes: [EOMI], [no lid lag], [anicteric sclera] Mouth: [no lip lesion], [mucus membranes moist] Cardiovascular: [S1S2 reg], [no murmur] Lungs: [CTA bilateral], [no rhonchi, no rales] , [no accessory muscle use] Abdominal: [soft], [ nontender to palpation], [no guarding], [no appreciable organomegaly] Ext: [no gross muscle atrophy], [no edema], [no contractures] Neuro: [ CN II-XI grossly intact], [no focal neuro deficits] no cogwheel rigidity. Fine motor tremor present Psych: [Alert], [oriented], [appropriate affect] Data Reviewed Today: Pertinent Labs: Blood cglucose well-controlled Assessment and Plan: Nausea and vomiting secondary to rectal fecal status versus side effect of Augmentin: Continue with docusate, MiraLAX, lactulose,-surgery consulted, agreed with conservative management CKD stage IIIa Lactic acidosis secondary to above, resolved -Urine cultures negative, no need of antibiotics at discharge Parkinson's disease: PT OT, resume carbidopa-levodopa -Patient to follow-up with her primary neurologist after discharge Bedbound/wheelchair-bound [ DVT ppx: Heparin Code status: Full code Anticipated discharge place: Per patient's spouse, home at discharge Anticipated discharge time: 11/24 Objective - Vital Signs Vital signs: Vital Signs Temp 98.5 F 11/24/24 07:10 Pulse 71 11/24/24 07:10 Resp 16 11/24/24 07:10 BP 138/76 11/24/24 07:10 Pulse Ox 99 11/24/24 07:10 FiO2 Intake & Output 11/23/24 11/24/24 11/24/24 18:59 06:59 18:59 Intake Total 100 Balance 100 Weight 47.627 kg Intake: Oral 100 Other: Voiding Method Indwelling Catheter Diaper Diaper Incontinent Incontinent # Voids 2 # Bowel Movements 1 1 - Labs CBC & Chem 7: 11/23/24 08:07 11/23/24 03:41 Labs: Abnormal Lab Results - Last 24 Hours (Table) 11/23/24 Range/Units 16:40 POC Glucose (mg/dL) 67 L (70-110) mg/dL Microbiology - Last 24 Hours (Table) 11/21/24 18:11 Blood Culture - Preliminary Blood
--- NOTE | 2024-11-28 14:50 | CDI ---
Documentation Clarification Form Date: 11/28/2024 02:19:56 PM From: Mariah Mckeon RN, CCDS Email: [email or web address] Admit Date: 11/21/2024 05:20:00 PM Patient Name: Stephanie Srinivasan Visit Number: [id number] Discharge Date: 11/24/2024 02:16:00 PM ATTENTION: The Clinical Documentation Specialists (CDI) and [facility] Coding Staff appreciate your assistance in clarifying documentation. Please respond to the clarification below the line at the bottom and electronically sign. The CDI & [facility] Coding staff will review the response and follow-up if needed. Please note: Queries are made part of the Legal Health Record. If you have any questions, please contact the author of this message via ITS. Doctor Sally Watkins The patient had mild tachycardia, fever and lactic acidosis. Based on this information and the findings below, is there an additional diagnosis that is clinically appropriate for this patient? History/Risk Factors: Parkinsons, wheelchair/bedbound, DM, GERD, recent UTI and thyroid disorder. Presented to the ED for nausea and vomiting. Admitted with nausea and vomiting 2/2 rectal fecal stasis, dehydration and lactic acidosis. Clinical Indicators: H&P: "Lactic acidosis likely related to dehydration: Start NS at 75 cc/hr." 11/22 Surgery consult: "She had abdominal x-ray completed that showed moderate to severe rectal fecal stasis. She did have a temp of 101 last night and mild tachycardia. She was started on lactulose yesterday." 11/21 vital signs: T 101.2 HR 118 RR 18 BP 101/55 11/21 Lactic acid: 5.5-3.4-1.7 Treatment: 1L 0.9 NS IV bolus x2 on 11/21 then 75mL/hr; Lactulose 20gm po BID 11/21-11/24; IV Reglan 5mg x1 on 11/21; IV Protonix 20mg daily 11/22-11/24 Is there an additional diagnosis that is clinically appropriate for this patient? [ x ] Non-infectious SIRS causing lactic acidosis from dehydration [ ] Non-infectious SIRS not causing lactic acidosis from dehydration [ ] Non-infectious SIRS without organ dysfunction [ ] No additional diagnosis/not clinically significant [ ] Other, please specify [ ] Unable to determine SIRS Criteria: 2 or more of the following may indicate SIRS Temperature < 96.8F (36C) or > 101.0F (38.3C) Heart Rate > 90 bpm Respiratory Rate > 20 breaths/min or PaCO2 < 32 mmHg White Blood Cell Count > 12,000 or < 4,000 cells/mm3 or > 10% bands MTDD
== END 2024-11-24 14:16 | disposition home or self-care (01) ==
LOC: EC 13:45 → 4SSUR 17:20 → INTOOBSV 17:20 → 4SSUR 18:06
PROVIDERS: ADMIT Student in an Organized Health Care Education/Training Program; ATTEND Student in an Organized Health Care Education/Training Program
DX: R11.2 Nausea with vomiting, unspecified (principal); E86.0 Dehydration; K59.00 Constipation, unspecified; N39.0 Urinary tract infection, site not specified; B96.4 Proteus (mirabilis) (morganii) as the cause of diseases classified elsewhere; E87.20 Acidosis, unspecified; K21.9 Gastro-esophageal reflux disease without esophagitis; N17.9 Acute kidney failure, unspecified; N18.31 Chronic kidney disease, stage 3a; E11.22 Type 2 diabetes mellitus with diabetic chronic kidney disease; G20.A1 Parkinson's disease without dyskinesia, without mention of fluctuations; Z74.01 Bed confinement status; Z99.3 Dependence on wheelchair; Z86.711 Personal history of pulmonary embolism
CPT/HCPCS: 96376 ×3; 96366 ×2; 96372 ×4; 96375 ×2; 96361; 96365; 99285; 36415; 93005; 97162; 97166; 92610; 92526; 80053 ×2; 80048; 83605; 83735; 84484; 85025 ×3; 85610; 85730; 81001; 87040; 87086; 71046; 74018; G0378 ×4; J1644 ×4; J2765; J0696 ×4; J3490; J2470 ×3